=== PATIENT | female | born 1965 | race Caucasian/White ===

== ENCOUNTER 2017-12-22 13:03 | Emergency (ER) | payer MEDICARE, MEDICAID, SELFPAY ==
[2017-12-22 13:04] VITALS: BP 118/71; PULSE 110; RESP 18; TEMP 36.1; O2SAT 100; BMI 26.6
--- NOTE | 2017-12-22 13:16 | EKG12_ITS ---
Test Reason : DYSRHYTHMIA Blood Pressure : / mmHG Vent. Rate : 096 BPM Atrial Rate : 096 BPM P-R Int : 142 ms QRS Dur : 078 ms QT Int : 386 ms P-R-T Axes : 066 043 059 degrees QTc Int : 487 ms Normal sinus rhythm Prolonged QT Abnormal ECG Confirmed by CHARLI ZULETA, BARB ([id number]), news videotape editor MENA TIJERINA ([id number] on 12/27/2017 2:10:10 PM Referred By: BEVERLEY Confirmed By:BARB AUGUSTIN MD
--- NOTE | 2017-12-22 13:17 | CT_ITS ---
STUDY: CTA OF THE ABDOMINAL AORTA REASON FOR EXAM: Female, 52 years old. Right-sided chest pain and right upper extremity pain. RADIATION DOSAGE (If Supplied By Facility): CTDIvol = ( 14.52 ) mGy, DLP = ( 1018.88 ) mGycm TECHNIQUE: Axial CT angiography multi-detector data acquisition was obtained from the dome of the liver to the iliac crests following intravenous administration of 100ML ml of Isovue 370 contrast. Axial images and MIP images were reconstructed from the axial data set. Post-processing of the angiographic images was performed, with multiplanar reformation and 3D reconstruction. Individualized dose optimization techniques were used for this CT. TECHNICAL QUALITY: Good COMPARISON: None. Descriptors of Narrowing: None (0%) Mild (< 50%) Moderate (50-70%) Severe (70-90%) Subtotal/Total Occlusion (90-100%) Non-Evaluable (technically non-diagnostic FINDINGS: Abdominal aorta: No demonstrated narrowing. Celiac and superior mesenteric arteries: No demonstrated narrowing. Inferior mesenteric artery: No demonstrated narrowing. Right renal artery(arteries): No demonstrated narrowing. Left renal artery(arteries): No demonstrated narrowing. Fatty infiltration of the liver. Small hiatal hernia. Fluid-filled stomach. IMPRESSION: Normal abdominal aorta without a hemodynamically significant stenosis. Electronically Signed: Efren Arreguin MD at 14:29 EDT Tel [phone], Service support , STUDY: CTA CHEST REASON FOR EXAM: Female, 52 years old. Right-sided chest pain and right upper extremity pain. RADIATION DOSAGE (If Supplied By Facility): CTDIvol = ( 14.52 ) mGy, DLP = ( 1018.88 ) mGycm TECHNIQUE: The examination was performed with the intravenous administration of 100ML ml of Isovue 370 contrast material. Post-processing of the angiographic images was performed, with multiplanar reformation and 3D reconstruction. Individualized dose optimization techniques were used for this CT. COMPARISON: None. FINDINGS: Normal enhancement of the main pulmonary artery and right and left pulmonary arteries. Normal enhancement of the bilateral peripheral pulmonary arteries. There is no demonstrated pulmonary embolism. Normal thoracic aorta and visualized great vessels. There is no demonstrated aortic dissection. Normal heart and pericardium. Normal mediastinum. Normal hilar regions. Normal visualized trachea and bronchi. The lungs are well expanded. Mild degree of dependent bibasilar atelectasis. Normal pleura. Normal chest wall structures. There are degenerative changes of thoracic spine. Small hiatal hernia. CT/CTA Abdomen W/WO Contrast IMPRESSION: Mild degree of bibasilar atelectasis. Electronically Signed: Efren Arreguin MD at 14:30 EDT Tel [phone], Service support ,
--- NOTE | 2017-12-22 13:17 | CT_ITS ---
STUDY: CTA OF THE ABDOMINAL AORTA REASON FOR EXAM: Female, 52 years old. Right-sided chest pain and right upper extremity pain. RADIATION DOSAGE (If Supplied By Facility): CTDIvol = ( 14.52 ) mGy, DLP = ( 1018.88 ) mGycm TECHNIQUE: Axial CT angiography multi-detector data acquisition was obtained from the dome of the liver to the iliac crests following intravenous administration of 100ML ml of Isovue 370 contrast. Axial images and MIP images were reconstructed from the axial data set. Post-processing of the angiographic images was performed, with multiplanar reformation and 3D reconstruction. Individualized dose optimization techniques were used for this CT. TECHNICAL QUALITY: Good COMPARISON: None. Descriptors of Narrowing: None (0%) Mild (< 50%) Moderate (50-70%) Severe (70-90%) Subtotal/Total Occlusion (90-100%) Non-Evaluable (technically non-diagnostic FINDINGS: Abdominal aorta: No demonstrated narrowing. Celiac and superior mesenteric arteries: No demonstrated narrowing. Inferior mesenteric artery: No demonstrated narrowing. Right renal artery(arteries): No demonstrated narrowing. Left renal artery(arteries): No demonstrated narrowing. Fatty infiltration of the liver. Small hiatal hernia. Fluid-filled stomach. IMPRESSION: Normal abdominal aorta without a hemodynamically significant stenosis. Electronically Signed: Efren Arreguin MD at 14:29 EDT Tel [phone], Service support , STUDY: CTA CHEST REASON FOR EXAM: Female, 52 years old. Right-sided chest pain and right upper extremity pain. RADIATION DOSAGE (If Supplied By Facility): CTDIvol = ( 14.52 ) mGy, DLP = ( 1018.88 ) mGycm TECHNIQUE: The examination was performed with the intravenous administration of 100ML ml of Isovue 370 contrast material. Post-processing of the angiographic images was performed, with multiplanar reformation and 3D reconstruction. Individualized dose optimization techniques were used for this CT. COMPARISON: None. FINDINGS: Normal enhancement of the main pulmonary artery and right and left pulmonary arteries. Normal enhancement of the bilateral peripheral pulmonary arteries. There is no demonstrated pulmonary embolism. Normal thoracic aorta and visualized great vessels. There is no demonstrated aortic dissection. Normal heart and pericardium. Normal mediastinum. Normal hilar regions. Normal visualized trachea and bronchi. The lungs are well expanded. Mild degree of dependent bibasilar atelectasis. Normal pleura. Normal chest wall structures. There are degenerative changes of thoracic spine. Small hiatal hernia. CT/CTA Chest W/WO Contrast IMPRESSION: Mild degree of bibasilar atelectasis. Electronically Signed: Efren Arreguin MD at 14:30 EDT Tel [phone], Service support ,
--- NOTE | 2017-12-22 13:23 | ED.DCSUM_ITS ---
- ER Visit Summary Date of Service: 12/22/17 Chief Complaint: Right upper back pain in the right arm History of Present Illness: The patient is a 52 F presents to the emergency department with right upper back pain. Patient symptoms began yesterday. She states she has been doing a significant amount of cleaning around her house. She is right-hand dominant. She states yesterday the pain got acutely worse. She describes it as stabbing, burning sensation in the right upper back and radiates down her right arm. It is worse when she moves. She did have some chest pain with it today. She denies any history of coronary vascular disease. She denies any history of connective tissue disorder. She has no known history of dissection or aneurysm. She does not take anticoagulants. She states that she tried to Flexeril at home with little improvement. She feels like the muscles are spasming. Physical Examination: Vital signs reviewed General: Well-nourished, well-developed Head: Normocephalic, atraumatic Eyes: Pupils equal and reactive, extraocular muscles intact Neck, supple, no lymphadenopathy Heart: Regular rate and rhythm Respiratory: No distress, clear bilaterally Abdomen: Soft, nontender, nondistended, no peritoneal signs Back: Patient tender in the rhomboid musculature on the right with no crepitus Extremities: Nontender, no edema, no cords, 2+ symmetric upper extremity pulses Skin: Normal color no rash Neuro: Alert and oriented, no focal or lateralizing deficits Test Results: [] Emergency Department Course and Treatment: [The patient's pain does seem entirely reproducible, however as it did radiate to her back and chest I did want to rule out dissection. EKG was obtained which showed sinus rhythm without acute ischemic change. Patient underwent CT of the chest and abdomen. There was no acute process that would explain her pain. Her labs are relatively unremarkable except for mild elevation of her liver function tests. She has absolutely no abdominal pain. She denies taking any Tylenol. She states that she does drink occasionally but has not had right upper quadrant pain, vomiting, fevers, or chills. I am unsure of the etiology of this. I did psychotherapist counselor the patient that she is going to need reevaluation as an outpatient. With pain medication and antispasmodics or symptoms of improved. She continues to rest comfortably. I do not feel this or presents acute coronary syndrome. I do for the patient is safe for discharge with outpatient follow-up. She will be prescribed 2 days of Valium to help with her muscle spasm. She will be discharged home. Treatment Plan: [] Disposition: Charge Impression: 1. Right thoracic spasm This note was generated with [employer] dictation software. It may contain incorrect words, spelling, and punctuation that were not noted in review of the chart prior to signing ED Disposition - Plan for ED Patient: Chief Complaint: General Illness Instructions: ED Spasm Back No Trauma Prescriptions: Diazepam [Valium] 5 mg PO Q8 PRN #10 tab PRN Reason: Muscle Spasm Referrals: Mono Lynn MD [Primary Care Provider] -
[2017-12-22] MEDS: Ondansetron 4 MG/2 ML Vial IV (13:37)
[2017-12-22] MEDS: Morphine 4 MG/ML Syringe IV (13:37)
[2017-12-22] MEDS: 0.9% Normal Saline 1,000 ML 1000 ML IV (13:38)
[2017-12-22 13:43] LABS: Absolute Lymphocyte Count 0.89 X10^3/ul (0.83-4.51); Absolute Neutrophil Count 4.8 X10^3/uL (2.0-7.7); Basophil# 0.01 X10^3/uL; Basophil% 0.2 % (0-1); Eosinophil# 0.08 X10^3/uL; Eosinophils% 1.3 % (0-5); Hematocrit 36.5 % (37-47); Hemoglobin 12.1 g/dl (12.0-15.0); Lymphocyte # 0.89 X10^3/ul (4.0); Lymphocyte % 14.4 % (19-41); Mean Corp Hgb Conc 33.2 g/gl (32-36); Mean Corpuscular Hgb 30.7 pg (27.0-32.0); Mean Corpuscular Volume 92.6 fL (81-99); Mean Platelet Vol. 9.8 fl (6.2-12.0); Monocyte# 0.45 X10^3/uL; Monocyte% 7.3 % (0-10); Neutrophil # 4.76 X10^3/uL (2.7-7.7); Neutrophil % 76.6 % (47-70); POSITIVE COUNT NO; POSITIVE DIFFERENTIAL NO; POSITIVE MORPHOLOGY NO; Platelet Count 167 K/mm3 (150-450); RBC Distribution Width CV 14.9 % (11.6-14.6); RBC Distribution Width SD 50.3 fl (35.1-43.9); Red Blood Count 3.94 M/mm3 (4.2-5.4); White Blood Count 6.2 K/mm3 (4.4-11.0)
[2017-12-22 14:01] LABS: AST(SGOT) 358 U/L (15-37); Alanine Aminotransfer ALT/SGPT 225 U/L (13-56); Albumin, Serum 4.1 g/dL (3.2-5.0); Alkaline Phosphatase 113 U/L (45-117); Anion Gap 11 (5-15); BUN 13 mg/dL (7-18); BUN/Creat Ratio 9.9 RATIO (10-20); Chloride 90 mmol/L (98-107); Creatinine, Serum 1.31 mg/dL (0.55-1.02); EST Glomerular Filtration Rate 45 mL/min (>60); Est Glom Filt Rate - Afr Amer 55 mL/min (>60); Estimated Creatinine Clearance 46.49 ml/min; Glucose 137 mg/dL (74-106); Potassium 4.2 mmol/L (3.5-5.1); Protein, Total 8.1 g/dL (6.4-8.2); Sodium Level 129 mmol/L (136-145)
[2017-12-22 14:02] LABS: CPK Total, Creatine Kinase 78 U/L (26-192)
[2017-12-22] MEDS: Ketorolac 30 MG/ML Syringe IV (14:26)
[2017-12-22] MEDS: LORazepam 2 MG/ML Syringe 1 MG IV (14:26)
[2017-12-22 14:29] VITALS: BP 113/69; PULSE 94; RESP 12; O2SAT 98
[2017-12-22 15:01] VITALS: BP 113/69; PULSE 74; RESP 18; O2SAT 99
== END 2017-12-22 15:02 | disposition home or self-care (01) ==
PROVIDERS: Emergency Provider Emergency Medicine; Family Provider Family Medicine; PCP Family Medicine
DX: S29.012A Strain of muscle and tendon of back wall of thorax, initial encounter (principal); X58.XXXA Exposure to other specified factors, initial encounter; Y93.E5 Activity, floor mopping and cleaning; Y92.009 Unspecified place in unspecified non-institutional (private) residence as the place of occurrence of the external cause; M62.830 Muscle spasm of back; I10 Essential (primary) hypertension; Z79.899 Other long term (current) drug therapy
CPT/HCPCS: 71275; 74175; 80053; 82550; 84484; 85025; 93005; 96361; 96374; 96375; 99284; J7030; Q9967; A4216; J2405

== ENCOUNTER 2018-04-11 18:32 | Emergency (ER) | payer MEDICARE, MEDICAID, OTHER, SELFPAY ==
[2018-04-11 18:33] VITALS: BP 152/96; PULSE 98; RESP 20; TEMP 37; O2SAT 96; BMI 25.8
[2018-04-11] MEDS: HYDROcodone Bitartrate/Apap 5/325 Tablet PO (20:02)
--- NOTE | 2018-04-11 20:02 | CT_ITS ---
STUDY: CT BRAIN WITHOUT CONTRAST REASON FOR EXAM: Female, 53 years old. Trauma. RADIATION DOSAGE (If Supplied By Facility): CTDIvol = ( 44.99 ) mGy, DLP = ( 815.79 ) mGycm TECHNIQUE: Transaxial CT imaging of the brain was performed without administration of intravenous contrast material. Individualized dose optimization techniques were used for this CT. COMPARISON: None. FINDINGS: Normal soft tissue structures. There is a deformity of the nasal bone. There is extra-axial high attenuation fluid along the mid and posterior falx left of midline consistent with a parafalcine subdural hemorrhage measuring up to 3 mm in diameter. There is no underlying mass effect. There is mild cerebral atrophy with widening of the extra-axial spaces and ventricular dilatation. Normal white matter tracts of the cerebral hemispheres. Normal basal ganglia and thalami. Normal brainstem. Normal cerebellum. There are no findings of an acute ischemic infarction. There is partial opacification of the ethmoid, maxillary and sphenoid sinuses consistent with a history of sinusitis. CT/Brain/Head without Contrast IMPRESSION: Parafalcine subdural hemorrhage. Nasal bone deformity consistent with an underlying fracture of uncertain chronicity. N.B. : The above information has been verbally conveyed by Vanessa Mobley MD to Dr. Ez Metcalf, [facility] Physician, on 04/11/2018 20:42:11 (ET). Electronically Signed: Vanessa Mobley MD at 20:42 EDT Tel , Service support ,
[2018-04-11 20:11] VITALS: BP 165/109; PULSE 81; RESP 18; O2SAT 97
[2018-04-11] MEDS: Diphth,Pertuss(Acell),Tet Vac 0.5 ML Vial IM (21:12)
[2018-04-11 21:28] VITALS: BP 163/93; PULSE 81; RESP 16; O2SAT 97
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
[2018-04-11 22:40] VITALS: BP 157/89; PULSE 79; RESP 18; O2SAT 97
== END 2018-04-11 22:43 | disposition short-term general hospital (02) ==
PROVIDERS: Emergency Provider Emergency Medicine; Family Provider Family Medicine; PCP Family Medicine
DX: S06.5X9A Traumatic subdural hemorrhage with loss of consciousness of unspecified duration, initial encounter (principal); S51.011A Laceration without foreign body of right elbow, initial encounter; S60.221A Contusion of right hand, initial encounter; S00.33XA Contusion of nose, initial encounter; V23.5XXA Motorcycle passenger injured in collision with car, pick-up truck or van in traffic accident, initial encounter; Y93.9 Activity, unspecified; Y92.9 Unspecified place or not applicable
CPT/HCPCS: 70450; 71045; 72125; 73080; 73130; 90715; 99285

== ENCOUNTER → 2018-05-22 15:09 | Outpatient (CLI) | payer MEDICARE, MEDICAID, SELFPAY ==
--- NOTE | 2018-05-22 15:22 | CT_ITS ---
STUDY: CT BRAIN WITHOUT CONTRAST REASON FOR EXAM: Female, 53 years old. Trauma RADIATION DOSAGE (If Supplied By Facility): CTDIvol = ( 60.81 ) mGy, DLP = ( 998.67 ) mGycm TECHNIQUE: Transaxial CT imaging of the brain was performed without administration of intravenous contrast material. Individualized dose optimization techniques were used for this CT. COMPARISON: 04/11/2018 FINDINGS: There is no acute bleed or infarct. There are normal white matter tracts. The ventricles are normal in configuration. There is no hydrocephalus. The visualized paranasal sinuses are clear. The mastoid air cells are well aerated. There is no skull fracture. CT/Brain/Head without Contrast IMPRESSION: No acute intracranial abnormality. Electronically Signed: Arpit Ruiz, at 19:31 EDT Tel , Service support ,
== END ==
PROVIDERS: Family Provider Family Medicine; PCP Family Medicine
DX: S06.5X9A Traumatic subdural hemorrhage with loss of consciousness of unspecified duration, initial encounter (principal)
CPT/HCPCS: 70450

== ENCOUNTER 2018-09-03 13:04 | Emergency (ER) | payer MEDICARE, MEDICAID, SELFPAY ==
[2018-09-03 13:05] VITALS: BP 150/91; PULSE 110; RESP 18; TEMP 36.8; O2SAT 99; BMI 26.6
--- NOTE | 2018-09-03 13:19 | ED.DCSUM_ITS ---
- ER Visit Summary Date of Service: 09/03/18 Chief Complaint: Right foot pain History of Present Illness: The patient is a 53 F presents to the emergency department for right foot pain. Patient describes atraumatic pain of the right foot. She states it started 4 days ago. It was in the arch of her foot. She describes increasing pain. She states she had a difficult time walking on it. Over the past day, the pain is come to the top of her foot. She states she did have similar symptoms before when she had a DVT of her left lower extremity after the surgery. She denies any chest pain or shortness of breath. She has not on anticoagulants. She has not taken anything for her pain because she does have history of bleeding ulcer thought to be secondary from NSAID use. Physical Examination: Vital signs reviewed General: Well-nourished, well-developed Head: Normocephalic, atraumatic Eyes: Pupils equal and reactive, extraocular muscles intact Neck, supple, no lymphadenopathy Heart: Regular rate and rhythm Respiratory: No distress, clear bilaterally Abdomen: Soft, nontender, nondistended, no peritoneal signs Back: Nontender Extremities: Nontender, no edema, no cords Skin: Normal color no rash Neuro: Alert and oriented, no focal or lateralizing deficits Test Results: [] Emergency Department Course and Treatment: The patient is rather tender in the arch of the foot. Her pulses are normal. There is no cords. There is no edema or erythema. The patient was concerned for blood clot because she had similar symptoms after knee surgery in the left foot. She has no objective signs of clot. I did obtain a d-dimer. This was just barely positive. Again, the patient has no objective signs of a DVT. I did family counselor her on options. Using shared decision making, we agreed to hold on anticoagulants especially given her history of significant GI bleed. My suspicion is that this is likely a plantar's fasciitis. I am going to order an outpatient ultrasound. She will be given analgesics for home. She was counseled on concerning symptoms. The patient will be discharged. Treatment Plan: [] Disposition: Discharge Impression: 1. Right plantars fasciitis This note was generated with [employer] software. It may contain incorrect words, spelling, and punctuation that were not noted in review of the chart prior to signing ED Disposition - Plan for ED Patient: Chief Complaint: Lower Extremity Injury Instructions: ED Plantar Fasciitis Prescriptions: Hydrocodone Bitart/Apap 5-325 [Omar 5MG-325MG] 1 tab PO Q6H PRN PRN 3 Days #10 tab PRN Reason: Pain Referrals: Mono Lynn MD [Primary Care Provider] -
--- NOTE | 2018-09-03 13:30 | RAD_ITS ---
STUDY: X-RAY - RIGHT FOOT CLINICAL: Female, 53 years old. Pain. TECHNIQUE: 3 view(s) of the foot. COMPARISON: None. FINDINGS: There is a plantar calcaneal spur. Normal talus and tarsal bones. Normal visualized subtalar, talonavicular, calcaneocuboid, tarsal and tarsometatarsal articulations. There is evidence of osteotomy with transfixing screws of the distal first metatarsal. The second through fifth metatarsals appear unremarkable. Normal metatarsophalangeal joint of the great toe. Normal tibial and fibular sesamoid bones. Normal interphalangeal joint of the great toe. Normal phalanges of the great toe. Normal second through fifth metatarsophalangeal joints. Normal interphalangeal joints and phalanges of the lesser toes. The soft tissue structures are unremarkable. RAD/Foot min 3 Views IMPRESSION: 1. Postsurgical changes of the first metatarsal. 2. Small plantar spur. Electronically Signed: Moo Roberts DO at 14:26 EST Tel [phone], Service support ,
[2018-09-03] MEDS: HYDROcodone Bitartrate/Apap 5/325 Tablet PO (14:09)
[2018-09-03 14:36] LABS: D-Dimer Quantitative (DVT/PE) 0.57 FEU/ug/m (0.27-0.49)
[2018-09-03 14:44] VITALS: RESP 18
== END 2018-09-03 15:17 | disposition home or self-care (01) ==
PROVIDERS: Emergency Provider Emergency Medicine; Family Provider Family Medicine; PCP Family Medicine
DX: M72.2 Plantar fascial fibromatosis (principal)
CPT/HCPCS: 73630; 85379; 99283

== ENCOUNTER → 2018-09-05 13:01 | Outpatient (CLI) | payer MEDICARE, MEDICAID, SELFPAY ==
[2018-09-03 13:05] VITALS: BMI 26.6
--- NOTE | 2018-09-05 13:06 | VDLE_ITS ---
Reason For Study: Swelling RIGHT LEFT GSV is normal. CFV is compressible, spontaneous, phasic, CFV is compressible, spontaneous, phasic, competent, and demonstrates normal competent and demonstrates normal augmentation. augmentation. FV is compressible, spontaneous, phasic, competent and demonstrates normal augmentation. POP V is compressible, spontaneous, phasic, competent and demonstrates normal augmentation. T/P Trunk is compressible. PTV is compressible. RT PerV is compressible. Procedure Exam performed in department. A preliminary report was called and/or faxed to Leah. Interpretation Summary Deep veins of the right lower extremity are patent and compressible segmentally. There is no evidence of right lower extremity deep vein thrombosis. Valvular competence appears intact within the proximal deep venous system on the right . The right greater saphenous vein appears patent and compressible segmentally. Ordering Physician: Buzz Woody Referring Physician: MD Leah Mono Performed By: Lakeshia Olivares RVT and Student
== END ==
PROVIDERS: Family Provider Family Medicine; PCP Family Medicine; Referring Provider Emergency Medicine; Visit Provider Emergency Medicine
DX: M79.89 Other specified soft tissue disorders (principal)
CPT/HCPCS: 93971

== ENCOUNTER 2019-01-25 11:03 | Emergency (ER) | payer MEDICARE, MEDICAID, SELFPAY ==
[2019-01-25 11:05] VITALS: BP 98/60; PULSE 118; RESP 20; TEMP 36.1; O2SAT 94; BMI 25.8
--- NOTE | 2019-01-25 11:33 | EKG12_ITS ---
Test Reason : CP Blood Pressure : / mmHG Vent. Rate : 125 BPM Atrial Rate : 125 BPM P-R Int : 130 ms QRS Dur : 072 ms QT Int : 320 ms P-R-T Axes : 069 047 068 degrees QTc Int : 461 ms Sinus tachycardia Otherwise normal ECG Confirmed by HIRAM ZULETA, REJI ([id number]), script editor ARMANDO CAUSEY ([id number]) on 01/29/2019 11:23:13 AM Referred By: Confirmed By:FORTINO GANDHI MD
--- NOTE | 2019-01-25 11:44 | RAD_ITS ---
STUDY: X-RAY CHEST REASON FOR EXAM: Female, 53 years old. Muscle spasms. Chest pain. TECHNIQUE: Single AP portable view of the chest. COMPARISON: Comparison is made with prior study July 11, 2018. FINDINGS: EKG electrodes are seen. Mild increased markings at the right lung base suggestive of atelectasis. There is no demonstrated pleural abnormality. Normal size heart. Normal mediastinum and pankaj. Normal visualized pulmonary arteries. Normal visualized aortic arch and descending thoracic aorta. Normal visualized thoracic spine. Normal visualized ribs, clavicles, and shoulders. There is no demonstrated abnormality of the visualized soft tissue structures of the upper abdomen. RAD/Chest 1 View (Portable) IMPRESSION: Right basilar atelectasis. Electronically Signed: Efren Arreguin, at 13:10 EDT , Service support ,
--- NOTE | 2019-01-25 11:51 | ED.VIS.GEN ---
History of Present Illness Chief Complaint: Chest Pain Informant: Patient Onset: Yesterday Current Severity: Mild Narrative: Patient is complaining of a right-sided chest sensation that she describes as a, intermittent pain that lasts for a minute or 2 and resolves but recurs multiple times throughout the course of the day, she has no left-sided chest symptoms, she is had no fever no cough no orthopnea. 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 She indicates she has a history of hypertension she takes at least 2 antihypertensives but she reports she believes she is lost over 100 pounds by dieting and other lifestyle modifications and she does not believe she needs her blood pressure medications she is scheduled to see her family physician next week for the above she has had normal bowel bladder habits no exposures eating and drinking well currently without symptoms Past Medical History - Allergies and Home Meds Allergies/Adverse Reactions: Allergies acetaminophen [From Tylenol] Allergy (Verified 01/25/19 11:04) Bleeding simvastatin [From Zocor] Allergy (Verified 01/25/19 11:04) Rash Primary Care Physician: Mono Lynn MD [Primary Care Provider] - Past Medical History: - Surgical History: - - tubal ligation, Tallors Bunion repair, reconstruction of the nose after a fracture, D&C's Smoking Status: Never smoker - Family History Maternal Family History: Reports: No pertinent history Review of Systems ROS: - Hypertension see above General: Denies: Chills, Fever, Sweats Eyes: Denies: Visual changes - bilaterally, Diplopia ENT: Denies: Rhinorrhea, Sore throat Cardiovascular: Reports: Chest pain. Denies: Palpitations Respiratory: Denies: Dyspnea, Cough, Dyspnea on exertion Gastrointestinal: Denies: Abdominal pain, Nausea, Vomiting, Diarrhea, Melena, Hematochezia Genitourinary: Denies: Dysuria, Hematuria, Frequency Musculoskeletal: Denies: Back pain, Extremity Pain Skin: Denies: Rash, Wounds Neurological: Denies: Headache, Weakness, Numbness Physical Exam Vital Signs/Narrative: Vital Signs Temp Pulse Resp BP Pulse Ox 01/25/19 11:05 96.9 F L 118 H 20 H 98/60 94 General: Well nourished, Well developed, No Acute Distress Head: Normocephalic, Atraumatic Eyes: Perrl, EOMI ENT: Moist mucous membranes, No rhinorrhea Neck: Supple, Nontender Cardiovascular: Regular rate, Regular rhythm, No murmurs Respiratory: No distress, CTA bilaterally, Chest nontender Abdomen: Soft, Nontender, Nondistended, Normal bowel sounds Back: Nontender, Normal Inspection Extremities: Nontender, No edema Skin: Normal color, No rash Neurological: Alert, Oriented x3, Cranial nerves II-XII grossly intact, Normal Strength, Normal Sensation Psychological: Normal affect, Normal Mood Diagnostic/Tx/Re-eval - Medical Decision Making Patient's EKG shows a sinus rhythm nothing acute about 120 given all of the above in her history and her complaints she is received fluid bolus screening labs including d-dimer chest x-ray, she assures me she has had no vomiting no blood per rectum she is having no symptoms that she sits in the bed She is screening labs are all generally unremarkable except her d-dimer see those reports is elevated to greater than 20 given all the above CTA was done of the chest shows no PE no dissection on reevaluation she is resting comfortably bed her blood pressure in the 120/80 after fluids Discussed inpatient versus outpatient management she states she feels fine she does not wish to be admitted she wants to go home now she indicates she feels her blood pressure medications are no longer necessary because she is lost a lot of weight we did discuss the fact that the elevation in the d-dimer is unclear if need close outpatient follow-up she wants to follow-up with outpatient providers, she will rest hold her blood pressure meds see her outpatient providers return for change in symptoms Home stable final impression Transient right-sided chest pain resolved, hypotension resolved, declined admission ED Disposition - Plan for ED Patient: Diagnosis: Chest pain Instructions: CHEST PAIN, Uncertain Cause Referrals: Mono Lynn MD [Primary Care Provider] -
[2019-01-25 12:02] LABS: Absolute Lymphocyte Count 0.86 X10^3/ul (0.83-4.51); Absolute Neutrophil Count 6.3 X10^3/uL (2.0-7.7); Basophil# 0.01 X10^3/uL; Basophil% 0.1 % (0-1); Eosinophil# 0.03 X10^3/uL; Eosinophils% 0.4 % (0-5); Hematocrit 48.4 % (37-47); Hemoglobin 16.5 g/dl (12.0-15.0); Lymphocyte # 0.86 X10^3/ul (4.0); Mean Corp Hgb Conc 34.1 g/gl (32-36); Mean Corpuscular Hgb 33.9 pg (27.0-32.0); Mean Corpuscular Volume 99.4 fL (81-99); Monocyte# 0.66 X10^3/uL; Monocyte% 8.4 % (0-10); Neutrophil # 6.26 X10^3/uL (2.7-7.7); Neutrophil % 79.8 % (47-70); Platelet Count 142 K/mm3 (150-450); RBC Distribution Width CV 13.7 % (11.6-14.6); RBC Distribution Width SD 49.5 fl (35.1-43.9); Red Blood Count 4.87 M/mm3 (4.2-5.4); White Blood Count 7.8 K/mm3 (4.4-11.0)
[2019-01-25 12:03] VITALS: BP 96/79; PULSE 83; RESP 14; O2SAT 97
[2019-01-25 12:06] LABS: POSITIVE COUNT NO; POSITIVE DIFFERENTIAL NO; POSITIVE MORPHOLOGY NO
[2019-01-25 12:09] LABS: Anion Gap 7 (5-15); BUN 15 mg/dL (7-18); BUN/Creat Ratio 10.9 RATIO (10-20); Calcium,Total 9.9 mg/dL (8.5-10.1); Chloride 94 mmol/L (98-107); Creatinine, Serum 1.37 mg/dL (0.55-1.02); EST Glomerular Filtration Rate 43 mL/min (>60); Est Glom Filt Rate - Afr Amer 52 mL/min (>60); Estimated Creatinine Clearance 43.95 ml/min; Glucose 144 mg/dL (74-106); Potassium 3.7 mmol/L (3.5-5.1); Sodium Level 131 mmol/L (136-145)
[2019-01-25 12:11] VITALS: O2SAT 100
[2019-01-25] MEDS: 0.9% Normal Saline 1,000 ML 999 ML IV (12:13)
[2019-01-25 12:52] LABS: BNP,B-Type NATRIURETIC PEPTIDE 14.8 pg/mL (0-100)
[2019-01-25 13:06] LABS: D-Dimer Quantitative (DVT/PE) > 20.00 FEU/ug/m (0.27-0.49)
--- NOTE | 2019-01-25 13:10 | CT_ITS ---
STUDY: CTA CHEST REASON FOR EXAM: Female, 53 years old. Chest pain. Abnormal d-dimer. RADIATION DOSAGE (If Supplied By Facility): CTDIvol = ( 8.11 ) mGy, DLP = ( 383.52 ) mGycm TECHNIQUE: The examination was performed with the intravenous administration of 75 IV Isovue 370. Post-processing of the angiographic images was performed, with multiplanar reformation and 3D reconstruction. Individualized dose optimization techniques were used for this CT. COMPARISON: Comparison is made with prior study dated December 22, 2017. FINDINGS: Normal enhancement of the main pulmonary artery and right and left pulmonary arteries. Normal enhancement of the bilateral peripheral pulmonary arteries. There is no demonstrated pulmonary embolism. Normal thoracic aorta and visualized great vessels. There is no demonstrated aortic dissection. Normal heart and pericardium. Normal mediastinum. Normal hilar regions. Normal visualized trachea and bronchi. The lungs are well expanded. Mild degree of increased markings in the posterior superior segment of the right lower lobe. Mild increased markings in the peripheral aspect left lower lobe as well as right lower lobe scar. Normal pleura. Normal chest wall structures. There are degenerative changes of thoracic spine. Fatty infiltration of the liver. CT/CTA Chest W/WO Contrast IMPRESSION: No evidence of pulmonary emboli. Nonspecific scarring in both lungs as discussed. Electronically Signed: Efren Arreguin, at 13:53 EDT , Service support ,
[2019-01-25 14:00] VITALS: BP 101/66; PULSE 84; RESP 18; O2SAT 97
[2019-01-25 15:39] VITALS: RESP 18; O2SAT 98
== END 2019-01-25 15:40 | disposition home or self-care (01) ==
PROVIDERS: Emergency Provider Emergency Medicine; Family Provider Family Medicine; PCP Family Medicine
DX: R07.89 Other chest pain (principal); I95.9 Hypotension, unspecified; R79.89 Other specified abnormal findings of blood chemistry; I10 Essential (primary) hypertension; Z86.718 Personal history of other venous thrombosis and embolism; Z79.899 Other long term (current) drug therapy
CPT/HCPCS: 71045; 71275; 80048; 83880; 84484; 85025; 85379; 93005; 96360; 96361; 99284; J7030; Q9967; A4216

== ENCOUNTER 2019-06-26 14:13 | Emergency (ER) | payer MEDICARE, MEDICAID, SELFPAY ==
[2019-06-26 14:14] VITALS: BP 150/98; PULSE 129; RESP 15; TEMP 37; O2SAT 98; BMI 26.6
--- NOTE | 2019-06-26 14:19 | EKG12_ITS ---
Test Reason : CP Blood Pressure : / mmHG Vent. Rate : 124 BPM Atrial Rate : 124 BPM P-R Int : 134 ms QRS Dur : 068 ms QT Int : 324 ms P-R-T Axes : 054 028 058 degrees QTc Int : 465 ms Sinus tachycardia Nonspecific ST abnormality Abnormal ECG Confirmed by HIRAM ZULETA, REJI ([id number]), magazine editor ARMANDO CAUSEY ([id number]) on 06/29/2019 12:22:31 PM Referred By: IRMA/JAMES Confirmed By:FORTINO GANDHI MD
--- NOTE | 2019-06-26 14:19 | RAD_ITS ---
STUDY: X-RAY CHEST REASON FOR EXAM: Female, 54 years old. Chest pain. TECHNIQUE: Single AP portable view of the chest. COMPARISON: Comparison is made with prior study dated January 25, 2019. FINDINGS: EKG electrodes are seen. The lungs are clear and expanded. There is no demonstrated pleural abnormality. Normal size heart. Normal mediastinum and pankaj. Normal visualized pulmonary arteries. Normal visualized aortic arch and descending thoracic aorta. There are diffuse degenerative changes of the visualized thoracic spine. Mild deformity of the proximal metaphysis of the left humerus most likely secondary to old trauma. There is no demonstrated abnormality of the visualized soft tissue structures of the upper abdomen. RAD/Chest 1 View (Portable) IMPRESSION: No acute abnormality is seen. Electronically Signed: Efren Arreguin, at 15:05 EST , Service support ,
[2019-06-26 14:38] VITALS: BP 153/97; PULSE 109; RESP 20; O2SAT 99
[2019-06-26 14:50] LABS: Absolute Lymphocyte Count 1.31 X10^3/uL (0.83-4.51); Absolute Neutrophil Count 5.2 X10^3/uL (2.0-7.7); Basophil# 0.07 X10^3/uL; Basophil% 0.9 % (0-1); Eosinophil# 0.15 X10^3/uL; Hematocrit 42.8 % (37-47); Hemoglobin 13.9 g/dL (12.0-15.0); Lymphocyte # 1.31 X10^3/ul (4.0); Lymphocyte % 17.4 % (19-41); Mean Corp Hgb Conc 32.5 g/dL (32-36); Mean Corpuscular Volume 101.7 fL (81-99); Mean Platelet Vol. 10.8 fl (6.2-12.0); Monocyte# 0.74 X10^3/uL; Monocyte% 9.8 % (0-10); NRBC Flagged by Analyzer 0 % (0-5); Neutrophil # 5.22 X10^3/uL (2.7-7.7); Neutrophil % 69.5 % (47-70); Platelet Count 172 K/mm3 (150-450); RBC Distribution Width CV 14.3 % (11.6-14.6); RBC Distribution Width SD 53.6 fl (35.1-43.9); Red Blood Count 4.21 M/mm3 (4.2-5.4); White Blood Count 7.5 K/mm3 (4.4-11.0)
[2019-06-26 14:59] LABS: Anion Gap 10 (5-15); BUN 5 mg/dL (7-18); Calcium,Total 9.5 mg/dL (8.5-10.1); Chloride 104 mmol/L (98-107); Creatinine, Serum 0.72 mg/dL (0.55-1.02); EST Glomerular Filtration Rate 90 mL/min (>60); Est Glom Filt Rate - Afr Amer 109 mL/min (>60); Estimated Creatinine Clearance 82.65 ml/min; Glucose 117 mg/dL (74-106); Potassium 3.6 mmol/L (3.5-5.1); Sodium Level 138 mmol/L (136-145)
[2019-06-26 15:07] LABS: International Normalized Ratio 0.9; Prothrombin Time (Protime)PT. 12.2 SECONDS (11.7-14.9)
--- NOTE | 2019-06-26 15:16 | ED.DCSUM_ITS ---
- ER Visit Summary Date of Service: 06/26/19 Chief Complaint: Chest pain History of Present Illness: The patient is a 54 F presenting with chest pain. She states she has had intermittent pain throughout the week but it worsened today. She noticed pain started when she was vacuuming today. She has midster nal chest pain that radiates to her neck. She describes it as a 8 out of 10 pressure at its worst. Currently 5/10. She has a history of hypertension. She has a remote history of DVT which occurred after knee surgery. She is not on anticoagulants. She is not a smoker. She also noticed bruising on both arms and legs. She states this started a few weeks ago. She does not recall any injury. Physical Examination: Vitals are stable. Patient is afebrile. Heart rate 109. Alert no acute distress. HEENT exam is unremarkable. Neck is supple. Lungs are clear and equal bilaterally. Heart is regular and tachycardic Abdomen is soft nontender nondistended. Extremities ecchymosis right forearm, bilateral thigh. Normal distal pulses. Skin is warm and dry. No focal neurologic deficit. Remainder of exam is unremarkable. Emergency Department Course and Treatment: Patient refused aspirin. She was given nitro with improvement of her pain. EKG is sinus tachycardia rate of 124. Chest x-ray shows no acute process. CBC, chemistries unremarkable. Troponin is negative. D-dimer elevated 2.05. CTA chest shows normal CTA chest examination, without a demonstrated pulmonary embolism or arterial dissection. Hepatic steatosis. Coarse fibrotic changes of the posterior lung bases. Diffuse endplate spondylosis of the thoracic spine. On reevaluation, patient is feeling improved. Recommend admission for stress test. Patient refuses admission. She states she has to work tomorrow and has a dog at home and is unable to stay in the hospital. She is advised risks/benefits of admission and leaving AGAINST MEDICAL ADVICE. She understands these risks including [place] and . She signed out AGAINST MEDICAL ADVICE. She will follow-up with her primary care physician tomorrow. She is advised to return to the ED for worsening complaints. Disposition: AGAINST MEDICAL ADVICE Impression: Chest pain This note was generated with [employer] dictation software. It may contain incorrect words, spelling, and punctuation that were not noted in review of the chart prior to signing ED Disposition - Plan for ED Patient: Instructions: CHEST PAIN, Uncertain Cause Referrals: Mono Lynn MD [Primary Care Provider] -
[2019-06-26 15:36] VITALS: BP 148/95; PULSE 99
[2019-06-26] MEDS: Nitroglycerin SL (ED/IMG/CATH) 0.4 MG TABLET SUBLINGUAL (15:36)
[2019-06-26 15:40] VITALS: BP 148/95; PULSE 110; RESP 17
[2019-06-26 15:52] LABS: D-Dimer Quantitative (DVT/PE) 2.05 FEU/ug/m (0.27-0.49)
--- NOTE | 2019-06-26 15:58 | CT_ITS ---
STUDY: CTA CHEST REASON FOR EXAM: Female, 54 years old. Elevated d-dimer, chest pain, bruising to extremities RADIATION DOSAGE (If Supplied By Facility): CTDIvol = ( 10.49 ) mGy, DLP = ( 419.24 ) mGycm TECHNIQUE: The examination was performed with the intravenous administration of IV Isovue 370 100. Post-processing of the angiographic images was performed, with multiplanar reformation and 3D reconstruction. Individualized dose optimization techniques were used for this CT. COMPARISON: Previous study of 01/25/2019 FINDINGS: Normal enhancement of the main pulmonary artery and right and left pulmonary arteries. Normal enhancement of the bilateral peripheral pulmonary arteries. There is no demonstrated pulmonary embolism. Normal thoracic aorta and visualized great vessels. There is no demonstrated aortic dissection. Normal heart and pericardium. Normal mediastinum. Normal hilar regions. Normal visualized trachea and bronchi. The lungs are well expanded. There are coarse fibrotic changes of the posterior lung bases. Normal pleura. Normal chest wall structures. There is diffuse endplate spondylosis of the thoracic spine. There is decreased hepatic density consistent with steatosis. CT/CTA Chest W/WO Contrast IMPRESSION: Normal CTA chest examination, without a demonstrated pulmonary embolism or arterial dissection. Hepatic steatosis. Coarse fibrotic changes of the posterior lung bases. Diffuse endplate spondylosis of the thoracic spine. Electronically Signed: Sergio Camara MD at 16:47 EST , Service support ,
[2019-06-26 16:24] VITALS: BP 130/76; PULSE 92; RESP 17; O2SAT 94
--- NOTE | 2019-06-26 17:09 | ED.DEP ---
ED Disposition - Plan for ED Patient: Instructions: CHEST PAIN, Uncertain Cause Referrals: Mono Lynn MD [Primary Care Provider] -
[2019-06-26 17:31] VITALS: BP 144/90; PULSE 72; RESP 16; O2SAT 97
== END 2019-06-26 17:32 | disposition left against medical advice (07) ==
LOC: ED 15:54
PROVIDERS: Emergency Provider Emergency Medicine; Family Provider Family Medicine; PCP Family Medicine
DX: R07.9 Chest pain, unspecified (principal); Z86.718 Personal history of other venous thrombosis and embolism; Z53.29 Procedure and treatment not carried out because of patient's decision for other reasons
CPT/HCPCS: 71045; 71275; 80048; 84484; 85025; 85379; 85610; 93005; 99285; Q9967

== ENCOUNTER 2020-01-01 10:57 | Emergency (ER) | payer MEDICARE, MEDICAID, SELFPAY ==
[2020-01-01 10:59] VITALS: BP 132/98; PULSE 129; RESP 20; TEMP 36.8; O2SAT 95; BMI 25.8
--- NOTE | 2020-01-01 11:13 | RAD_ITS ---
STUDY: X-RAY CHEST REASON FOR EXAM: Female, 54 years old. SOB TECHNIQUE: Single AP portable view of the chest. COMPARISON: Comparison is made with prior examination dated June 26, 2019. FINDINGS: EKG electrodes are seen. The lungs are clear and expanded. There is no demonstrated pleural abnormality. Normal size heart. Normal mediastinum and pnakaj. Normal visualized pulmonary arteries. Normal visualized aortic arch and descending thoracic aorta. There are degenerative changes of the visualized thoracic spine. Stable deformity of the proximal metaphysis of the left humerus in keeping with a healed fracture. There is no demonstrated abnormality of the visualized soft tissue structures of the upper abdomen. RAD/Chest 1 View (Portable) IMPRESSION: No acute abnormality is seen. Electronically Signed: Efren Arreguin, at 12:51 EDT , Service support ,
--- NOTE | 2020-01-01 11:13 | EKG12_ITS ---
Test Reason : SOB, COUGH Blood Pressure : / mmHG Vent. Rate : 106 BPM Atrial Rate : 106 BPM P-R Int : 138 ms QRS Dur : 076 ms QT Int : 378 ms P-R-T Axes : 040 020 040 degrees QTc Int : 502 ms Sinus tachycardia Otherwise normal ECG Confirmed by DAGO MARINO ([id number]), acquisitions editor MENA TIJERINA ([id number]) on 01/03/2020 2:26:23 PM Referred By: SATHYA Confirmed By:DAGO MARINO
[2020-01-01 11:46] VITALS: BP 141/95; PULSE 110; RESP 19; TEMP 36.8; O2SAT 96
[2020-01-01 11:49] VITALS: O2SAT 96
[2020-01-01 12:08] LABS: Absolute Lymphocyte Count 0.62 X10^3/uL (0.83-4.51); Absolute Neutrophil Count 3.7 X10^3/uL (2.0-7.7); Basophil# 0.04 X10^3/uL; Basophil% 0.8 % (0-1); Eosinophil# 0.17 X10^3/uL; Eosinophils% 3.3 % (0-5); Hematocrit 46.1 % (37-47); Lymphocyte # 0.62 X10^3/ul (4.0); Lymphocyte % 11.9 % (19-41); Mean Corp Hgb Conc 32.5 g/dL (32-36); Mean Corpuscular Hgb 33.1 pg (27.0-32.0); Mean Corpuscular Volume 101.8 fL (81-99); Mean Platelet Vol. 10.8 fl (6.2-12.0); Monocyte# 0.65 X10^3/uL; Monocyte% 12.5 % (0-10); NRBC Flagged by Analyzer 0 % (0-5); Neutrophil # 3.69 X10^3/uL (2.7-7.7); Neutrophil % 71.1 % (47-70); Platelet Count 150 K/mm3 (150-450); RBC Distribution Width CV 14.6 % (11.6-14.6); RBC Distribution Width SD 54.8 fl (35.1-43.9); Red Blood Count 4.53 M/mm3 (4.2-5.4); White Blood Count 5.2 K/mm3 (4.4-11.0)
[2020-01-01 12:20] LABS: D-Dimer Quantitative (DVT/PE) 1.84 FEU/ug/m (0.27-0.49)
[2020-01-01 12:22] LABS: BNP,B-Type NATRIURETIC PEPTIDE 126.5 pg/mL (0-100)
[2020-01-01 12:24] VITALS: O2SAT 96
[2020-01-01 12:27] LABS: Anion Gap 12 (5-15); BUN 7 mg/dL (7-18); BUN/Creat Ratio 13.3 RATIO (10-20); Calcium,Total 9.3 mg/dL (8.5-10.1); Chloride 98 mmol/L (98-107); Creatinine, Serum 0.53 mg/dL (0.55-1.02); EST Glomerular Filtration Rate 128 mL/min (>60); Est Glom Filt Rate - Afr Amer 155 mL/min (>60); Estimated Creatinine Clearance 112.28 ml/min; Glucose 100 mg/dL (74-106); Sodium Level 138 mmol/L (136-145)
--- NOTE | 2020-01-01 12:44 | CT_ITS ---
STUDY: CTA CHEST REASON FOR EXAM: Female, 54 years old. ? PE. SOB, FATIGUE. RADIATION DOSAGE (If Supplied By Facility): CTDIvol = ( 8.84 ) mGy, DLP = ( 406.49 ) mGycm TECHNIQUE: The examination was performed with the intravenous administration of 100ML ISOVUE 370. Post-processing of the angiographic images was performed, with multiplanar reformation and 3D reconstruction. Individualized dose optimization techniques were used for this CT. COMPARISON: Comparison is made with prior study dated June 26, 2019. FINDINGS: Small benign-appearing bilateral axillary lymph nodes. Normal enhancement of the main pulmonary artery and right and left pulmonary arteries. Normal enhancement of the bilateral peripheral pulmonary arteries. There is no demonstrated pulmonary embolism. Normal thoracic aorta and visualized great vessels. There is no demonstrated aortic dissection. Normal heart and pericardium. There are visualized mediastinal lymph nodes, which are within normal size limits, and with normal morphology. Normal hilar regions. Normal visualized trachea and bronchi. The lungs are well expanded. Minimal increased linear markings at the lung Normal pleura. Normal chest wall structures. There are degenerative changes of thoracic spine. Diffuse fatty infiltration of the liver. CT/CTA Chest W/WO Contrast IMPRESSION: Normal CTA chest examination, without a demonstrated pulmonary embolism or arterial dissection. Mild degree of increased markings at the lung bases suggest bibasilar atelectasis. Fatty infiltration of the liver. Electronically Signed: Efren Arreguin, at 13:55 EDT , Service support ,
--- NOTE | 2020-01-01 13:49 | ED.VISSUMM ---
- ER Visit Summary Date of Service: 01/01/20 Chief Complaint: Shortness of breath History of Present Illness: The patient is a 54 F who presents with shortness of breath for several days. Worse with exertion and associated with fatigue and mild cough. Denies any history of heart or lung disease, but has had PE in the past that was provoked by orthopedic surgery. She is not currently on anticoagulation. No fevers or exposure to coronavirus that she is aware of. Physical Examination: Afebrile and vital signs unremarkable except for heart rate of 110. Tachycardic but regular. Lungs clear. Extremities nontender with no edema. Skin normal. Test Results: EKG showed sinus rhythm at a rate of 106. CBC and BMP unremarkable. Troponin normal. BNP 126, and d-dimer was elevated. COVID testing is pending. Chest x-ray showed nothing acute. CTA is pending. Emergency Department Course and Treatment: Patient presents with shortness of breath and nonspecific symptoms. Her history and are reassuring. Work-up so far has been unremarkable except for the elevated d-dimer. CTA is pending. COVID testing is pending. Patient will be signed out to the oncoming doctor to check the CTA results. If this is unremarkable, she may be discharged without the COVID results. She will be educated about self quarantining and will follow up with the results. Return for any new or worsening issues, otherwise follow-up PCP. CTA was unremarkable except for atelectasis and fatty liver. Patient will be discharged home. COVID precautions. Treatment Plan: As above Disposition: Pending CTA results Impression: Dyspnea COVID suspected This note was generated with [employer] dictation software. It may contain incorrect words, spelling, and punctuation that were not noted in review of the chart prior to signing ED Disposition - Plan for ED Patient: Referrals: Mono Lynn MD [Primary Care Provider] -
--- NOTE | 2020-01-01 14:14 | ED.DEP ---
ED Disposition - Plan for ED Patient: Instructions: ED Upper Resp Infec No Abx Tx Referrals: Mono Lynn MD [Primary Care Provider] -
[2020-01-01 14:39] VITALS: BP 145/97; PULSE 70; RESP 16; TEMP 36.4; O2SAT 97; O2SAT 98
== END 2020-01-01 14:41 | disposition home or self-care (01) ==
LOC: ED 13:12
PROVIDERS: Emergency Provider Emergency Medicine; PCP Family Medicine
DX: R06.02 Shortness of breath (principal); R06.00 Dyspnea, unspecified; K76.0 Fatty (change of) liver, not elsewhere classified; Z86.711 Personal history of pulmonary embolism; F17.210 Nicotine dependence, cigarettes, uncomplicated
CPT/HCPCS: 71045; 71275; 80048; 83880; 84484; 85025; 85379; 87635; 93005; 99284; Q9967; U0004

== ENCOUNTER 2020-05-07 16:50 | Emergency (ER) | payer MEDICARE, MEDICAID, SELFPAY ==
[2020-05-07 16:52] VITALS: BP 127/89; PULSE 114; RESP 16; TEMP 36.1; O2SAT 99; BMI 23.8
--- NOTE | 2020-05-07 17:43 | ED.DCSUM_ITS ---
History of Present Illness Chief Complaint: Rash Informant: Patient Narrative: D5-year-old female presenting with bilateral upper and lower extremity pain. She states it feels like her skin is tight. She has an unknown autoimmune disorder which is been evaluated in an ongoing fashion. She seen a event marketing intern who does not think she has rheumatoid. She seen a diabetes manager who did a biopsy of her skin and has not had a result yet. She states that when she has this pain that usually steroids help. Had normal lab work done 2 days ago. - Past Medical History (1) Acute upper gastrointestinal bleeding Status: Chronic (2) Hyponatremia Status: Chronic (3) UGIB (upper gastrointestinal bleed) Status: Chronic (4) Anxiety disorder Status: Chronic (5) Bipolar disorder Status: Chronic (6) Fibromyalgia Status: Chronic (7) History of gastroesophageal reflux (GERD) Status: Chronic Past Medical History - Allergies and Home Meds Allergies/Adverse Reactions: Allergies acetaminophen [From Tylenol] Allergy (Verified 05/07/20 16:51) Bleeding simvastatin [From Zocor] Allergy (Verified 05/07/20 16:51) Rash Primary Care Physician: Mono Lynn MD [Primary Care Provider] - Prior records reviewed: Yes Past Medical History: - - Reviewed in problem list Surgical History: - - tubal ligation, Tallors Bunion repair, reconstruction of the nose after a fracture, D&C's Lives: Spouse/ Significant Other Smoking Status: Never smoker Alcohol: None Drugs: None - Family History Maternal Family History: Reports: No pertinent history Review of Systems General: Denies: Chills, Fever, Sweats Eyes: Denies: Visual changes - bilaterally, Diplopia ENT: Denies: Rhinorrhea, Sore throat Cardiovascular: Denies: Chest pain, Palpitations Respiratory: Denies: Dyspnea, Cough, Dyspnea on exertion Gastrointestinal: Denies: Abdominal pain, Nausea, Vomiting, Diarrhea, Melena, Hematochezia Genitourinary: Denies: Dysuria, Hematuria, Frequency Musculoskeletal: Reports: Myalgias Skin: Reports: - - Diffuse skin pain. Denies: Rash, Abscess Physical Exam Vital Signs/Narrative: Vital Signs Temp Pulse Resp BP Pulse Ox 05/07/20 16:52 97 F L 114 H 16 127/89 H 99 General: Well nourished, Well developed, No Acute Distress Head: Normocephalic, Atraumatic Eyes: Perrl, EOMI ENT: Moist mucous membranes, No rhinorrhea Neck: Supple, Nontender Cardiovascular: Regular rate, Regular rhythm, No murmurs Respiratory: No distress, CTA bilaterally, Chest nontender Abdomen: Soft, Nontender, Nondistended, Normal bowel sounds Skin: - - Patient has diffuse pain to palpation of any portion of her skin. There is no cellulitic changes.. Negative for: No rash, Cyanosis Neurological: Alert, Oriented x3 Psychological: Normal affect, Normal Mood Diagnostic/Tx/Re-eval - Medical Decision Making I was able to review the patient's lab work from 2 days ago which was all normal and included a CMP, thyroid testing, iron and TIBC, hepatitis panel, CBC. This is all within normal limits. I do not believe she needs repeat blood testing. This is a chronic issue which she states gets better with steroids so I will start her on prednisone and give her a taper so she can follow-up with her outpatient physicians. She is amenable to this plan. Patient stable for discharge at this time. Impression: 1. Myalgias ED Disposition - Plan for ED Patient: Disposition: Home or Assisted Living Instructions: ED Erythema Prescriptions: Prednisone 10 mg PO UD #30 tab Prescription Printed Referrals: Mono Lynn MD [Primary Care Provider] -
[2020-05-07] MEDS: predniSONE 20 MG Tablet 60 MG PO (18:03)
[2020-05-07] MEDS: oxyCODONE 5 MG Tablet PO (18:03)
== END 2020-05-07 18:30 | disposition home or self-care (01) ==
PROVIDERS: Emergency Provider Student in an Organized Health Care Education/Training Program; PCP Family Medicine
DX: M79.7 Fibromyalgia (principal)
CPT/HCPCS: 99284

== ENCOUNTER 2021-11-25 17:05 | Emergency (ER) | payer MEDICARE, MEDICAID, SELFPAY ==
[2021-11-25 17:06] VITALS: BP 140/99; PULSE 140; RESP 20; TEMP 36.2; O2SAT 98; BMI 23.8
[2021-11-25 17:14] VITALS: BP 162/103; PULSE 128; RESP 23; O2SAT 96
[2021-11-25 17:15] VITALS: O2SAT 96
--- NOTE | 2021-11-25 17:37 | EKG12_ITS ---
Test Reason : SOB Blood Pressure : / mmHG Vent. Rate : 108 BPM Atrial Rate : 108 BPM P-R Int : 138 ms QRS Dur : 076 ms QT Int : 376 ms P-R-T Axes : 051 017 051 degrees QTc Int : 503 ms Sinus tachycardia Otherwise normal ECG Confirmed by HIRAM ZULETA, REJI ([id number]), book editor ANA ROSA MELENDEZ ([id number]) on 11/26/2021 12:50:06 P M Referred By: BENJAMIN Confirmed By:FORTINO GANDHI MD
--- NOTE | 2021-11-25 17:38 | EDS_ITS ---
HPI History of Present Illness Chief Complaint: Shortness of Breath Informant: patient Onset/Context/Timing Onset: Days (3) Context: gradual and onset Timing: Continuous Quality: Positive for Dyspnea on exertion Current Severity: Moderate Maximum Severity: Moderate Worsened by: Exertion and Coughing Relieved by: Rest Associated Symptoms cough and white sputum Chest Pain: Positive for None Narrative Narrative: Patient with gradual onset of malaise, dyspnea with exertion, productive cough. No chest pain. No fevers or chills. She feels very tired. She is on an immunosuppressant medication for scleroderma, she takes pills every day and also gets biweekly infusions of medication she does not remember. She denies any leg swelling. Denies orthopnea. Denies abdominal discomfort or GI symptoms. Has been vaccinated against COVID and not exposed to it that she knows of recently. [facility] Medical History Hypothyroidism Scleredema Home Medications cyclobenzaprine 5 mg PO TID PRN 02/16/15 [History Last Taken 02/15/15 2200] furosemide 40 mg PO DAILY 05/07/20 [History Last Taken Unknown] levothyroxine 75 mcg PO DAILY 05/07/20 [History Last Taken Unknown] albuterol sulfate [Ventolin HFA] 1 - 2 puff INHALATION Q4H PRN PRN #1 device 11/25/21 [Rx Last Taken Unknown] levofloxacin 750 mg PO DAILY #5 tab 11/25/21 [Rx Last Taken Unknown] Allergy/AdvReac Type Severity Reaction Status Date / Time acetaminophen [From Tylenol] Allergy Bleeding Verified 11/25/21 17:08 simvastatin [From Zocor] Allergy Rash Verified 11/25/21 17:08 Social History Smoking Status: Never smoker ROS ROS ED Constitutional Constitutional ED: Denies chills or fever(s) Eyes Eyes: Denies change in vision or diplopia ENT ENT ED: Denies rhinorrhea or sore throat Cardiovascular Cardiovascular: Denies chest pain, orthopnea or palpitations Respiratory/Chest Respiratory/Chest: Reports cough, dyspnea and dyspnea on exertion; Denies orthopnea Gastrointestinal Gastrointestinal: Denies abdominal pain, diarrhea, nausea or vomiting Genitourinary Genitourinary ED: Denies dysuria or hematuria Musculoskeletal Musculoskeletal: Denies back pain or neck pain Integumentary Denies abscess or rash Neurologic Neurologic: Denies headache(s), paresthesias or weakness Psychiatric Psychiatric: Denies anxiety or suicidal thoughts EXAM Physical Exam Const Vital Signs: 11/25/21 17:06 11/25/21 17:14 11/25/21 17:15 Temperature 97.2 F L Temperature Source Temporal Pulse Rate 140 H 128 H Respiratory Rate 20 H 23 H Respiratory Effort Normal Respiratory Depth Normal Respiratory Pattern Normal Blood Pressure 140/99 H 162/103 H Blood Pressure Mean 112 122 Pulse Ox 98 96 Oxygen Delivery Method Room Air Room Air Room Air 11/25/21 17:48 11/25/21 17:51 11/25/21 18:04 Temperature Temperature Source Pulse Rate 115 H 112 H Respiratory Rate 19 H 16 Respiratory Effort Respiratory Depth Respiratory Pattern Normal Blood Pressure 133/81 H Blood Pressure Mean 98 Pulse Ox 96 Oxygen Delivery Method Room Air Room Air Positive well nourished and well developed General Appearance ED: well developed and NAD HEENT Reports moist mucous membranes normocephalic and atraumatic Eyes PERRL and EOMs intact bilaterally Neck full ROM and supple Resp normal respiratory effort, no retractions and no use of accessory muscles Resp Narrative: Few high-pitched rhonchi bilaterally but otherwise clear Cardio regular rate, regular rhythm and no murmurs Rate: tachycardic GI non-tender and non-distended Auscultation: normoactive bowel sounds Palpation: soft Back/Spine no CVA tenderness General Back: other FROM Extremity normal to inspection and no calf tenderness General Extremety ED: Negative for edema, pulses abnormal or tenderness General Extremity: Negative for edema or pulses abnormal Neuro oriented x3, CN's II-XII intact bilaterally and no sensory deficits noted Sensorium / Orientation: awake and alert Motor Exam: strength 5/5 throughout Skin no rashes or lesions noted and no wounds MDM MDM MDM Narrative Medical decision making narrative: Patient was given a breathing treatment and a liter of IV fluid and on reevaluation she feels much better and her vital signs practically normalized. Her pulse ox remained excellent without the need for supplemental oxygen. She appears to have a small left lower lobe retrocardiac infiltrate on my interpretation of her two-view chest x-ray. When she provided a urine specimen, it appears to show signs of infection although she has no urinary symptoms. This will be sent for culture, blood cultures were obtained given her immunocompromise state as well as a lactate which was elevated. The rest of her counts are unremarkable, we did COVID and influenza swabs, those came back negative. Her white blood count is only 5.7 but she usually has leukopenia so this is a little elevated unknown significance of that. I offered admission but she is feels well enough to go home and prefers to go home and declines admission. She clinically appears well and does not appear clinically septic although she meets criteria under some definitions of sepsis based on her initial vital signs. Therefore she was given empiric cefepime and we will discharge her on Levaquin and albuterol inhaler with instructions to follow-up closely and we discussed reasons to return. Lab Data Attestation: I reviewed the patient's lab results. Labs: Laboratory Results - last 24 hr 11/25/21 11/25/21 11/25/21 17:40 17:40 17:50 WBC 5.7 RBC 4.14 L Hgb 14.0 Hct 40.9 MCV 98.8 MCH 33.8 H MCHC 34.2 RDW Std Deviation 53.8 H RDW Coeff of Pebbles 14.9 H Plt Count 158 MPV 10.6 Immature Gran % (Auto) 0.500 Neut % (Auto) 66.8 Lymph % (Auto) 15.8 L [place] % (Auto) 14.9 H Eos % (Auto) 1.1 Baso % (Auto) 0.9 Absolute Neuts (auto) 3.8 Absolute Lymphs (auto) 0.89 Nucleated RBC % 0 Sodium 135 L Potassium 5.1 Chloride 96 L Carbon Dioxide 28.0 Anion Gap 11 BUN 6 L Creatinine 0.67 Estim Creat Clear Calc 86.73 Est GFR (MDRD) Af Amer 117 Est GFR (MDRD) Non-Af 97 BUN/Creatinine Ratio 9.0 L Glucose 114 H Lactic Acid 3.9 H* Calcium 9.2 Total Bilirubin 0.80 AST 223 H ALT 151 H Alkaline Phosphatase 100 Troponin I High Sens 113 H Total Protein 8.4 H Albumin 3.4 Globulin 5.0 H Albumin/Globulin Ratio 0.7 L Urine Color Urine Clarity Urine pH Ur Specific [place] Urine Protein Urine Glucose (UA) Urine Ketones Urine Occult Blood Urine Nitrite Urine Bilirubin Urine Urobilinogen Ur Leukocyte Esterase Urine RBC Urine WBC Ur Squamous Epith Cells Urine Bacteria Urine Mucus 11/25/21 19:52 WBC RBC Hgb Hct MCV MCH MCHC RDW Std Deviation RDW Coeff of Pebbles Plt Count MPV Immature Gran % (Auto) Neut % (Auto) Lymph % (Auto) [place] % (Auto) Eos % (Auto) Baso % (Auto) Absolute Neuts (auto) Absolute Lymphs (auto) Nucleated RBC % Sodium Potassium Chloride Carbon Dioxide Anion Gap BUN Creatinine Estim Creat Clear Calc Est GFR (MDRD) Af Amer Est GFR (MDRD) Non-Af BUN/Creatinine Ratio Glucose Lactic Acid Calcium Total Bilirubin AST ALT Alkaline Phosphatase Troponin I High Sens Total Protein Albumin Globulin Albumin/Globulin Ratio Urine Color Yellow Urine Clarity Sl. Cloudy Urine pH 6.0 Ur Specific [place] 1.010 Urine Protein Negative Urine Glucose (UA) Normal Urine Ketones Negative Urine Occult Blood 25 H Urine Nitrite Positive H Urine Bilirubin Negative Urine Urobilinogen Normal Ur Leukocyte Esterase 500 H Urine RBC 0-5 SEEN Urine WBC 10-25 SEEN Ur Squamous Epith Cells 0-5 SEEN Urine Bacteria 1+ Urine Mucus 0 SEEN Radiography Chest X-Ray - ED: 2 View, Read by ED Physician and Left Infiltrate Diagnostic Testing: Clinical Impression(s) from Imaging Studies Chest X-Ray 11/25/21 18:41 IMPRESSION: No acute radiographic abnormalities. Scattered subsegmental atelectasis. Electronically Signed: Osman Almendarez MD at 20:29 EDT , EKG Initial EKG: Attestation: I personally reviewed and interpreted this EKG as follows: Interpretation: No Acute Injury Pattern and Sinus Tachycardia (108) Comments: Normal EKG Discharge Plan Triage Chief Complaint: Shortness of Breath ED Provider: Dinesh Aguero Dx/Rx/DC Orders Clinical Impression: Pneumonia, Immunocompromised state due to drug therapy Instructions: ED Pneumonia (Adult) Prescriptions: New levofloxacin 750 mg tablet 750 mg PO DAILY Qty: 5 RF: 0 albuterol sulfate [Ventolin HFA] 90 mcg/actuation HFA aerosol inhaler 1 - 2 puff inhalation Q4H PRN PRN (Reason: Wheezing) Qty: 1 RF: 0 Continued cyclobenzaprine 10 MG tablet 5 mg PO TID PRN (Reason: Pain) RF: 0 furosemide 40 MG tablet 40 mg PO DAILY RF: 0 levothyroxine 75 MCG tablet 75 mcg PO DAILY RF: 0 Discontinued prednisone 10 MG tablet 10 mg PO UD Qty: 30 RF: 0 Primary Care Provider: Mono Lynn Referrals: Mono Lynn MD [Primary Care Provider] - 2 Days (call for appt) Disposition Disposition: Home, Self Care
[2021-11-25 17:48] VITALS: BP 133/81; PULSE 115; RESP 19; O2SAT 96
[2021-11-25 18:00] LABS: Absolute Lymphocyte Count 0.89 X10^3/uL (0.83-4.51); Absolute Neutrophil Count 3.8 X10^3/uL (2.0-7.7); Basophil# 0.05 X10^3/uL; Basophil% 0.9 % (0-1); Eosinophil# 0.06 X10^3/uL; Eosinophils% 1.1 % (0-5); Hematocrit 40.9 % (37-47); Lymphocyte # 0.89 X10^3/ul (0.83-4.51); Lymphocyte % 15.8 % (19-41); Mean Corp Hgb Conc 34.2 g/dL (32-36); Mean Corpuscular Hgb 33.8 pg (27.0-32.0); Mean Corpuscular Volume 98.8 fL (81-99); Mean Platelet Vol. 10.6 fl (6.2-12.0); Monocyte# 0.84 X10^3/uL; Monocyte% 14.9 % (0-10); NRBC Flagged by Analyzer 0 % (0-5); Neutrophil # 3.78 X10^3/uL (2.7-7.7); Neutrophil % 66.8 % (47-70); Platelet Count 158 K/mm3 (150-450); RBC Distribution Width CV 14.9 % (11.6-14.6); RBC Distribution Width SD 53.8 fl (35.1-43.9); Red Blood Count 4.14 M/mm3 (4.2-5.4); White Blood Count 5.7 K/mm3 (4.4-11.0)
[2021-11-25] MEDS: Ipratropium/Albuterol Sulfate 3 ML AMPUL.NEB INHALATION (18:02)
[2021-11-25 18:04] VITALS: PULSE 112; RESP 16
[2021-11-25 18:16] LABS: ALB/GLOB Ratio 0.7 RATIO (0.9-2.4); AST(SGOT) 223 U/L (15-37); Alanine Aminotransfer ALT/SGPT 151 U/L (13-56); Albumin, Serum 3.4 g/dL (3.2-5.0); Alkaline Phosphatase 100 U/L (45-117); Anion Gap 11 (5-15); BUN 6 mg/dL (7-18); Calcium,Total 9.2 mg/dL (8.5-10.1); Chloride 96 mmol/L (98-107); Creatinine, Serum 0.67 mg/dL (0.55-1.02); EST Glomerular Filtration Rate 97 mL/min (>60); Est Glom Filt Rate - Afr Amer 117 mL/min (>60); Estimated Creatinine Clearance 86.73 ml/min; Glucose 114 mg/dL (74-106); Potassium 5.1 mmol/L (3.5-5.1); Protein, Total 8.4 g/dL (6.4-8.2); Sodium Level 135 mmol/L (136-145); Troponin-I HS 113 pg/mL (3.0-54.0)
[2021-11-25 18:32] LABS: Lactic Acid 3.9 mmol/L (0.4-1.9)
--- NOTE | 2021-11-25 18:41 | RAD_ITS ---
INDICATION: cough sob EXAMINATION/TECHNIQUE: X-RAY - XR Chest 2 Views COMPARISON: 01/01/2020 FINDINGS: Scattered subsegmental atelectasis. The cardiomediastinal silhouette is unremarkable. No pleural effusion or pneumothorax. Degenerative changes of the thoracic spine. RAD/Chest PA and Lateral IMPRESSION: No acute radiographic abnormalities. Scattered subsegmental atelectasis. Electronically Signed: Osman Almendarez MD at 20:29 EDT ,
[2021-11-25 20:08] LABS: Mucous, Urine 0 SEEN /hpf (<or=2+)
[2021-11-25 20:19] LABS: Color, Urine Yellow (Yellow); Glucose, Dipstick Normal (Normal); Ketone-Dipstick Negative (Negative); Leukocyte Esterase-Dipstick 500 /ul (Negative); Nitrite-Dipstick Positive (Negative); Occult Blood-Urine 25 /ul (Negative); Protein-Dipstick Negative (Negative); Urine Bilirubin Dipstick Negative (Negative); Urine Clarity Sl. Cloudy (Clear); Urine Urobilinogen Normal (Normal)
[2021-11-25 20:27] LABS: Bacteria 1+ /hpf (None Seen); Red Blood Cells-Urine 0-5 SEEN /hpf (0-5); Squamous Epithelial Cells - UA 0-5 SEEN /hpf (5-10); White Blood Cells 10-25 SEEN /hpf (0-5)
[2021-11-25 21:27] VITALS: BP 132/90; PULSE 106; RESP 16
[2021-11-25 21:56] LABS: Reflex Lactate? Y
== END 2021-11-25 21:28 | disposition home or self-care (01) ==
PROVIDERS: Emergency Provider Emergency Medicine; PCP Family Medicine; Visit Provider Emergency Medicine
DX: J18.9 Pneumonia, unspecified organism (principal); D84.9 Immunodeficiency, unspecified; M34.9 Systemic sclerosis, unspecified; E03.9 Hypothyroidism, unspecified; Z79.899 Other long term (current) drug therapy
CPT/HCPCS: 71046; 80053; 81001; 83605; 84484; 85025; 87040; 87086; 87088; 87186; 87428; 93005; 94640; 96361; 96365; 99284; J7030; A4216

== ENCOUNTER 2021-12-14 12:00 | Observation (INO) | payer MEDICARE, MEDICAID, SELFPAY ==
[2021-12-14] VITALS (9 sets, daily range): BP systolic 122–155; BP diastolic 86–101; PULSE 78–128; RESP 18–29; TEMP 36.3–37; O2SAT 93–100; BMI 23.1; BMI 22.8
--- NOTE | 2021-12-14 12:42 | CT_ITS ---
STUDY: CTA CHEST REASON FOR EXAM: Female, 56 years old. Shortness of breath on excision. History of scleroderma. RADIATION DOSAGE (If Supplied By Facility): CTDIvol = ( 6.01 ) mGy, DLP = ( 186.85 ) mGycm TECHNIQUE: The examination was performed with the intravenous administration of IV 100mL Isovue-370. Post-processing of the angiographic images was performed, with multiplanar reformation and 3D reconstruction. Individualized dose optimization techniques were used for this CT. COMPARISON: Comparison is made with prior examination 01/01/2020. FINDINGS: Stable small benign-appearing bilateral axillary lymph nodes. Normal enhancement of the main pulmonary artery and right and left pulmonary arteries. Normal enhancement of the bilateral peripheral pulmonary arteries. There is no demonstrated pulmonary embolism. There is atherosclerotic calcification of the aortic arch with tortuosity. There is no demonstrated aortic dissection. Normal heart and pericardium. Normal mediastinum. Normal hilar regions. Normal visualized trachea and bronchi. The lungs are well expanded. There has been an increase in the interstitial markings in both lungs more prominent in the lower lobes with evidence of subpleural blebs. This is in keeping with the chronic scarring and interstitial fibrosis. Normal pleura. Normal chest wall structures. There are degenerative changes of thoracic spine. Small hiatal hernia. Fatty infiltration of the liver. CT/CTA Chest W/WO Contrast IMPRESSION: No evidence of a pulmonary embolism. Findings suggestive of scarring worse in both lower lobes. Electronically Signed: Efren Arreguin MD at 14:06 EDT ,
[2021-12-14 13:17] LABS: Absolute Lymphocyte Count 0.77 X10^3/uL (0.83-4.51); Absolute Neutrophil Count 1.6 X10^3/uL (2.0-7.7); Basophil# 0.01 X10^3/uL; Basophil% 0.4 % (0-1); Eosinophil# 0.01 X10^3/uL; Eosinophils% 0.4 % (0-5); Hematocrit 43.8 % (37-47); Hemoglobin 14.6 g/dL (12.0-15.0); Lymphocyte # 0.77 X10^3/ul (0.83-4.51); Lymphocyte % 27.6 % (19-41); Mean Corp Hgb Conc 33.3 g/dL (32-36); Mean Corpuscular Hgb 33.4 pg (27.0-32.0); Mean Corpuscular Volume 100.2 fL (81-99); Monocyte# 0.44 X10^3/uL; Monocyte% 15.8 % (0-10); NRBC Flagged by Analyzer 0 % (0-5); Neutrophil # 1.55 X10^3/uL (2.7-7.7); Neutrophil % 55.4 % (47-70); Platelet Count 164 K/mm3 (150-450); RBC Distribution Width CV 14.6 % (11.6-14.6); RBC Distribution Width SD 54.1 fl (35.1-43.9); Red Blood Count 4.37 M/mm3 (4.2-5.4); White Blood Count 2.8 K/mm3 (4.4-11.0)
[2021-12-14 13:36] LABS: BNP,B-Type NATRIURETIC PEPTIDE 103.3 pg/mL (0-100)
[2021-12-14 14:42] LABS: ALB/GLOB Ratio 0.5 RATIO (0.9-2.4); AST(SGOT) 122 U/L (15-37); Alanine Aminotransfer ALT/SGPT 69 U/L (13-56); Albumin, Serum 2.9 g/dL (3.2-5.0); Alkaline Phosphatase 84 U/L (45-117); Anion Gap 9 (5-15); BUN 2 mg/dL (7-18); Calcium,Total 9.1 mg/dL (8.5-10.1); Chloride 96 mmol/L (98-107); Creatinine, Serum 0.51 mg/dL (0.55-1.02); EST Glomerular Filtration Rate 133 mL/min (>60); Est Glom Filt Rate - Afr Amer 161 mL/min (>60); Estimated Creatinine Clearance 113.93 ml/min; Globulin 5.4 g/dL (2.2-4.2); Glucose 97 mg/dL (74-106); Potassium 4.9 mmol/L (3.5-5.1); Protein, Total 8.3 g/dL (6.4-8.2); Sodium Level 134 mmol/L (136-145); Thyroid Stim Hormone (TSH) 2.13 uIU/mL (0.358-3.74); Troponin-I HS 128 pg/mL (3.0-54.0)
--- NOTE | 2021-12-14 14:53 | EKG12_ITS ---
Test Reason : SOB Blood Pressure : / mmHG Vent. Rate : 117 BPM Atrial Rate : 117 BPM P-R Int : 136 ms QRS Dur : 074 ms QT Int : 356 ms P-R-T Axes : 057 009 035 degrees QTc Int : 496 ms Sinus tachycardia Otherwise normal ECG Confirmed by JAMES ZULETA, MARGARET ([id number]), website/blog editor ANA ROSA MELENDEZ ([id number]) on 12/15/2021 1:18:46 PM Referred By: CHANTAL Confirmed By:MARGARET RAMIREZ MD
--- NOTE | 2021-12-14 15:29 | ECHOD_ITS ---
Reason For Study: ABNORMAL EKG Procedure This was a 2D Doppler, Color Flow transthoracic echocardiogram. Exam performed portable in ED. Left Ventricle Normal LV size. Left ventricular systolic function is normal. The estimated ejection fraction is 65 %. Stage 1 diastolic dysfunction. No regional wall motion abnormalities noted. Right Ventricle Normal RV size. Normal systolic function. Atria Normal left atrium. Normal right atrium. Mitral Valve Normal mitral valve. Tricuspid Valve Normal tricuspid valve. Aortic Valve Normal aortic valve. Trisinus/trileaflet aortic valve. Pulmonic Valve Normal pulmonic valve. Great Vessels Normal aortic root. The pulmonary artery is normal size. Normal inferior vena cava. Pericardium/Pleural No pericardial effusion. MMode/2D Measurements & Calculations LVIDd: 3.5 cm IVSd: 0.95 cm Ao root diam: 2.9 cm LVIDs: 2.6 cm LVPWd: 0.93 cm FS: 24.8 % LAV(MOD-bp): 29.7 ml LVAd ap4: 21.2 cm2 SV(MOD-sp4): 29.8 ml LAV(MOD-bp) Indexed: 17.1 ml/m2 LVLd ap4: 6.5 cm LAV(MOD-sp2): 27.7 ml EDV(MOD-sp4): 58.3 ml LAV(MOD-sp4): 30.1 ml EDV(sp4-el): 58.9 ml LVAs ap4: 13.4 cm2 LVLs ap4: 5.4 cm ESV(MOD-sp4): 28.5 ml ESV(sp4-el): 28.6 ml EF(MOD-sp4): 51.1 % EF(sp4-el): 51.4 % SV(sp4-el): 30.3 ml LA A4 area: 13.2 cm2 LA dimension(2D): 2.6 cm RA A4 area: 11.9 cm2 Doppler Measurements & Calculations MV E max jeremiah: 75.5 cm/sec Lat Peak E' Jeremiah: 9.6 cm/sec Med Peak E' Jeremiah: 8.0 cm/sec MV A max jeremiah: 110.0 cm/sec E/E' lat: 7.9 E/E' med: 9.5 MV E/A: 0.69 Ao V2 max: 125.8 cm/sec LV V1 max: 100.0 cm/sec Ao max P.3 mmHg LV V1 max P.0 mmHg ECHO/Echo Complete Interpretation Summary Normal LV size. Left ventricular systolic function is normal. The estimated ejection fraction is 65 %. Stage 1 diastolic dysfunction. Structurally normal valves. Ordering Physician: Gaurang Jacob Referring Physician: CRISTOBAL PERSAUD Performed By: Donavan, Sharri, RDCS
--- NOTE | 2021-12-14 15:43 | EDS_ITS ---
HPI History of Present Illness Chief Complaint: Shortness of Breath Narrative Narrative: Patient presents with exertional dyspnea this is been ongoing for a little over a week, she was seen here and thought to have a pneumonia, she was placed on antibiotics and discharged, she continues to have exertional dyspnea. At rest she is okay but she can walk only short distance and became quite dyspneic. [facility] Medical History Hypothyroidism Scleredema Home Medications levothyroxine 75 mcg PO DAILY 05/07/20 [History Last Taken Unknown] albuterol sulfate [Ventolin HFA] 1 - 2 puff INHALATION Q4H PRN PRN #1 device 11/25/21 [Rx Last Taken Unknown] Allergy/AdvReac Type Severity Reaction Status Date / Time acetaminophen [From Tylenol] Allergy Bleeding Verified 12/14/21 12:04 simvastatin [From Zocor] Allergy Rash Verified 12/14/21 12:04 NSAIDS (Non-Steroidal AdvReac Bleeding Verified 12/14/21 12:05 Anti-Inflamma Social History Smoking Status: Never smoker ROS ROS ED ROS Narrative Past medical history: Reviewed consistent with scleroderma, history of GI bleed, GERD, anxiety, otherwise no prior cardiac disease. Medications: Reviewed Social history: Noncontributory Review of systems: All systems negative except as indicated General: No fever Eyes: No visual changes ENT: No upper airway congestion, normal voice Neck: No neck pain Cardiovascular: No chest pain Respiratory: Exertional dyspnea as in HPI Gastrointestinal: No abdominal pain, nausea vomiting or diarrhea Genitourinary: No dysuria Musculoskeletal: Denies myalgias no difficulty with ambulation Skin: No rash Neurological: No memory loss, confusion or any focal weakness Psych: No recent behavioral changes Hematologic: No easy bleeding or easy bruising EXAM Physical Exam Narrative Exam Narrative: Physical exam General: Well nourished, Well developed, No Acute Distress Head: Normocephalic, Atraumatic Eyes: Conjunctiva not pale ENT: Moist mucous membranes Neck: Supple, Nontender, No lymphadenopathy Cardiovascular: Regular rate, Regular rhythm. I cannot appreciate any murmur. Normal S1 and S2 without any S3 or S4 sounds. Respiratory: No distress, CTA bilaterally. She is speaking in full sentences. Abdomen: Soft, Nontender, Nondistended Back: Nontender, Normal Inspection. Negative for: CVA tenderness Extremities: Nontender, No edema Skin: Normal color, No rash Neurological: Alert, Normal Strength, Normal Sensation Psychological: Normal affect Const Vital Signs: 12/14/21 12:00 12/14/21 14:00 Temperature 97.3 F L Temperature Source Temporal Pulse Rate 128 H 78 Respiratory Rate 18 Blood Pressure 125/92 H 137/101 H Blood Pressure Mean 103 113 Pulse Ox 93 Oxygen Delivery Method Room Air MDM MDM MDM Narrative Medical decision making narrative: Patient has a normal EKG however troponin is elevated to where she rules in to be admitted. I called cardiology, they will do an echocardiogram and will be seen. Lab Data Labs: Laboratory Results - last 24 hr 12/14/21 12/14/21 12/14/21 13:05 13:05 13:05 WBC 2.8 L RBC 4.37 Hgb 14.6 Hct 43.8 MCV 100.2 H MCH 33.4 H MCHC 33.3 RDW Std Deviation 54.1 H RDW Coeff of Pebbles 14.6 Plt Count 164 MPV 11.0 Immature Gran % (Auto) 0.400 Neut % (Auto) 55.4 Lymph % (Auto) 27.6 [place] % (Auto) 15.8 H Eos % (Auto) 0.4 Baso % (Auto) 0.4 Absolute Neuts (auto) 1.6 L Absolute Lymphs (auto) 0.77 L Nucleated RBC % 0 PT Cancelled INR Cancelled Sodium Cancelled Potassium Cancelled Chloride Cancelled Carbon Dioxide Cancelled Anion Gap Cancelled BUN Cancelled Creatinine Cancelled Estim Creat Clear Calc Cancelled Est GFR (MDRD) Af Amer Cancelled Est GFR (MDRD) Non-Af Cancelled BUN/Creatinine Ratio Cancelled Glucose Cancelled Calcium Cancelled Total Bilirubin Cancelled AST Cancelled ALT Cancelled Alkaline Phosphatase Cancelled Troponin I High Sens Cancelled B-Natriuretic Peptide Total Protein Cancelled Albumin Cancelled Globulin Cancelled Albumin/Globulin Ratio Cancelled TSH Cancelled 12/14/21 12/14/21 12/14/21 13:05 14:00 14:00 WBC RBC Hgb Hct MCV MCH MCHC RDW Std Deviation RDW Coeff of Pebbles Plt Count MPV Immature Gran % (Auto) Neut % (Auto) Lymph % (Auto) [place] % (Auto) Eos % (Auto) Baso % (Auto) Absolute Neuts (auto) Absolute Lymphs (auto) Nucleated RBC % PT Cancelled INR Cancelled Sodium 134 L Potassium 4.9 Chloride 96 L Carbon Dioxide 29.0 Anion Gap 9 BUN 2 L Creatinine 0.51 L Estim Creat Clear Calc 113.93 Est GFR (MDRD) Af Amer 161 Est GFR (MDRD) Non-Af 133 BUN/Creatinine Ratio 4.0 L Glucose 97 Calcium 9.1 Total Bilirubin 0.60 AST 122 H ALT 69 H Alkaline Phosphatase 84 Troponin I High Sens 128 H* B-Natriuretic Peptide 103.3 H Total Protein 8.3 H Albumin 2.9 L Globulin 5.4 H Albumin/Globulin Ratio 0.5 L TSH 2.13 Radiography Diagnostic Testing: Clinical Impression(s) from Imaging Studies Chest CTA 12/14/21 12:42 IMPRESSION: No evidence of a pulmonary embolism. Findings suggestive of scarring worse in both lower lobes. Electronically Signed: Efren Arreguin MD at 14:06 EDT , Discharge Plan Dx/Rx/DC Orders Clinical Impression: Elevated troponin, Dyspnea Disposition Disposition: Acute Care [facility]
[2021-12-14 16:16] LABS: Prothrombin Time (Protime)PT. 12.7 SECONDS (11.7-14.9)
--- NOTE | 2021-12-14 16:21 | PCM.HP.STD ---
Documented by User: Abimbola Rutledge NP, BASEBALL COACH-C 12/14/21 16:35 HPI - General HPI Narrative EAN MILLER, is a 56 F who presents to the Emergency Room due to shortness of breath with exertion. Patient reports this has been ongoing for a few months however recently worsened. She presented to the emergency room 11/25/2021 was treated with antibiotics for suspected pneumonia. She denies fever, chills, cough. She states she has difficulty walking short distances due to dyspnea. She denies chest pain. She denies swelling or weight gain. She was diagnosed with scleroderma and is on biweekly infusions. She states she was diagnosed with hypothyroidism a year ago around the same time. Denies other previous medical history. Denies smoking history. Previous cardiac history. [facility] Medical History Hypothyroidism Scleredema Home Medications levothyroxine 75 mcg PO DAILY 05/07/20 [History Last Taken Unknown] albuterol sulfate [Ventolin HFA] 1 - 2 puff INHALATION Q4H PRN PRN #1 device 11/25/21 [Rx Last Taken Unknown] Allergy/AdvReac Type Severity Reaction Status Date / Time acetaminophen [From Tylenol] Allergy Bleeding Verified 12/14/21 12:04 simvastatin [From Zocor] Allergy Rash Verified 12/14/21 12:04 NSAIDS (Non-Steroidal AdvReac Bleeding Verified 12/14/21 12:05 Anti-Inflamma Family History (Updated 12/14/21 @ 16:27 by Abimbola Rutledge NP, BASEBALL COACH-C) Father COPD (chronic obstructive pulmonary disease) Mother No cardiac disease Surgical History (Updated 12/14/21 @ 16:29 by Abimbola Rutledge NP, BASEBALL COACH-C) H/O foot surgery H/O knee surgery History of tonsillectomy S/P manipulation of deviated nasal septum Social History (Updated 12/14/21 @ 16:29 by Abimbola Rutledge NP, BASEBALL COACH-C) household members: significant other Smoking Status: Never smoker alcohol intake: never substance use type: does not use ROS Constitutional Constitutional: Denies change in weight, chills, fatigue, fever(s) or weakness Cardiovascular Cardiovascular: Denies chest pain, edema, lightheadedness, palpitations or syncope Respiratory/Chest Respiratory/Chest: Reports shortness of breath with exertion; Denies cough, productive cough or wheezing Gastrointestinal Gastrointestinal: Denies abdominal pain, constipation, diarrhea, nausea or vomiting Genitourinary Genitourinary: Denies burning urination, difficulty urinating, dysuria, hematuria, urinary frequency, urinary incontinence or urinary urgency Musculoskeletal Musculoskeletal: Denies back pain, joint pain or muscle weakness Integumentary Integumentary: Reports other Details: Scleroderma ; Denies erythema, lesions, rash or wounds Neurologic Neurologic: Denies abnormal speech, confusion, dizziness, focal weakness, numbness, paresthesias, seizure-like activity or syncope Psychiatric Psychiatric: Denies anxiety or depression Hematologic/Lymphatic Hematologic/Lymphatic: Denies anemia, easy bleeding or easy bruising Allergic/Immunologic Allergic/Immunologic: Denies hives or asthma Vital Signs Vital Signs Vital Signs: 12/14/21 12:00 12/14/21 14:00 12/14/21 15:00 Temperature 97.3 F L Temperature Source Temporal Pulse Rate 128 H 78 120 H Respiratory Rate 18 29 H Blood Pressure 125/92 H 137/101 H 136/91 H Blood Pressure Mean 103 113 106 Pulse Ox 93 97 Oxygen Delivery Method Room Air Room Air Weight Weight: 143 lb 4.807 oz Body Mass Index (BMI) 23.1 Physical Exam Const alert, oriented x3 and no apparent distress Constitutional Narrative: Diffuse scleroderma, scattered scabbing Orientation / Consciousness: awake, oriented to person, oriented to place and oriented to time HEENT normocephalic Mouth: dry mucous membranes Eyes PERRL, EOMs intact bilaterally and conjunctivae normal Neck no lymphadenopathy Resp normal respiratory effort and clear to auscultation bilaterally Cardio regular rhythm and no murmurs Rate: tachycardic Peripheral Pulses: pulses 2+ throughout GI normal to inspection, nondistended, normoactive bowel sounds, non-tender and non-distended Extremity normal to inspection Skin no rashes or lesions noted Lesions: no lesions Rashes: no rashes Trauma: no lacerations or abrasions Neuro CN's II-XII intact bilaterally, no focal motor deficits, no sensory deficits noted and deep tendon reflexes 2+ bilaterally Psych mental status grossly normal and affect normal Results Lab / Micro Data Result Diagrams: 12/14/21 13:05 12/14/21 14:00 Labs: Laboratory Results - last 24 hr 12/14/21 13:05: WBC 2.8 L, RBC 4.37, Hgb 14.6, Hct 43.8, MCV 100.2 H, MCH 33.4 H, MCHC 33.3, RDW Std Deviation 54.1 H, RDW Coeff of Pebbles 14.6, Plt Count 164, MPV 11.0, Immature Gran % (Auto) 0.400, Neut % (Auto) 55.4, Lymph % (Auto) 27.6, Coleman % (Auto) 15.8 H, Eos % (Auto) 0.4, Baso % (Auto) 0.4, Absolute Neuts (auto) 1.6 L, Absolute Lymphs (auto) 0.77 L, Nucleated RBC % 0 12/14/21 13:05: PT Cancelled, INR Cancelled 12/14/21 13:05: Sodium Cancelled, Potassium Cancelled, Chloride Cancelled, Carbon Dioxide Cancelled, Anion Gap Cancelled, BUN Cancelled, Creatinine Cancelled, Estim Creat Clear Calc Cancelled, Est GFR (MDRD) Af Amer Cancelled, Est GFR (MDRD) Non-Af Cancelled, BUN/Creatinine Ratio Cancelled, Glucose Cancelled, Calcium Cancelled, Total Bilirubin Cancelled, AST Cancelled, ALT Cancelled, Alkaline Phosphatase Cancelled, Troponin I High Sens Cancelled, Total Protein Cancelled, Albumin Cancelled, Globulin Cancelled, Albumin/Globulin Ratio Cancelled, TSH Cancelled 12/14/21 13:05: B-Natriuretic Peptide 103.3 H 12/14/21 14:00: PT Cancelled, INR Cancelled 12/14/21 14:00: Sodium 134 L, Potassium 4.9, Chloride 96 L, Carbon Dioxide 29.0, Anion Gap 9, BUN 2 L, Creatinine 0.51 L, Estim Creat Clear Calc 113.93, Est GFR (MDRD) Af Amer 161, Est GFR (MDRD) Non-Af 133, BUN/Creatinine Ratio 4.0 L, Glucose 97, Calcium 9.1, Total Bilirubin 0.60, AST 122 H, ALT 69 H, Alkaline Phosphatase 84, Troponin I High Sens 128 H*, Total Protein 8.3 H, Albumin 2.9 L, Globulin 5.4 H, Albumin/Globulin Ratio 0.5 L, TSH 2.13 12/14/21 15:45: PT 12.7, INR 1.0 Radiology Impression Chest CTA 12/14/21 12:42 IMPRESSION: No evidence of a pulmonary embolism. Findings suggestive of scarring worse in both lower lobes. Electronically Signed: Efren Arreguin MD at 14:06 EDT , Assessment & Plan Assessment/Plan (1) Dyspnea: PLAN: 1. Dyspnea on exertion-CTA without PE. Scarring in both lower lobes. Troponin mildly elevated. Trend enzymes. Echocardiogram completed, report pending. Cardiology consulted. Plan for heart cath in a.m. 2. Tachycardia-sinus tachycardia. Initiate beta-gasper. Monitor telemetry. 3. Scleroderma- on IV infusions, not sure name on medication. Suspect this make be contributing to above as scleroderma has been associated with microvascular coronary artery disease, tachyarrhythmias, pericardial involvement, etc. DVT prophylaxis- not indicated This patient was seen by LINDSEY Owens under the supervision of Dr. Salgado. Time spent examining patient, reviewing data and subsequent management of care: 20 minutes Documented by User: Dr. Mono Salgado DO 12/14/21 17:48 HPI - General General Date of Admission: 12/14/21 [facility] Medical History Hypothyroidism Scleredema Home Medications levothyroxine 75 mcg PO DAILY 05/07/20 [History Last Taken Unknown] albuterol sulfate [Ventolin HFA] 1 - 2 puff INHALATION Q4H PRN PRN #1 device 11/25/21 [Rx Last Taken Unknown] Allergy/AdvReac Type Severity Reaction Status Date / Time acetaminophen [From Tylenol] Allergy Bleeding Verified 12/14/21 12:04 simvastatin [From Zocor] Allergy Rash Verified 12/14/21 12:04 NSAIDS (Non-Steroidal AdvReac Bleeding Verified 12/14/21 12:05 Anti-Inflamma Family History (Updated 12/14/21 @ 16:27 by Abimbola Rutledge BASEBALL COACH, BASEBALL COACH-C) Father COPD (chronic obstructive pulmonary disease) Mother No cardiac disease Surgical History (Updated 12/14/21 @ 16:29 by Abimbola Rutledge NP, BASEBALL COACH-C) H/O foot surgery H/O knee surgery History of tonsillectomy S/P manipulation of deviated nasal septum Social History (Updated 12/14/21 @ 16:29 by Abimbola Rutledge NP, BASEBALL COACH-C) household members: significant other Smoking Status: Never smoker alcohol intake: never substance use type: does not use Results Lab / Micro Data Result Diagrams: 12/14/21 13:05 12/14/21 14:00 Charges/Coding Addendum Addendum: Patient was seen and examined today independently of Abimbola Rutledge, she came to the emergency room today at [facility] with complaints of exertional dyspnea which she has had over the last 2 weeks. She was seen in the emergency room here at [facility] on 11/25/2021, at that time she was given a prescription for antibiotics with the thought that she might have a community-acquired pneumonia. Patient has a history of scleroderma and is being treated by a indoor sports centre manager on a chronic basis. On examination she appeared in good health and spirits, she does not appear to be in any distress. Vital signs as documented. Skin warm and dry and without overt rashes. Neck without JVD, thyroid appears normal, trachea is midline, neck is supple. Lungs clear, normal air movement was noted. Heart exam notable for regular rhythm, normal sounds and absence of murmurs, rubs or gallops. Abdomen unremarkable and without evidence of organomegaly, masses, or abdominal aortic enlargement, bowel sounds are present in all 4 quadrants, no abdominal tenderness was noted. Extremities nonedematous, no cyanosis was noted, no clubbing was noted. Neuro: Cranial nerves II through XII are grossly intact, no focal motor deficits were noted, sensation to light touch and pinprick is intact, motor exam 5/5 throughout. Psych: Patient is alert and oriented x3, she does not appear anxious or depressed, she does not appear agitated. EKG obtained in the emergency room showed normal sinus rhythm without evidence of ischemic changes, patient's troponin was elevated at 128-patient's troponin at her last ER visit was also elevated at 113-CT of the chest showed evidence of scarring in the lower lung white but no evidence of PE, patient had an echocardiogram performed in the emergency room-the results are pending at this time but according to cardiology who I talked with briefly in the ER, patient had a normal EF. Patient's beta natruretic peptide was slightly elevated at 103. Impression: #1 exertional dyspnea-etiology unclear, patient's pulse ox on room air is 96%, patient will be placed in observation status on PCU, cardiac enzymes will be cycled and pulse ox will be monitored. Patient will be seen in consultation by cardiology. She will likely undergo a cardiac catheterization tomorrow. #2 elevated troponin-etiology unclear-patient will undergo cardiac catheterization tomorrow in all likelihood, echocardiogram was performed today the results are pending at this time. Cardiac enzymes will be cycled, I do not believe the patient has had a non-STEMI. #3 scleroderma-patient is being seen as an outpatient by rheumatology #4 hypothyroidism-patient is currently on Synthroid #5 leukocytosis-etiology unclear this may need to be monitored #6 elevated liver enzymes-etiology unclear, upper profile will be repeated in the morning #7 pulmonary fibrosis affecting both lower lobes-etiology unclear at this time, patient may need follow-up as an outpatient with pulmonary medicine I have reviewed Abimbola Rutledge's history and physical including her medical assessment and plan of care and with the above additions endorse it. Total clinical time spent by myself addressing the patient's issues, reviewing patient's medical record, and collaborating with the patient's care team: 50 minutes Visit Charges OBSV E&M: [id number] Initial observation care L3
--- NOTE | 2021-12-14 17:04 | CON.PCM.CA_ITS ---
Assessment & Plan Assessment/Plan (1) Dyspnea: PLAN: She appears to have significant dyspnea on exertion and this appears to be a possible anginal equivalent. Her risk factors are minimal however due to her recurrent visits to the emergency room and the lack of her possible diagnosis I would recommend that we perform a cardiac catheterization to assess her coronary anatomy and exclude obstructive coronary disease. Depending on the findings further recommendations will then be made. In the meantime she will be started on low-dose beta-gasper I would hold off on any diuretics at the present time. Thank you for allowing me to participate in the care of your patient. Please don't hesitate to call if any issues arise. HPI Consult Data Date of Consult: 12/14/21 HPI Narrative HPI Narrative: EAN MILLER, is a 56 F who presents to the emergency room with marked shortness of breath on minimal exertion but no chest pain. This is her second visit to the emergency room. She does have a history of scleroderma and hypothyroidism on levothyroxine with a normal TSH level. As part of her work-up in the emergency room cardiac troponin enzymes were drawn which were noted to be minimally elevated. BT NATUROPATHIC ONCOLOGY PROVIDER was also noted to be borderline elevated. A CT scan of her chest did not demonstrate any significant abnormality and cardiology was called for evaluation and management due to her dyspnea on exertion as well as dyspnea at rest. An EKG was performed which demonstrated sinus tachycardia with no acute changes. When she was seen an echocardiogram was ordered and it demonstrated preserved left ventricular systolic function with evidence of diastolic dysfunction. No pericardial restraint was noted or thickening noted on the CT scan. [facility] Medical History Hypothyroidism Scleredema Home Medications levothyroxine 75 mcg PO DAILY 05/07/20 [History Last Taken Unknown] albuterol sulfate [Ventolin HFA] 1 - 2 puff INHALATION Q4H PRN PRN #1 device 11/25/21 [Rx Last Taken Unknown] Allergy/AdvReac Type Severity Reaction Status Date / Time acetaminophen [From Tylenol] Allergy Bleeding Verified 12/14/21 12:04 simvastatin [From Zocor] Allergy Rash Verified 12/14/21 12:04 NSAIDS (Non-Steroidal AdvReac Bleeding Verified 12/14/21 12:05 Anti-Inflamma Family History (Updated 12/14/21 @ 16:27 by Abimbola Aamir NATUROPATHIC ONCOLOGY PROVIDER, NATUROPATHIC ONCOLOGY PROVIDER-C) Father COPD (chronic obstructive pulmonary disease) Mother No cardiac disease Surgical History (Updated 12/14/21 @ 16:29 by Abimbola Rutledge NP, NATUROPATHIC ONCOLOGY PROVIDER-C) H/O foot surgery H/O knee surgery History of tonsillectomy S/P manipulation of deviated nasal septum Social History (Updated 12/14/21 @ 16:29 by Abimbola Rutledge NP, NATUROPATHIC ONCOLOGY PROVIDER-C) household members: significant other Smoking Status: Never smoker alcohol intake: never substance use type: does not use ROS Constitutional Constitutional: Denies fever(s) or weight loss Eyes Eyes: Reports systems reviewed and no addt'l complaints, except as documented ENT HEENT: Reports systems reviewed and no addt'l complaints, except as documented Cardiovascular Cardiovascular: Denies chest pain at rest, chest pain with activity, dyspnea at rest, dyspnea on exertion, edema, palpitations or paroxysmal nocturnal dyspnea Respiratory/Chest Respiratory/Chest: Reports dyspnea, dyspnea on exertion, shortness of breath at rest and shortness of breath with exertion; Denies productive cough Gastrointestinal Gastrointestinal: Denies change in bowel habits, nausea, vomiting or weight changes Genitourinary Genitourinary: Denies difficulty urinating Musculoskeletal Musculoskeletal: Denies joint stiffness or muscle weakness Integumentary Integumentary: Denies lesions Neurologic Neurologic: Denies dizziness or syncope Psychiatric Psychiatric: Denies anxiety Endocrine Endocrinology: Denies excessive sweating or fatigue Hematologic/Lymphatic Hematologic/Lymphatic: Denies anemia Allergic/Immunologic Allergic/Immunologic: Denies seasonal rhinorrhea Physical Exam Const alert, oriented x3 and no apparent distress General Appearance: cooperative HEENT hearing grossly normal bilaterally Head and Scalp: atraumatic Eyes EOMs intact bilaterally Neck General: normal visual inspection Chest inspection of chest normal and palpation of chest normal Resp normal respiratory effort Auscultation: clear to auscultation bilaterally Cardio regular rate, regular rhythm, S1 normal heart sound and S2 normal heart sound Jugular Venous Distention: JVD GI normal to inspection, nondistended, normoactive bowel sounds Extremity normal capillary refill and no pedal edema Peripheral Pulses: Yes pulses 2+ throughout and femoral pulses present Skin no rashes or lesions noted Neuro oriented x3 and CN's II-XII intact bilaterally Psych Appearance: grossly normal and appropriate Risk Stratification Risk Stratification Applicable: No Objective Data Vital Signs: Vital Signs Temp Pulse Resp BP Pulse Ox 98.0 F 122 H 22 H 155/93 H 100 12/14/21 16:34 12/14/21 16:34 12/14/21 16:34 12/14/21 16:34 12/14/21 16:34 Oxygen Delivery Method Room Air Weight: 143 lb 4.807 oz Body Mass Index (BMI) 23.1 Lab / Micro Data Result Diagrams: 12/14/21 13:05 12/14/21 14:00 Labs: Laboratory Results - last 24 hr 12/14/21 13:05: WBC 2.8 L, RBC 4.37, Hgb 14.6, Hct 43.8, MCV 100.2 H, MCH 33.4 H , MCHC 33.3, RDW Std Deviation 54.1 H, RDW Coeff of Pebbles 14.6, Plt Count 164, MPV 11.0, Immature Gran % (Auto) 0.400, Neut % (Auto) 55.4, Lymph % (Auto) 27.6, Daggett % (Auto) 15.8 H, Eos % (Auto) 0.4, Baso % (Auto) 0.4, Absolute Neuts (auto) 1.6 L, Absolute Lymphs (auto) 0.77 L, Nucleated RBC % 0 12/14/21 13:05: PT Cancelled, INR Cancelled 12/14/21 13:05: Sodium Cancelled, Potassium Cancelled, Chloride Cancelled, Carbon Dioxide Cancelled, Anion Gap Cancelled, BUN Cancelled, Creatinine Cancelled, Estim Creat Clear Calc Cancelled, Est GFR (MDRD) Af Amer Cancelled, Est GFR (MDRD) Non-Af Cancelled, BUN/Creatinine Ratio Cancelled, Glucose Cancelled, Calcium Cancelled, Total Bilirubin Cancelled, AST Cancelled, ALT Cancelled, Alkaline Phosphatase Cancelled, Troponin I High Sens Cancelled, Total Protein Cancelled, Albumin Cancelled, Globulin Cancelled, Albumin/Globulin Ratio Cancelled, TSH Cancelled 12/14/21 13:05: B-Natriuretic Peptide 103.3 H 12/14/21 14:00: PT Cancelled, INR Cancelled 12/14/21 14:00: Sodium 134 L, Potassium 4.9, Chloride 96 L, Carbon Dioxide 29.0, Anion Gap 9, BUN 2 L, Creatinine 0.51 L, Estim Creat Clear Calc 113.93, Est GFR (MDRD) Af Amer 161, Est GFR (MDRD) Non-Af 133, BUN/Creatinine Ratio 4.0 L, Glucose 97, Calcium 9.1, Total Bilirubin 0.60, AST 122 H, ALT 69 H, Alkaline Phosphatase 84, Troponin I High Sens 128 H*, Total Protein 8.3 H, Albumin 2.9 L, Globulin 5.4 H, Albumin/Globulin Ratio 0.5 L, TSH 2.13 12/14/21 15:45: PT 12.7, INR 1.0 Cardiology Labs/Tests 12/14/21 13:05: WBC 2.8 L, RBC 4.37, Hgb 14.6, Hct 43.8, MCV 100.2 H, MCH 33.4 H , MCHC 33.3, Plt Count 164, MPV 11.0, Immature Gran % (Auto) 0.400, Neut % (Auto) 55.4, Lymph % (Auto) 27.6, Daggett % (Auto) 15.8 H, Eos % (Auto) 0.4, Baso % (Auto) 0.4, Absolute Neuts (auto) 1.6 L, Nucleated RBC % 0 12/14/21 13:05: PT Cancelled, INR Cancelled 12/14/21 13:05: Sodium Cancelled, Potassium Cancelled, Chloride Cancelled, Carbon Dioxide Cancelled, Anion Gap Cancelled, BUN Cancelled, Creatinine Ca ncelled, Est GFR (MDRD) Af Amer Cancelled, Est GFR (MDRD) Non-Af Cancelled, BUN/Creatinine Ratio Cancelled, Glucose Cancelled, Calcium Cancelled, Total Bilirubin Cancelled 12/14/21 13:05: B-Natriuretic Peptide 103.3 H 12/14/21 14:00: PT Cancelled, INR Cancelled 12/14/21 14:00: Sodium 134 L, Potassium 4.9, Chloride 96 L, Carbon Dioxide 29.0, Anion Gap 9, BUN 2 L, Creatinine 0.51 L, Est GFR (MDRD) Af Amer 161, Est GFR (MDRD) Non-Af 133, BUN/Creatinine Ratio 4.0 L, Glucose 97, Calcium 9.1, Total Bilirubin 0.60 12/14/21 15:45: PT 12.7, INR 1.0 Rhythm: EKG: ECHO: Stress Test: Cardiac Cath: PCI: CT Surgery: Holter monitor: EPS: PPM: CXR: Chest CT Scan: Radiography Diagnostic Testing: Radiology Impression Chest CTA 12/14/21 12:42 IMPRESSION: No evidence of a pulmonary embolism. Findings suggestive of scarring worse in both lower lobes. Electronically Signed: Efren Arreguin MD at 14:06 EDT , Echocardiogram 12/14/21 15:29 Interpretation Summary Normal LV size. Left ventricular systolic function is normal. The estimated ejection fraction is 65 %. Stage 1 diastolic dysfunction. Structurally normal valves. Ordering Physician: Gaurang Jacob Referring Physician: CRISTOBAL PERSAUD Performed By: Sharri Go RDCS
[2021-12-14 17:42] LABS: Troponin-I HS 153 pg/mL (3.0-54.0)
[2021-12-14] MEDS: 0.9% Normal Saline 1,000 ML 75 ML IV (18:06)
[2021-12-14] MEDS: Metoprolol Tartrate 25 MG Tablet PO (18:07)
[2021-12-14 21:10] LABS: Troponin-I HS 136 pg/mL (3.0-54.0)
[2021-12-15] VITALS (15 sets, daily range): BP systolic 95–143; BP diastolic 69–97; PULSE 78–97; RESP 18–20; TEMP 36.7–36.9; O2SAT 93–99
[2021-12-15] MEDS: Levothyroxine 75 MCG Tablet PO (06:16)
[2021-12-15] MEDS: 0.9% Normal Saline 1,000 ML 75 ML IV (06:16)
[2021-12-15] MEDS: Metoprolol Tartrate 25 MG Tablet PO (06:16)
[2021-12-15 06:44] LABS: ALB/GLOB Ratio 0.6 RATIO (0.9-2.4); AST(SGOT) 96 U/L (15-37); Alanine Aminotransfer ALT/SGPT 59 U/L (13-56); Albumin, Serum 2.6 g/dL (3.2-5.0); Alkaline Phosphatase 73 U/L (45-117); Anion Gap 7 (5-15); BUN 6 mg/dL (7-18); BUN/Creat Ratio 12.4 RATIO (10-20); Calcium,Total 8.7 mg/dL (8.5-10.1); Chloride 102 mmol/L (98-107); Creatinine, Serum 0.48 mg/dL (0.55-1.02); EST Glomerular Filtration Rate 141 mL/min (>60); Est Glom Filt Rate - Afr Amer 170 mL/min (>60); Estimated Creatinine Clearance 121.05 ml/min; Globulin 4.7 g/dL (2.2-4.2); Glucose 84 mg/dL (74-106); Potassium 3.8 mmol/L (3.5-5.1); Protein, Total 7.3 g/dL (6.4-8.2); Sodium Level 136 mmol/L (136-145)
[2021-12-15] MEDS: Aspirin E.C. 81 MG Tablet PO (07:00)
--- NOTE | 2021-12-15 08:00 | PN.CARD_ITS ---
Subjective Subjective Seen and evaluated for appears to be doing well this morning. Underwent cardiac catheterization. Objective Data Vital Signs: Vital Signs Temp Pulse Resp BP Pulse Ox 98.1 F 83 18 127/85 H 94 12/15/21 06:14 12/15/21 07:01 12/15/21 06:14 12/15/21 06:16 12/15/21 06:14 Oxygen Delivery Method Room Air Weight: 141 lb 12.116 oz Body Mass Index (BMI) 22.8 Intake & Output: Intake and Output for Last 24 Hours 12/13/21 12/14/21 12/15/21 23:59 23:59 23:59 Intake Total 240 / 600 1272.5 / 1272.5 Balance 240 / 600 1272.5 / 1272.5 Lab / Micro Data Result Diagrams: 12/14/21 13:05 12/15/21 04:46 Labs: Laboratory Results - last 24 hr 12/14/21 13:05: WBC 2.8 L, RBC 4.37, Hgb 14.6, Hct 43.8, MCV 100.2 H, MCH 33.4 H , MCHC 33.3, RDW Std Deviation 54.1 H, RDW Coeff of Pebbles 14.6, Plt Count 164, MPV 11.0, Immature Gran % (Auto) 0.400, Neut % (Auto) 55.4, Lymph % (Auto) 27.6, [place] % (Auto) 15.8 H, Eos % (Auto) 0.4, Baso % (Auto) 0.4, Absolute Neuts (auto) 1.6 L, Absolute Lymphs (auto) 0.77 L, Nucleated RBC % 0 12/14/21 13:05: PT Cancelled, INR Cancelled 12/14/21 13:05: Sodium Cancelled, Potassium Cancelled, Chloride Cancelled, Carbon Dioxide Cancelled, Anion Gap Cancelled, BUN Cancelled, Creatinine Cancelled, Estim Creat Clear Calc Cancelled, Est GFR (MDRD) Af Amer Cancelled, Est GFR (MDRD) Non-Af Cancelled, BUN/Creatinine Ratio Cancelled, Glucose Ca ncelled, Calcium Cancelled, Total Bilirubin Cancelled, AST Cancelled, ALT Cancelled, Alkaline Phosphatase Cancelled, Troponin I High Sens Cancelled, Total Protein Cancelled, Albumin Cancelled, Globulin Cancelled, Albumin/Globulin Ratio Cancelled, TSH Cancelled 12/14/21 13:05: B-Natriuretic Peptide 103.3 H 12/14/21 14:00: PT Cancelled, INR Cancelled 12/14/21 14:00: Sodium 134 L, Potassium 4.9, Chloride 96 L, Carbon Dioxide 29.0, Anion Gap 9, BUN 2 L, Creatinine 0.51 L, Estim Creat Clear Calc 113.93, Est GFR (MDRD) Af Amer 161, Est GFR (MDRD) Non-Af 133, BUN/Creatinine Ratio 4.0 L, Glucose 97, Calcium 9.1, Total Bilirubin 0.60, AST 122 H, ALT 69 H, Alkaline Phosphatase 84, Troponin I High Sens 128 H*, Total Protein 8.3 H, Albumin 2.9 L, Globulin 5.4 H, Albumin/Globulin Ratio 0.5 L, TSH 2.13 12/14/21 15:45: PT 12.7, INR 1.0 12/14/21 15:45: Troponin I High Sens 153 H* 12/14/21 20:30: Troponin I High Sens 136 H* 12/15/21 04:46: Sodium 136, Potassium 3.8, Chloride 102, Carbon Dioxide 27.0, Anion Gap 7, BUN 6 L, Creatinine 0.48 L, Estim Creat Clear Calc 121.05, Est GFR (MDRD) Af Amer 170, Est GFR (MDRD) Non-Af 141, BUN/Creatinine Ratio 12.4, Glucose 84, Calcium 8.7, Total Bilirubin 0.60, AST 96 H, ALT 59 H, Alkaline Phosphatase 73, Total Protein 7.3, Albumin 2.6 L, Globulin 4.7 H, Albumin/Globulin Ratio 0.6 L Cardiology Labs/Tests 12/14/21 13:05: WBC 2.8 L, RBC 4.37, Hgb 14.6, Hct 43.8, MCV 100.2 H, MCH 33.4 H , MCHC 33.3, Plt Count 164, MPV 11.0, Immature Gran % (Auto) 0.400, Neut % (Auto) 55.4, Lymph % (Auto) 27.6, [place] % (Auto) 15.8 H, Eos % (Auto) 0.4, Baso % (Auto) 0.4, Absolute Neuts (auto) 1.6 L, Nucleated RBC % 0 12/14/21 13:05: PT Cancelled, INR Cancelled 12/14/21 13:05: Sodium Cancelled, Potassium Cancelled, Chloride Cancelled, Carbon Dioxide Cancelled, Anion Gap Cancelled, BUN Cancelled, Creatinine Cancelled, Est GFR (MDRD) Af Amer Cancelled, Est GFR (MDRD) Non-Af Cancelled, BUN/Creatinine Ratio Cancelled, Glucose Cancelled, Calcium Cancelled, Total Bilirubin Cancelled 12/14/21 13:05: B-Natriuretic Peptide 103.3 H 12/14/21 14:00: PT Cancelled, INR Cancelled 12/14/21 14:00: Sodium 134 L, Potassium 4.9, Chloride 96 L, Carbon Dioxide 29.0, Anion Gap 9, BUN 2 L, Creatinine 0.51 L, Est GFR (MDRD) Af Amer 161, Est GFR (MDRD) Non-Af 133, BUN/Creatinine Ratio 4.0 L, Glucose 97, Calcium 9.1, Total Bilirubin 0.60 12/14/21 15:45: PT 12.7, INR 1.0 12/15/21 04:46: Sodium 136, Potassium 3.8, Chloride 102, Carbon Dioxide 27.0, Anion Gap 7, BUN 6 L, Creatinine 0.48 L, Est GFR (MDRD) Af Amer 170, Est GFR (MDRD) Non-Af 141, BUN/Creatinine Ratio 12.4, Glucose 84, Calcium 8.7, Total Bilirubin 0.60 Rhythm: EKG: ECHO: Stress Test: Cardiac Cath: PCI: CT Surgery: Holter monitor: EPS: PPM: CXR: Chest CT Scan: Radiography Diagnostic Testing: Radiology Impression Chest CTA 12/14/21 12:42 IMPRESSION: No evidence of a pulmonary embolism. Findings suggestive of scarring worse in both lower lobes. Electronically Signed: Efren Arreguin MD at 14:06 EDT , Echocardiogram 12/14/21 15:29 Interpretation Summary Normal LV size. Left ventricular systolic function is normal. The estimated ejection fraction is 65 %. Stage 1 diastolic dysfunction. Structurally normal valves. Ordering Physician: Gaurang Jacob Referring Physician: CRISTOBAL PERSAUD Performed By: Sharri Go RDCS Physical Exam Const alert, oriented x3 and no apparent distress General Appearance: cooperative HEENT hearing grossly normal bilaterally Eyes EOMs intact bilaterally Neck General: normal visual inspection Chest inspection of chest normal and palpation of chest normal Resp normal respiratory effort Auscultation: clear to auscultation bilaterally Cardio regular rate, regular rhythm, S1 normal heart sound and S2 normal heart sound Jugular Venous Distention: JVD GI normal to inspection, nondistended, normoactive bowel sounds Extremity normal capillary refill and no pedal edema Skin no rashes or lesions noted Neuro oriented x3 and CN's II-XII intact bilaterally Psych Appearance: grossly normal and appropriate Assessment & Plan Assessment/Plan (1) Dyspnea: PLAN: She appears to have significant dyspnea on exertion and this appears to be a possible anginal equivalent. * She underwent a cardiac catheterization this morning which demonstrated essentially normal coronary arteries. At this time I would not recommend that we make any changes with respect to the above plans. She can be discharged on low-dose beta-gasper. Her ejection fraction is also noted to be normal. Thank you for allowing me to participate in the care of your patient. Please don't hesitate to call if any issues arise.
--- NOTE | 2021-12-15 08:10 | CL.D_ITS ---
Patient Name: EAN MILLER I Study Date: 12/15/2021 Performing: Nathaniel Moeller MD Ht: 66.14 inches 168 cm : 1965 Wt: 141.1 lbs 64 kg Age: 56 Gender: female BSA: 1.73 PROCEDURE(S) PERFORMED DC01-([id number])LHC/COR/LV CLINICAL PROFILE AND INDICATIONS Indications: Suspected CAD Heart Failure: None Stress/Imaging Stress/Image Study Performed: No CAD Presentations: Symptom unlikely to be ischemic. CONCLUSIONS Normal coronary arteries Normal LV size, wall motion,and systolic function RECOMMENDATIONS Medical therapy DESCRIPTION OF PROCEDURE The patient arrived to the procedure lab. The risks and benefits of the procedure as well as a full d escription of our services here and current unavailability of surgical backup were fully explained to the patient and/or their significant other prior to the catheterization. The Timeout was completed, verifying the correct patient and procedure. The patient's procedural site was prepped and draped in the usual fashion. Local anesthetic was given subcutaneously to right radial region with Lidocaine 2% . Using a modified Seldinger technique, arterial access was obtained via the right radial artery, a 6 Fr sheath was inserted. Right Coronary Artery selective angiography was then performed in multiple v iews using a 5 Fr. 4.0 [place] catheter. Left Coronary Artery selective angiography was performed in mu ltiple views using a 5 Fr. 4.0 [place] catheter. Left Ventriculography was performed in ROCHA projection using a 5 Fr. Pigtail catheter. LV to AO pullback pressures were then recorded.The arterial sheath was pulled and a TR Band was applied for hemostasis. Sheath flushed prior to removal 10cc air inserted. CORONARY ANGIOGRAPHY DOMINANCE: Right Dominant LEFT HEART ASSESSMENT Left Ventricular Ejection Fraction: by LV Gram 60 % Normal LV wall motion Normal Left Ventricular systolic function LEFT MAIN: Angiographically normal LEFT ANTERIOR DESCENDING ARTERY: Angiographically normal CIRCUMFLEX ARTERY: Angiographically normal RIGHT CORONARY ARTERY: Angiographically normal COMPLICATIONS No Complications PROCEDURE MEDICATIONS Fentanyl 50 mcg IV Versed 1 mg IV Versed 1 mg IV Oxygen: 2 L/min via nasal cannula Heparin given IA 12/15/2021 07:48:02 Verapamil 2.5mg, Ntg 100mcgs, 3000 units of Heparin given IA 12/15/2021 07:48:02 SUMMARY OF HEMODYNAMIC DATA Time AIR REST ECG 07:19:01 Art 129/56 (82) 07:38:02 AO 122/80 (99) SA 07:49:17 LV 118/2, 5 07:55:23 LV 120/2, 6 07:55:29 LV 116/8, 11 07:56:03 LVp 113/6, 9 07:56:07 AOp 107/62 (83) 07:56:12 RM AIR REST 08:07:55 Signed By Nathaniel Moeller MD On 12/15/2021 08:09:12 Nathaniel Moeller MD
--- NOTE | 2021-12-15 11:20 | DCINST_ITS ---
Discharge Instructions Diet Discharge Diet: No restrictions Activity Discharge Activity: Return to Normal Activity Additional Activity Instructions:: Follow-up postop cath instructions Dressing / Incision Call your doctor if you observe: Shortness of breath, Dizziness and Chest pain Follow Up Care Test Results: Test results from this visit will be discussed in further detail at your follow-up appointment, if applicable. Discharge Plan Admission Admit Date/Time: 12/14/21 16:17 Primary Reason for Your Visit: Tachycardia, shortness of breath Attending Provider: Gisele Butler Primary Care Provider: Mono Lynn Consulting Providers: Nathaniel Moeller ; Mono Salgado ; Abimbola Rutledge TECHNICAL ACCOUNT REPRESENTATIVE Discharge Orders/Prescriptions Prescriptions: New metoprolol tartrate 25 mg Tablet 25 mg PO BID 30 Days Qty: 60 RF: 0 Continued levothyroxine 75 MCG tablet 75 mcg PO DAILY RF: 0 albuterol sulfate [Ventolin HFA] 90 mcg/actuation HFA aerosol inhaler 1 - 2 puff inhalation Q4H PRN PRN (Reason: Wheezing) Qty: 1 RF: 0 Referrals / Follow Up: Mono Lynn MD [Primary Care Provider] - In 1 Week Disposition Disposition (needs filled in before D/C Order can be placed): Home, Self Care
--- NOTE | 2021-12-15 11:24 | PCM.DC.SUM ---
Documented by User: Abimbola Rutledge NP, HUMAN RESOURCES BENEFITS SPECIALIST-C 12/15/21 11:33 Providers Date of Admission: 12/14/21 Date of Discharge: 12/15/21 Primary Care Physician: Dr. Cristobal Persaud MD Consultations 12/14/21 17:00 Consult: Cardiology Routine Consulting Provider: Nathaniel Moeller Reason for Consult: dyspnea, elevated troponin EMERGENT Consult: No MD Notified: Yes Date Notified: 12/14/21 Time Notified: 16:27 Method of Notification: Verbal Method of Consult:: In-Person Reason For Visit: DYSPNEA ON EXERTION, ELEVATED TROPONIN Diagnosis Discharge Diagnosis (1) Dyspnea: Status: Acute Code(s): R06.00 - Dyspnea, unspecified Medications at Discharge Home Medications levothyroxine 75 mcg PO DAILY 05/07/20 albuterol sulfate [Ventolin HFA] 1 - 2 puff INHALATION Q4H PRN PRN #1 device 11/25/21 metoprolol tartrate 25 mg PO BID 30 Days #60 tab 12/15/21 Hospital Course Operations None Procedures 2-D Echocardiogram and Cardiac catheterization Summary of Care Provided Hospital Course: Patient is a 56-year-old female admitted 12/14/2021 due to dyspnea on exertion. 1. Dyspnea on exertion-CTA without PE. Scarring in both lower lobes. Troponin mildly elevated. Enzymes did not trend. Echocardiogram with EF 65%, stage I diastolic dysfunction, no regional wall motion abnormalities. Cardiology consulted during admission. Patient underwent heart cath which demonstrated normal coronary arteries. Continue beta-gasper at discharge for tachycardia. Suspect her symptoms may be related to underlying scleroderma. Follow-up with dermatology at discharge. Follow-up with PCP in 1 week as well. 2. Tachycardia-sinus tachycardia. Continue metoprolol at discharge. 3. Scleroderma- on IV infusions, patient not sure name on medication. Continue outpatient follow-up with dermatology. Physical Exam Const alert, oriented x3 and no apparent distress Constitutional Narrative: Diffuse scleroderma, scattered scabbing Orientation / Consciousness: awake, oriented to person, oriented to place and oriented to time HEENT normocephalic Mouth: dry mucous membranes Eyes PERRL, EOMs intact bilaterally and conjunctivae normal Neck no lymphadenopathy Resp normal respiratory effort and clear to auscultation bilaterally Cardio regular rhythm and no murmurs Rate: tachycardic Peripheral Pulses: pulses 2+ throughout GI normal to inspection, nondistended, normoactive bowel sounds, non-tender and non-distended Extremity normal to inspection Skin no rashes or lesions noted Lesions: no lesions Rashes: no rashes Trauma: no lacerations or abrasions Neuro CN's II-XII intact bilaterally, no focal motor deficits, no sensory deficits noted and deep tendon reflexes 2+ bilaterally Psych mental status grossly normal and affect normal Patient seen and examined prior to discharge. Physical assessment as noted above. Patient is stable for discharge with follow up recommendations as noted above. This patient was seen by LINDSEY Owens under the supervision of Dr. Butler. Time spent examining patient, reviewing data and subsequent management of care: 16 minutes Weight / BMI Weight Weight: 141 lb 12.116 oz Body Mass Index (BMI) 22.8 ABG / Lab / Microbiology Data Result Diagrams: 12/14/21 13:05 12/15/21 04:46 Laboratory: Laboratory Results - last 24 hr 12/14/21 13:05: WBC 2.8 L, RBC 4.37, Hgb 14.6, Hct 43.8, MCV 100.2 H, MCH 33.4 H, MCHC 33.3, RDW Std Deviation 54.1 H, RDW Coeff of Pebbles 14.6, Plt Count 164, MPV 11.0, Immature Gran % (Auto) 0.400, Neut % (Auto) 55.4, Lymph % (Auto) 27.6, [place] % (Auto) 15.8 H, Eos % (Auto) 0.4, Baso % (Auto) 0.4, Absolute Neuts (auto) 1.6 L, Absolute Lymphs (auto) 0.77 L, Nucleated RBC % 0 12/14/21 13:05: PT Cancelled, INR Cancelled 12/14/21 13:05: Sodium Cancelled, Potassium Cancelled, Chloride Cancelled, Carbon Dioxide Cancelled, Anion Gap Cancelled, BUN Cancelled, Creatinine Cancelled, Estim Creat Clear Calc Cancelled, Est GFR (MDRD) Af Amer Cancelled, Est GFR (MDRD) Non-Af Cancelled, BUN/Creatinine Ratio Cancelled, Glucose Cancelled, Calcium Cancelled, Total Bilirubin Cancelled, AST Cancelled, ALT Cancelled, Alkaline Phosphatase Cancelled, Troponin I High Sens Cancelled, Total Protein Cancelled, Albumin Cancelled, Globulin Cancelled, Albumin/Globulin Ratio Cancelled, TSH Cancelled 12/14/21 13:05: B-Natriuretic Peptide 103.3 H 12/14/21 14:00: PT Cancelled, INR Cancelled 12/14/21 14:00: Sodium 134 L, Potassium 4.9, Chloride 96 L, Carbon Dioxide 29.0, Anion Gap 9, BUN 2 L, Creatinine 0.51 L, Estim Creat Clear Calc 113.93, Est GFR (MDRD) Af Amer 161, Est GFR (MDRD) Non-Af 133, BUN/Creatinine Ratio 4.0 L, Glucose 97, Calcium 9.1, Total Bilirubin 0.60, AST 122 H, ALT 69 H, Alkaline Phosphatase 84, Troponin I High Sens 128 H*, Total Protein 8.3 H, Albumin 2.9 L, Globulin 5.4 H, Albumin/Globulin Ratio 0.5 L, TSH 2.13 12/14/21 15:45: PT 12.7, INR 1.0 12/14/21 15:45: Troponin I High Sens 153 H* 12/14/21 20:30: Troponin I High Sens 136 H* 12/15/21 04:46: Sodium 136, Potassium 3.8, Chloride 102, Carbon Dioxide 27.0, Anion Gap 7, BUN 6 L, Creatinine 0.48 L, Estim Creat Clear Calc 121.05, Est GFR (MDRD) Af Amer 170, Est GFR (MDRD) Non-Af 141, BUN/Creatinine Ratio 12.4, Glucose 84, Calcium 8.7, Total Bilirubin 0.60, AST 96 H, ALT 59 H, Alkaline Phosphatase 73, Total Protein 7.3, Albumin 2.6 L, Globulin 4.7 H, Albumin/Globulin Ratio 0.6 L Radiography Diagnostic Testing: Radiology Impression Chest CTA 12/14/21 12:42 IMPRESSION: No evidence of a pulmonary embolism. Findings suggestive of scarring worse in both lower lobes. Electronically Signed: Efren Arreguin MD at 14:06 EDT , Echocardiogram 12/14/21 15:29 Interpretation Summary Normal LV size. Left ventricular systolic function is normal. The estimated ejection fraction is 65 %. Stage 1 diastolic dysfunction. Structurally normal valves. Ordering Physician: Gaurang Jacob Referring Physician: CRISTOBAL PERSAUD Performed By: Sharri Go RDCS D/C Instructions Discharge Diet: No restrictions Additional Activity Instructions: Follow-up postop cath instructions Call your doctor if you observe: Shortness of breath, Dizziness and Chest pain Meaningful Use Info Meaningful Use Diagnoses (Choose all that apply): None applicable Discharge Plan Admission Admit Date/Time: 12/14/21 16:17 Primary Reason for Your Visit: Tachycardia, shortness of breath Attending Provider: Gisele Butler Primary Care Provider: Cristobal Persaud Consulting Providers: Nathaniel Moeller ; Cristobal Salgado ; Abimbola Rutledge HUMAN RESOURCES BENEFITS SPECIALIST Discharge Orders/Prescriptions Prescriptions: New metoprolol tartrate 25 mg Tablet 25 mg PO BID 30 Days Qty: 60 RF: 0 Continued levothyroxine 75 MCG tablet 75 mcg PO DAILY RF: 0 albuterol sulfate [Ventolin HFA] 90 mcg/actuation HFA aerosol inhaler 1 - 2 puff inhalation Q4H PRN PRN (Reason: Wheezing) Qty: 1 RF: 0 Referrals / Follow Up: Cristobal Persaud MD [Primary Care Provider] - In 1 Week Disposition Disposition (needs filled in before D/C Order can be placed): Home, Self Care Documented by User: Dr. Gisele Butler MD 12/15/21 15:52 Providers Date of Admission: 12/14/21 Reason For Visit: DYSPNEA ON EXERTION, ELEVATED TROPONIN Medications at Discharge Home Medications levothyroxine 75 mcg PO DAILY 05/07/20 albuterol sulfate [Ventolin HFA] 1 - 2 puff INHALATION Q4H PRN PRN #1 device 11/25/21 metoprolol tartrate 25 mg PO BID 30 Days #60 tab 12/15/21 ABG / Lab / Microbiology Data Result Diagrams: 12/14/21 13:05 12/15/21 04:46 Discharge Plan Admission Admit Date/Time: 12/14/21 16:17 Primary Reason for Your Visit: Tachycardia, shortness of breath Attending Provider: Gisele Butler Primary Care Provider: Cristobal Persaud Consulting Providers: Nathaniel Moeller ; Cristobal Salgado ; Abimbola Rutledge NP Discharge Orders/Prescriptions Prescriptions: New metoprolol tartrate 25 mg Tablet 25 mg PO BID 30 Days Qty: 60 RF: 0 Continued levothyroxine 75 MCG tablet 75 mcg PO DAILY RF: 0 albuterol sulfate [Ventolin HFA] 90 mcg/actuation HFA aerosol inhaler 1 - 2 puff inhalation Q4H PRN PRN (Reason: Wheezing) Qty: 1 RF: 0 Referrals / Follow Up: Cristobal Persaud MD [Primary Care Provider] - In 1 Week Disposition Disposition (needs filled in before D/C Order can be placed): Home, Self Care Charges/Coding Addendum Addendum: This patient was seen in conjunction with Abimbola Rutledge NP. I have independently interviewed and examined the patient and reviewed pertinent historical, laboratory, and other data. I have reviewed her note and concur with her documentation 56-year-old female with past medical history of scleroderma, following up with rheumatology, on IV infusions, who comes in with shortness of breath. CTA of the chest was negative for acute PE. Patient has slight elevation in her troponin. Patient was seen by cardiology, underwent cardiac cath, coronaries unremarkable. Patient was asked to follow-up with pulmonology in the outpatient for PFTs. On the day of discharge, patient was seen and examined. Denied any new complaints. Physical Exam: Gen: Comfortable, not pale, not jaundiced CVS:HS I +II, regular, no murmurs RESP: Diminished at lung bases GI: BS present and normal, soft, nontender, no palpable organs EXT:No edema Time spent coordinating patient's care, discussing with cardiology and nursin minutes Visit Charges OBSV E&M: [id number] Observation care discharge
--- NOTE | 2021-12-15 11:40 | PHA.DC.MC ---
Pharmacy Service has performed discharge medication reconciliation and counseling for this patient. 1. METOPROLOL TARTRATE 25MG PO BID The patient's discharge medication list was reviewed for discrepancies and discrepancies were resolved. Home Medications levothyroxine 75 mcg PO DAILY 05/07/20 albuterol sulfate [Ventolin HFA] 1 - 2 puff INHALATION Q4H PRN PRN #1 device 11/25/21 metoprolol tartrate 25 mg PO BID 30 Days #60 tab 12/15/21 The patient was counseled on the following discharge medications and changes in medications for homegoing were reviewed. The Reason for Use, instructions for use, and potential side effects were reviewed for all new medications. The patient's questions regarding all of their medications were answered. The patient was able to verbally demonstrate an understanding of their discharge medications.
--- NOTE | 2021-12-15 12:52 | NURSING ---
Reviewed charting with Yas Stephens RN
== END 2021-12-15 11:21 | disposition home or self-care (01) ==
LOC: ED 16:01 → PCU 16:42
PROVIDERS: Admitting Provider Internal Medicine; Emergency Provider Emergency Medicine; PCP Family Medicine; Visit Provider Internal Medicine
DX: R06.00 Dyspnea, unspecified (principal); M34.9 Systemic sclerosis, unspecified; J84.10 Pulmonary fibrosis, unspecified; R74.8 Abnormal levels of other serum enzymes; D72.829 Elevated white blood cell count, unspecified; R77.8 Other specified abnormalities of plasma proteins; Z79.890 Hormone replacement therapy; K21.9 Gastro-esophageal reflux disease without esophagitis; E03.9 Hypothyroidism, unspecified; R00.0 Tachycardia, unspecified; R93.1 Abnormal findings on diagnostic imaging of heart and coronary circulation
CPT/HCPCS: 36415; 71275; 80053; 83880; 84443; 84484; 85025; 85610; 93005; 93306; 93458; 96360; 96361; 97161; 97165; 99152; 99153; 99218; 99283; J7030; Q9967; A4216; C1769; C1894; G0378

== ENCOUNTER 2022-01-22 11:25 | Observation (INO) | payer MEDICARE, MEDICAID, SELFPAY ==
[2022-01-22] VITALS (7 sets, daily range): BP systolic 147–157; BP diastolic 91–109; PULSE 107–131; RESP 18–22; TEMP 36.6–36.8; O2SAT 84–97; BMI 21.7; BMI 21.3
--- NOTE | 2022-01-22 13:30 | RAD_ITS ---
STUDY: X-RAY CHEST REASON FOR EXAM: Female, 56 years old. , hx of scleroderma TECHNIQUE: PA and lateral views of the chest. COMPARISON: Comparison is made with prior study dated 11/25/2021. FINDINGS: Stable mild increased linear markings at the lung bases slightly more prominent at the left lung base suggestive of a scarring. There is no demonstrated pleural abnormality. Normal size heart. Normal mediastinum and pankaj. Normal visualized pulmonary arteries. There is atherosclerotic tortuosity of the aortic arch and descending thoracic aorta. There are diffuse degenerative changes of the visualized thoracic spine. Normal visualized ribs, clavicles, and shoulders. There is no demonstrated abnormality of the visualized soft tissue structures of the upper abdomen. RAD/Chest PA and Lateral IMPRESSION: Stable mild increased linear markings at the lung bases slightly more prominent on the left side suggestive of scarring. Electronically Signed: Efren Arreguin MD at 13:54 EDT ,
--- NOTE | 2022-01-22 14:28 | EKG12_ITS ---
Test Reason : SOB Blood Pressure : / mmHG Vent. Rate : 093 BPM Atrial Rate : 093 BPM P-R Int : 136 ms QRS Dur : 074 ms QT Int : 404 ms P-R-T Axes : 052 015 048 degrees QTc Int : 502 ms Normal sinus rhythm Prolonged QT Abnormal ECG Confirmed by JAMES ZULETA, MARGARET ([id number]), editor publications ANA ROSA MELENDEZ ([id number]) on 01/25/2022 12:41:55 PM Referred By: HOLLY Confirmed By:MARGARET RAMIREZ MD
[2022-01-22 16:07] LABS: Absolute Lymphocyte Count 0.77 X10^3/uL (0.83-4.51); Absolute Neutrophil Count 2.3 X10^3/uL (2.0-7.7); Basophil# 0.03 X10^3/uL; Basophil% 0.8 % (0-1); Eosinophil# 0.06 X10^3/uL; Eosinophils% 1.6 % (0-5); Hematocrit 41.7 % (37-47); Hemoglobin 13.7 g/dL (12.0-15.0); Lymphocyte # 0.77 X10^3/ul (0.83-4.51); Lymphocyte % 21.1 % (19-41); Mean Corp Hgb Conc 32.9 g/dL (32-36); Mean Corpuscular Hgb 33.3 pg (27.0-32.0); Mean Corpuscular Volume 101.2 fL (81-99); Mean Platelet Vol. 10.7 fl (6.2-12.0); Monocyte# 0.45 X10^3/uL; Monocyte% 12.3 % (0-10); NRBC Flagged by Analyzer 0 % (0-5); Neutrophil # 2.32 X10^3/uL (2.7-7.7); Neutrophil % 63.7 % (47-70); Platelet Count 156 K/mm3 (150-450); RBC Distribution Width CV 13.8 % (11.6-14.6); RBC Distribution Width SD 51.7 fl (35.1-43.9); Red Blood Count 4.12 M/mm3 (4.2-5.4); White Blood Count 3.7 K/mm3 (4.4-11.0)
[2022-01-22 16:23] LABS: Anion Gap 13 (5-15); BUN 6 mg/dL (7-18); BUN/Creat Ratio 9.8 RATIO (10-20); Calcium,Total 9.6 mg/dL (8.5-10.1); Chloride 97 mmol/L (98-107); Creatinine, Serum 0.61 mg/dL (0.55-1.02); EST Glomerular Filtration Rate 106 mL/min (>60); Est Glom Filt Rate - Afr Amer 129 mL/min (>60); Estimated Creatinine Clearance 95.26 ml/min; Glucose 79 mg/dL (74-106); Potassium 3.7 mmol/L (3.5-5.1); Sodium Level 133 mmol/L (136-145); Troponin-I HS 116 pg/mL (3.0-54.0)
[2022-01-22 16:30] LABS: BNP,B-Type NATRIURETIC PEPTIDE 251.8 pg/mL (0-100)
--- NOTE | 2022-01-22 16:32 | CT_ITS ---
EXAM: CT ANGIOGRAPHY CHEST WITHOUT AND WITH INTRAVENOUS CONTRAST CLINICAL INDICATION: LEE, concern for PE, hx of lung fibrosis TECHNIQUE: Helically acquired angiography images were obtained of the chest without and with intravenous contrast. This CT exam was performed using one or more of the following dose reduction techniques: automated exposure control, adjustment of the mA and/or kV according to patient size, and/or use of iterative reconstruction technique. This report was created using [employer] report generation technology. MIP reconstructed images were created and reviewed. CONTRAST: IV 75mL [id number] RADIATION DOSE: CTDIvol = 7.36 mGy, DLP = 299.32 mGy-cm COMPARISON: Dec 14 2021 1:21pm FINDINGS: PULMONARY ARTERIES: No demonstrated pulmonary embolism or arterial dissection. AORTA: There is atherosclerotic calcification of the aortic arch with tortuosity and elongation of the aortic arch and descending thoracic aorta. Normal in caliber. No evidence of dissection. GREAT VESSELS OF AORTIC ARCH: Unremarkable. Normal in caliber. No evidence of dissection. LUNGS AND PLEURAL SPACES: There is bilateral pneumonia. No mass. No pleural effusion or thickening. HEART: Unremarkable. Heart size is normal. No pericardial effusion. No signs of right heart strain, ratio of right ventricle to left ventricle measures less than 1. MEDIASTINUM: Unremarkable. No mediastinal or hilar adenopathy. Esophagus is unremarkable. No hiatal hernia. THYROID: Unremarkable. No thyroid lesions. BONES/JOINTS: There are multi-level degenerative changes of the thoracic spine. No suspicious lytic or blastic abnormality. CT/CTA Chest W/WO Contrast IMPRESSION: 1. No demonstrated pulmonary embolism or arterial dissection. 2. There is bilateral pneumonia. Electronically Signed: Loi Hobbs MD at 17:38 EDT ,
--- NOTE | 2022-01-22 17:25 | PCM.HP.STD ---
HPI - General General Date of Admission: 01/22/22 Date of Service: 01/22/22 Chief Complaint: Shortness of breath on exertion for 2 to 3 months. HPI Narrative EAN MILLER, is a 56 F with history of his chordoma diagnosed about 3 years ago being followed by [facility] rheumatology risk came to ER with worsening shortness of breath mainly on exertion. She can hardly walk 30 to 40 feet or climb 4-5 steps and gets short of breath. She also has chronic cough for about 2 to 3 months and has been treated with 4 rounds of antibiotics till now and still has a productive cough with thick yellow sputum. Denies any fever or chills. She finished 10 days of Zithromax recently about 2 weeks ago. Denies fever or chills. She was last admitted in second week of December 2021 for similar shortness of breath on exertion. As per patient, she was on CellCept before but stopped taking it because of she could not sleep or restlessness. In ED, changes pulse ox 96% on room air but she desaturates to 84% on room air on walking 10 steps and gets very dyspneic, tachycardic heart rate 140/min and has to stop to catch breath. She is not on home oxygen. Her high sensitive troponin is elevated 116 but she has been evaluated by housekeeping lead during recent previous admission in December 2021 with heart cath which reported angiographically normal coronary arteries, normal LV systolic function. Echo showed EF 66%, stage I diastolic dysfunction with structurally normal valves Chest x-ray and chest CTA individually reviewed. Chest x-ray shows chronic interstitial lung markings mainly on left side suggestive of scarring. Chest CTA shows increased interstitial reticular markings. Radiologist reported bilateral pneumonia but I do not see any major lobar, lobular or interstitial consolidation. Clinically patient has been treated with 4 rounds of antibiotics in the last 2 months and does not have fever or chills but chronic cough. ER physician empirically ordered 1 dose of IV Rocephin and Zithromax. [facility] Medical History Hypothyroidism Scleredema Home Medications levothyroxine 75 mcg tablet 75 mcg PO DAILY 05/07/20 [History Last Taken 01/22/22] cyclobenzaprine 10 mg tablet 10 mg PO TID PRN Spasms 01/22/22 [History Last Taken 01/22/22] omeprazole 20 mg capsule,delayed release 20 mg PO DAILY GERD 01/22/22 [History Last Taken 01/22/22] Allergy/AdvReac Type Severity Reaction Status Date / Time acetaminophen [From Tylenol] Allergy Bleeding Verified 01/22/22 11:31 simvastatin [From Zocor] Allergy Rash Verified 01/22/22 11:31 NSAIDS (Non-Steroidal AdvReac Bleeding Verified 01/22/22 11:31 Anti-Inflamma Family History Father COPD (chronic obstructive pulmonary disease) Mother No cardiac disease Surgical History H/O foot surgery H/O knee surgery History of left heart catheterization (12/15/09) History of tonsillectomy S/P manipulation of deviated nasal septum Social History household members: significant other Smoking Status: Never smoker alcohol intake: never substance use type: does not use ROS ROS Narrative Constitutional: Reports fatigue and weakness. No fever HEENT: Decreased opening of mouth. Reports systems reviewed and no addt'l complaints, except as documented Respiratory/Chest: denies chest pain/pressure. Rest admission HPI Gastrointestinal: chronic GERD/acid reflux. Denies coffee ground emesis, hematemesis or vomiting Genitourinary: Denies history of kidney failure. Denies burning urination or new urinary tract symptoms Musculoskeletal: Stiffness, arthritis of the small joints of finger and wrist with deformity and loss of range of motion Neurologic: Denies seizure-like activity. Denies stroke skin: Skin tightening and skin atrophy multiple small skin excoriations Endocrinology: Reports systems reviewed and no addt'l complaints, except as documented Hematologic/Lymphatic: Reports systems reviewed and no addt'l complaints, except as documented Rest 14 ROS are negative except as mentioned in HPI Vital Signs Vital Signs Vital Signs: 01/22/22 11:26 01/22/22 13:58 01/22/22 14:00 Temperature 97.8 F Temperature Source Temporal Pulse Rate 131 H Respiratory Rate 20 H Respiratory Effort Non-Labored Short of Breath Respiratory Depth Normal Respiratory Pattern Normal Blood Pressure 152/109 H Blood Pressure Mean 123 Pulse Ox 96 96 Oxygen Delivery Method Room Air Room Air Room Air 01/22/22 14:16 01/22/22 14:16 Temperature Temperature Source Pulse Rate Respiratory Rate 18 Respiratory Effort Short of Breath Respiratory Depth Respiratory Pattern Blood Pressure Blood Pressure Mean Pulse Ox 96 Oxygen Delivery Method Room Air Weight Weight: 135 lb Body Mass Index (BMI) 21.7 Physical Exam Narrative Physical exam General: Alert, Oriented x3, Cooperative HEENT:Atraumatic, PERRLA, EOMI, Normocephalic Oral: Oral mucosa dry. Microstomia. Cannot see deeper structures of oral and pharynx because of microstomia. Gingivitis Neck: Supple, No JVD, Negative Carotid Bruits Lungs: Air entry diminished in bilateral lung bases. No crepitation/rhonchi Cardiovascular: Regular rate, Regular Rhythm, Normal S1, Normal S2, No murmurs Abdomen: Bowel Sounds Present, Soft, Non Tender, Non-Distended : No renal angle tenderness. No suprapubic tenderness. Extremities: No edema, Capillary Refill Less than 3 Seconds Skin: Tightening/woody induration of his skin all around the body mainly over upper chest, upper extremities. Multiple small skin excoriations. Musculoskeletal: Small joint deformity of fingers and wrist. Nodules over MCP joints. Neurological: Cranial nerves II-XII grossly intact, DTR 2+/4, muscle strength 4/5 at major joints. Psych/Mental Status: Flat affect Results Lab / Micro Data Result Diagrams: 01/22/22 15:50 01/22/22 15:50 Labs: Laboratory Results - last 24 hr 01/22/22 15:50: WBC 3.7 L, RBC 4.12 L, Hgb 13.7, Hct 41.7, MCV 101.2 H, MCH 33.3 H, MCHC 32.9, RDW Std Deviation 51.7 H, RDW Coeff of Pebbles 13.8, Plt Count 156, MPV 10.7, Immature Gran % (Auto) 0.500, Neut % (Auto) 63.7, Lymph % (Auto) 21.1, [place] % (Auto) 12.3 H, Eos % (Auto) 1.6, Baso % (Auto) 0.8, Absolute Neuts (auto) 2.3, Absolute Lymphs (auto) 0.77 L, Nucleated RBC % 0 01/22/22 15:50: Sodium 133 L, Potassium 3.7, Chloride 97 L, Carbon Dioxide 23.0, Anion Gap 13, BUN 6 L, Creatinine 0.61, Estim Creat Clear Calc 95.26, Est GFR (MDRD) Af Amer 129, Est GFR (MDRD) Non-Af 106, BUN/Creatinine Ratio 9.8 L, Glucose 79, Calcium 9.6, Troponin I High Sens 116 H 01/22/22 15:50: B-Natriuretic Peptide 251.8 H Micro: Microbiology 01/22/22 12:01 Nasal Secretion SARS-CoV-2 Antigen (Rapid) - Final Radiology Impression Chest X-Ray 01/22/22 13:30 IMPRESSION: Stable mild increased linear markings at the lung bases slightly more prominent on the left side suggestive of scarring. Electronically Signed: Efren Arreguin MD at 13:54 EDT , Assessment & Plan Assessment/Plan (1) Interstitial lung disease: PLAN: 1. Dyspnea on exertion, exertional hypoxia probably due to interstitial lung disease from scleroderma: Patient gets hypoxic on walking with dyspnea, tachycardia. Currently 94% on room air but desaturates, 84% on walking on ambient air. Monitor oxygenation. Pulmonary consult for further opinion and recommendation. Will need outpatient PFT/6-minute walking test 2. Progressive systemic sclerosis with microstomia, interstitial lung disease: Chest CT independently reviewed. Patient had empiric antibiotic in ED. I do not feel patient needs further antibiotic as she already recently on 4 rounds of antibiotics. She had multiple ED visits and she gets antibiotic from ER and urgent care. 2D echo did not report pulmonary hypertension but I think patient will need right heart cath as an outpatient probably in advanced tertiary center, [facility]. Patient does not have established trimmer buffing wheel. Patient follows [facility] surgical instruments inspector. 3. Sinus tachycardia probably related to dyspnea/respiratory origin. 4. Other comorbidities include hypothyroidism, fibromyalgia, anxiety disorder and bipolar disorder: On Levothroid 75 mcg daily. TSH tomorrow AM. Other chronic comorbidities include GERD which might be related to scleroderma. Moderate protein calorie malnutrition. BMI 21.8 kg per metered square. Patient denies history of malabsorption or pseudoobstruction but she has history of lactose intolerance in the past. VTE prophylaxis: Moderate risk enoxaparin 40 mg subcu daily Living will/advanced directive/end of life care: Patient does not have living will or advanced directive. Her is next of kin. After discussion of benefits/risks procedures involved with full code, DNR CC arrest and DNR CC, the patient opted for full code. Patient has not decided yet whether she wants intubation as last resort if other noninvasive method fails Patient does want artificial life support including intubation, tube feed, ventilator and/chest compression, central venous catheter, vasopressor and DC shock if needed Total time spent in [id number] encounter in discussion of advanced directive 16 minutes. Charges/Coding Visit Charges OBSV E&M: 36854 Initial observation care L3 Procedures Hospitalists Procedures: 59838 Advncd Care Plan 30 Min
--- NOTE | 2022-01-22 17:30 | EDS_ITS ---
HPI History of Present Illness Chief Complaint: Shortness of Breath Informant: patient Narrative Narrative: Patient is a 56-year-old female with history of interstitial lung disease and scleroderma as well as Raynaud's phenomenon presenting from home for shortness of breath. Patient states she has had dyspnea on exertion for the past 2 months in the past 2 weeks has been so bad that she keeps missing work. She was admitted on 12/14/2021 for elevated troponin and dyspnea on exertion. At that time she had a left heart cath, echocardiogram and CTA. Work-up was largely unremarkable and she was discharged home. Patient does not have home oxygen. I spoke with her zoogler through [facility], Dr. Helen Hernandez. She states that patient really needs to follow-up with pulmonology but she is not established with them yet. Patient has delayed scheduling it and appointments are months out. Patient does get IVIG every 4 weeks and was previously on CellCept but stopped that on her own. Patient was on CellCept for her interstitial lung disease. Her zoogler ultimately patient probably needs PFTs and right heart cath. Patient denies any swelling of her legs. She does have a remote history of DVT after knee surgery. She notes that she has had a cough with slight yellow sputum production but denies any fever. She denies any chest pain or shortness of breath at rest. She was on a 10-day course of amoxicillin approximately 2 weeks ago which was prescribed by the walk-in clinic. [facility] Medical History Hypothyroidism Scleredema Home Medications levothyroxine 75 mcg tablet 75 mcg PO DAILY 05/07/20 [History Last Taken 01/22/22] cyclobenzaprine 10 mg tablet 10 mg PO TID PRN Spasms 01/22/22 [History Last Taken 01/22/22] omeprazole 20 mg capsule,delayed release 20 mg PO DAILY GERD 01/22/22 [History Last Taken 01/22/22] Allergy/AdvReac Type Severity Reaction Status Date / Time acetaminophen [From Tylenol] Allergy Bleeding Verified 01/22/22 11:31 simvastatin [From Zocor] Allergy Rash Verified 01/22/22 11:31 NSAIDS (Non-Steroidal AdvReac Bleeding Verified 01/22/22 11:31 Anti-Inflamma Family History Father COPD (chronic obstructive pulmonary disease) Mother No cardiac disease Surgical History H/O foot surgery H/O knee surgery History of left heart catheterization (12/15/09) History of tonsillectomy S/P manipulation of deviated nasal septum Social History household members: significant other Smoking Status: Never smoker alcohol intake: never substance use type: does not use ROS ROS ED Constitutional Constitutional ED: Denies chills or fever(s) Eyes Eyes: Denies change in vision ENT ENT ED: Denies rhinorrhea or sore throat Cardiovascular Cardiovascular: Denies chest pain or palpitations Respiratory/Chest Respiratory/Chest: Reports cough and dyspnea on exertion; Denies dyspnea Gastrointestinal Gastrointestinal: Denies abdominal pain, nausea or vomiting Musculoskeletal Musculoskeletal: Denies arthralgias Integumentary Reports other Details: Chronic skin changes associated with her scleroderma ; Denies rash Neurologic Neurologic: Denies headache(s) or weakness Psychiatric Psychiatric: Denies anxiety EXAM Physical Exam Const Vital Signs: 01/22/22 11:26 01/22/22 13:58 01/22/22 14:00 Temperature 97.8 F Temperature Source Temporal Pulse Rate 131 H Respiratory Rate 20 H Respiratory Effort Non-Labored Short of Breath Respiratory Depth Normal Respiratory Pattern Normal Blood Pressure 152/109 H Blood Pressure Mean 123 Pulse Ox 96 96 Oxygen Delivery Method Room Air Room Air Room Air 01/22/22 14:16 01/22/22 14:16 01/22/22 14:16 Temperature Temperature Source Pulse Rate Respiratory Rate 18 Respiratory Effort Short of Breath Respiratory Depth Respiratory Pattern Blood Pressure Blood Pressure Mean Pulse Ox 96 84 Oxygen Delivery Method Room Air Room Air 01/22/22 17:39 Temperature 98.2 F Temperature Source Oral Pulse Rate 107 H Respiratory Rate 22 H Respiratory Effort Respiratory Depth Respiratory Pattern Blood Pressure 147/91 H Blood Pressure Mean 109 Pulse Ox 94 Oxygen Delivery Method Room Air Positive well nourished and well developed General Appearance ED: well developed and NAD HEENT Reports moist mucous membranes Eyes PERRL and EOMs intact bilaterally Neck supple and no JVD Resp normal respiratory effort Resp Narrative: Slight crackles at the bases bilaterally Cardio regular rate, regular rhythm and no murmurs GI non-tender, non-distended and no masses Back/Spine no CVA tenderness Extremity Extremity Narrative: Patient has some nonpitting edema of all extremities but she states that is associated with her scleroderma. No deformity. No significant pedal edema. Neuro oriented x3 Motor Exam: Negative for general weakness Psych mental status grossly normal Mood & Affect: anxious Skin no wounds Skin Narrative: Increased skin turgor MDM MDM MDM Narrative Medical decision making narrative: Patient is evaluated for 2 months of worsening dyspnea on exertion. Patient appears nontoxic and in no acute distress. She initially is hesitant to have blood work and states she had it 3 weeks ago and she is a difficult IV stick. Chest x-ray is obtained which does not show any acute process. Patient is ambulated and becomes quickly symptomatic. She desats to 84% on room air and her heart rate goes up to 140 bpm. After this patient is agreeable for further work-up. She does not have home oxygen and ultimately will require admission for further pulmonology evaluation and to get set up with home oxygen. Her high sensitive troponin is elevated at 116 however this is actually lower than when she was during her prior admission. Patient's BNP is slightly increased and is now 251.8. Given her elevated BNP, elevated troponin and history of DVT I did obtain a PE study. Do not see any large PE however formal read is still pending. Patient is a mild leukopenia of 3.7 which is nonspecific. I did page out pulmonology and patient is admitted to the hospital service. Patient agreeable to this plan of care. Case discussed with Dr. Ariza who will be able to see the patient on consult. CTA was read as bilateral pneumonia. Patient be covered with Rocephin and azithromycin for that. Lab Data Attestation: I reviewed the patient's lab results. Labs: Laboratory Results - last 24 hr 01/22/22 01/22/22 01/22/22 15:50 15:50 15:50 WBC 3.7 L RBC 4.12 L Hgb 13.7 Hct 41.7 MCV 101.2 H MCH 33.3 H MCHC 32.9 RDW Std Deviation 51.7 H RDW Coeff of Pebbles 13.8 Plt Count 156 MPV 10.7 Immature Gran % (Auto) 0.500 Neut % (Auto) 63.7 Lymph % (Auto) 21.1 [place] % (Auto) 12.3 H Eos % (Auto) 1.6 Baso % (Auto) 0.8 Absolute Neuts (auto) 2.3 Absolute Lymphs (auto) 0.77 L Nucleated RBC % 0 Sodium 133 L Potassium 3.7 Chloride 97 L Carbon Dioxide 23.0 Anion Gap 13 BUN 6 L Creatinine 0.61 Estim Creat Clear Calc 95.26 Est GFR (MDRD) Af Amer 129 Est GFR (MDRD) Non-Af 106 BUN/Creatinine Ratio 9.8 L Glucose 79 Calcium 9.6 Troponin I High Sens 116 H B-Natriuretic Peptide 251.8 H Radiography Chest X-Ray - ED: 2 View, Read by ED Physician, Read by Radiologist, No Acute Disease and Chronic Changes Diagnostic Testing: Clinical Impression(s) from Imaging Studies Chest X-Ray 01/22/22 13:30 IMPRESSION: Stable mild increased linear markings at the lung bases slightly more prominent on the left side suggestive of scarring. Electronically Signed: Efren Arreguin MD at 13:54 EDT , Chest CTA 01/22/22 16:32 IMPRESSION: 1. No demonstrated pulmonary embolism or arterial dissection. 2. There is bilateral pneumonia. Electronically Signed: Loi Hobbs MD at 17:38 EDT , Rhythm Strip Rhythm Strip: Sinus Rhythm Rate: 93 Ectopy: None EKG Initial EKG: Attestation: I personally reviewed and interpreted this EKG as follows: Interpretation: Sinus Rhythm Comments: Normal sinus rhythm at a rate of 93 Normal axis Normal SC interval Normal QRS Prolonged QTC at [address] segments Discharge Plan Triage Chief Complaint: Shortness of Breath ED Provider: Sharon Santiago Dx/Rx/DC Orders Clinical Impression: Bilateral pneumonia, Acute respiratory failure with hypoxia, Interstitial lung disease Prescriptions: No Action levothyroxine 75 MCG tablet 75 mcg PO DAILY cyclobenzaprine 10 mg tablet 10 mg PO TID PRN (Reason: Spasms) Label Comments: TAKE 1 TABLET THREE TIMES DAILY NEEDED for MUSCLE SPASM omeprazole 20 mg capsule,delayed release(DR/EC) 20 mg PO DAILY Label Comments: TAKE 1 CAPSULE BY MOUTH DAILY Primary Care Provider: Mono Lynn Referrals: Mono Lynn MD [Primary Care Provider] - Disposition Disposition: Acute Care Hospital [facility]
[2022-01-22] MEDS: Ceftriaxone 1 GM/50 ML BAG IV (18:13)
[2022-01-22 19:44] LABS: Magnesium 1.5 mg/dL (1.6-2.6)
[2022-01-22] MEDS: Enoxaparin 40 MG/0.4 ML Syringe SC (20:24)
[2022-01-23 00:12] VITALS: BP 133/100; PULSE 100; RESP 12; TEMP 36.6; O2SAT 97
[2022-01-23] MEDS: cycloBENZAPRine HCl 10 MG Tablet PO (00:16)
[2022-01-23 04:26] VITALS: PULSE 96
--- NOTE | 2022-01-23 05:50 | EX.PCM.CONCC ---
Assessment & Plan Assessment/Plan (1) Hypoxia: PLAN: Plan RECOMMENDATIONS: 1. Perform walking oximetry study prior to consideration for discharge home. 2. Outpatient pulmonary follow-up within 2 weeks of discharge. 3. The patient needs to reestablish care with her boxing trainer LORETTA. 4. Will sign off at this time. Please call with any additional questions. IMPRESSIONS: 1. Shortness of breath and hypoxia I do suspect that the patient's symptoms and hypoxia is related to progression of her interstitial lung disease after the patient discontinued the previously prescribed CellCept. In addition, she has been lost to follow-up with her boxing trainer. The patient ultimately needs to establish care with a lumber stacker operator to obtain PFTs and potentially be considered for a right heart catheterization. Her last surface echocardiogram did not comment on any right-sided heart pressures. At this particular time, I would recommend that the patient be set up with oxygen based upon her exertional needs. She will then need to follow-up with us in the pulmonary medicine clinic within 2 weeks of discharge. However, the most important thing for this patient is that she reestablish care with her boxing trainer as soon as possible. No additional inpatient work-up is indicated at this time. 2. History of scleroderma The patient reported that she was initially diagnosed with scleroderma 2 years ago and has associated interstitial lung disease. She currently receives IVIG therapy and was previously prescribed CellCept. The patient ultimately stopped the CellCept without conferring with her boxing trainer due to reported side effects. Therefore, her shortness of breath and hypoxia is likely secondary to progression of her interstitial disease secondary to noncompliance with prescribed medication regimen. Ultimately, the patient needs to follow-up with her boxing trainer to be restarted on her CellCept or an alternative medication such as cyclophosphamide or azathioprine. She will require outpatient PFTs and possible referral to cardiology for right heart catheterization. For now, I would recommend that a walking oximetry study be completed and the patient set up with supplemental oxygen on a home-going basis. It is imperative that she be seen by her boxing trainer as soon as possible. 3. GERD/bipolar disorder/hypothyroidism Complicates care, management, recovery and prognosis. Continue home medications as indicated. This note was generated with Tak[employer] software. It may contain incorrect words, spelling, and punctuation that were not noted in checking the note before signing. HPI Consult Data Date of Consult: 01/23/22 HPI Narrative Reason for Consultation: Shortness of breath and hypoxia HPI Narrative: The patient is a 56-year-old female, with a history as outlined below, who presented to the emergency department on January 22 with shortness of breath. The patient has a reported history of scleroderma with associated interstitial lung disease. The patient is followed by rheumatology, Dr. Helen Hernandez, at the [facility]. The patient currently receives IVIG and was previously on CellCept. The patient was last admitted to the hospital last month with shortness of breath and an elevated troponin. Her echocardiogram demonstrated stage I diastolic dysfunction. Pulmonary artery systolic pressure was not reported. The patient was evaluated by cardiology and underwent a cardiac catheterization on December 15, which demonstrated normal coronary arteries. Prior chest imaging has demonstrated bilateral lower lobe subpleural interstitial changes. The patient's boxing trainer has recommended that the patient establish care with a pulmonary medicine provider to obtain PFTs and potentially undergo a right heart catheterization. The patient is a lifelong non-smoker, but does report secondhand smoke exposure growing up from her father. The patient initially received her scleroderma diagnosis 2 years ago. She was also apparently on CellCept for period of time, but the patient discontinued the medication herself as she felt that it was causing behavioral disturbances. She was last seen by her boxing trainer in July 2021. She was supposed to follow-up with her in the spring, but failed to do so. On presentation to the emergency department, the patient was noted to be afebrile hemodynamically stable. She was maintaining appropriate oxygen saturations on room air. Laboratory evaluation revealed no evidence of a leukocytosis. Chemistry profile was largely unrevealing. Magnesium was low at 1.5. Troponin was elevated at 116 with a BNP of 251. Again, a CTA chest was obtained and failed to demonstrate evidence of pulmonary embolism. While in the emergency department, the patient was noted to desaturate to 84% on room air with ambulation. Therefore, she was admitted to the hospital. FORMERLY [facility], [facility] Medical History Hypothyroidism Scleredema Home Medications levothyroxine 75 mcg tablet 75 mcg PO DAILY 05/07/20 [History Last Taken 01/22/22] cyclobenzaprine 10 mg tablet 10 mg PO TID PRN Spasms 01/22/22 [History Last Taken 01/22/22] omeprazole 20 mg capsule,delayed release 20 mg PO DAILY GERD 01/22/22 [History Last Taken 01/22/22] Allergy/AdvReac Type Severity Reaction Status Date / Time acetaminophen [From Tylenol] Allergy Bleeding Verified 01/22/22 11:31 simvastatin [From Zocor] Allergy Rash Verified 01/22/22 11:31 NSAIDS (Non-Steroidal AdvReac Bleeding Verified 01/22/22 11:31 Anti-Inflamma Family History Father COPD (chronic obstructive pulmonary disease) Mother No cardiac disease Surgical History H/O foot surgery H/O knee surgery History of left heart catheterization (12/15/09) History of tonsillectomy S/P manipulation of deviated nasal septum Social History household members: significant other Smoking Status: Never smoker alcohol intake: never substance use type: does not use ROS Constitutional Constitutional: Denies chills, fatigue or fever(s) Eyes Eyes: Denies blurry vision or change in vision ENT HEENT: Denies dizziness, dysphagia, epistaxis or headache(s) Cardiovascular Cardiovascular: Reports dyspnea Respiratory/Chest Respiratory/Chest: Reports dyspnea; Denies chest tightness, cough or hemoptysis Gastrointestinal Gastrointestinal: Denies abdominal pain, diarrhea, nausea or vomiting Genitourinary Genitourinary: Denies difficulty urinating Musculoskeletal Musculoskeletal: Reports joint pain Integumentary Integumentary: Denies lesions, rash or skin ulcer Neurologic Neurologic: Denies abnormal gait, abnormal speech or confusion Psychiatric Psychiatric: Reports anxiety Endocrine Endocrinology: Reports fatigue Hematologic/Lymphatic Hematologic/Lymphatic: Denies easy bleeding or easy bruising Physical Exam Const alert and no apparent distress General Appearance: cooperative HEENT normocephalic, head/scalp atraumatic and moist oral mucous membranes Teeth and Gingiva: poor dentition Eyes PERRL, EOMs intact bilaterally and conjunctivae normal Neck supple General: trachea midline Chest inspection of chest normal Resp normal respiratory effort Auscultation: rales bilateral lower Cardio regular rate and regular rhythm GI normal to inspection, nondistended, normoactive bowel sounds Extremity no clubbing, cyanosis or edema Skin no rashes or lesions noted Neuro CN's II-XII intact bilaterally, moves all extremities and no focal motor deficits Psych cooperative and affect normal Lab / Micro Data Result Diagrams: 01/23/22 06:05 01/22/22 15:50 Labs: Laboratory Results - last 24 hr 01/22/22 15:50: WBC 3.7 L, RBC 4.12 L, Hgb 13.7, Hct 41.7, MCV 101.2 H, MCH 33.3 H, MCHC 32.9, RDW Std Deviation 51.7 H, RDW Coeff of Pebbles 13.8, Plt Count 156, MPV 10.7, Immature Gran % (Auto) 0.500, Neut % (Auto) 63.7, Lymph % (Auto) 21.1, [place] % (Auto) 12.3 H, Eos % (Auto) 1.6, Baso % (Auto) 0.8, Absolute Neuts (auto) 2.3, Absolute Lymphs (auto) 0.77 L, Nucleated RBC % 0 01/22/22 15:50: Sodium 133 L, Potassium 3.7, Chloride 97 L, Carbon Dioxide 23.0, Anion Gap 13, BUN 6 L, Creatinine 0.61, Estim Creat Clear Calc 95.26, Est GFR (MDRD) Af Amer 129, Est GFR (MDRD) Non-Af 106, BUN/Creatinine Ratio 9.8 L, Glucose 79, Calcium 9.6, Troponin I High Sens 116 H 01/22/22 15:50: B-Natriuretic Peptide 251.8 H 01/22/22 15:50: Magnesium 1.5 L Micro: Microbiology 01/22/22 12:01 Nasal Secretion SARS-CoV-2 Antigen (Rapid) - Final Rhythm Strip Rhythm Strip: Sinus Rhythm Rate: 93 Ectopy: None Radiology Impression Chest X-Ray 01/22/22 13:30 IMPRESSION: Stable mild increased linear markings at the lung bases slightly more prominent on the left side suggestive of scarring. Electronically Signed: Efren Arreguin MD at 13:54 EDT , Chest CTA 01/22/22 16:32 IMPRESSION: 1. No demonstrated pulmonary embolism or arterial dissection. 2. There is bilateral pneumonia. Electronically Signed: Loi Hobbs MD at 17:38 EDT , Charges/Coding Visit Charges Inpatient E&M: 66026 Init Hosp L3
[2022-01-23 06:21] LABS: Absolute Lymphocyte Count 0.72 X10^3/uL (0.83-4.51); Absolute Neutrophil Count 1.8 X10^3/uL (2.0-7.7); Basophil# 0.02 X10^3/uL; Basophil% 0.7 % (0-1); Eosinophil# 0.15 X10^3/uL; Eosinophils% 4.9 % (0-5); Hematocrit 37.3 % (37-47); Hemoglobin 12.5 g/dL (12.0-15.0); Lymphocyte # 0.72 X10^3/ul (0.83-4.51); Lymphocyte % 23.5 % (19-41); Mean Corp Hgb Conc 33.5 g/dL (32-36); Mean Corpuscular Hgb 33.4 pg (27.0-32.0); Mean Corpuscular Volume 99.7 fL (81-99); Mean Platelet Vol. 10.9 fl (6.2-12.0); Monocyte# 0.38 X10^3/uL; Monocyte% 12.4 % (0-10); NRBC Flagged by Analyzer 0 % (0-5); Neutrophil # 1.78 X10^3/uL (2.7-7.7); Neutrophil % 58.2 % (47-70); Platelet Count 140 K/mm3 (150-450); RBC Distribution Width CV 13.7 % (11.6-14.6); RBC Distribution Width SD 50.2 fl (35.1-43.9); Red Blood Count 3.74 M/mm3 (4.2-5.4); White Blood Count 3.1 K/mm3 (4.4-11.0)
[2022-01-23 06:25] VITALS: BP 146/93; PULSE 105; RESP 14; TEMP 37.1; O2SAT 96
[2022-01-23] MEDS: Levothyroxine 75 MCG Tablet PO (06:37)
[2022-01-23 07:08] LABS: Anion Gap 10 (5-15); BUN 6 mg/dL (7-18); BUN/Creat Ratio 11.3 RATIO (10-20); Calcium,Total 9.4 mg/dL (8.5-10.1); Chloride 99 mmol/L (98-107); Creatinine, Serum 0.53 mg/dL (0.55-1.02); EST Glomerular Filtration Rate 125 mL/min (>60); Est Glom Filt Rate - Afr Amer 151 mL/min (>60); Estimated Creatinine Clearance 109.63 ml/min; Glucose 95 mg/dL (74-106); Potassium 3.1 mmol/L (3.5-5.1); Sodium Level 135 mmol/L (136-145)
[2022-01-23 07:43] VITALS: PULSE 101
[2022-01-23 09:21] VITALS: BP 142/91; PULSE 109; RESP 16; TEMP 36.7; O2SAT 98
[2022-01-23] MEDS: Pantoprazole Sodium 40 MG Tablet PO (09:42)
--- NOTE | 2022-01-23 09:55 | PCM.DC ---
Discharge Instructions Diet Discharge Diet: No restrictions Activity Discharge Activity: Return to Normal Activity and May Not Drive Weight Bearing Status: Weight bearing as tolerated Dressing / Incision Call your doctor if you observe: Fever of 101 or Higher, Coldness, Increased Pain, Numbness or Tingling, Change in Color, Inability to urinate, Inability to have a bowel movement, Using more than 1 pad per hour, Shortness of breath, Dizziness, Fainting spells, Swelling in the ankles, Chest pain, Prolonged hiccupping, Increased palpitations (irregular heartbeat), Calf discomfort and Uncontrolled pain Follow Up Care Test Results: Test results from this visit will be discussed in further detail at your follow-up appointment, if applicable. Discharge Plan Admission Admit Date/Time: 01/22/22 17:30 Primary Reason for Your Visit: Dyspnea on exertion, hypoxia, interstitial lung disease/scleroderma Attending Provider: Lavelle Gallagher Primary Care Provider: Mono Lynn Consulting Providers: Iglesia Miranda ; Jerson Ariza ; Beth Short STEEL FITTER Instructions Additional Instructions / Restrictions: Follow-up [facility] radiologist diagnostic to start CellCept LORETTA. Discharge Orders/Prescriptions Prescriptions: New levothyroxine 100 mcg tablet 100 mcg PO DAILY Qty: 30 2RF Continued cyclobenzaprine 10 mg tablet 10 mg PO TID PRN (Reason: Spasms) Label Comments: TAKE 1 TABLET THREE TIMES DAILY NEEDED for MUSCLE SPASM omeprazole 20 mg capsule,delayed release(DR/EC) 20 mg PO DAILY Label Comments: TAKE 1 CAPSULE BY MOUTH DAILY Discontinued levothyroxine 75 MCG tablet 75 mcg PO DAILY Referrals / Follow Up: Mono Lynn MD [Primary Care Provider] - In 1 Week Jerson Ariza DO [STAFF PHYSICIAN] - Within 2 Weeks (for PFT) Disposition Disposition (needs filled in before D/C Order can be placed): Home, Self Care
--- NOTE | 2022-01-23 10:05 | PCM.DC.SUM ---
Providers Date of Admission: 01/22/22 Date of Discharge: 01/23/22 Primary Care Physician: Dr. Mono Lynn MD Consultations 01/22/22 18:31 Consult: Automobile Tire Builder / Pulmonary Medicine Routine Consulting Provider: Pulmonary Medicine cyril [place] Reason for Consult: LEE, ILD/Scleroderma EMERGENT Consult: No MD Notified: Yes Date Notified: 01/22/22 Time Notified: 17:35 Method of Notification: ED Physician Initiated Reason For Visit: DYSNEA ON EXERTION, ILD Diagnosis Discharge Diagnosis (1) Hypoxia: Status: Acute Code(s): R09.02 - Hypoxemia Medications at Discharge Home Medications cyclobenzaprine 10 mg tablet 10 mg PO TID PRN Spasms 01/22/22 omeprazole 20 mg capsule,delayed release 20 mg PO DAILY GERD 01/22/22 levothyroxine 100 mcg tablet 100 mcg PO DAILY #30 tabs 01/23/22 Hospital Course Summary of Care Provided Hospital Course: 56-year-old female admitted for dyspnea on exertion progressively worsening for the last 5 to 6 months, hypoxia and tachycardia on walking and exertion. 1.??Dyspnea on exertion, exertional hypoxia probably due to interstitial lung disease from scleroderma: Patient gets hypoxic on walking with dyspnea, tachycardia.? Currently 94% on room air but desaturates, 84% on walking on ambient air.? Monitor oxygenation.? Pulmonary consult for further opinion and recommendation.? Will need outpatient PFT/6-minute walking test 01/23: In the morning patient did not meet criteria for oxygen requirement as per Medicare rules. Pulse ox 98% ambulating on room air 96% on room air at rest. But the patient wants to have oxygen as self-pay as it had dropped during injection yesterday along with dyspnea and tachycardia. Follow-up pulmonary clinic in 2 weeks for PFT. Will need outpatient right heart cath. No need for antibiotic. Chest CT finding discussed with construction consultant and does not think patient has pneumonia. Pneumonia ruled out. 2.? Progressive systemic sclerosis with microstomia, interstitial lung disease: Chest CT independently reviewed.? Patient had empiric antibiotic in ED.? I do not feel patient needs further antibiotic as she already recently on 4 rounds of antibiotics.? She had multiple ED visits and she gets antibiotic from ER and urgent care.? 2D echo did not report pulmonary hypertension but I think patient will need right heart cath as an outpatient probably in advanced tertiary center, [facility].? Patient does not have established construction consultant.? Patient follows [facility] rouge sifter. 01/23: Discussed with construction consultant. Patient needs to follow-up with rouge sifter LORETTA. Patient constantly gets refill of CellCept but she did not take it. Advised to take the medication starting today and call rouge sifter LORETTA. She needs constant monitoring including blood work for CellCept. She states she gets insomnia restlessness in the detail ED and side effects but I tried to convince that benefit outweighs risk. 3.? Sinus tachycardia probably related to dyspnea/respiratory origin. Sinus tachycardia resolved 4.? Other comorbidities include hypothyroidism, fibromyalgia, anxiety disorder and bipolar disorder: On Levothroid 75 mcg daily.? TSH tomorrow AM. ?Other chronic comorbidities include GERD which might be related to scleroderma.? Moderate protein calorie malnutrition.? BMI 21.8 kg per metered square.? Patient denies history of malabsorption or pseudoobstruction but she has history of lactose intolerance in the past. VTE prophylaxis: Moderate risk enoxaparin 40 mg subcu daily Discharge medication reconciliation done. Discharge follow-up instructions completed. Discharge process discussed with the patient and all questions were answered to patient's satisfaction. Total time spent, exact 35 minutes on discharge meds reconciliation, examination, coordination of care with nurses and ancillary staff, review of imaging and blood test and discussion with the patient on follow-up instructions. Physical Exam Narrative Patient had ambulatory home oxygen qualification test did not meet requirement as per Medicare. Physical exam General: Alert, Oriented x3, Cooperative HEENT:Atraumatic, PERRLA, EOMI, Normocephalic Oral: Cannot see deeper structures of oral and pharynx because of microstomia. Gingivitis Neck: Supple, No JVD, Negative Carotid Bruits Lungs: Air entry diminished in bilateral lung bases. No crepitation/rhonchi Cardiovascular: Regular rate, Regular Rhythm, Normal S1, Normal S2, No murmurs Abdomen: Bowel Sounds Present, Soft, Non Tender, Non-Distended : No renal angle tenderness. No suprapubic tenderness. Extremities: No edema, Capillary Refill Less than 3 Seconds Skin: Tightening/woody induration of his skin all around the body mainly over upper chest, upper extremities. Multiple small skin excoriations. Musculoskeletal: Small joint deformity of fingers and wrist. Nodules over MCP joints. Neurological: Cranial nerves II-XII grossly intact, DTR 2+/4, muscle strength 4/5 at major joints. Psych/Mental Status: Flat affect Weight / BMI Weight Weight: 132 lb 4.438 oz Body Mass Index (BMI) 21.3 ABG / Lab / Microbiology Data Result Diagrams: 01/23/22 06:05 01/23/22 06:05 Laboratory: Laboratory Results - last 24 hr 01/22/22 15:50: WBC 3.7 L, RBC 4.12 L, Hgb 13.7, Hct 41.7, MCV 101.2 H, MCH 33.3 H, MCHC 32.9, RDW Std Deviation 51.7 H, RDW Coeff of Pebbles 13.8, Plt Count 156, MPV 10.7, Immature Gran % (Auto) 0.500, Neut % (Auto) 63.7, Lymph % (Auto) 21.1, [place] % (Auto) 12.3 H, Eos % (Auto) 1.6, Baso % (Auto) 0.8, Absolute Neuts (auto) 2.3, Absolute Lymphs (auto) 0.77 L, Nucleated RBC % 0 01/22/22 15:50: Sodium 133 L, Potassium 3.7, Chloride 97 L, Carbon Dioxide 23.0, Anion Gap 13, BUN 6 L, Creatinine 0.61, Estim Creat Clear Calc 95.26, Est GFR (MDRD) Af Amer 129, Est GFR (MDRD) Non-Af 106, BUN/Creatinine Ratio 9.8 L, Glucose 79, Calcium 9.6, Troponin I High Sens 116 H 01/22/22 15:50: B-Natriuretic Peptide 251.8 H 01/22/22 15:50: Magnesium 1.5 L 01/23/22 06:05: WBC 3.1 L, RBC 3.74 L, Hgb 12.5, Hct 37.3, MCV 99.7 H, MCH 33.4 H, MCHC 33.5, RDW Std Deviation 50.2 H, RDW Coeff of Pebbles 13.7, Plt Count 140 L, MPV 10.9, Immature Gran % (Auto) 0.300, Neut % (Auto) 58.2, Lymph % (Auto) 23.5, [place] % (Auto) 12.4 H, Eos % (Auto) 4.9, Baso % (Auto) 0.7, Absolute Neuts (auto) 1.8 L, Absolute Lymphs (auto) 0.72 L, Nucleated RBC % 0 01/23/22 06:05: Sodium 135 L, Potassium 3.1 L, Chloride 99, Carbon Dioxide 26.0, Anion Gap 10, BUN 6 L, Creatinine 0.53 L, Estim Creat Clear Calc 109.63, Est GFR (MDRD) Af Amer 151, Est GFR (MDRD) Non-Af 125, BUN/Creatinine Ratio 11.3, Glucose 95, Calcium 9.4, TSH 4.10 H Microbiology: Microbiology 01/22/22 12:01 Nasal Secretion SARS-CoV-2 Antigen (Rapid) - Final Radiography Diagnostic Testing: Radiology Impression Chest X-Ray 01/22/22 13:30 IMPRESSION: Stable mild increased linear markings at the lung bases slightly more prominent on the left side suggestive of scarring. Electronically Signed: Efren Arreguin MD at 13:54 EDT , Chest CTA 01/22/22 16:32 IMPRESSION: 1. No demonstrated pulmonary embolism or arterial dissection. 2. There is bilateral pneumonia. Electronically Signed: Loi Hobbs MD at 17:38 EDT , D/C Instructions Discharge Diet: No restrictions Weight Bearing Status: Weight bearing as tolerated Call your doctor if you observe: Fever of 101 or Higher, Coldness, Increased Pain, Numbness or Tingling, Change in Color, Inability to urinate, Inability to have a bowel movement, Using more than 1 pad per hour, Shortness of breath, Dizziness, Fainting spells, Swelling in the ankles, Chest pain, Prolonged hiccupping, Increased palpitations (irregular heartbeat), Calf discomfort and Uncontrolled pain Meaningful Use Info Meaningful Use Diagnoses (Choose all that apply): None applicable Discharge Plan Admission Admit Date/Time: 01/22/22 17:30 Primary Reason for Your Visit: Dyspnea on exertion, hypoxia, interstitial lung disease/scleroderma Attending Provider: Lavelle Gallagher Primary Care Provider: Mono Lynn Consulting Providers: Iglesia Miranda ; Jerson Ariza ; Beth Short SURFACE SUPPLY BREATHING APPARATUS Instructions Additional Instructions / Restrictions: Follow-up [facility] rouge sifter to start CellCept LORETTA. Discharge Orders/Prescriptions Prescriptions: New levothyroxine 100 mcg tablet 100 mcg PO DAILY Qty: 30 2RF Continued cyclobenzaprine 10 mg tablet 10 mg PO TID PRN (Reason: Spasms) Label Comments: TAKE 1 TABLET THREE TIMES DAILY NEEDED for MUSCLE SPASM omeprazole 20 mg capsule,delayed release(DR/EC) 20 mg PO DAILY Label Comments: TAKE 1 CAPSULE BY MOUTH DAILY Discontinued levothyroxine 75 MCG tablet 75 mcg PO DAILY Referrals / Follow Up: Jerson Ariza DO [STAFF PHYSICIAN] - Within 2 Weeks (for PFT) Mono Lynn MD [Primary Care Provider] - In 1 Week Disposition Disposition (needs filled in before D/C Order can be placed): Home, Self Care Charges/Coding Visit Charges OBSV E&M: 25248 Observation care discharge
[2022-01-23 10:43] VITALS: O2SAT 96; O2SAT 98
--- NOTE | 2022-01-23 11:13 | CASEMGMT ---
Addendum entered by Erik Pedro 01/23/22 11:32: When ZACHARIAH CLAYTON spoke w/[employer], they were notified pt is self-pay. Original Note: ZACHARIAH CLAYTON NOTE: Home O2 ambulatory pulse ox has been done. Pt does not qualify for Home O2. Dr Gallagher aware. Pt aware she can pay for oxygen [id number], w/cost being approx $191/month. Pt discussed w/boyfriend, who is a retired resp therapist, and she decided she would be like home O2 @ d/c and is willing to pay out of pocket. Dr Gallagher aware and script received for O2 @ 2l/m w/exertion. Pt provided w/list of local DME companies and she chooses [employer]. Script faxed to [employer] at this time. Portable oxygen tank to be taken from [facility] supply closet. Call to [employer] and notified. Pt does not have a pulse ox @ home. Pt to be provided w/one @ d/c and to be instructed on use. Pt denies having any other discharge planning needs or concerns. She plans to call [facility] Tuesday to schedule an appt as soon as possible. Miguel Angel MURO RN, CM
== END 2022-01-23 10:02 | disposition home or self-care (01) ==
LOC: ED 17:51 → PCU 18:21
PROVIDERS: Admitting Provider Internal Medicine; Emergency Provider Emergency Medicine; PCP Family Medicine; Visit Provider Internal Medicine
DX: J84.9 Interstitial pulmonary disease, unspecified (principal); M34.9 Systemic sclerosis, unspecified; F31.9 Bipolar disorder, unspecified; J96.01 Acute respiratory failure with hypoxia; Q18.5 Microstomia; F41.9 Anxiety disorder, unspecified; K21.9 Gastro-esophageal reflux disease without esophagitis; I73.00 Raynaud's syndrome without gangrene; E03.9 Hypothyroidism, unspecified; M79.7 Fibromyalgia; Z79.899 Other long term (current) drug therapy; Z79.890 Hormone replacement therapy
CPT/HCPCS: 36415; 71046; 71275; 80048; 83735; 83880; 84443; 84484; 85025; 87811; 93005; 94760; 96365; 96366; 96372; 99218; 99251; 99285; J7050; Q9967; A4216; G0378; G0463

== ENCOUNTER 2022-05-04 23:55 | Inpatient (IN) | payer MEDICARE, MEDICAID, SELFPAY ==
[2022-05-04 23:59] VITALS: BP 146/95; PULSE 106; RESP 24; TEMP 36.6; O2SAT 94; BMI 23.0
[2022-05-05] VITALS (25 sets, daily range): BP systolic 105–138; BP diastolic 63–89; PULSE 94–137; RESP 14–42; TEMP 36.1–37.3; O2SAT 91–100; BMI 22.1
--- NOTE | 2022-05-05 00:19 | RAD_ITS ---
STUDY: X-RAY CHEST REASON FOR EXAM: Female, 57 years old. cough sob CLD TECHNIQUE: Single AP portable view of the chest. COMPARISON: None. FINDINGS: Mediport is seen on the right side, tip is in the right atrium. Left hemodialysis catheter tip is at the cavoatrial junction. Ill-defined subpleural groundglass opacities are seen more prominent in the lung bases , may represent bilateral pneumonia (COVID-19 ?). There is no demonstrated pleural abnormality. Normal size heart. Normal mediastinum and pankaj. Normal visualized pulmonary arteries. Normal visualized aortic arch and descending thoracic aorta. Normal visualized thoracic spine. Normal visualized ribs, clavicles, and shoulders. There is no demonstrated abnormality of the visualized soft tissue structures of the upper abdomen. RAD/Chest 1 View (Portable) IMPRESSION: Ill-defined subpleural groundglass opacities are seen more prominent in the lung bases , may represent bilateral pneumonia (COVID-19 ?). Electronically Signed: Eleni Bagley MD at 1:13 EDT ,
--- NOTE | 2022-05-05 00:20 | EKG12_ITS ---
Test Reason : sob Blood Pressure : / mmHG Vent. Rate : 099 BPM Atrial Rate : 099 BPM P-R Int : 142 ms QRS Dur : 082 ms QT Int : 406 ms P-R-T Axes : 038 024 045 degrees QTc Int : 521 ms Sinus rhythm with occasional Premature ventricular complexes Prolonged QT Abnormal ECG Confirmed by JAMES ZULETA, MARGARET ([id number]), online editor ANA ROSA MELENDEZ ([id number]) on 05/06/2022 9:46:28 AM Referred By: Confirmed By:MARGARET RAMIREZ MD
--- NOTE | 2022-05-05 00:24 | ED.VIS.DYS ---
HPI History of Present Illness Chief Complaint: Shortness of Breath Informant: patient and EMS Onset/Context/Timing Onset: Weeks (1) Context: gradual and onset (worse today, gradually as well) Timing: Continuous Quality: Positive for Dyspnea on exertion (w/ any little activity) Current Severity: Moderate Maximum Severity: Severe Worsened by: Exertion and Coughing Relieved by: Rest and Oxygen (turning O2 up to 6) Associated Symptoms cough Chest Pain: Positive for None (nothing new) Narrative Narrative: Patient has history of chronic lung disease, exact diagnosis is unknown, but when she was last seen in the pulmonary clinic 2 or 3 months ago, it is thought that her dyspnea over the past year or less is related to her scleroderma and/or interstitial lung disease. She feels like that has been worsening over the past week, but worse than usual. She usually is on 2-3 L of oxygen at home, in the past week she has been resting at 4 L, turning it up to 6 to walk around the house, based on how she feels, not pulse oximetry. She has been coughing up some sputum that is occasionally discolored, she denies any blood, but states she has been having nosebleeds off-and-on. She is a dialysis patient, MWF, last dialyzed on Tuesday it is Tuesday night and she is due again in the morning. She was called this past afternoon and told that her hemoglobin is low to the point where she needs a transfusion but that has not been set up yet. She denies any angina but states she has some chronic chest discomfort due to the tightening skin from her scleroderma across her chest and states she has had no different and that in the past week. No swelling in her legs. She does not take any oral anticoagulants at home. Remote history of DVT, no PE, no current symptoms of a DVT or recent immobilization/long travel/hospitalization. Denies any fevers or chills. Other than turning her oxygen up frequently, she has tried no symptom control treatments at home, she thinks that once when she was at the hospital and aerosol helped her breathing. [facility] Medical History (Updated 05/05/22 @ 05:[address] Dinesh Aguero MD) Anemia Anxiety disorder Bipolar disorder Depression Dialysis patient DVT (deep venous thrombosis) Fibromyalgia History of gastroesophageal reflux (GERD) Hypothyroidism Hypoxia Interstitial lung disease Irritable colon Osteoarthritis Scleredema Home Medications cyclobenzaprine 10 mg tablet 10 mg PO TID PRN Spasms 01/22/22 [History Last Taken 05/04/22] omeprazole 20 mg capsule,delayed release 20 mg PO DAILY GERD 01/22/22 [History Last Taken 05/04/22] levothyroxine 100 mcg tablet 100 mcg PO DAILY thyroid 05/05/22 [History Last Taken 05/04/22] lisinopril 40 mg tablet 40 mg PO DAILY blood pressure 05/05/22 [History Last Taken 05/04/22] mycophenolate mofetil 500 mg tablet (CellCept) 1,000 mg PO BID immunosuppresent 05/05/22 [History Last Taken 05/04/22] Allergy/AdvReac Type Severity Reaction Status Date / Time acetaminophen [From Tylenol] Allergy Bleeding Verified 02/12/22 10:00 simvastatin [From Zocor] Allergy Rash Verified 02/12/22 10:00 NSAIDS (Non-Steroidal AdvReac Bleeding Verified 02/12/22 10:00 Anti-Inflamma Family History Father COPD (chronic obstructive pulmonary disease) Mother No cardiac disease Surgical History H/O foot surgery H/O knee surgery History of left heart catheterization (12/15/09) History of tonsillectomy S/P manipulation of deviated nasal septum Social History household members: significant other Smoking Status: Never smoker alcohol intake: never substance use type: does not use ROS ROS ED Constitutional Constitutional ED: Denies chills or fever(s) Eyes Eyes: Denies change in vision or diplopia ENT ENT ED: Denies rhinorrhea or sore throat Cardiovascular Cardiovascular: Denies chest pain, leg edema or palpitations Respiratory/Chest Respiratory/Chest: Reports cough, dyspnea, dyspnea on exertion and sputum Gastrointestinal Gastrointestinal: Denies abdominal pain, diarrhea, nausea or vomiting Genitourinary Genitourinary ED: Denies dysuria or hematuria Musculoskeletal Musculoskeletal: Denies back pain or neck pain Integumentary Denies abscess or rash Neurologic Neurologic: Denies headache(s), paresthesias or weakness Psychiatric Psychiatric: Denies anxiety or suicidal thoughts EXAM Physical Exam Const Vital Signs: 05/04/22 23:59 05/05/22 00:07 05/05/22 00:40 Temperature 97.9 F Temperature Source Temporal Pulse Rate 106 H 102 H Respiratory Rate 24 H 18 Respiratory Effort Short of Breath Respiratory Pattern Tachypnea Blood Pressure 146/95 H Blood Pressure Mean 112 Pulse Ox 94 Oxygen Delivery Method Nasal Cannula Room Air Oxygen Flow Rate (L/min) 6 6 05/05/22 03:40 Temperature 97.9 F Temperature Source Temporal Pulse Rate 104 H Respiratory Rate 18 Respiratory Effort Respiratory Pattern Blood Pressure 126/84 H Blood Pressure Mean 98 Pulse Ox 95 Oxygen Delivery Method Nasal Cannula Oxygen Flow Rate (L/min) 3 Positive well nourished and well developed General Appearance ED: well developed and NAD HEENT Reports moist mucous membranes normocephalic and atraumatic Eyes PERRL and EOMs intact bilaterally Neck full ROM and supple Resp normal respiratory effort Resp Narrative: Bilateral high-pitched crackles, otherwise clear. Trachea midline. Effort and Inspection: able to speak in complete sentences Cardio regular rate, regular rhythm and no murmurs Cardio Narrative: Mildly tachycardic GI non-tender and non-distended Auscultation: normoactive bowel sounds Palpation: soft Back/Spine no CVA tenderness General Back: other FROM Extremity normal to inspection General Extremety ED: Negative for edema, pulses abnormal or tenderness General Extremity: Negative for edema or pulses abnormal Neuro oriented x3, CN's II-XII intact bilaterally and no sensory deficits noted Sensorium / Orientation: awake and alert Motor Exam: strength 5/5 throughout Skin no rashes or lesions noted and no wounds MDM MDM MDM Narrative Medical decision making narrative: Labs reviewed. She does not have a leukocytosis, she is significantly anemic him a I suspect it is a combination of her chronic renal disease and acute blood loss from her recent multiple epistaxis episodes that she claims she has had for a long time but have been worse and more persistent lately. She has gotten them all to stop on her own and not come to the ER for any of them. She was amenable to transfusion, after informed consent. We started giving her blood in the emergency department. She denies recent bleeding from anywhere else. After an aerosol she was breathing much better. Her chest x-ray looks terrible, bilateral groundglass opacities/infiltrates, possibly suggesting pneumonia, and for this reason I did give her a dose of Zosyn empirically as well as oral doxycycline. I chose the latter rather than azithromycin because she has prolonged QTC on her EKG and a azithromycin could lengthen it further. Given how well she appears clinically, it is certainly possible this is her new baseline for her interstitial lung disease, however it is a major change in imaging compared with her last x-ray in January just 3 months ago. She is not hypoxic and we were able to wean her down to 3 L nasal cannula. Will admit to hospital for further treatment and evaluation. I held off on giving her any steroids since the patient states each time she has been giving them in the past, it makes her scleroderma worse. Lab Data Attestation: I reviewed the patient's lab results. Labs: Laboratory Results - last 24 hr 05/05/22 00:50 WBC 4.0 L RBC 1.73 L Hgb 5.3 L* Hct 16.8 L MCV 97.1 MCH 30.6 MCHC 31.5 L RDW Std Deviation 54.8 H RDW Coeff of Pebbles 15.5 H Plt Count 115 L MPV 10.5 Immature Gran % (Auto) 0.200 Neut % (Auto) 72.1 H Lymph % (Auto) 14.5 L [place] % (Auto) 7.2 Eos % (Auto) 5.5 H Baso % (Auto) 0.5 Absolute Neuts (auto) 2.9 Absolute Lymphs (auto) 0.58 L Nucleated RBC % 0 Differential Comment SCANNED Diff Path Review May foll Radiography Diagnostic Testing: Clinical Impression(s) from Imaging Studies Chest X-Ray 05/05/22 00:19 IMPRESSION: Ill-defined subpleural groundglass opacities are seen more prominent in the lung bases , may represent bilateral pneumonia (COVID-19 ?). Electronically Signed: Eleni Bagley MD at 1:13 EDT , Rhythm Strip Rhythm Strip: Sinus Tach Rate: 102 Ectopy: PVC(s) EKG Initial EKG: Attestation: I personally reviewed and interpreted this EKG as follows: Interpretation: Sinus Rhythm and No Acute Injury Pattern Comments: prolonged QTc Critical Care Time Critical Care Time: Yes Critical care time (excluding procedures): 30-74 minutes (35 min), Including time spent:, Discussing w/Patient &/or Family/Auto Radiator Specialist, Discussing w/Consultants, Arranging Admission or Transfer and Performing Direct Patient Care at Bedside Discharge Plan Dx/Rx/DC Orders Clinical Impression: Anemia due to blood loss, acute, Interstitial lung disease, Epistaxis, recurrent, ESRD on dialysis Disposition Disposition: [facility] Care [facility] Discharge Date/Time: 05/05/22 04:10
[2022-05-05] MEDS: Ipratropium/Albuterol Sulfate 3 ML AMPUL.NEB INHALATION (00:33)
[2022-05-05] MEDS: 0.9% Normal Saline 1,000 ML 150 ML IV (00:56)
--- NOTE | 2022-05-05 04:49 | ED.RN ---
see down time charting from [id number]
--- NOTE | 2022-05-05 05:02 | PCM.HP.STD ---
HPI - General General Date of Admission: 05/05/22 Date of Service: 05/05/22 Chief Complaint: Dyspnea HPI Narrative EAN MILLER, is a 57 F with a significant history of scleroderma, ILD, end-stage renal disease who was started on dialysis 3 weeks ago presenting to the emergency department with 1 week history of progressively worsening shortness of breath. At baseline patient uses 2 to 3 L nasal cannula oxygen. However because of her shortness of breath she has bumped up her oxygen to 5 L at rest and 6 L with walking. Associated with his symptom is productive cough with yellow tinge. Also patient reports epistaxis that started about 5 days prior to presentation. She reports occasional epistaxis with her oxygen use. However her epistaxis has been more frequent and has been of a longer duration the past 5 days prior to presentation. She actually came to the emergency department because of outpatient lab that showed hemoglobin of 5.3. At the emergency department 2 units of blood was ordered to be transfused. Patient reports that in March 2022 she had a Mediport placed and the following day after the Mediport was placed dialysis access catheter was also placed. She gets IVIG infusion for a scleroderma. Her IVIG infusion for scleroderma is due 05/05/2022. [facility] Medical History Anemia Anxiety disorder Bipolar disorder Depression Dialysis patient DVT (deep venous thrombosis) Fibromyalgia History of gastroesophageal reflux (GERD) Hypothyroidism Hypoxia Interstitial lung disease Irritable colon Osteoarthritis Scleredema Home Medications cyclobenzaprine 10 mg tablet 10 mg PO TID PRN Spasms 01/22/22 [History Last Taken 05/04/22] omeprazole 20 mg capsule,delayed release 20 mg PO DAILY GERD 01/22/22 [History Last Taken 05/04/22] levothyroxine 100 mcg tablet 100 mcg PO DAILY thyroid 05/05/22 [History Last Taken 05/04/22] lisinopril 40 mg tablet 40 mg PO DAILY blood pressure 05/05/22 [History Last Taken 05/04/22] mycophenolate mofetil 500 mg tablet (CellCept) 1,000 mg PO BID immunosuppresent 05/05/22 [History Last Taken 05/04/22] Allergy/AdvReac Type Severity Reaction Status Date / Time acetaminophen [From Tylenol] Allergy Bleeding Verified 02/12/22 10:00 simvastatin [From Zocor] Allergy Rash Verified 02/12/22 10:00 NSAIDS (Non-Steroidal AdvReac Bleeding Verified 02/12/22 10:00 Anti-Inflamma Family History Father COPD (chronic obstructive pulmonary disease) Mother No cardiac disease Surgical History H/O foot surgery H/O knee surgery History of left heart catheterization (12/15/09) History of tonsillectomy S/P manipulation of deviated nasal septum Social History household members: significant other Smoking Status: Never smoker alcohol intake: never substance use type: does not use ROS ROS Narrative Pertinent positives and pertinent negatives as noted in HPI. All other systems were reviewed and are negative Vital Signs Vital Signs Vital Signs: 05/04/22 23:59 05/05/22 00:07 05/05/22 00:40 Temperature 97.9 F Temperature Source Temporal Pulse Rate 106 H 102 H Respiratory Rate 24 H 18 Respiratory Effort Short of Breath Respiratory Pattern Tachypnea Blood Pressure 146/95 H Blood Pressure Mean 112 Pulse Ox 94 Oxygen Delivery Method Nasal Cannula Room Air Oxygen Flow Rate (L/min) 6 6 05/05/22 03:40 Temperature 97.9 F Temperature Source Temporal Pulse Rate 104 H Respiratory Rate 18 Respiratory Effort Respiratory Pattern Blood Pressure 126/84 H Blood Pressure Mean 98 Pulse Ox 95 Oxygen Delivery Method Nasal Cannula Oxygen Flow Rate (L/min) 3 Weight Weight: 62.2 kg Body Mass Index (BMI) 22.1 Physical Exam Narrative Physical exam: General: Well-nourished, well-developed. Head: Normocephalic, atraumatic, no tenderness Eyes: Vision is grossly intact. EOMI ENT, no trauma, moist mucous membranes, no rhinorrhea Neck: Nontender, full range of motion, no spinal tenderness, deformities, step-off CVS: Regular rate and rhythm. S1-S2 present. No murmur, gallop or rub. Respiratory : Rales throughout, chest wall nontender, no wheezing Abdomen: Soft, nontender, nondistended, normal bowel sounds, no masses : Deferred Back: Nontender, no CVA tenderness, no midline spinal tenderness, deformities, step-offs Extremities: Nontender full range of motion, no trauma Skin: Normal color, no trauma, abrasions Neuro: Alert, oriented, cranial nerves II through XII grossly intact. Psychiatry: Normal mood. Normal affect. Not depressed. Not anxious. Results Lab / Micro Data Result Diagrams: 05/05/22 00:50 05/05/22 00:50 Micro: Microbiology 05/05/22 00:31 Nasal Secretion SARS-CoV-2 & FLU Antigen (Rapid) - Final Rhythm Strip Rhythm Strip: Sinus Tach Rate: 102 Ectopy: PVC(s) Radiology Impression Chest X-Ray 05/05/22 00:19 IMPRESSION: Ill-defined subpleural groundglass opacities are seen more prominent in the lung bases , may represent bilateral pneumonia (COVID-19 ?). Electronically Signed: Eleni Bagley MD at 1:13 EDT Reading Location ID and State: [facility] / [place] Tel , Service support , Assessment & Plan Assessment/Plan (1) Interstitial lung disease: PLAN: Plan Acute exacerbation of interstitial lung disease Chest x-ray was visualized and independently interpreted. I agree with radiologist interpretation of Ill-defined subpleural groundglass opacities are seen more prominent in the lung bases. Rapid COVID antigen was negative. Received Zosyn and doxycycline at the emergency department. Patient does not have a white count (although this can be misleading in dialysis patient) she has no chills; she has no fever unlikely bacterial pneumonia. However will order doxycycline and ceftriaxone. Azithromycin not ordered secondary to prolonged QTC. Patient follows up with pulmonology. Mycophenolate continued. Nurse communication to find out patient IVIG dosage, frequency and next dose due and notify . Acute anemia Hemoglobin on presentation 5.3. 2 units of blood was ordered to be transfused at emergency department. Repeat H&H 1 hour after blood transfusion has been completed. Iron level, ferritin level, TIBC, vitamin B12 and folic acid ordered. Elevated BNP BNP on presentation was more than 2000. A BNP on 01/22/2022 was 251.8 and 12/14/2021 was 103.3. Echocardiogram on 12/14/2021 showed ejection fraction of 65% with stage I diastolic dysfunction. Cardiac cath on 12/15/2021 showed normal coronary arteries. Normal LV size, wall motion, and systolic function. Trend BNP. Limited echocardiogram ordered. End renal disease on dialysis Dialysis, Tuesday and Tuesday. Low phosphate diet Nephrology consult. Prolonged QTC Prolonged QTC of more than 500 on EKG. Avoid QTC prolongation drugs. DVT prophylaxis SCD ordered. Charges/Coding Visit Charges Inpatient E&M: 73377 Init Hosp L3
[2022-05-05 05:07] LABS: Absolute Lymphocyte Count 0.58 X10^3/uL (0.83-4.51); Absolute Neutrophil Count 2.9 X10^3/uL (2.0-7.7); Basophil# 0.02 X10^3/uL; Basophil% 0.5 % (0-1); Eosinophil# 0.22 X10^3/uL; Eosinophils% 5.5 % (0-5); Hematocrit 16.8 % (37-47); Lymphocyte # 0.58 X10^3/ul (0.83-4.51); Lymphocyte % 14.5 % (19-41); Mean Corp Hgb Conc 31.5 g/dL (32-36); Mean Corpuscular Hgb 30.6 pg (27.0-32.0); Mean Corpuscular Volume 97.1 fL (81-99); Mean Platelet Vol. 10.5 fl (6.2-12.0); Monocyte# 0.29 X10^3/uL; Monocyte% 7.2 % (0-10); NRBC Flagged by Analyzer 0 % (0-5); Neutrophil # 2.89 X10^3/uL (2.7-7.7); Neutrophil % 72.1 % (47-70); POSITIVE COUNT YES; POSITIVE DIFFERENTIAL YES; Platelet Count 115 K/mm3 (150-450); RBC Distribution Width CV 15.5 % (11.6-14.6); RBC Distribution Width SD 54.8 fl (35.1-43.9); Red Blood Count 1.73 M/mm3 (4.2-5.4)
[2022-05-05 05:08] LABS: Hemoglobin 5.3 g/dL (12.0-15.0)
[2022-05-05 05:09] LABS: Differential Comment SCANNED; Differential Indicated SCAN CRITERIA MET
[2022-05-05 05:27] LABS: BUN 29 mg/dL (7-18); BUN/Creat Ratio 7.2 RATIO (10-20); Creatinine, Serum 4.02 mg/dL (0.55-1.02); EST Glomerular Filtration Rate 12 mL/min (>60); Est Glom Filt Rate - Afr Amer 15 mL/min (>60); Estimated Creatinine Clearance 14.28 ml/min; Glucose 101 mg/dL (74-106)
[2022-05-05 05:28] LABS: Anion Gap 8 (5-15); Calcium,Total 8.2 mg/dL (8.5-10.1); Chloride 96 mmol/L (98-107); Potassium 3.3 mmol/L (3.5-5.1); Sodium Level 134 mmol/L (136-145); Troponin-I HS 33 pg/mL (3.0-54.0)
--- NOTE | 2022-05-05 05:30 | ECHOL_ITS ---
Reason For Study: Dyspnea/SOB Procedure This was a limited 2D transthoracic echocardiogram. Exam performed portable in patient room. Left Ventricle Normal LV size. Left ventricular systolic function is normal. The estimated ejection fraction is 55 %. No regional wall motion abnormalities noted. Right Ventricle Normal RV size. Normal systolic function. Atria Normal left atrium. Normal right atrium. Mitral Valve Bileaflet diffuse mitral valve thickening. Mild (1+) anteriorly directed mitral valve insufficiency. Tricuspid Valve Normal tricuspid valve. Mild to moderate (1-2+) tricuspid valve insufficiency. Pulmonary artery systolic pressure is 50 mmHg. Aortic Valve Trisinus/trileaflet aortic valve. Pulmonic Valve Normal pulmonic valve. Trivial pulmonic valve insufficiency. Great Vessels Normal aortic root. The pulmonary artery is normal size. Inferior vena cava collapse with respiration. Pericardium/Pleural Trivial pericardial effusion. Moderate size left pleural effusion. MMode/2D Measurements & Calculations LVIDd: 4.8 cm IVSd: 0.95 cm LVAd ap4: 23.2 cm2 LVIDs: 3.6 cm LVPWd: 0.94 cm LVLd ap4: 7.0 cm FS: 25.8 % EDV(MOD-sp4): 63.2 ml EDV(sp4-el): 65.7 ml LVAs ap4: 13.6 cm2 LVLs ap4: 5.6 cm ESV(MOD-sp4): 28.2 ml ESV(sp4-el): 28.2 ml EF(MOD-sp4): 55.3 % EF(sp4-el): 57.1 % SV(MOD-sp4): 34.9 ml SV(sp4-el): 37.5 ml Doppler Measurements & Calculations TR max poly: 341.6 cm/sec TR max P.7 mmHg ECHO/Echo, Limited Study Interpretation Summary Normal LV size. Left ventricular systolic function is normal. The estimated ejection fraction is 55 %. Mild (1+) anteriorly directed mitral valve insufficiency. Trivial pericardial effusion. Moderate size left pleural effusion. Pulmonary artery systolic pressure is 50 mmHg. Ordering Physician: Sterling Iraheta Referring Physician: Mono Lynn Performed By: Yadi Riley, TIEN, RVT
[2022-05-05] MEDS: Piperacil/Tazobactam 4.5 GM in NS100 MBP IV (05:35)
[2022-05-05] MEDS: Doxycycline 100 MG CAPSULE PO (05:35)
[2022-05-05 05:40] LABS: Lactic Acid 0.5 mmol/L (0.4-1.9)
[2022-05-05] MEDS: Levothyroxine 100 MCG Tablet PO (06:20)
[2022-05-05] MEDS: Lisinopril 40 MG Tablet PO (09:50)
[2022-05-05] MEDS: Pantoprazole Sodium 20 MG Tablet PO (09:50)
[2022-05-05] MEDS: 0.9% Saline Lock 10 ML Syringe IV ×3 (09:51→21:36)
[2022-05-05] MEDS: Ensure Plus High Protein 120 ML LIQUID PO (09:53)
[2022-05-05] MEDS: LORazepam 1 MG Tablet PO (11:03)
--- NOTE | 2022-05-05 11:25 | CASEMGMT ---
ZACHARIAH CLAYTON Face to Face with patient for initial transition planning/care coordination assessment. RN MATILDE introduced self and role at [facility]. Patient lying in bed, alert and oriented. Patient willing to participate in assessment and is able to answer all questions appropriately. Care providers, pharmacy, and demographics verified. Patient states she is being transferred to [facility] awaiting bed. Patient states she has no further needs or concerns at this time. CM to follow for discharge planning needs that may arise. PCP: Leah Specialists: RA [facility]; Maverick Ariza, kiln mechanic; Maria L, network support technician Preferred Pharmacy: [facility] Prescription Benefit: yes Living Will/HPOA: none LNOK: Boyfriend Living Arrangements: Patient lives alone in a tri-level home with 4-5 steps and railing x2 between levels. Patient states she is independent and able to ambulate stairs Transportation: self, boyfriend DME/HHC: Patient states she has shower chair, wlaker, pulse ox, and home oxygen with [employer] at 4-6 lpm with portability. Patient has outpatient HD at [facility] on MWF at 0530 Disposition Plan: Patient to transfer to [facility], accepted and awaiting bed. Helen MURO, RN, CM
--- NOTE | 2022-05-05 11:33 | WOUNDNOTE ---
wound photo: left buttock
--- NOTE | 2022-05-05 12:05 | PCM.DC.SUM ---
Providers Date of Admission: 05/05/22 Date of Discharge: 05/05/22 Primary Care Physician: Dr. Mono Lynn MD Consultations 05/05/22 07:23 Consult: Nephrology Routine Consulting Provider: Liz Lerma Reason for Consult: ESRD EMERGENT Consult: No Notified: Yes Date Notified: 05/05/22 Time Notified: 07:24 Method of Notification: Answering Service 05/05/22 07:36 Consult: Gastroenterology Routine Consulting Provider: [facility] Reason for Consult: severe anemia EMERGENT Consult: No Notified: Yes Date Notified: 05/05/22 Time Notified: 07:37 Method of Notification: Text 05/05/22 08:28 Consult: Onc/Wound/rip and groove machine operator Routine Comment: Pressure ulcer coccyx Reason For Visit: shortness of breath Diagnosis Discharge Diagnosis (1) Interstitial lung disease: Status: Acute Code(s): J84.9 - Interstitial pulmonary disease, unspecified Medications at Discharge Home Medications cyclobenzaprine 10 mg tablet 10 mg PO TID PRN Spasms 01/22/22 omeprazole 20 mg capsule,delayed release 20 mg PO DAILY GERD 01/22/22 levothyroxine 100 mcg tablet 100 mcg PO DAILY thyroid 05/05/22 lisinopril 40 mg tablet 40 mg PO DAILY blood pressure 05/05/22 mycophenolate mofetil 500 mg tablet (CellCept) 1,000 mg PO BID immunosuppresent 05/05/22 Hospital Course Operations None Procedures 2-D Echocardiogram and - (Chest x-ray) Summary of Care Provided Minutes Spent on Discharge: 38 Hospital Course: Mrs. Kaur is a 57-year-old white female who presented to the emergency department was coming hospital with a 1 week history of progressively worsening shortness of breath and some intermittent hemoptysis. The patient has a history of scleroderma and had a recent extended stay at [facility] at which time she was discharged on 04/25/2022. Hospitalization was for scleroderma crisis with new onset renal failure and initiation of dialysis. She has a tunneled dialysis catheter in her left chest and a med port in her right chest which were placed within 1 day of each other. She is on home oxygen at 3 to 5 L at baseline current vital signs show temperature of 98.7, blood pressure 105/72, heart rate 110, respiratory rate 18, oxygen saturation is 96% on 3 L nasal cannula. She was found to be markedly anemic with a hemoglobin of 5.3 on admission. She reported some intermittent hemoptysis however per discussion with nursing she has none since she has been admitted. Hemoglobin at most recent dialysis session was 7.5 per discussion with nephrology. She had thrombocytopenia with a platelet count of 115,000. Her BMP showed mild hyponatremia with a sodium of 134, hypokalemia with a potassium of 3.3, BUN of 29 and a serum creatinine of 4.02. Potassium was replaced orally during her hospitalization here. A BNP was obtained on admission and found to be 2579. With her hemoglobin 2 units of packed red blood cells were ordered and given. Case was discussed with nephrology who discussed the case with Helen Hernandez MD, rheumatology at [facility] and she recommended immediate transfer to [facility]. The case was discussed with the call center as well as the medicine team and ICU team. They accepted her for transfer on 05/05/2022. She will be transferred as soon as bed is available. 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 History of DVT GERD Hypothyroidism ILD Osteoarthritis Scleroderma Anxiety History of bipolar disorder Recurrent epistaxis Physical Exam Const alert and oriented x3 Constitutional Narrative: Thin, middle-aged, white female, sitting up in bed, appears comfortable but showing some signs of respiratory discomfort, no hemoptysis during my exam or conversation with her, appears older than stated age, appears unwell General Appearance: cooperative, comfortable and well kempt Orientation / Consciousness: awake Exam Limitations: no limitations Nutritional Appearance: thin HEENT normocephalic, head/scalp atraumatic, hearing grossly normal bilaterally and moist oral mucous membranes HEENT Narrative: Dentition is fair, Mallampati 2, no thrush Eyes PERRL and EOMs intact bilaterally Eyes Narrative: Conjunctival pallor noted, no scleral icterus Neck no lymphadenopathy and supple Neck Narrative: Acute midline, no thyroid enlargement Resp no retractions and no use of accessory muscles Resp Narrative: Diffuse crackles, mild intermittent tachypnea were noted with movement Auscultation: crackles; Negative for rhonchi or wheezes Cardio regular rhythm, S1 normal heart sound, S2 normal heart sound, no murmurs, no rub, no gallops and no clicks Cardio Narrative: Mild tachycardia-appears to be sinus GI normal to inspection, nondistended, normoactive bowel sounds, soft to palpation and non-tender GI Narrative: Scaphoid abdomen Extremity Extremity Narrative: Tightening of skin on all extremities especially hands/face, no clubbing or cyanosis, no edema Skin no rashes or lesions noted, no wounds and no jaundice Skin Narrative: Skin is very tight Neuro oriented x3, CN's II-XII intact bilaterally, moves all extremities and no focal motor deficits Neuro Narrative: Significant generalized weakness Speech: speech normal Psych Psych Narrative: Anxious and affect is flat Weight / BMI Weight Weight: 62.2 kg Body Mass Index (BMI) 22.1 ABG / Lab / Microbiology Data Result Diagrams: 05/05/22 00:50 05/05/22 00:50 Laboratory: Laboratory Results - last 24 hr 05/05/22 00:50: WBC 4.0 L, RBC 1.73 L, Hgb 5.3 L*, Hct 16.8 L, MCV 97.1, MCH 30.6, MCHC 31.5 L, RDW Std Deviation 54.8 H, RDW Coeff of Pebbles 15.5 H, Plt Count 115 L, MPV 10.5, Immature Gran % (Auto) 0.200, Neut % (Auto) 72.1 H, Lymph % (Auto) 14.5 L, [place] % (Auto) 7.2, Eos % (Auto) 5.5 H, Baso % (Auto) 0.5, Absolute Neuts (auto) 2.9, Absolute Lymphs (auto) 0.58 L, Nucleated RBC % 0, Differential Comment SCANNED, Diff Path Review December05/05/22 00:50: Sodium 134 L, Potassium 3.3 L, Chloride 96 L, Carbon Dioxide 30.0, Anion Gap 8, BUN 29 H, Creatinine 4.02 H, Estim Creat Clear Calc 14.28, Est GFR (MDRD) Af Amer 15 L, Est GFR (MDRD) Non-Af 12 L, BUN/Creatinine Ratio 7.2 L, Glucose 101, Calcium 8.2 L, Troponin I High Sens 33 05/05/22 00:50: B-Natriuretic Peptide 2579.0 H 05/05/22 00:50: Lactic Acid 0.5 05/05/22 01:03: Blood Type O POSITIVE, Antibody Screen NEGATIVE, Crossmatch See Detail Microbiology: Microbiology 05/05/22 07:55 Sputum, Expectorated/Coughed Gram Stain - Final 05/05/22 00:31 Nasal Secretion SARS-CoV-2 & FLU Antigen (Rapid) - Final Radiography Diagnostic Testing: Radiology Impression Chest X-Ray 05/05/22 00:19 IMPRESSION: Ill-defined subpleural groundglass opacities are seen more prominent in the lung bases , may represent bilateral pneumonia (COVID-19 ?). Electronically Signed: Eleni Bagley MD at 1:13 EDT Reading Location ID and State: [facility] / [place] Tel , Service support , Echocardiogram 05/05/22 05:30 Interpretation Summary Normal LV size. Left ventricular systolic function is normal. The estimated ejection fraction is 55 %. Mild (1+) anteriorly directed mitral valve insufficiency. Trivial pericardial effusion. Moderate size left pleural effusion. Pulmonary artery systolic pressure is 50 mmHg. Ordering Physician: Sterling Iraheta Referring Physician: Mono Lynn Performed By: Yadi Riley, TIEN, RVT Meaningful Use Info Meaningful Use Diagnoses (Choose all that apply): None applicable Discharge Plan Admission Admit Date/Time: 05/05/22 06:36 Primary Reason for Your Visit: Shortness of breath/hemoptysis Attending Provider: Elza San Primary Care Provider: oMno Lynn Consulting Providers: Sterling Iraheta ; Liz Lerma Discharge Orders/Prescriptions Prescriptions: No Action cyclobenzaprine 10 mg tablet 10 mg PO TID PRN (Reason: Spasms) Label Comments: TAKE 1 TABLET THREE TIMES DAILY NEEDED for MUSCLE SPASM omeprazole 20 mg capsule,delayed release(DR/EC) 20 mg PO DAILY Label Comments: TAKE 1 CAPSULE BY MOUTH DAILY mycophenolate mofetil [CellCept] 500 mg Tablet 1,000 mg PO BID lisinopril 40 mg Tablet 40 mg PO DAILY levothyroxine 100 mcg tablet 100 mcg PO DAILY Referrals / Follow Up: Mono Lynn MD [Primary Care Provider] - Disposition Disposition (needs filled in before D/C Order can be placed): Acute Care Hospital Charges/Coding Visit Charges Inpatient E&M: 22469 Disch Hosp
[2022-05-05] MEDS: Ceftriaxone 1 GM/50 mL Premix Q24 IV (13:17)
--- NOTE | 2022-05-05 13:33 | NURSING ---
AM IV ATB late d/t blood product infusing.
--- NOTE | 2022-05-05 13:34 | CON.PCM.RE_ITS ---
Assessment & Plan Assessment/Plan (1) BEN (acute kidney injury): PLAN: normal renal function at baseline. BEN due to scleroderma. HD MWF schedule. reviewed records from [facility]. has hemoptysis. 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 needs to go to [facility] [place]. called and spoke to Dr Nisreen Hernandez her catapult and arresting gear officer. agrees with transfer. dw Dr San. transfer line has been called. PLAN: Plan Anemia. Received PRBC HPI Consult Data Date of Consult: 05/05/22 HPI Narrative Reason for Consultation: BEN on HD HPI Narrative: EAN MILLER, is a 57 F who presents to the hospital with dyspnea, hemoptysis. renal consulted for BEN on HD. history of BEN due to scleroderma crisis. started HD while she was in [facility]. started on captopril, cellcept, IVIG. received 1 dose of IVIG yesterday. came in with above complaints. [facility] Medical History Anemia Anxiety disorder Bipolar disorder Depression Dialysis patient DVT (deep venous thrombosis) Fibromyalgia History of gastroesophageal reflux (GERD) Hypothyroidism Hypoxia Interstitial lung disease Irritable colon Osteoarthritis Scleredema Home Medications cyclobenzaprine 10 mg tablet 10 mg PO TID PRN Spasms 01/22/22 [History Last Taken 05/04/22] omeprazole 20 mg capsule,delayed release 20 mg PO DAILY GERD 01/22/22 [History Last Taken 05/04/22] levothyroxine 100 mcg tablet 100 mcg PO DAILY thyroid 05/05/22 [History Last Taken 05/04/22] lisinopril 40 mg tablet 40 mg PO DAILY blood pressure 05/05/22 [History Last Taken 05/04/22] mycophenolate mofetil 500 mg tablet (CellCept) 1,000 mg PO BID immunosuppresent 05/05/22 [History Last Taken 05/04/22] Allergy/AdvReac Type Severity Reaction Status Date / Time acetaminophen [From Tylenol] Allergy Bleeding Verified 02/12/22 10:00 simvastatin [From Zocor] Allergy Rash Verified 02/12/22 10:00 NSAIDS (Non-Steroidal AdvReac Bleeding Verified 02/12/22 10:00 Anti-Inflamma Family History Father COPD (chronic obstructive pulmonary disease) Mother No cardiac disease Surgical History H/O foot surgery H/O knee surgery History of left heart catheterization (12/15/09) History of tonsillectomy S/P manipulation of deviated nasal septum Social History household members: significant other Smoking Status: Never smoker alcohol intake: never substance use type: does not use ROS ROS Narrative negative except above Physical Exam Narrative Alert awake oriented x 3 no obvious distress no pallor no icterus no JVD s1s2 no murmurs lungs clear abdomen soft no organomegaly no edema no cyanosis Lab / Micro Data Result Diagrams: 05/05/22 00:50 05/05/22 00:50 Labs: Laboratory Results - last 24 hr 05/05/22 00:50: WBC 4.0 L, RBC 1.73 L, Hgb 5.3 L*, Hct 16.8 L, MCV 97.1, MCH 30.6, MCHC 31.5 L, RDW Std Deviation 54.8 H, RDW Coeff of Pebbles 15.5 H, Plt Count 115 L, MPV 10.5, Immature Gran % (Auto) 0.200, Neut % (Auto) 72.1 H, Lymph % (Auto) 14.5 L, [place] % (Auto) 7.2, Eos % (Auto) 5.5 H, Baso % (Auto) 0.5, Absolute Neuts (auto) 2.9, Absolute Lymphs (auto) 0.58 L, Nucleated RBC % 0, Differential Comment SCANNED, Diff Path Review December05/05/22 00:50: Sodium 134 L, Potassium 3.3 L, Chloride 96 L, Carbon Dioxide 30.0, Anion Gap 8, BUN 29 H, Creatinine 4.02 H, Estim Creat Clear Calc 14.28, E st GFR (MDRD) Af Amer 15 L, Est GFR (MDRD) Non-Af 12 L, BUN/Creatinine Ratio 7.2 L, Glucose 101, Calcium 8.2 L, Troponin I High Sens 33 05/05/22 00:50: B-Natriuretic Peptide 2579.0 H 05/05/22 00:50: Lactic Acid 0.5 05/05/22 01:03: Blood Type O POSITIVE, Antibody Screen NEGATIVE, Crossmatch See Detail Micro: Microbiology 05/05/22 07:55 Sputum, Expectorated/Coughed Gram Stain - Final 05/05/22 00:31 Nasal Secretion SARS-CoV-2 & FLU Antigen (Rapid) - Final Rhythm Strip Rhythm Strip: Sinus Tach Rate: 102 Ectopy: PVC(s) Radiology Impression Chest X-Ray 05/05/22 00:19 IMPRESSION: Ill-defined subpleural groundglass opacities are seen more prominent in the lung bases , may represent bilateral pneumonia (COVID-19 ?). Electronically Signed: Eleni Bagley MD at 1:13 EDT , Echocardiogram 05/05/22 05:30 Interpretation Summary Normal LV size. Left ventricular systolic function is normal. The estimated ejection fraction is 55 %. Mild (1+) anteriorly directed mitral valve insufficiency. Trivial pericardial effusion. Moderate size left pleural effusion. Pulmonary artery systolic pressure is 50 mmHg. Ordering Physician: Sterling Iraheta Referring Physician: Mono Lynn Performed By: Yadi Riley, TIEN, RVT
--- NOTE | 2022-05-05 13:51 | PHA.DC.MR ---
Pharmacy Service has performed discharge medication reconciliation for this patient. The patient's discharge medication list was reviewed for discrepancies and discrepancies were resolved. Home Medications cyclobenzaprine 10 mg tablet 10 mg PO TID PRN Spasms 01/22/22 omeprazole 20 mg capsule,delayed release 20 mg PO DAILY GERD 01/22/22 levothyroxine 100 mcg tablet 100 mcg PO DAILY thyroid 05/05/22 lisinopril 40 mg tablet 40 mg PO DAILY blood pressure 05/05/22 mycophenolate mofetil 500 mg tablet (CellCept) 1,000 mg PO BID immunosuppresent 05/05/22
[2022-05-05 14:40] LABS: Absolute Lymphocyte Count 0.42 X10^3/uL (0.83-4.51); Absolute Neutrophil Count 5.2 X10^3/uL (2.0-7.7); Basophil# 0.02 X10^3/uL; Basophil% 0.3 % (0-1); Eosinophil# 0.34 X10^3/uL; Eosinophils% 5.4 % (0-5); Hematocrit 22.9 % (37-47); Hemoglobin 7.5 g/dL (12.0-15.0); Lymphocyte # 0.42 X10^3/ul (0.83-4.51); Lymphocyte % 6.7 % (19-41); Mean Corp Hgb Conc 32.8 g/dL (32-36); Mean Corpuscular Hgb 29.8 pg (27.0-32.0); Mean Corpuscular Volume 90.9 fL (81-99); Mean Platelet Vol. 10.5 fl (6.2-12.0); Monocyte# 0.29 X10^3/uL; Monocyte% 4.6 % (0-10); NRBC Flagged by Analyzer 0 % (0-5); Neutrophil # 5.17 X10^3/uL (2.7-7.7); Neutrophil % 82.7 % (47-70); POSITIVE DIFFERENTIAL YES; Platelet Count 113 K/mm3 (150-450); RBC Distribution Width SD 52.9 fl (35.1-43.9); RET-HE 28.2 pg (30-35); Red Blood Count 2.52 M/mm3 (4.2-5.4); Reticulocyte Count 0.55 % (0.5-1.5); White Blood Count 6.3 K/mm3 (4.4-11.0)
[2022-05-05 15:03] LABS: Anion Gap 9 (5-15); BUN 34 mg/dL (7-18); BUN/Creat Ratio 7.6 RATIO (10-20); Calcium,Total 8.2 mg/dL (8.5-10.1); Chloride 96 mmol/L (98-107); Creatinine, Serum 4.49 mg/dL (0.55-1.02); EST Glomerular Filtration Rate 11 mL/min (>60); Est Glom Filt Rate - Afr Amer 13 mL/min (>60); Estimated Creatinine Clearance 12.79 ml/min; Glucose 144 mg/dL (74-106); Potassium 3.4 mmol/L (3.5-5.1); Sodium Level 133 mmol/L (136-145)
[2022-05-05 15:08] LABS: Differential Indicated SCAN CRITERIA MET
[2022-05-05 15:21] LABS: Vitamin B12 402 pg/mL (211-911)
[2022-05-05] MEDS: cycloBENZAPRine HCl 10 MG Tablet PO (15:23)
--- NOTE | 2022-05-05 15:31 | NURSING ---
I called and spoke with [facility] transfer line and they stated PT is a level 1 transfer and they hope to have a bed today.
[2022-05-05 15:33] LABS: Ferritin 827 ng/mL (8-252); Iron 105 ug/dL (50-170); Iron Binding Capacity,Total 162 ug/dL (250-450)
[2022-05-05] MEDS: Morphine 2 MG/ML Syringe IV (15:36)
[2022-05-05 15:40] LABS: Differential Comment SCANNED
--- NOTE | 2022-05-05 15:51 | NURSING ---
Called to room by Amira air motor repairer. Pt noted to be short of breath, anxious, SpO2 87% on 6LNC. Per Amira, RN pt had dropped to 72% on 3LNC. Placed pt on 40% venti mask and encouraged slow deep breathing. Called respiratory to come see pt and paged Dr San. Pt SpO2 sats still in low 80's, placed on 50% Venti mask. youth minister into room to assist. Spoke with Dr San on phone advised of HR 137, spo2 65%, order placed for bipap and ABGs stat. Call placed to [facility] requesting bipap. Pt o2 sats remain low, placed on non-rebreather at 15L, spo2 up to 75%. 1527 Menan RT into room placed pt on bipap at 16/10 80%. Spo2 up to 92%, pt becoming more calm. 1530 Dr San at bedside, advised this RN that she called transfer line and spoke directly with ICU doctor, pt will have bed soon. Mcrae Helena called and updated physicians transport on pt condition change. X1 dose morphine given for air hunger See OCT. 1543 pt resting calmly in bed with eyes closed, spo2 95% on 16/10 70% bipap, HR 124. Amira air motor repairer remains at bedside.
[2022-05-05 15:55] LABS: Allen Test Positive; Base Excess 1 mmol/L (-2 to +2); Bicarbonate 27.1 mmol/L (22-26); Blood Gas Specimen Type ART; FI02 60; O2 Delivery Device BiPAP; PEEP 10; PO2 76 mmHG (75-100); RR 14; SITE L Radial; SO2 94 % (95-99); Total Carbon Dioxide 29 mmol/L; Vt 450; pH 7.34 (7.35-7.45)
[2022-05-05] MEDS: LORazepam 2 MG/ML Syringe 1 MG IV (21:34)
[2022-05-06] VITALS (9 sets, daily range): BP systolic 112–140; BP diastolic 63–90; PULSE 100–114; RESP 14–26; TEMP 36.8–37; O2SAT 94–99
[2022-05-06] MEDS: Mycophenolate Mofetil 250 MG Capsule 1000 MG PO (02:03)
[2022-05-06] MEDS: LORazepam 2 MG/ML Syringe 1 MG IV ×2 (02:40→08:13)
[2022-05-06] MEDS: 0.9% Saline Lock 10 ML Syringe IV ×2 (02:45→08:13)
--- NOTE | 2022-05-06 08:24 | NURSING ---
Report called to [facility] ZACHARIAH Keen at 0800. Pt going to G62 - Bed 5. Pt notified family of transfer. Report given to [facility] transport team at bedside at 0820 and respiratory therapy at bedside for bipap settings.
[2022-05-06 13:22] LABS: Pathologist Review Reviewed
== END 2022-05-06 08:32 | disposition short-term general hospital (02) | DRG 196 ==
LOC: ED 05-05 00:57 → PCU 05-05 04:50
PROVIDERS: Admitting Provider Hospitalist; Emergency Provider Emergency Medicine; PCP Family Medicine; Visit Provider Internal Medicine
DX: M34.81 Systemic sclerosis with lung involvement (principal); J96.21 Acute and chronic respiratory failure with hypoxia; N18.6 End stage renal disease; D62 Acute posthemorrhagic anemia; E87.1 Hypo-osmolality and hyponatremia; N17.9 Acute kidney failure, unspecified; R04.2 Hemoptysis; D69.6 Thrombocytopenia, unspecified; D63.1 Anemia in chronic kidney disease; J84.89 Other specified interstitial pulmonary diseases; Z99.2 Dependence on renal dialysis; F31.9 Bipolar disorder, unspecified; E03.9 Hypothyroidism, unspecified; K21.9 Gastro-esophageal reflux disease without esophagitis; F41.9 Anxiety disorder, unspecified; E87.6 Hypokalemia; M79.7 Fibromyalgia; R04.0 Epistaxis; Z99.81 Dependence on supplemental oxygen; Z79.899 Other long term (current) drug therapy; Z86.718 Personal history of other venous thrombosis and embolism
CPT/HCPCS: 36591; 36600; 71045; 80048; 82607; 82728; 82746; 82803; 83540; 83550; 83605; 83880; 84484; 85025; 85045; 86850; 86900; 86901; 86920; 86922; 87070; 87205; 87428; 90937; 93005; 93308; 94002; 94003; 94640; 97802; 99285; J7030; J7040; P9016; A4216; G0257

== ENCOUNTER 2022-05-20 20:44 | Observation (INO) | payer MEDICARE, MEDICAID, SELFPAY ==
[2022-05-20 20:51] VITALS: BP 121/66; PULSE 102; RESP 18; TEMP 36.8; O2SAT 91; BMI 21.3
[2022-05-20] MEDS: Ondansetron 4 MG/2 ML Vial IV (21:44)
[2022-05-20] MEDS: Morphine 4 MG/ML Syringe IV (21:44)
--- NOTE | 2022-05-20 22:00 | RAD_ITS ---
EXAM: XR LEFT HIP WITH PELVIS WHEN PERFORMED, 2 OR 3 VIEWS CLINICAL INDICATION: pain/fall TECHNIQUE: Two or three views of the left hip with pelvis when performed. This report was created using [employer] report generation technology. COMPARISON: None. FINDINGS: LIMITATIONS: Numerous skin folds. BONES/JOINTS: Proximal left femur shows no acute fracture; no femoral neck or intertrochanteric fracture seen. There are subtle nondisplaced fractures of the left superior and inferior pubic rami. Right pubic rami and proximal right femur show no acute fracture. No dislocation. There is degenerative narrowing of the lower lumbar disc spaces with marginal osteophytes. Mild lumbar facet arthritis is also noted. No destructive or sclerotic lesions. Note that overlapping bowel shadows may however obscure fine detail. Sacroiliac joints are unremarkable. No widening of the pubic symphysis. SOFT TISSUES: Calcified phleboliths incidentally noted within the pelvis. RAD/HIP, UNI W/ Pelvis 2-3 Views IMPRESSION: Acute nondisplaced fractures of the left superior and inferior pubic rami. No proximal femoral fracture or hip dislocation. Electronically Signed: Chris Quevedo MD at 22:23 EDT ,
--- NOTE | 2022-05-20 22:13 | ED.VIS.FALL ---
HPI HPI - Fall History of Present Illness Chief Complaint: Lower Extremity Injury Narrative Narrative: Patient states she fell today due to her left knee seeming to give out while she was an inpatient at [facility], she thinks she fell to her left hip. She was subsequently discharged, and when she got home she was unable to get out of the car on her own, family has been trying to help her all day but she has been unable to bear any weight on her left lower extremity, she states she has pain in her hip and groin whenever she tries to move it or bear weight. She usually walk without any difficulty. 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 She is a dialysis patient. [facility] Medical History Anemia Anxiety disorder Bipolar disorder Depression Dialysis patient DVT (deep venous thrombosis) Fibromyalgia History of gastroesophageal reflux (GERD) Hypothyroidism Hypoxia Interstitial lung disease Irritable colon Osteoarthritis Scleredema Home Medications cyclobenzaprine 10 mg tablet 10 mg PO TID PRN Spasms 01/22/22 [History Last Taken 05/04/22] omeprazole 20 mg capsule,delayed release 20 mg PO DAILY GERD 01/22/22 [History Last Taken 05/04/22] levothyroxine 100 mcg tablet 100 mcg PO DAILY thyroid 05/05/22 [History Last Taken 05/04/22] lisinopril 40 mg tablet 40 mg PO DAILY blood pressure 05/05/22 [History Last Taken 05/04/22] mycophenolate mofetil 500 mg tablet (CellCept) 1,000 mg PO BID immunosuppresent 05/05/22 [History Last Taken 05/04/22] Allergy/AdvReac Type Severity Reaction Status Date / Time acetaminophen [From Tylenol] Allergy Bleeding Verified 05/20/22 20:50 simvastatin [From Zocor] Allergy Rash Verified 05/20/22 20:50 NSAIDS (Non-Steroidal AdvReac Bleeding Verified 05/20/22 20:50 Anti-Inflamma Family History Father COPD (chronic obstructive pulmonary disease) Mother No cardiac disease Surgical History H/O foot surgery H/O knee surgery History of left heart catheterization (12/15/09) History of tonsillectomy S/P manipulation of deviated nasal septum Social History household members: significant other Smoking Status: Never smoker alcohol intake: never substance use type: does not use ROS ROS ED Constitutional Constitutional ED: Denies chills or fever(s) Respiratory/Chest Respiratory/Chest: Denies dyspnea or sputum Musculoskeletal Musculoskeletal: Reports extremity pain; Denies neck pain Integumentary Denies Abrasions, rash or wounds Neurologic Neurologic: Denies paresthesias or weakness EXAM Physical Exam Const Vital Signs: 05/20/22 20:51 Temperature 98.3 F Temperature Source Oral Pulse Rate 102 H Respiratory Rate 18 Blood Pressure 121/66 H Blood Pressure Mean 84 Pulse Ox 91 Oxygen Delivery Method Room Air Positive well nourished and well developed General Appearance ED: well developed and NAD Neck full ROM and supple Resp normal respiratory effort and clear to auscultation bilaterally Cardio regular rate and regular rhythm Rate: Negative for tachycardic GI non-tender, non-distended and no masses Auscultation: normoactive bowel sounds Back/Spine no CVA tenderness and normal to inspection Extremity Extremity Narrative: Lower range of motion left lower extremity due to pain in the groin/hip. Tender to the greater trochanter and the ASIS, no gross deformities although she is resting slightly externally rotated but no shortening. Pain in the hip with gentle passive logrolling of the left lower extremity. Nontender at the knee but limited range of motion of it due to pain in the hip. Neurovascularly intact distally with strong dorsalis pedis pulse. Neuro oriented x3, no focal motor deficits and no sensory deficits noted Sensorium / Orientation: alert Psych mental status grossly normal and thought process normal Skin no wounds Rashes: no rashes MDM MDM MDM Narrative Medical decision making narrative: Three-view x-ray series of the left hip and pelvis on my interpretation show superior and inferior pubic rami fractures without femoral neck fracture. This is weightbearing as tolerated injury that should not require surgery, however the patient is not able to bear weight at all. Plan will be for admission for further evaluation of probable disposition to short-term rehab. Radiography Diagnostic Testing: Clinical Impression(s) from Imaging Studies Hip/Pelvis X-Ray 05/20/22 22:00 IMPRESSION: Acute nondisplaced fractures of the left superior and inferior pubic rami. No proximal femoral fracture or hip dislocation. Electronically Signed: Chris Quevedo MD at 22:23 EDT Reading Location ID and State: [facility] / [place] Tel , Service support , Discharge Plan Triage Chief Complaint: Lower Extremity Injury Other Complaint: Fall ED Provider: Dinesh Aguero Dx/Rx/DC Orders Clinical Impression: Closed fracture of left superior pubic ramus, Interstitial lung disease, ESRD on dialysis, Closed fracture of left inferior pubic ramus, Inability to ambulate due to left hip Prescriptions: No Action cyclobenzaprine 10 mg tablet 10 mg PO TID PRN (Reason: Spasms) Label Comments: TAKE 1 TABLET THREE TIMES DAILY NEEDED for MUSCLE SPASM omeprazole 20 mg capsule,delayed release(DR/EC) 20 mg PO DAILY Label Comments: TAKE 1 CAPSULE BY MOUTH DAILY mycophenolate mofetil [CellCept] 500 mg Tablet 1,000 mg PO BID lisinopril 40 mg Tablet 40 mg PO DAILY levothyroxine 100 mcg tablet 100 mcg PO DAILY Primary Care Provider: Mono Lynn Referrals: Mono Lynn MD [Primary Care Provider] - Disposition Disposition: Acute Care Hospital [facility]
--- NOTE | 2022-05-20 23:56 | HP.PCM.HOS_ITS ---
HPI - General General Date of Admission: 05/20/22 Date of Service: 05/20/22 Chief Complaint: Fall, hip pain. 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 with initiation captopril, cellcept, IVIG w/ eventual ESRD requiring HD MWF with then recent presentation to [facility] 05/05/22 with prompt transfer to [facility] for hx 1 week of progressively worsening dyspnea, acute on chronic hypoxic respiratory failure and hemoptysis with eventual diagnosis alveolar hemorrhage requiring undergoing bronchoscopy, discharged on 04/20/22 with unfortunately reported fall just prior to discharge with onset of left hip pain following but at the time ability to bear weight with no imaging obtained at that time; however, progressively worsened since her discharge earlier in the day with severe 10/10 pain to the L hip, worse with any activity attempts and eventual inability to bear weight at all prompting ED evaluation. Work-up in the ED included plain film of the L hip/pelvis with noted acute nondisplaced fractures of the left superior and inferior pubic rami and no proximal femoral fracture or hip dislocation. In the ED patient administered IV morphine and zofran. [facility] Medical History Anemia Anxiety disorder Bipolar disorder Depression Dialysis patient DVT (deep venous thrombosis) Fibromyalgia History of gastroesophageal reflux (GERD) Hypothyroidism Hypoxia Interstitial lung disease Irritable colon Osteoarthritis Scleredema Home Medications cyclobenzaprine 10 mg tablet 10 mg PO TID PRN Spasms 01/22/22 [History Last Taken 05/20/22] levothyroxine 100 mcg tablet 100 mcg PO DAILY thyroid 05/05/22 [History Last Taken 05/20/22] lisinopril 40 mg tablet 40 mg PO DAILY blood pressure 05/05/22 [History Last Taken 05/20/22] mycophenolate mofetil 500 mg tablet (CellCept) 1,000 mg PO BID immunosuppresent 05/05/22 [History Last Taken 05/20/22] hydroxyzine HCl 25 mg tablet 25 mg PO TID PRN Itching 05/21/22 [History Last Taken Unknown] pantoprazole 40 mg tablet,delayed release 40 mg PO DAILY GERD 05/21/22 [History Last Taken 05/20/22] prednisone 20 mg tablet 60 mg PO DAILY auto immune 05/21/22 [History Last Taken 05/20/22] sulfamethoxazole 400 mg-trimethoprim 80 mg tablet (Bactrim) 1 tab PO MOWEFR antibiotic 05/21/22 [History Last Taken 05/19/22] vitamin B complex and vitamin C no.20-folic acid 1 mg capsule 1 cap PO DAILY anti rejection 05/21/22 [History Last Taken 05/20/22] Allergy/AdvReac Type Severity Reaction Status Date / Time acetaminophen [From Tylenol] Allergy Bleeding Verified 05/20/22 20:50 simvastatin [From Zocor] Allergy Rash Verified 05/20/22 20:50 NSAIDS (Non-Steroidal AdvReac Bleeding Verified 05/20/22 20:50 Anti-Inflamma Family History Father COPD (chronic obstructive pulmonary disease) Mother No cardiac disease Surgical History H/O foot surgery H/O knee surgery History of left heart catheterization (12/15/09) History of tonsillectomy S/P manipulation of deviated nasal septum Social History household members: significant other Smoking Status: Never smoker alcohol intake: never substance use type: does not use ROS ROS Narrative Admission Review of Systems: CONSTITUTIONAL: No weight loss, fever, chills, + weakness or fatigue. HEENT: Eyes: No visual loss, blurred vision, double vision or yellow sclerae. Ears, Nose, Throat: No hearing loss, sneezing, congestion, runny nose or sore throat. SKIN: No rash or itching, lesions, wounds. CARDIOVASCULAR: No chest pain, chest pressure or chest discomfort, palpitations, edema, orthopnea, syncopal events. RESPIRATORY: + Recent increased dyspnea, cough, hemoptysis--since resolved. No wheezing. GASTROINTESTINAL: No anorexia, nausea, vomiting or diarrhea, abdominal pain, melena, BRBPR. GENITOURINARY: No dysuria, frequency, urgency or retention. NEUROLOGICAL: No headache, dizziness, syncope, paralysis, ataxia, numbness or tingling in the extremities, focal weakness, change in bowel or bladder control, seizure. MUSCULOSKELETAL: + muscle, back pain, joint pain or stiffness. HEMATOLOGIC: + anemia, bleeding or bruising. LYMPHATICS: No enlarged nodes. No history of splenectomy. PSYCHIATRIC: + history of depression or anxiety. ENDOCRINOLOGIC: No reports of sweating, cold or heat intolerance. No polyuria or polydipsia. ALLERGIES: No history of asthma, hives, eczema or rhinitis. Vital Signs Vital Signs Vital Signs: 05/20/22 20:51 Temperature 98.3 F Temperature Source Oral Pulse Rate 102 H Respiratory Rate 18 Blood Pressure 121/66 H Blood Pressure Mean 84 Pulse Ox 91 Oxygen Delivery Method Room Air Weight Weight: 132 lb 4.438 oz Body Mass Index (BMI) 21.3 Physical Exam Narrative Physical Examination: General: Awake, alert, oriented x 3 and cooperative, laying in the ED bed, fat igued, notes pelvic/L hip pain with movement, currently rated 3/10 in severity, worse with position change attempts or weight bearing attempt. Skin: Normal color, normal turgor, no icterus, no cyanosis except occasional staged ecchymoses. HEENT: AT/NC, EOMI, PERRLA, MMM, no carotid bruits or JVD noted. Lungs: Diminished, > bases, appropriate effort, no rales, ronchi or wheezing. Heart: Regular rate and rhythm; no gallop, rub audible. Abdomen: Soft, NTTP, ND, distant normal BS, no HSM. Extremities: No cyanosis, no clubbing, peripheral pulses intact, notable L hip pain with any LLE movement w/ L pubic rami fxs. Neurological: Patient awake, alert, oriented as noted, cognitive function intact; pupils equally reactive to light and accommodation, cranial nerves II- XII grossly normal, moving all 4 extremities except expected limitation LLE secondary to recent fall with pubic rami fxs, strength accordingly moderately to severely globally decreased. Psychiatric: Affect appears fatigued, no acute evidence of depressive or anxiety feelings. Results Radiology Impression Hip/Pelvis X-Ray 05/20/22 22:00 IMPRESSION: Acute nondisplaced fractures of the left superior and inferior pubic rami. No proximal femoral fracture or hip dislocation. 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 #1. Mechanical Fall w/ associated Acute nondisplaced fractures of the left superior and inferior pubic rami: Given inability to bear weight, intractable pain will admit to [facility], maintain on fall precautions, encourage positional changes, WBAT with assist, PRN oral and IV pain regimen, PT/OT/CM consultations for discharge planning, given current debility likely will need SNF placement. ? #2. 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 Lerma, continue to monitor renal function. #3. Recent Acute on Chronic Hypoxic Respiratory Failure secondary to System Scleroderma with hemoptysis: Transferred 05/05/22 from [facility] to [facility] with eventual diagnosis alveolar hemorrhage requiring undergoing bronchoscopy, improved, maintained on supplemental chronic oxygen therapy, continue chronic steroid regimen, PRN albuterol, encourage HOB, IS, continue treatments as noted for recent scleroderma associated BEN. Defer chemoprophylaxis given recent alveolar hemorrhage. #4. Depression and Anxiety: Not on any chronic regimen, encourage aggressive outpatient follow-up given recent notable events with now ESRD on HD and recent prolonged hospitalizations over the last 1-2 months. #5. Hypothyroidism: Will continue home levothyroxine regimen. #6. Hypertension: Will continue home captopril regimen, PRN hydralazine. #7. GERD: Will continue home PPI. #8. Hx VTE: Noted history prior DVT, not anticoagulated. #9. DVT Prophylaxis: SCDs, given recent alveolar hemorrhage will defer chemoprophylaxis. #10. CODE status: Patient reports that HCPOA and LW are both in place. Discussed CODE status at length including difference between FULL code, DNR-CCA and DNR-CC status. Following discussions about the differences in these status, requested DNR-CCA, no intubation status. Advanced Care Planning Face to Face Time: 16 minutes. Charges/Coding Visit Charges OBSV E&M: 54463 Initial observation care L3 Procedures Hospitalists Procedures: 44792 Advncd Care Plan 30 Min
[2022-05-21] VITALS (9 sets, daily range): BP systolic 117–143; BP diastolic 66–85; PULSE 78–109; RESP 16–20; TEMP 36.4–36.8; O2SAT 92–99; BMI 20.1
[2022-05-21] MEDS: 0.9% Normal Saline 1,000 ML 100 ML IV (01:13)
[2022-05-21 01:36] LABS: Magnesium 1.7 mg/dL (1.6-2.6); Phosphorus 2.9 mg/dL (2.5-4.9)
[2022-05-21] MEDS: Levothyroxine 100 MCG Tablet PO (05:05)
[2022-05-21] MEDS: Morphine 2 MG/ML Syringe IV ×2 (05:05→10:27)
[2022-05-21] MEDS: 0.9% Saline Lock 10 ML Syringe IV ×2 (05:06→10:28)
[2022-05-21 06:17] LABS: Basophil# 0.04 X10^3/uL; Basophil% 0.3 % (0-1); Eosinophil# 0.03 X10^3/uL; Eosinophils% 0.2 % (0-5); Hematocrit 26.3 % (37-47); Hemoglobin 8.1 g/dL (12.0-15.0); Lymphocyte % 10.8 % (19-41); Mean Corp Hgb Conc 30.8 g/dL (32-36); Mean Corpuscular Hgb 28.5 pg (27.0-32.0); Mean Corpuscular Volume 92.6 fL (81-99); Mean Platelet Vol. 11.3 fl (6.2-12.0); Monocyte# 1.51 X10^3/uL; Monocyte% 12.6 % (0-10); NRBC Flagged by Analyzer 0 % (0-5); Neutrophil # 9.03 X10^3/uL (2.7-7.7); Neutrophil % 75.1 % (47-70); POSITIVE DIFFERENTIAL YES; Platelet Count 313 K/mm3 (150-450); RBC Distribution Width CV 15.9 % (11.6-14.6); RBC Distribution Width SD 53.2 fl (35.1-43.9); Red Blood Count 2.84 M/mm3 (4.2-5.4)
[2022-05-21 06:21] LABS: Differential Indicated SCAN CRITERIA MET
[2022-05-21 06:51] LABS: Differential Comment SCANNED
[2022-05-21 07:05] LABS: ALB/GLOB Ratio 0.7 RATIO (0.9-2.4); AST(SGOT) 15 U/L (15-37); Alanine Aminotransfer ALT/SGPT 11 U/L (13-56); Albumin, Serum 2.4 g/dL (3.2-5.0); Alkaline Phosphatase 73 U/L (45-117); Anion Gap 8 (5-15); BUN 33 mg/dL (7-18); BUN/Creat Ratio 10.1 RATIO (10-20); Calcium,Total 8.3 mg/dL (8.5-10.1); Chloride 97 mmol/L (98-107); Creatinine, Serum 3.27 mg/dL (0.55-1.02); EST Glomerular Filtration Rate 15 mL/min (>60); Est Glom Filt Rate - Afr Amer 19 mL/min (>60); Estimated Creatinine Clearance 16.76 ml/min; Globulin 3.3 g/dL (2.2-4.2); Glucose 80 mg/dL (74-106); Potassium 3.5 mmol/L (3.5-5.1); Protein, Total 5.7 g/dL (6.4-8.2); Sodium Level 133 mmol/L (136-145)
[2022-05-21] MEDS: Smz/Tmp Ds Tablet 0.5 TABLET PO (08:34)
[2022-05-21] MEDS: predniSONE 20 MG Tablet 60 MG PO (08:37)
[2022-05-21] MEDS: Pantoprazole Sodium 40 MG Tablet PO (08:38)
[2022-05-21] MEDS: Mycophenolate Mofetil 250 MG Capsule 1000 MG PO ×2 (08:38→21:19)
[2022-05-21] MEDS: Lisinopril 40 MG Tablet PO (08:38)
[2022-05-21] MEDS: Folic Acid/Vitamin B Comp W-C 1 Capsule 1 CAP PO (08:38)
--- NOTE | 2022-05-21 09:18 | PCM.PN.HOSP ---
Subjective Subjective Follow-up on acute pelvic fractures: Patient was seen and examined. Denied any new complaints. Her pain is fairly controlled if she does not move. Patient stated that she felt was trying to sit on the toilet for in the [facility] prior to discharge. She was unable to walk when she go home. She denied any more hemoptysis or chest discomfort. Objective Data Objective Data Vital Signs: Vital Signs Temp Pulse Resp BP Pulse Ox O2 Del Method O2 Flow Rate 98.2 F 96 18 139/85 H 95 Nasal Cannula 1 05/21/22 08:42 05/21/22 08:42 05/21/22 08:42 05/21/22 08:42 05/21/22 08:42 05/21/22 08:46 05/21/22 08:46 Oxygen Flow Rate (L/min) 1 Oxygen Delivery Method Nasal Cannula Weight: 56.6 kg Body Mass Index (BMI) 20.1 Intake & Output: Intake and Output for Last 24 Hours 05/19/22 05/20/22 05/21/22 23:59 23:59 23:59 Intake Total 605 / 605 Output Total 250 / 250 Balance 355 / 355 Lab / Micro Data Result Diagrams: 05/21/22 04:39 05/21/22 04:39 Labs: Laboratory Results - last 24 hr 05/21/22 01:10: Phosphorus 2.9, Magnesium 1.7 05/21/22 04:39: WBC 12.0 H, RBC 2.84 L, Hgb 8.1 L, Hct 26.3 L, MCV 92.6, MCH 28.5, MCHC 30.8 L, RDW Std Deviation 53.2 H, RDW Coeff of Pebbles 15.9 H, Plt Count 313, MPV 11.3, Immature Gran % (Auto) 1.000 H, Neut % (Auto) 75.1 H, Lymph % (Auto) 10.8 L, [place] % (Auto) 12.6 H, Eos % (Auto) 0.2, Baso % (Auto) 0.3, Absolute Neuts (auto) 9.0 H, Absolute Lymphs (auto) 1.30, Nucleated RBC % 0, Differential Comment SCANNED, Diff Path Review December05/21/22 04:39: Sodium 133 L, Potassium 3.5, Chloride 97 L, Carbon Dioxide 28.0, Anion Gap 8, BUN 33 H, Creatinine 3.27 H, Estim Creat Clear Calc 16.76, Est GFR (MDRD) Af Amer 19 L, Est GFR (MDRD) Non-Af 15 L, BUN/Creatinine Ratio 10.1, Glucose 80, Calcium 8.3 L, Total Bilirubin 0.30, AST 15, ALT 11 L, Alkaline Phosphatase 73, Total Protein 5.7 L, Albumin 2.4 L, Globulin 3.3, Albumin/Globulin Ratio 0.7 L Radiography Diagnostic Testing: Radiology Impression Hip/Pelvis X-Ray 05/20/22 22:00 IMPRESSION: Acute nondisplaced fractures of the left superior and inferior pubic rami. No proximal femoral fracture or hip dislocation. Electronically Signed: Chris Quevedo MD at 22:23 EDT , Physical Exam Narrative Physical exam: General: Alert, Oriented x3, Cooperative, No apparent distress HEENT: Atraumatic Oral: Moist Mucosa Neck: Supple Lungs: Diminished to auscultation Cardiovascular: HS I+II, regular, no murmurs Abdomen: Bowel Sounds Present, Soft, Non Tender Extremities: No edema Skin: No rashes, No breakdown Neurological: Grossly intact Psych/Mental Status: Appropriate Assessment & Plan Assessment/Plan (1) Closed fracture of left superior pubic ramus: (2) Closed fracture of left inferior pubic ramus: PLAN: Plan 1. Acute nondisplaced fracture to the left superior inferior pubic rami status post mechanical fall Unclear if patient has history of underlining osteoporosis; she denies any knowledge of this Patient's pain is fairly controlled, continue PT and OT assessments Patient will need osteoporosis work-up in the outpatient later 2. BEN/now ESRD on hemodialysis, history of underlining scleroderma Patient has dialysis on Tuesday?Tuesday?Tuesday Nephrology consulted, dialysis today 3. Scleroderma with recent acute scleroderma crisis/hemoptysis from vasculitis/interstitial lung disease Status post bronchoscopy in the [facility] on 05/11/2022 Continue on CellCept, prednisone 60 mg daily, captopril 12.5 mg 3 times daily, Protonix 40 mg daily, Bactrim and vitamin D supplementation 4. Hypothyroidism, continue on Synthroid 5. GERD, continue on PPI 6. DVT prophylaxis?SCDs Charges/Coding Visit Charges Inpatient E&M: 45545 Subs Hosp L2
--- NOTE | 2022-05-21 11:05 | PCM.CONS.R ---
Assessment & Plan Assessment/Plan (1) BEN (acute kidney injury): PLAN: The patient has dialysis dependent BEN. Kidney injury is thought to be secondary to scleroderma renal crisis. Baseline serum creatinine is normal as recently as 01/23/2022. Serum creatinine was 0.53 mg/dL at that time. Will continue dialysis on MWF schedule. Continue to monitor for renal recovery. (2) Hyponatremia: PLAN: The patient has mild asymptomatic hyponatremia. Serum sodium has been chronically low ranging between 133 to 135 mmol/L since January 2022. I doubt this degree of hyponatremia would cause her to fall or any symptoms. Sodium should stabilize with hemodialysis. We will continue to monitor serum sodium. (3) Scleroderma: PLAN: The patient is treated mainly at [facility]. She is on lisinopril for prior scleroderma renal crisis. She is also on mycophenolate and prednisone although I believe these medications may be for her diffuse alveolar hemorrhage. We will check [facility] record. (4) Closed fracture of left superior pubic ramus: PLAN: Management as per primary service. Pain is controlled. HPI Consult Data Date of Consult: 05/21/22 HPI Narrative Reason for Consultation: Dialysis dependent BEN HPI Narrative: EAN MILLER, is a 57-year-old woman with past history of scleroderma who is leaving treatment at [facility]. She also has interstitial lung disease, venous thromboembolism, anemia, hypothyroidism, hypertension, and GERD. The patient had a recent hospitalization at [facility] with respiratory failure, diffuse alveolar hemorrhage and acute kidney injury. She was discharged from [facility] on 05/19/2022. On arrival to her house, she had a mechanical fall and was found to have pelvic fracture on presentation to the hospital. She was started on dialysis at [facility] on earlier admission and is now on chronic outpatient dialysis at [facility] on MWF schedule. The patient denies chest pain, shortness of breath, nausea, or increasing lower extremity edema. She still makes urine. Her pelvic pain is under control. [facility] Medical History Anemia Anxiety disorder Bipolar disorder Depression Dialysis patient DVT (deep venous thrombosis) Fibromyalgia History of gastroesophageal reflux (GERD) Hypothyroidism Hypoxia Interstitial lung disease Irritable colon Osteoarthritis Scleredema Home Medications cyclobenzaprine 10 mg tablet 10 mg PO TID PRN Spasms 01/22/22 [History Last Taken 05/20/22] levothyroxine 100 mcg tablet 100 mcg PO DAILY thyroid 05/05/22 [History Last Taken 05/20/22] lisinopril 40 mg tablet 40 mg PO DAILY blood pressure 05/05/22 [History Last Taken 05/20/22] mycophenolate mofetil 500 mg tablet (CellCept) 1,000 mg PO BID immunosuppresent 05/05/22 [History Last Taken 05/20/22] hydroxyzine HCl 25 mg tablet 25 mg PO TID PRN Itching 05/21/22 [History Last Taken Unknown] pantoprazole 40 mg tablet,delayed release 40 mg PO DAILY GERD 05/21/22 [History Last Taken 05/20/22] prednisone 20 mg tablet 60 mg PO DAILY auto immune 05/21/22 [History Last Taken 05/20/22] sulfamethoxazole 400 mg-trimethoprim 80 mg tablet (Bactrim) 1 tab PO MOWEFR antibiotic 05/21/22 [History Last Taken 05/19/22] vitamin B complex and vitamin C no.20-folic acid 1 mg capsule 1 cap PO DAILY anti rejection 05/21/22 [History Last Taken 05/20/22] Allergy/AdvReac Type Severity Reaction Status Date / Time acetaminophen [From Tylenol] Allergy Bleeding Verified 05/20/22 20:50 simvastatin [From Zocor] Allergy Rash Verified 05/20/22 20:50 NSAIDS (Non-Steroidal AdvReac Bleeding Verified 05/20/22 20:50 Anti-Inflamma Family History Father COPD (chronic obstructive pulmonary disease) Mother No cardiac disease Surgical History H/O foot surgery H/O knee surgery History of left heart catheterization (12/15/09) History of tonsillectomy S/P manipulation of deviated nasal septum Social History household members: significant other Smoking Status: Never smoker alcohol intake: never substance use type: does not use ROS ROS Narrative 05/17 ROS was done. It is otherwise noncontributory aside from what is documented in HPI. Physical Exam Narrative General appearance: Alert and oriented x3, no apparent distress. HEENT: Normocephalic, atraumatic. Mucous membrane moist. There is no erythema. PERRLA, EOMI. Neck: Supple, no JVD. Heart: Tachycardic S1, S2. No rubs, murmurs or gallops. Lungs: Clear to auscultation bilaterally. Abdomen: Normal bowel sound, soft, nontender, no guarding or rebound. Extremities: No clubbing or cyanosis. 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 There is no edema. Neurologic: No focal neurologic deficits. Musculoskeletal: Full range of motion. No joint swelling. Skin: No rash, skin is warm and dry. Lab / Micro Data Result Diagrams: 05/21/22 04:39 05/21/22 04:39 Labs: Laboratory Results - last 24 hr 05/21/22 01:10: Phosphorus 2.9, Magnesium 1.7 05/21/22 04:39: WBC 12.0 H, RBC 2.84 L, Hgb 8.1 L, Hct 26.3 L, MCV 92.6, MCH 28.5, MCHC 30.8 L, RDW Std Deviation 53.2 H, RDW Coeff of Pebbles 15.9 H, Plt Count 313, MPV 11.3, Immature Gran % (Auto) 1.000 H, Neut % (Auto) 75.1 H, Lymph % (Auto) 10.8 L, [place] % (Auto) 12.6 H, Eos % (Auto) 0.2, Baso % (Auto) 0.3, Absolute Neuts (auto) 9.0 H, Absolute Lymphs (auto) 1.30, Nucleated RBC % 0, Differential Comment SCANNED, Diff Path Review December05/21/22 04:39: Sodium 133 L, Potassium 3.5, Chloride 97 L, Carbon Dioxide 28.0, Anion Gap 8, BUN 33 H, Creatinine 3.27 H, Estim Creat Clear Calc 16.76, Est GFR (MDRD) Af Amer 19 L, Est GFR (MDRD) Non-Af 15 L, BUN/Creatinine Ratio 10.1, Glucose 80, Calcium 8.3 L, Total Bilirubin 0.30, AST 15, ALT 11 L, Alkaline Phosphatase 73, Total Protein 5.7 L, Albumin 2.4 L, Globulin 3.3, Albumin/Globulin Ratio 0.7 L Radiology Impression Hip/Pelvis X-Ray 05/20/22 22:00 IMPRESSION: Acute nondisplaced fractures of the left superior and inferior pubic rami. No proximal femoral fracture or hip dislocation. Electronically Signed: Chris Quevedo MD at 22:23 EDT ,
--- NOTE | 2022-05-21 12:40 | CASEMGMT ---
Addendum entered by Erik Pedro 05/21/22 17:10: Pt states she gets HD @ [facility], chair time 5:30 AM, and BF will be able to transport her. Original Note: ZACHARIAH CLAYTON NOTE: ZACHARIAH CLAYTON to room to discuss discharge planning. Pt resting in bed, receiving HD. Pt is alert/oriented. Pt states she did much better w/therapy this morning than she expected and wishes to discharge home. She states she walked around the room w/use of walker and pain was tolerable. She states she lives alone, but her BF plans to come stay w/her 28/02 to help to take care of her. She states he is a retired resp therapist and will be able to assist her as needed. She states she has a pulse ox, Home O2 thru [employer] and states she wears 1 l/m @ HS and during the day as needed. She has portability and concentrator. She has a rollator, shower chair, and W/C. Her BF is picking up a cardiac rehab nurse from her mom and she thinks she has a BSC for her as well. ZACHARIAH CLAYTON informed her, if BSC is not available, of several locations she could get one. She voices understanding. She states there are 6 steps to enter into the home and her BF is considering putting a ramp in. She states, if he is not able to do this, she will still be able to get into her home w/assistance. Pt made aware [facility] does rent these out and was provided w/their contact info. She voices appreciation. Pt states she will be safe to return home and declines wanting any HHC and declines a script for OP therapy, again stating her BF can help me with that. Pt made aware to contact PCP to discuss further therapy, if she changes her mind in the future. She voices understanding. She denies having any further discharge planning needs/concerns at this time and thanked ZACHARIAH CLAYTON for all of the information. Miguel Angel MURO RN, CM
[2022-05-21 12:55] LABS: Pathologist Review Reviewed
--- NOTE | 2022-05-21 15:00 | CASEMGMT ---
ZACHARIAH CLAYTON NOTE: [facility] form explained re: Observation status for treatment of fall, lt pubic rami fracture. Explained hospitalization will be paid per her insurance policy for Outpatient billing and condition will continue to be evaluated for Inpt necessity. Also let pt know that [facility] sends paper in the billing packet with their phone number if questions arise. Discussed Pharmacy section of [facility] form and self administered medication guideline. Pt verbalizes understanding and does not have further questions. Form signed, copy made and placed in chart, and original given to pt. Miguel Angel MURO RN CM
[2022-05-21] MEDS: oxyCODONE 5 MG Tablet PO ×2 (16:48→21:19)
[2022-05-21] MEDS: Cholecalciferol (VIT D3) 25 MCG TABLET (1,000 UNITS) PO (16:48)
--- NOTE | 2022-05-21 16:53 | DIALYSIS ---
Hemodialysis x3.5 hours completed at 1615 on a 3K bath, tolerated well, UF 800mL, accessed via left chest tunneled dialysis catheter, worked well
[2022-05-22 02:30] VITALS: BP 113/65; PULSE 86; RESP 16; TEMP 36.5; O2SAT 96
[2022-05-22] MEDS: oxyCODONE 5 MG Tablet PO ×2 (05:37→12:35)
[2022-05-22] MEDS: Levothyroxine 100 MCG Tablet PO (05:37)
[2022-05-22 05:42] VITALS: BP 113/65; PULSE 86; RESP 16; TEMP 36.5; O2SAT 96
[2022-05-22 08:00] VITALS: BP 123/75; PULSE 100; RESP 16; TEMP 36.6; O2SAT 93
[2022-05-22] MEDS: predniSONE 20 MG Tablet 60 MG PO (08:08)
[2022-05-22] MEDS: Pantoprazole Sodium 40 MG Tablet PO (08:08)
--- NOTE | 2022-05-22 08:08 | PCM.DC ---
Discharge Instructions Diet Discharge Diet: Renal Diet Activity Discharge Activity: Return to Normal Activity Follow Up Care Test Results: Test results from this visit will be discussed in further detail at your follow-up appointment, if applicable. Discharge Plan Admission Admit Date/Time: 05/20/22 23:57 Primary Reason for Your Visit: Fall, pelvic fractures Attending Provider: Gisele Butler Primary Care Provider: Mono Lynn Consulting Providers: Liz Lerma ; Maria Isabel Avery Instructions Additional Instructions / Restrictions: Continue to use your oxygen as prescribed Follow-up with dialysis as set up?Tuesday?Tuesday?Tuesday Follow-up with your dethistler operator in the [facility] as scheduled Continue to use your walker. You have been referred to pain management for continued evaluation of your pain Discharge Orders/Prescriptions Prescriptions: New cholecalciferol (vitamin D3) 25 mcg (1,000 unit) Tablet 25 mcg PO DAILYCM Qty: 0 0RF oxycodone 5 mg Tablet 5 mg PO Q4H PRN PRN (Reason: Pain Score 4-10) 3 Days Qty: 12 0RF Continued cyclobenzaprine 10 mg tablet 10 mg PO TID Label Comments: TAKE 1 TABLET THREE TIMES DAILY NEEDED for MUSCLE SPASM mycophenolate mofetil [CellCept] 500 mg Tablet 1,000 mg PO BID lisinopril 40 mg Tablet 40 mg PO DAILY levothyroxine 100 mcg tablet 100 mcg PO DAILY sulfamethoxazole-trimethoprim [Bactrim] 400-80 mg Tablet 1 tab PO MOWEFR prednisone 20 mg Tablet 60 mg PO DAILY Rx Instructions: for 30 doses pantoprazole 40 mg Tablet,Delayed Release (Dr/Ec) 40 mg PO DAILY hydroxyzine HCl 25 mg Tablet 25 mg PO Q8H PRN PRN (Reason: Itching) B complex with C 20-folic acid 1 mg Capsule 1 cap PO DAILY Referrals / Follow Up: Lissette Hernandez MD [Med Staff - Active Staff] - (Please call Dr. Hernandez's office to make an appointment. [phone]) Mono Lynn MD [Primary Care Provider] - Disposition Disposition (needs filled in before D/C Order can be placed): Home, Self Care
[2022-05-22] MEDS: Lisinopril 40 MG Tablet PO (08:09)
[2022-05-22] MEDS: Cholecalciferol (VIT D3) 25 MCG TABLET (1,000 UNITS) PO (08:09)
[2022-05-22] MEDS: Folic Acid/Vitamin B Comp W-C 1 Capsule 1 CAP PO (08:10)
[2022-05-22] MEDS: Mycophenolate Mofetil 250 MG Capsule 1000 MG PO (08:10)
[2022-05-22 09:11] LABS: Absolute Lymphocyte Count 1.63 X10^3/uL (0.83-4.51); Absolute Neutrophil Count 6.7 X10^3/uL (2.0-7.7); Basophil# 0.04 X10^3/uL; Basophil% 0.4 % (0-1); Eosinophil# 0.04 X10^3/uL; Eosinophils% 0.4 % (0-5); Hematocrit 26.7 % (37-47); Hemoglobin 8.4 g/dL (12.0-15.0); Lymphocyte # 1.63 X10^3/ul (0.83-4.51); Lymphocyte % 16.6 % (19-41); Mean Corp Hgb Conc 31.5 g/dL (32-36); Mean Corpuscular Hgb 28.8 pg (27.0-32.0); Mean Corpuscular Volume 91.4 fL (81-99); Mean Platelet Vol. 10.5 fl (6.2-12.0); Monocyte# 1.31 X10^3/uL; Monocyte% 13.3 % (0-10); NRBC Flagged by Analyzer 0 % (0-5); Neutrophil % 68.1 % (47-70); Platelet Count 330 K/mm3 (150-450); RBC Distribution Width CV 16.4 % (11.6-14.6); RBC Distribution Width SD 53.1 fl (35.1-43.9); Red Blood Count 2.92 M/mm3 (4.2-5.4); White Blood Count 9.8 K/mm3 (4.4-11.0)
[2022-05-22 09:30] LABS: ALB/GLOB Ratio 0.7 RATIO (0.9-2.4); AST(SGOT) 17 U/L (15-37); Alanine Aminotransfer ALT/SGPT 11 U/L (13-56); Albumin, Serum 2.4 g/dL (3.2-5.0); Alkaline Phosphatase 70 U/L (45-117); Anion Gap 9 (5-15); BUN 18 mg/dL (7-18); BUN/Creat Ratio 8.1 RATIO (10-20); Calcium,Total 8.2 mg/dL (8.5-10.1); Chloride 94 mmol/L (98-107); Creatinine, Serum 2.23 mg/dL (0.55-1.02); EST Glomerular Filtration Rate 24 mL/min (>60); Est Glom Filt Rate - Afr Amer 29 mL/min (>60); Estimated Creatinine Clearance 24.48 ml/min; Globulin 3.6 g/dL (2.2-4.2); Glucose 91 mg/dL (74-106); Sodium Level 132 mmol/L (136-145)
--- NOTE | 2022-05-22 10:21 | PCM.DC.SUM ---
Providers Date of Admission: 05/20/22 Date of Discharge: 05/22/22 Primary Care Physician: Dr. Mono Lynn MD Consultations 05/21/22 00:49 Consult: Nephrology Routine Consulting Provider: Liz Lerma Reason for Consult: ESRD on HD MWF EMERGENT Consult: No MD Notified: Yes Date Notified: 05/21/22 Time Notified: 04:48 Method of Notification: Answering Service Reason For Visit: FALL, L HIP PAIN, RAMI FX Diagnosis Discharge Diagnosis (1) BEN (acute kidney injury): Status: Acute Code(s): N17.9 - Acute kidney failure, unspecified (2) Hyponatremia: Status: Chronic Code(s): E87.1 - Hypo-osmolality and hyponatremia (3) Scleroderma: Status: Acute Code(s): M34.9 - Systemic sclerosis, unspecified (4) Closed fracture of left superior pubic ramus: Status: Acute Code(s): S32.512A - Fracture of superior rim of left pubis, initial encounter for closed fracture Plan 1. Acute nondisplaced fracture to the left superior inferior pubic rami status post mechanical fall 2. BEN/now ESRD on hemodialysis, history of underlining scleroderma 3. Scleroderma with recent acute scleroderma crisis/hemoptysis from vasculitis/interstitial lung disease 4. Hypothyroidism 5. GERD Medications at Discharge Home Medications cyclobenzaprine 10 mg tablet 10 mg PO TID spasms 01/22/22 levothyroxine 100 mcg tablet 100 mcg PO DAILY thyroid 05/05/22 lisinopril 40 mg tablet 40 mg PO DAILY blood pressure 05/05/22 mycophenolate mofetil 500 mg tablet (CellCept) 1,000 mg PO BID immunosuppresent 05/05/22 hydroxyzine HCl 25 mg tablet 25 mg PO Q8H PRN PRN Itching 05/21/22 pantoprazole 40 mg tablet,delayed release 40 mg PO DAILY GERD 05/21/22 prednisone 20 mg tablet 60 mg PO DAILY auto immune 05/21/22 sulfamethoxazole 400 mg-trimethoprim 80 mg tablet (Bactrim) 1 tab PO MOWEFR antibiotic 05/21/22 vitamin B complex and vitamin C no.20-folic acid 1 mg capsule 1 cap PO DAILY anti rejection 05/21/22 cholecalciferol (vitamin D3) 25 mcg (1,000 unit) tablet 25 mcg PO DAILYCM #0 tabs 05/22/22 oxycodone 5 mg tablet 5 mg PO Q4H PRN PRN Pain Score 4-10 3 days #12 tabs 05/22/22 Hospital Course Operations None Procedures None Summary of Care Provided Minutes Spent on Discharge: 35 Hospital Course: 57-year-old with past medical history of scleroderma with interstitial lung disease, discharged on a [facility] on to after a scleroderma crisis. Patient stated that on the day of discharge from the [facility], she missed her seat to the toilet and landed on the floor. She was able to ambulate and discharged day. She did not have imaging done in the [facility] prior to discharge. When she go home, she could not walk and get out of the car. He subsequently was brought to the emergency room and x-ray of the hip and pelvis showed fractures of the left superior and inferior pubic rami. Patient was in intractable pain and was admitted to the [facility] for pain control. She did fairly well on oxycodone and morphine as needed. She was seen by PT and OT and was found to be able to do well with her walker. Patient had dialysis was in the hospital. She will follow-up for outpatient dialysis Tuesday?Tuesday?Tuesday. She is also on 1 L of oxygen at rest and 2 L with exertion and will continue on that as per her discharge instructions from the [facility]. Patient was given a 3-day prescription of oxycodone. She was referred to pain management, Dr. Hernandez. She will follow-up with nephrology and dialysis as well as with her student activities director as previously scheduled. On the day of discharge, patient was seen and examined. She denied any new complaints. She was on 1 L of oxygen. She stated her pain was fairly controlled. She is going to go home with her boyfriend. Physical Exam Narrative Physical exam: General: Alert, Oriented x3, Cooperative, No apparent distress HEENT: Atraumatic Oral: Moist Mucosa Neck: Supple Lungs: Diminished to auscultation Cardiovascular: HS I+II, regular, no murmurs Abdomen: Bowel Sounds Present, Soft, Non Tender Extremities: No edema, tenderness on palpation of the left hip and pelvic region Skin: No rashes, No breakdown Neurological: Grossly intact Psych/Mental Status: Appropriate Weight / BMI Weight Weight: 56.4 kg Body Mass Index (BMI) 20.1 ABG / Lab / Microbiology Data Result Diagrams: 05/22/22 08:50 05/22/22 08:50 Laboratory: Laboratory Results - last 24 hr 05/21/22 04:39: Diff Path Review Reviewed 05/22/22 08:50: WBC 9.8, RBC 2.92 L, Hgb 8.4 L, Hct 26.7 L, MCV 91.4, MCH 28.8, MCHC 31.5 L, RDW Std Deviation 53.1 H, RDW Coeff of Pebbles 16.4 H, Plt Count 330, MPV 10.5, Immature Gran % (Auto) 1.200 H, Neut % (Auto) 68.1, Lymph % (Auto) 16.6 L, [place] % (Auto) 13.3 H, Eos % (Auto) 0.4, Baso % (Auto) 0.4, Absolute Neuts (auto) 6.7, Absolute Lymphs (auto) 1.63, Nucleated RBC % 0 05/22/22 08:50: Sodium 132 L, Potassium 3.0 L, Chloride 94 L, Carbon Dioxide 29.0, Anion Gap 9, BUN 18, Creatinine 2.23 H, Estim Creat Clear Calc 24.48, Est GFR (MDRD) Af Amer 29 L, Est GFR (MDRD) Non-Af 24 L, BUN/Creatinine Ratio 8.1 L, Glucose 91, Calcium 8.2 L, Total Bilirubin 0.40, AST 17, ALT 11 L, Alkaline Phosphatase 70, Total Protein 6.0 L, Albumin 2.4 L, Globulin 3.6, Albumin/Globulin Ratio 0.7 L D/C Instructions Discharge Diet: Renal Diet Meaningful Use Info Meaningful Use Diagnoses (Choose all that apply): None applicable Discharge Plan Admission Admit Date/Time: 05/20/22 23:57 Primary Reason for Your Visit: Fall, pelvic fractures Attending Provider: Gisele Butler Primary Care Provider: Mono Lynn Consulting Providers: Liz Lerma ; Maria Isabel Avery Instructions Additional Instructions / Restrictions: Continue to use your oxygen as prescribed Follow-up with dialysis as set up?Tuesday?Tuesday?Tuesday Follow-up with your student activities director in the [facility] main [facility] as scheduled Continue to use your walker. You have been referred to pain management for continued evaluation of your pain Discharge Orders/Prescriptions Prescriptions: New cholecalciferol (vitamin D3) 25 mcg (1,000 unit) Tablet 25 mcg PO DAILYCM Qty: 0 0RF oxycodone 5 mg Tablet 5 mg PO Q4H PRN PRN (Reason: Pain Score 4-10) 3 Days Qty: 12 0RF Continued cyclobenzaprine 10 mg tablet 10 mg PO TID Label Comments: TAKE 1 TABLET THREE TIMES DAILY NEEDED for MUSCLE SPASM mycophenolate mofetil [CellCept] 500 mg Tablet 1,000 mg PO BID lisinopril 40 mg Tablet 40 mg PO DAILY levothyroxine 100 mcg tablet 100 mcg PO DAILY sulfamethoxazole-trimethoprim [Bactrim] 400-80 mg Tablet 1 tab PO MOWEFR prednisone 20 mg Tablet 60 mg PO DAILY Rx Instructions: for 30 doses pantoprazole 40 mg Tablet,Delayed Release (Dr/Ec) 40 mg PO DAILY hydroxyzine HCl 25 mg Tablet 25 mg PO Q8H PRN PRN (Reason: Itching) B complex with C 20-folic acid 1 mg Capsule 1 cap PO DAILY Referrals / Follow Up: Lissette Hernandez MD [Med Staff - Active Staff] - (Please call Dr. Hernandez's office to make an appointment. [phone]) Mono Lynn MD [Primary Care Provider] - Disposition Disposition (needs filled in before D/C Order can be placed): Home, Self Care Charges/Coding Visit Charges Inpatient E&M: 91317 Disch Hosp
[2022-05-22] MEDS: Potassium Chloride Oral Tablet 20 MEQ PO (10:59)
[2022-05-22 13:10] VITALS: BP 118/58; PULSE 97; RESP 16; O2SAT 95
== END 2022-05-22 13:19 | disposition home or self-care (01) ==
LOC: ED 05-21 00:07 → MS3 05-21 00:13
PROVIDERS: Admitting Provider Family Medicine; Emergency Provider Emergency Medicine; PCP Family Medicine; Visit Provider Internal Medicine
DX: S32.512A Fracture of superior rim of left pubis, initial encounter for closed fracture (principal); N17.9 Acute kidney failure, unspecified; Z99.2 Dependence on renal dialysis; M34.9 Systemic sclerosis, unspecified; I12.0 Hypertensive chronic kidney disease with stage 5 chronic kidney disease or end stage renal disease; N18.6 End stage renal disease; J84.9 Interstitial pulmonary disease, unspecified; W19.XXXA Unspecified fall, initial encounter; K21.9 Gastro-esophageal reflux disease without esophagitis; E87.1 Hypo-osmolality and hyponatremia; R53.81 Other malaise; E03.9 Hypothyroidism, unspecified; Z86.718 Personal history of other venous thrombosis and embolism; Z79.899 Other long term (current) drug therapy; Z79.890 Hormone replacement therapy; Y92.239 Unspecified place in hospital as the place of occurrence of the external cause; M79.7 Fibromyalgia; M19.90 Unspecified osteoarthritis, unspecified site
CPT/HCPCS: 36415; 51702; 73502; 80053; 83735; 84100; 85025; 90937; 96361; 96374; 96375; 96376; 97162; 97166; 99218; 99251; 99285; J7030; A4216; G0257; G0378; G0463; J2405

== ENCOUNTER 2022-05-26 05:50 | Observation (INO) | payer MEDICARE, MEDICAID, SELFPAY ==
[2022-05-26] VITALS (12 sets, daily range): BP systolic 109–140; BP diastolic 62–87; PULSE 83–111; RESP 14–18; TEMP 36.6–36.8; O2SAT 93–97; BMI 22.6; BMI 21.8
--- NOTE | 2022-05-26 06:14 | ED.RN ---
pt states she cannot walk and cannot get off toilet at home. Pt was able to stand and get into bed on own. Pt states she needs inpatient care because she cannot walk.
--- NOTE | 2022-05-26 07:07 | EKG12_ITS ---
Test Reason : PAIN Blood Pressure : / mmHG Vent. Rate : 086 BPM Atrial Rate : 086 BPM P-R Int : 150 ms QRS Dur : 076 ms QT Int : 406 ms P-R-T Axes : 046 012 041 degrees QTc Int : 485 ms Normal sinus rhythm Normal ECG Confirmed by CHARLI ZULETA, BARB ([id number]), technical writer and editor ANA ROSA MELENDEZ ([id number]) on 05/27/2022 12:42:55 PM Referred By: Confirmed By:BARB AUGUSTIN MD
[2022-05-26 08:01] LABS: Absolute Lymphocyte Count 0.76 X10^3/uL (0.83-4.51); Basophil# 0.01 X10^3/uL; Basophil% 0.1 % (0-1); Hematocrit 24.6 % (37-47); Hemoglobin 7.8 g/dL (12.0-15.0); Lymphocyte # 0.76 X10^3/ul (0.83-4.51); Lymphocyte % 7.1 % (19-41); Mean Corp Hgb Conc 31.7 g/dL (32-36); Mean Corpuscular Hgb 28.8 pg (27.0-32.0); Mean Corpuscular Volume 90.8 fL (81-99); Mean Platelet Vol. 10.5 fl (6.2-12.0); Monocyte# 0.72 X10^3/uL; Monocyte% 6.7 % (0-10); NRBC Flagged by Analyzer 0 % (0-5); Neutrophil # 9.03 X10^3/uL (2.7-7.7); Neutrophil % 84.7 % (47-70); Platelet Count 385 K/mm3 (150-450); RBC Distribution Width CV 17.2 % (11.6-14.6); RBC Distribution Width SD 55.9 fl (35.1-43.9); Red Blood Count 2.71 M/mm3 (4.2-5.4); White Blood Count 10.7 K/mm3 (4.4-11.0)
[2022-05-26 08:18] LABS: Anion Gap 12 (5-15); BUN 45 mg/dL (7-18); BUN/Creat Ratio 10.9 RATIO (10-20); Calcium,Total 8.8 mg/dL (8.5-10.1); Chloride 93 mmol/L (98-107); Creatinine, Serum 4.14 mg/dL (0.55-1.02); EST Glomerular Filtration Rate 12 mL/min (>60); Est Glom Filt Rate - Afr Amer 14 mL/min (>60); Estimated Creatinine Clearance 13.87 ml/min; Glucose 111 mg/dL (74-106); Phosphorus 4.7 mg/dL (2.5-4.9); Potassium 4.2 mmol/L (3.5-5.1); Sodium Level 128 mmol/L (136-145)
--- NOTE | 2022-05-26 08:36 | EX.ED.DYSGE1 ---
HPI History of Present Illness Chief Complaint: Other, Pain/Inj Narrative Narrative: Patient is a 57-year-old female with past medical history of acute on chronic kidney disease from scleroderma. She is to have dialysis Tuesday and Tuesday secondary to this. She also states that she has pubic rami fracture from a fall approximately 2 weeks ago. Patient states that because of the pain associated with trying to ambulate she has not been able to do so and she has had progressive weakness over the past few weeks. She states it is to the point where she cannot get around the house or take care of her self and she has not been able to go to dialysis. She reports that her last dialysis was on May 21. She also reports that she is not caring for herself because she cannot perform her ADLs secondary to her pain and weakness. Therefore this time with concern that she may need emergent dialysis as she has missed it for 5 days and has not been able to care for self she presents to the hospital for evaluation [facility] Medical History Anemia Anxiety disorder Bipolar disorder Depression Dialysis patient DVT (deep venous thrombosis) Fibromyalgia History of gastroesophageal reflux (GERD) Hypothyroidism Hypoxia Interstitial lung disease Irritable colon Osteoarthritis Scleredema Home Medications cyclobenzaprine 10 mg tablet 10 mg PO TID spasms 01/22/22 [History Last Taken 05/20/22] levothyroxine 100 mcg tablet 100 mcg PO DAILY thyroid 05/05/22 [History Last Taken 05/20/22] lisinopril 40 mg tablet 40 mg PO DAILY blood pressure 05/05/22 [History Last Taken 05/20/22] mycophenolate mofetil 500 mg tablet (CellCept) 1,000 mg PO BID immunosuppresent 05/05/22 [History Last Taken 05/20/22] hydroxyzine HCl 25 mg tablet 25 mg PO Q8H PRN PRN Itching 05/21/22 [History Last Taken Unknown] pantoprazole 40 mg tablet,delayed release 40 mg PO DAILY GERD 05/21/22 [History Last Taken 05/20/22] prednisone 20 mg tablet 60 mg PO DAILY auto immune 05/21/22 [History Last Taken 05/20/22] sulfamethoxazole 400 mg-trimethoprim 80 mg tablet (Bactrim) 1 tab PO MOWEFR antibiotic 05/21/22 [History Last Taken 05/19/22] vitamin B complex and vitamin C no.20-folic acid 1 mg capsule 1 cap PO DAILY anti rejection 05/21/22 [History Last Taken 05/20/22] cholecalciferol (vitamin D3) 25 mcg (1,000 unit) tablet 25 mcg PO DAILYCM #0 tabs 05/22/22 [Rx Last Taken Unknown] oxycodone 5 mg tablet 5 mg PO Q4H PRN PRN Pain Score 4-10 3 days #12 tabs 05/22/22 [Rx Last Taken Unknown] Allergy/AdvReac Type Severity Reaction Status Date / Time acetaminophen [From Tylenol] Allergy Bleeding Verified 05/26/22 06:01 simvastatin [From Zocor] Allergy Rash Verified 05/26/22 06:01 NSAIDS (Non-Steroidal AdvReac Bleeding Verified 05/26/22 06:01 Anti-Inflamma Family History Father COPD (chronic obstructive pulmonary disease) Mother No cardiac disease Surgical History H/O foot surgery H/O knee surgery History of left heart catheterization (12/15/09) History of tonsillectomy S/P manipulation of deviated nasal septum Social History household members: significant other Smoking Status: Never smoker alcohol intake: never substance use type: does not use ROS ROS ED Constitutional Constitutional ED: Denies chills or fever(s) ENT ENT ED: Denies sore throat Cardiovascular Cardiovascular: Denies chest pain Respiratory/Chest Respiratory/Chest: Denies cough or dyspnea Gastrointestinal Gastrointestinal: Denies abdominal pain, diarrhea, nausea or vomiting Musculoskeletal Musculoskeletal: Reports other Details: Positive left knee pain Positive hip/pelvic pain Integumentary Denies rash Neurologic Neurologic: Reports weakness; Denies headache(s) Hematologic/Lymphatic Hematologic/Lymphatic: Denies easy bleeding or easy bruising EXAM Physical Exam Const Vital Signs: 05/26/22 05:52 05/26/22 05:55 Temperature 98.2 F Temperature Source Temporal Pulse Rate 93 Respiratory Rate 18 Respiratory Effort Normal Respiratory Pattern Normal Blood Pressure 135/76 H Blood Pressure Mean 95 Pulse Ox 95 Oxygen Delivery Method Room Air Positive well nourished and well developed General Appearance ED: well developed HEENT Reports dry mucous membranes Mouth ED: Yes dry mucous membranes Mouth: dry mucous membranes Eyes PERRL and EOMs intact bilaterally Neck supple Chest Wall Chest Narrative: Has a port in the right chest and left chest wall. There is no crepitance palpated and no surrounding secondary changes to suggest infection Resp normal respiratory effort Resp Narrative: Breath sounds are diminished throughout with faint rhonchi in the bilateral bases but otherwise no signs of distress Cardio regular rate and regular rhythm Rate: other Other Details: Radial pulses are plus 2 out of 4 bilaterally are equal and symmetric GI normal to inspection, nondistended, normoactive bowel sounds, non-tender and non-distended GI Narrative: No voluntary guarding or rigidity no pulsatile mass Auscultation: normoactive bowel sounds Palpation: soft Extremity Extremity Narrative: Patient complains of pain in the left knee however the left knee is not erythematous or edematous. There is no bony deformity or joint effusion. No obvious ligamentous laxity. The pelvis is stable there is no shortening or external rotation of either lower extremity Neuro oriented x3 and CN's II-XII intact bilaterally Sensorium / Orientation: alert Psych Psych Narrative: Patient has a flat affect Skin Skin Narrative: Chronic skin changes associated with scleroderma history but no overlying soft tissue findings to suggest infection MDM MDM MDM Narrative Medical decision making narrative: Patient presented to the ER with stable vitals. She reported not having dialysis for 5 days and therefore patient had an EKG obtained which did not show any peaked T waves to suggest hyperkalemia. Blood work revealed worsening creatinine which is consistent with her lack of dialysis but otherwise stable electrolytes. As she is missed dialysis for 5 days I did discuss the case with nephrology on-call. They know the patient and because of her complex history with scleroderma they do recommend dialysis at this time despite normal potassium and phosphorus values. The patient reports that she is not getting around because of increased/persistent pain from the pubic rami fractures she sustained over the last 2 weeks. As she is not completing her ADLs she is agreeable to placement in rehab if necessary. Therefore at this time patient can be admitted to the hospital to undergo dialysis and to have possible PT OT evaluation and social work evaluation to see if she qualifies for rehab placement Lab Data Attestation: I reviewed the patient's lab results. Labs: Laboratory Results - last 24 hr 05/26/22 05/26/22 07:25 07:25 WBC 10.7 RBC 2.71 L Hgb 7.8 L Hct 24.6 L MCV 90.8 MCH 28.8 MCHC 31.7 L RDW Std Deviation 55.9 H RDW Coeff of Pebbles 17.2 H Plt Count 385 MPV 10.5 Immature Gran % (Auto) 1.400 H Neut % (Auto) 84.7 H Lymph % (Auto) 7.1 L [place] % (Auto) 6.7 Eos % (Auto) 0.0 Baso % (Auto) 0.1 Absolute Neuts (auto) 9.0 H Absolute Lymphs (auto) 0.76 L Nucleated RBC % 0 Sodium 128 L Potassium 4.2 Chloride 93 L Carbon Dioxide 23.0 Anion Gap 12 BUN 45 H Creatinine 4.14 H Estim Creat Clear Calc 13.87 Est GFR (MDRD) Af Amer 14 L Est GFR (MDRD) Non-Af 12 L BUN/Creatinine Ratio 10.9 Glucose 111 H Calcium 8.8 Phosphorus 4.7 Discharge Plan Triage Chief Complaint: Other, Pain/Inj ED Provider: [place] Dx/Rx/DC Orders Clinical Impression: ESRD on dialysis, Closed fracture of left superior pubic ramus, Closed fracture of left inferior pubic ramus, Inability to ambulate due to left hip, Scleroderma Prescriptions: No Action cyclobenzaprine 10 mg tablet 10 mg PO TID Label Comments: TAKE 1 TABLET THREE TIMES DAILY NEEDED for MUSCLE SPASM mycophenolate mofetil [CellCept] 500 mg Tablet 1,000 mg PO BID lisinopril 40 mg Tablet 40 mg PO DAILY levothyroxine 100 mcg tablet 100 mcg PO DAILY sulfamethoxazole-trimethoprim [Bactrim] 400-80 mg Tablet 1 tab PO MOWEFR prednisone 20 mg Tablet 60 mg PO DAILY Rx Instructions: for 30 doses pantoprazole 40 mg Tablet,Delayed Release (Dr/Ec) 40 mg PO DAILY hydroxyzine HCl 25 mg Tablet 25 mg PO Q8H PRN PRN (Reason: Itching) B complex with C 20-folic acid 1 mg Capsule 1 cap PO DAILY cholecalciferol (vitamin D3) 25 mcg (1,000 unit) Tablet 25 mcg PO DAILYCM Qty: 0 0RF oxycodone 5 mg Tablet 5 mg PO Q4H PRN PRN (Reason: Pain Score 4-10) 3 Days Qty: 12 0RF Primary Care Provider: Mono Lynn Referrals: Mono Lynn MD [Primary Care Provider] - Disposition Disposition: Acute Care Hospital [facility]
--- NOTE | 2022-05-26 08:54 | NURSING ---
MED SURG OBS YANEZ ESRD ON DIALYSISI WITH INABILITY TO AMBULATE
--- NOTE | 2022-05-26 10:05 | HP.PCM.HOS_ITS ---
HPI - General General Date of Admission: 05/26/22 Date of Service: 05/26/22 Chief Complaint: Intractable pain HPI Narrative Ms. Kaur is a 57-year-old female with a history of scleroderma, interstitial lung disease, end-stage renal disease on dialysis Tuesday and Tuesday as well as history of bleeding ulcers as well as pubic ramus fracture who presented to [facility] 05/26/2022 with intractable pain and inability to care for herself due to generalized weakness and pain and she also reported she has not had dialysis since last Tuesday. She was discharged from our facility on 05/22/2022 after she missed her toilet seat and fell on the floor and was found to have fractures of the left superior and inferior pubic rami. She was admitted and was given pain medication seen by PT/OT and referred to pain management with Dr. Hernandez. She was discharged home but reports that she has been unable to walk due to the pain and weakness since she went home and therefore has had worsened p.o. intake and was unable to go to dialysis or complete ADLs. Hospitalist contacted for admission and given her intractable pain and weakness leading to debility as well as missing dialysis we will admit. In the ED she reports pain primarily on the left groin as well as pain throughout her lower back. Does note that missing dialysis is made her feel slightly full mostly in her abdomen but does not feel overtly overloaded in her extremities. Denies any worsening in her breathing or changes in cough. No chest pain. Denies problems with her bowels, decreased urination due to decreased oral intake as she reports being unable to make it to the bathroom to urinate so she in part is intentionally not drinking water. Has not been taking any medication for pain at home due to her bleeding ulcers. Denies other complaints at this time. [facility] Medical History Anemia Anxiety disorder Bipolar disorder Depression Dialysis patient DVT (deep venous thrombosis) Fibromyalgia History of gastroesophageal reflux (GERD) Hypothyroidism Hypoxia Interstitial lung disease Irritable colon Osteoarthritis Scleredema Home Medications cyclobenzaprine 10 mg tablet 10 mg PO TID spasms 01/22/22 [History Last Taken 05/20/22] levothyroxine 100 mcg tablet 100 mcg PO DAILY thyroid 05/05/22 [History Last Taken 05/20/22] lisinopril 40 mg tablet 40 mg PO DAILY blood pressure 05/05/22 [History Last Taken 05/20/22] mycophenolate mofetil 500 mg tablet (CellCept) 1,000 mg PO BID immunosuppresent 05/05/22 [History Last Taken 05/20/22] hydroxyzine HCl 25 mg tablet 25 mg PO Q8H PRN PRN Itching 05/21/22 [History Last Taken Unknown] pantoprazole 40 mg tablet,delayed release 40 mg PO DAILY GERD 05/21/22 [History Last Taken 05/20/22] prednisone 20 mg tablet 60 mg PO DAILY auto immune 05/21/22 [History Last Taken 05/20/22] sulfamethoxazole 400 mg-trimethoprim 80 mg tablet (Bactrim) 1 tab PO MOWEFR antibiotic 05/21/22 [History Last Taken 05/19/22] vitamin B complex and vitamin C no.20-folic acid 1 mg capsule 1 cap PO DAILY anti rejection 05/21/22 [History Last Taken 05/20/22] cholecalciferol (vitamin D3) 25 mcg (1,000 unit) tablet 25 mcg PO DAILYCM #0 tabs 05/22/22 [Rx Last Taken Unknown] oxycodone 5 mg tablet 5 mg PO Q4H PRN PRN Pain Score 4-10 3 days #12 tabs 05/22/22 [Rx Last Taken Unknown] Allergy/AdvReac Type Severity Reaction Status Date / Time acetaminophen [From Tylenol] Allergy Bleeding Verified 05/26/22 06:01 simvastatin [From Zocor] Allergy Rash Verified 05/26/22 06:01 NSAIDS (Non-Steroidal AdvReac Bleeding Verified 05/26/22 06:01 Anti-Inflamma Family History Father COPD (chronic obstructive pulmonary disease) Mother No cardiac disease Surgical History H/O foot surgery H/O knee surgery History of left heart catheterization (12/15/09) History of tonsillectomy S/P manipulation of deviated nasal septum Social History household members: significant other Smoking Status: Never smoker alcohol intake: never substance use type: does not use ROS Constitutional Constitutional: Reports weakness; Denies change in weight, chills, fever(s) or night sweats Eyes Eyes: Denies change in vision ENT HEENT: Denies headache(s) or nasal congestion Cardiovascular Cardiovascular: Denies chest pain Respiratory/Chest Respiratory/Chest: Reports other Details: No change in cough, denies any shortness of breath at this time Gastrointestinal Gastrointestinal: Reports other Details: denies changes in bowel or bladder ; Denies abdominal pain Genitourinary Genitourinary: Reports other Details: Slightly decreased frequency but reports since because she has decreased water intake due to not being able to get to the bathroom Musculoskeletal Musculoskeletal: Reports joint pain and other Details: Pain and left knee which is chronic, additionally pain in left groin since last admission Neurologic Neurologic: Denies dizziness, focal weakness, headache(s), numbness or tingling Psychiatric Psychiatric: Denies anxiety Hematologic/Lymphatic Hematologic/Lymphatic: Denies easy bleeding Allergic/Immunologic Allergic/Immunologic: Reports other Details: denies rashes Vital Signs Vital Signs Vital Signs: 05/26/22 05:52 05/26/22 05:55 05/26/22 09:06 Temperature 98.2 F 98.2 F Temperature Source Temporal Temporal Pulse Rate 93 93 Respiratory Rate 18 18 Respiratory Effort Normal Respiratory Pattern Normal Blood Pressure 135/76 H 135/76 H Blood Pressure Mean 95 95 Pulse Ox 95 95 Oxygen Delivery Method Room Air Room Air Weight Weight: 63.6 kg Body Mass Index (BMI) 22.6 Physical Exam Const alert and no apparent distress Constitutional Narrative: Oriented HEENT normocephalic and head/scalp atraumatic Eyes Eyes Narrative: EOM grossly intact, anicteric Neck supple Resp normal respiratory effort Resp Narrative: Slightly diminished at the bases Cardio regular rate and regular rhythm GI soft to palpation, non-tender and non-distended Extremity Extremity Narrative: No edema appreciated, moving all limbs but limited by left groin pain, feels weakness in bilateral upper extremities symmetrically Neuro moves all extremities Neuro Narrative: No overt focal deficits appreciated Psych Psych Narrative: Cooperative Results Lab / Micro Data Result Diagrams: 05/26/22 07:25 05/26/22 07:25 Labs: Laboratory Results - last 24 hr 05/26/22 07:25: WBC 10.7, RBC 2.71 L, Hgb 7.8 L, Hct 24.6 L, MCV 90.8, MCH 28.8, MCHC 31.7 L, RDW Std Deviation 55.9 H, RDW Coeff of Pebbles 17.2 H, Plt Count 385, MPV 10.5, Immature Gran % (Auto) 1.400 H, Neut % (Auto) 84.7 H, Lymph % (Auto) 7.1 L, [place] % (Auto) 6.7, Eos % (Auto) 0.0, Baso % (Auto) 0.1, Absolute Neuts (auto) 9.0 H, Absolute Lymphs (auto) 0.76 L, Nucleated RBC % 0 05/26/22 07:25: Sodium 128 L, Potassium 4.2, Chloride 93 L, Carbon Dioxide 23.0, Anion Gap 12, BUN 45 H, Creatinine 4.14 H, Estim Creat Clear Calc 13.87, Est GFR (MDRD) Af Amer 14 L, Est GFR (MDRD) Non-Af 12 L, BUN/Creatinine Ratio 10.9, Glucose 111 H, Calcium 8.8, Phosphorus 4.7 Assessment & Plan Assessment/Plan (1) Inability to ambulate due to left hip: (2) Intractable pain: (3) Scleroderma: (4) ESRD on dialysis: PLAN: Plan #Intractable pain 2/2 left superior and inferior pubic rami fractures We will continue home Flexeril Will initiate pain regimen Consult PT/OT May benefit from DEXA as an outpatient #End-stage renal disease on dialysis Tuesday Per ED report nephrology has already been contacted and will plan for dialysis Will place formal consult Does not appear grossly overloaded Does report making urine, decrease in urine output due to decrease in p.o. intake Daily weights #Failure to thrive Secondary to intractable pain and generalized weakness Will consult PT/OT #Scleroderma?with recent hemoptysis Had recent scleroderma crisis and was admitted at [facility] 05/05/2022 prior to previous hospitalization at [facility] on 05/20/2022 Continue CellCept 1000 mg twice a day, continue prednisone, continue Bactrim supplementation Continue lisinopril #Hypothyroidism Continue Synthroid 100 mcg We will obtain TSH in the morning #Hypertension Continue lisinopril 40 mg daily #Hyponatremia Appears to be chronic, will have dialysis today No neurological symptoms or concern for her being symptomatic #Chronic hypoxic respiratory failure secondary to systemic scleroderma Appears to be at baseline Is not requiring supplemental oxygen at this time Continue chronic steroid regimen-do not feel stressed dosing is needed given that admission is for intractable pain and failure to thrive, low threshold if any other process develops #History of upper GI bleed Continue Protonix 40 mg daily Hemoglobin 7.8, but this seems to be a fairly consistent over the past month #History of DVT Per previous documentation, not on anticoagulation, did have recent alveolar hemorrhage at [facility] #DVT prophylaxis: We will give SCDs given previous GI bleed and recent alveolar hemorrhage Viktoria Zepeda MD Charges/Coding Visit Charges OBSV E&M: 36261 Initial observation care L2
--- NOTE | 2022-05-26 12:04 | DIALYSIS ---
Addendum entered by Noam Lester 05/26/22 15:49: Hemodialysis complete. 3.5 hour run, 3k bath. Net fluid removed = 2400 ml. Patient tolerated HD tx well. Left chest CVC. Site benign. Biofilm dressing dry and intact. Lumen flushed with NS, filled to volume with Heparin, clamped and capped. Patient consumed several cups of tea during HD tx. This RN encouraged patient to limit amount of fluid intake to prevent fluid overload. Report given to primary RNJulia. Original Note: Report from primary RNJulia Access: left chest CVC. Site benign. Biofilm dressing changed per protocol. Connections secure. Hemosafe applied x 2.
--- NOTE | 2022-05-26 16:05 | PCM.CONS.R ---
Assessment & Plan Assessment/Plan (1) ESRD on dialysis: PLAN: Due to scleroderma. Dialysis ordered for today. Seen on dialysis. See orders, flowsheets. Hyponatremia. Likely due to volume overload. Fluid removal as tolerated today. Anemia. Recent episode of hemoptysis. Hemoglobin stabilized. We will start IV iron with next dialysis treatment HPI Consult Data Date of Consult: 05/26/22 HPI Narrative Reason for Consultation: ESRD HPI Narrative: EAN MILLER, is a 57 F who presents to the hospital with inability to move around. Nephrology on consultation for ESRD. On hemodialysis Tuesday, Tuesday, Tuesday schedule. Last dialysis was Tuesday last week. She has somewhat complicated history, admitted at [facility] with scleroderma, hemoptysis. Had bronchoscopy consistent with diffuse alveolar hemorrhage. After multiple discussions, she was started on prednisone along with mycophenolate. She does feel better since starting prednisone. She has been on dialysis for few months now. The day after she got discharged from the hospital, fell down, diagnosed with pubic ramus fracture. She was able to walk initially and she was discharged home. However over the last few days she was unable to move around, admitted here for potential rehab placement. Seen on dialysis today. [facility] Medical History Anemia Anxiety disorder Bipolar disorder Depression Dialysis patient DVT (deep venous thrombosis) Fibromyalgia History of gastroesophageal reflux (GERD) Hypothyroidism Hypoxia Interstitial lung disease Irritable colon Osteoarthritis Scleredema Home Medications cyclobenzaprine 10 mg tablet 10 mg PO TID spasms 01/22/22 [History Last Taken 05/20/22] levothyroxine 100 mcg tablet 100 mcg PO DAILY thyroid 05/05/22 [History Last Taken 05/20/22] lisinopril 40 mg tablet 40 mg PO DAILY blood pressure 05/05/22 [History Last Taken 05/20/22] mycophenolate mofetil 500 mg tablet (CellCept) 1,000 mg PO BID immunosuppresent 05/05/22 [History Last Taken 05/20/22] hydroxyzine HCl 25 mg tablet 25 mg PO Q8H PRN PRN Itching 05/21/22 [History Last Taken Unknown] pantoprazole 40 mg tablet,delayed release 40 mg PO DAILY GERD 05/21/22 [History Last Taken 05/20/22] prednisone 20 mg tablet 60 mg PO DAILY auto immune 05/21/22 [History Last Taken 05/20/22] sulfamethoxazole 400 mg-trimethoprim 80 mg tablet (Bactrim) 1 tab PO MOWEFR antibiotic 05/21/22 [History Last Taken 05/19/22] vitamin B complex and vitamin C no.20-folic acid 1 mg capsule 1 cap PO DAILY anti rejection 05/21/22 [History Last Taken 05/20/22] cholecalciferol (vitamin D3) 25 mcg (1,000 unit) tablet 25 mcg PO DAILYCM #0 tabs 05/22/22 [Rx Last Taken Unknown] oxycodone 5 mg tablet 5 mg PO Q4H PRN PRN Pain Score 4-10 3 days #12 tabs 05/22/22 [Rx Last Taken Unknown] Allergy/AdvReac Type Severity Reaction Status Date / Time acetaminophen [From Tylenol] Allergy Bleeding Verified 05/26/22 06:01 simvastatin [From Zocor] Allergy Rash Verified 05/26/22 06:01 NSAIDS (Non-Steroidal AdvReac Bleeding Verified 05/26/22 06:01 Anti-Inflamma Family History Father COPD (chronic obstructive pulmonary disease) Mother No cardiac disease Surgical History H/O foot surgery H/O knee surgery History of left heart catheterization (12/15/09) History of tonsillectomy S/P manipulation of deviated nasal septum Social History household members: significant other Smoking Status: Never smoker alcohol intake: never substance use type: does not use ROS ROS Narrative Negative except above Physical Exam Narrative Alert awake oriented x 3 no obvious distress no pallor no icterus no JVD s1s2 no murmurs lungs clear abdomen soft no organomegaly no edema no cyanosis Lab / Micro Data Result Diagrams: 05/26/22 07:25 05/26/22 07:25 Labs: Laboratory Results - last 24 hr 05/26/22 07:25: WBC 10.7, RBC 2.71 L, Hgb 7.8 L, Hct 24.6 L, MCV 90.8, MCH 28.8, MCHC 31.7 L, RDW Std Deviation 55.9 H, RDW Coeff of Pebbles 17.2 H, Plt Count 385, MPV 10.5, Immature Gran % (Auto) 1.400 H, Neut % (Auto) 84.7 H, Lymph % (Auto) 7.1 L, Josephine % (Auto) 6.7, Eos % (Auto) 0.0, Baso % (Auto) 0.1, Absolute Neuts (auto) 9.0 H, Absolute Lymphs (auto) 0.76 L, Nucleated RBC % 0 05/26/22 07:25: Sodium 128 L, Potassium 4.2, Chloride 93 L, Carbon Dioxide 23.0, Anion Gap 12, BUN 45 H, Creatinine 4.14 H, Estim Creat Clear Calc 13.87, Est GFR (MDRD) Af Amer 14 L, Est GFR (MDRD) Non-Af 12 L, BUN/Creatinine Ratio 10.9, Glucose 111 H, Calcium 8.8, Phosphorus 4.7
[2022-05-26] MEDS: cycloBENZAPRine HCl 10 MG Tablet PO ×2 (16:25→22:44)
[2022-05-26] MEDS: Heparin 10,000 UNITS/10 ML Vial 3200 UNITS IV (16:25)
[2022-05-26] MEDS: oxyCODONE 5 MG Tablet PO (22:44)
[2022-05-26] MEDS: Mycophenolate Mofetil 250 MG Capsule 1000 MG PO (22:44)
[2022-05-27] VITALS (9 sets, daily range): BP systolic 114–132; BP diastolic 70–85; PULSE 78–93; RESP 16–18; TEMP 36.5–36.9; O2SAT 83–98
[2022-05-27 06:07] LABS: Absolute Lymphocyte Count 1.91 X10^3/uL (0.83-4.51); Absolute Neutrophil Count 4.5 X10^3/uL (2.0-7.7); Basophil# 0.02 X10^3/uL; Basophil% 0.3 % (0-1); Eosinophil# 0.03 X10^3/uL; Eosinophils% 0.4 % (0-5); Hematocrit 22.6 % (37-47); Hemoglobin 7.3 g/dL (12.0-15.0); Lymphocyte # 1.91 X10^3/ul (0.83-4.51); Lymphocyte % 25.2 % (19-41); Mean Corp Hgb Conc 32.3 g/dL (32-36); Mean Corpuscular Hgb 29.4 pg (27.0-32.0); Mean Corpuscular Volume 91.1 fL (81-99); Mean Platelet Vol. 10.5 fl (6.2-12.0); Monocyte# 1.02 X10^3/uL; Monocyte% 13.5 % (0-10); NRBC Flagged by Analyzer 0 % (0-5); Neutrophil # 4.52 X10^3/uL (2.7-7.7); Neutrophil % 59.7 % (47-70); Platelet Count 327 K/mm3 (150-450); RBC Distribution Width CV 17.5 % (11.6-14.6); RBC Distribution Width SD 58.1 fl (35.1-43.9); Red Blood Count 2.48 M/mm3 (4.2-5.4); White Blood Count 7.6 K/mm3 (4.4-11.0)
[2022-05-27] MEDS: Levothyroxine 100 MCG Tablet PO (06:39)
[2022-05-27] MEDS: cycloBENZAPRine HCl 10 MG Tablet PO ×2 (06:39→13:57)
[2022-05-27 07:07] LABS: ALB/GLOB Ratio 0.8 RATIO (0.9-2.4); AST(SGOT) 11 U/L (15-37); Alanine Aminotransfer ALT/SGPT 12 U/L (13-56); Albumin, Serum 2.4 g/dL (3.2-5.0); Alkaline Phosphatase 69 U/L (45-117); Anion Gap 9 (5-15); BUN 21 mg/dL (7-18); BUN/Creat Ratio 9.2 RATIO (10-20); Chloride 96 mmol/L (98-107); Creatinine, Serum 2.28 mg/dL (0.55-1.02); EST Glomerular Filtration Rate 23 mL/min (>60); Est Glom Filt Rate - Afr Amer 28 mL/min (>60); Estimated Creatinine Clearance 25.18 ml/min; Globulin 3.1 g/dL (2.2-4.2); Glucose 90 mg/dL (74-106); Magnesium 1.9 mg/dL (1.6-2.6); Phosphorus 3.4 mg/dL (2.5-4.9); Potassium 3.2 mmol/L (3.5-5.1); Protein, Total 5.5 g/dL (6.4-8.2); Sodium Level 133 mmol/L (136-145)
[2022-05-27] MEDS: predniSONE 20 MG Tablet 60 MG PO (08:22)
[2022-05-27] MEDS: Mycophenolate Mofetil 250 MG Capsule 1000 MG PO (08:22)
[2022-05-27] MEDS: Folic Acid/Vitamin B Comp W-C 1 Capsule 1 CAP PO (08:22)
[2022-05-27] MEDS: Cholecalciferol (VIT D3) 25 MCG TABLET (1,000 UNITS) PO (08:23)
[2022-05-27] MEDS: Pantoprazole Sodium 40 MG Tablet PO (08:23)
[2022-05-27] MEDS: Lisinopril 40 MG Tablet PO (08:23)
[2022-05-27] MEDS: oxyCODONE 5 MG Tablet PO (08:33)
--- NOTE | 2022-05-27 08:58 | PN.HOSP_ITS ---
Subjective Subjective DOS: 05/27/2022 CC: Pelvic pain Did well yesterday with dialysis, does report feeling slightly better overall but continues to have pain, primarily reports it with movement but also endorses bilateral upper extremity weakness given recent hospitalizations etc. denies chest pain or shortness of breath, increased p.o. intake. Denies other complaints this a.m. Objective Data Objective Data Vital Signs: Vital Signs Temp Pulse Resp BP Pulse Ox O2 Del Method 97.7 F L 78 16 114/70 94 Room Air 05/27/22 03:00 05/27/22 03:00 05/27/22 03:00 05/27/22 03:00 05/27/22 03:00 05/27/22 04:00 Oxygen Delivery Method Room Air Weight: 61.9 kg Body Mass Index (BMI) 21.8 Intake & Output: Intake and Output for Last 24 Hours 05/25/22 05/26/22 05/27/22 23:59 23:59 23:59 Intake Total 1250 / 1250 Output Total 2400 / 2400 Balance -1150 / -1150 Lab / Micro Data Result Diagrams: 05/27/22 05:35 05/27/22 05:35 Labs: Laboratory Results - last 24 hr 05/27/22 05:35: WBC 7.6, RBC 2.48 L, Hgb 7.3 L, Hct 22.6 L, MCV 91.1, MCH 29.4, MCHC 32.3, RDW Std Deviation 58.1 H, RDW Coeff of Pebbles 17.5 H, Plt Count 327, MPV 10.5, Immature Gran % (Auto) 0.900, Neut % (Auto) 59.7, Lymph % (Auto) 25.2, [place] % (Auto) 13.5 H, Eos % (Auto) 0.4, Baso % (Auto) 0.3, Absolute Neuts (auto) 4.5, Absolute Lymphs (auto) 1.91, Nucleated RBC % 0 05/27/22 05:35: Sodium 133 L, Potassium 3.2 L, Chloride 96 L, Carbon Dioxide 28.0, Anion Gap 9, BUN 21 H, Creatinine 2.28 H, Estim Creat Clear Calc 25.18, Est GFR (MDRD) Af Amer 28 L, Est GFR (MDRD) Non-Af 23 L, BUN/Creatinine Ratio 9.2 L, Glucose 90, Calcium 8.0 L, Phosphorus 3.4, Magnesium 1.9, Total Bilirubin 0.30, AST 11 L, ALT 12 L, Alkaline Phosphatase 69, Total Protein 5.5 L, Albumin 2.4 L, Globulin 3.1, Albumin/Globulin Ratio 0.8 L, TSH 4.20 H Physical Exam Const alert and no apparent distress Constitutional Narrative: Oriented HEENT normocephalic and head/scalp atraumatic Eyes Eyes Narrative: EOM grossly intact, anicteric Neck supple Resp normal respiratory effort Resp Narrative: Slightly diminished at the bases Cardio regular rate and regular rhythm GI soft to palpation, non-tender and non-distended Extremity Extremity Narrative: No edema appreciated, moving all limbs but limited by left groin pain, feels weakness in bilateral upper extremities symmetrically Neuro moves all extremities Neuro Narrative: No overt focal deficits appreciated Psych Psych Narrative: Cooperative Assessment & Plan Assessment/Plan (1) Inability to ambulate due to left hip: (2) Intractable pain: (3) Scleroderma: (4) ESRD on dialysis: PLAN: Plan #Intractable pain 2/2 left superior and inferior pubic rami fractures We will continue home Flexeril Will initiate pain regimen Consult PT/OT May benefit from DEXA as an outpatient 05/27/2022?continue to manage pain, awaiting PT/OT recs #End-stage renal disease on dialysis Tuesday Dialysis 05/26/2022 Nephrology consulted Does not appear grossly overloaded Daily weights #Failure to thrive Secondary to intractable pain and generalized weakness Appreciate PT/OT recommendations #Scleroderma?with recent hemoptysis Had recent scleroderma crisis and was admitted at [facility] 05/05/2022 prior to previous hospitalization at [facility] on 05/20/2022 Continue CellCept 1000 mg twice a day, continue prednisone, continue Bactrim supplementation Continue lisinopril #Hypothyroidism Continue Synthroid 100 mcg We will obtain TSH in the morning #Hypertension Continue lisinopril 40 mg daily #Hyponatremia Appears to be chronic, slightly improved to 133 after dialysis 05/26 No neurological symptoms or concern for her being symptomatic #Chronic hypoxic respiratory failure secondary to systemic scleroderma Appears to be at baseline Is not requiring supplemental oxygen at this time Continue chronic steroid regimen-do not feel stressed dosing is needed given that admission is for intractable pain and failure to thrive, low threshold if any other process develops #History of upper GI bleed Continue Protonix 40 mg daily Hemoglobin seems to be a fairly consistent over the past month #History of DVT Per previous documentation, not on anticoagulation, did have recent alveolar hemorrhage at [facility] #DVT prophylaxis: We will give SCDs given previous GI bleed and recent alveolar hemorrhage Viktoria Zepeda MD Charges/Coding Visit Charges OBSV E&M: 06581 Subsequent observation care L2
[2022-05-27 09:48] LABS: T4 Free Direct 0.99 ng/dL (0.76-1.46)
--- NOTE | 2022-05-27 11:27 | CASEMGMT ---
Social Work Pt is readmission from 05/21. SIMONE met with pt to discuss discharge plan. Pt states she was at [facility] for a couple months, feel just prior to discharge and fractured pubic ramis. Pt went home and then admitted to [facility] on 05/20-05/21. Pt felt at that time she could return home. Pt readmitted 05/26. Pt states she now realizes she cannot live at home in her split level home as she must go up 4 stairs to bathroom and she is not getting around well. Pt states she requires short term rehab prior to returning home alone. Pt does receive dialysis at [facility] with a chair time of 5:30. Pt states her boyfriend usually transports her, but will be unable to do this while she is at SNF. A list of SNF providers including quality and resource use data and consistent with the patient?s preferred geographic region, medical needs, and insurance network were provided from the [facility] [facility]. Pts preferred providers is 1. [place] [address]. [facility] [address] SIMONE updated Mónica d/c cement tester assistant and requested referral be made. Plan: [facility], pending acceptance H[place]CTOR [place]
--- NOTE | 2022-05-27 11:36 | CASEMGMT ---
Addendum entered by Mónica Larios 05/27/22 11:42: Discharge Mcat Tutor This content writer sent referral to [facility]. Garry DICKSON Certified Anesthesiologist Assistant Original Note: Discharge Mcat Tutor This content writer sent referral to Shweta at [facility]. Garry DICKSON Certified Anesthesiologist Assistant
[2022-05-27] MEDS: Potassium Chloride Oral Tablet 20 MEQ PO (11:47)
--- NOTE | 2022-05-27 12:41 | CASEMGMT ---
Discharge Music Teacher [facility] reached out. Patient has been accepted at [facility]. Dialysis can be done in house if patient picks to go there. SIMONE rCuz notified. Garry DICKSON Retail Store Clerk
--- NOTE | 2022-05-27 13:16 | CASEMGMT ---
Social Work SW spoke with pt and informed that [place] is uncertain if they can provide transport to Dialysis, but [facility] would be able to accept pt and do dialysis on site. Pt requesting to go to [facility]. CC inquiring if pt can bring medication Cellcept from home and pt is agreeable. Per Mónica burrows sourcing assistant [facility] can accept today. Physician updated. Plan: [facility], skilled level of care HÉCTOR V[place]la
--- NOTE | 2022-05-27 14:15 | TREXTCAR_ITS ---
Diet Diet Order/Speech Therapy: 05/26/22 10:23 Diet: Regular - General Food consistency:: Regular Liquid Consistency:: Regular/Thin Routine Orders/Code Status Suppository Type: Dulcolax 10mg Suppository Frequency: Daily PRN O2 Liters per Minute: 2 O2 Frequency: Home orders were 1L at rest and 2 L with exertion Keep PO Greater than or Equal to (%): 92 Therapies Physical Therapy: Eval and Treat Occupational Therapy: Eval and Treat Problem/Diagnosis (1) Inability to ambulate due to left hip: Status: Acute Code(s): R26.2 - Difficulty in walking, not elsewhere classified (2) Intractable pain: Status: Acute Code(s): R52 - Pain, unspecified (3) Scleroderma: Status: Acute Code(s): M34.9 - Systemic sclerosis, unspecified (4) ESRD on dialysis: Status: Acute Code(s): N18.6 - End stage renal disease; Z99.2 - Dependence on renal dialysis (5) Closed fracture of left superior pubic ramus: Status: Acute Code(s): S32.512A - Fracture of superior rim of left pubis, initial encounter for closed fracture (6) Closed fracture of left inferior pubic ramus: Status: Acute Code(s): S32.592A - Other specified fracture of left pubis, initial encounter for closed fracture Plan #Intractable pain 2/2 left superior and inferior pubic rami fractures #End-stage renal disease on dialysis Tuesday #Failure to thrive #Scleroderma?with recent hemoptysis #Hypothyroidism #Hypertension #Hyponatremia #Chronic hypoxic respiratory failure secondary to systemic scleroderma #History of upper GI bleed #History of DVT Ms. Kaur is a 57-year-old female with a history of scleroderma, interstitial lung disease, end-stage renal disease on dialysis Tuesday and Tuesday as well as history of bleeding ulcers as well as pubic ramus fracture who presented to [facility] 05/26/2022 with intractable pain and inability to care for herself due to generalized weakness and pain and she also reported she has not had dialysis since last Tuesday.? She was discharged from our facility on 05/22/2022 after she missed her toilet seat and fell on the floor and was found to have fractures of the left superior and inferior pubic rami.? She was admitted and was given pain medication seen by PT/OT and referred to pain management with Dr. Hernandez.? She was discharged home but reports that she has been unable to walk due to the pain and weakness since she went home and therefore has had worsened p.o. intake and was unable to go to dialysis or complete ADLs. She had dialysis performed 05/26/2022 and tolerated this well. On Flexeril and oxycodone 5 mg as needed for pain control. Physical therapy worked with her and recommended placement, she is agreeable to going to assisted facility prior to going home. Per previous records did require 1 L of O2 at rest and 2 L with ambulation. At rest was fairly comfortable, when walked was put back on the 2 L of O2 and did well. Reports no changes or worsening in her breathing since admission. No changes in coughing. Ms. Kaur was seen on the day of discharge 05/27/2022 and reported that while she was laying in bed her pain was relatively mild, but still has significant pain when up and moving around even with physical therapy. Feels generally weak as well, especially in her upper body, otherwise she is feeling well. Discharge to assisted facility in stable condition Allergies/Procedures Done in Hospital Allergies acetaminophen [From Tylenol] Allergy (Verified 05/26/22 06:01) Bleeding simvastatin [From Zocor] Allergy (Verified 05/26/22 06:01) Rash NSAIDS (Non-Steroidal Anti-Inflamma Adverse Reaction (Verified 05/26/22 06:01) Bleeding GI ULCERS Procedures: - (Hemodialysis) Type of Care/Length of Stay Estimated LOS: Convalescent Care Less Than 30 days Type of Care Needed: Skilled Rehab Potential: Fair Prognosis: Fair Additional Orders/Day of Discharge Day of Discharge: 05/27/22 Discharge Plan Admission Admit Date/Time: 05/26/22 09:41 Primary Reason for Your Visit: Weakness and pain Attending Provider: Viktoria Zepeda Primary Care Provider: Mono Lynn Consulting Providers: Liz Lerma Instructions Patient Instructions: ED Chronic Kidney Disease (CKD) Additional Instructions / Restrictions: ? Please continue to follow-up with nephrology upon discharge. Your dialysis will continue at the assisted facility. ?On your last discharge he was indicated that you wear 1 to 2 L of oxygen at home, you have been placed on 2 L of oxygen here, primarily with ambulation. ? You will be sent to the assisted facility with a short prescription for oxycodone 5 mg tablets, adjustments can be made at their discretion. ? Stool softener as needed ? Continue other home medication ? It is important that you continue to follow with your doctors at [facility] for further monitoring, especially regarding your CellCept, prednisone, and Bactrim. -Please call your primary care provider's office upon discharge to schedule a h ospital follow up within 1 week. -For any concerning signs or symptoms please call 911 or proceed to the nearest emergency department Discharge Orders/Prescriptions Prescriptions: New albuterol sulfate 2.5 mg /3 mL (0.083 %) Solution For Nebulization 2.5 mg inhalation Q2H PRN Qty: 75 0RF sennosides-docusate sodium [Stool Softener-Stimulant Laxat] 8.6-50 mg Tablet 2 tab PO BID PRN PRN (Reason: Constipation) 30 Days Qty: 60 0RF oxycodone 5 mg Tablet 5 mg PO Q4H PRN PRN (Reason: Pain Score 4-10) 3 Days Qty: 15 0RF Continued cyclobenzaprine 10 mg tablet 10 mg PO TID Label Comments: TAKE 1 TABLET THREE TIMES DAILY NEEDED for MUSCLE SPASM mycophenolate mofetil [CellCept] 500 mg Tablet 1,000 mg PO BID lisinopril 40 mg Tablet 40 mg PO DAILY levothyroxine 100 mcg tablet 100 mcg PO DAILY sulfamethoxazole-trimethoprim [Bactrim] 400-80 mg Tablet 1 tab PO MOWEFR prednisone 20 mg Tablet 60 mg PO DAILY Rx Instructions: for 30 doses pantoprazole 40 mg Tablet,Delayed Release (Dr/Ec) 40 mg PO DAILY hydroxyzine HCl 25 mg Tablet 25 mg PO Q8H PRN PRN (Reason: Itching) B complex with C 20-folic acid 1 mg Capsule 1 cap PO DAILY cholecalciferol (vitamin D3) 25 mcg (1,000 unit) Tablet 25 mcg PO DAILYCM Qty: 0 0RF Discontinued oxycodone 5 mg Tablet 5 mg PO Q4H PRN PRN (Reason: Pain Score 4-10) 3 Days Qty: 12 0RF Referrals / Follow Up: Mono Lynn MD [Primary Care Provider] - Liz Lerma MD [Med Staff - Consulting] - (Please continue to follow with nephrology on discharge) Disposition Disposition (needs filled in before D/C Order can be placed): [facility]
--- NOTE | 2022-05-27 14:56 | DS.PCM_ITS ---
Providers Date of Admission: 05/26/22 Date of Discharge: 05/27/22 Primary Care Physician: Dr. Mono Lynn MD Consultations 05/26/22 10:23 Consult: Nephrology Routine Consulting Provider: Liz Lerma Reason for Consult: HD MWF, none since tuesday EMERGENT Consult: No MD Notified: Yes Date Notified: 05/26/22 Time Notified: 10:04 Method of Notification: ED Physician Initiated Reason For Visit: ESRD Diagnosis Discharge Diagnosis (1) Inability to ambulate due to left hip: Status: Acute Code(s): R26.2 - Difficulty in walking, not elsewhere classified (2) Intractable pain: Status: Acute Code(s): R52 - Pain, unspecified (3) Scleroderma: Status: Acute Code(s): M34.9 - Systemic sclerosis, unspecified (4) ESRD on dialysis: Status: Acute Code(s): N18.6 - End stage renal disease; Z99.2 - Dependence on renal dialysis (5) Closed fracture of left superior pubic ramus: Status: Acute Code(s): S32.512A - Fracture of superior rim of left pubis, initial encounter for closed fracture (6) Closed fracture of left inferior pubic ramus: Status: Acute Code(s): S32.592A - Other specified fracture of left pubis, initial encounter for closed fracture Plan #Intractable pain 2/2 left superior and inferior pubic rami fractures #End-stage renal disease on dialysis Tuesday #Failure to thrive #Scleroderma?with recent hemoptysis #Hypothyroidism #Hypertension #Hyponatremia #Chronic hypoxic respiratory failure secondary to systemic scleroderma #History of upper GI bleed #History of DVT Medications at Discharge Home Medications cyclobenzaprine 10 mg tablet 10 mg PO TID spasms 01/22/22 levothyroxine 100 mcg tablet 100 mcg PO DAILY thyroid 05/05/22 lisinopril 40 mg tablet 40 mg PO DAILY blood pressure 05/05/22 mycophenolate mofetil 500 mg tablet (CellCept) 1,000 mg PO BID immunosuppresent 05/05/22 hydroxyzine HCl 25 mg tablet 25 mg PO Q8H PRN PRN Itching 05/21/22 pantoprazole 40 mg tablet,delayed release 40 mg PO DAILY GERD 05/21/22 prednisone 20 mg tablet 60 mg PO DAILY auto immune 05/21/22 sulfamethoxazole 400 mg-trimethoprim 80 mg tablet (Bactrim) 1 tab PO MOWEFR antibiotic 05/21/22 vitamin B complex and vitamin C no.20-folic acid 1 mg capsule 1 cap PO DAILY anti rejection 05/21/22 cholecalciferol (vitamin D3) 25 mcg (1,000 unit) tablet 25 mcg PO DAILYCM #0 tabs 05/22/22 albuterol sulfate 2.5 mg/3 mL (0.083 %) solution for nebulization 2.5 mg (3 mL) inhalation Q2H PRN #75 mL 05/27/22 oxycodone 5 mg tablet 5 mg PO Q4H PRN PRN Pain Score 4-10 3 days #15 tabs 05/27/22 sennosides 8.6 mg-docusate sodium 50 mg tablet (Stool Softener-Stimulant Laxative) 2 tab PO BID PRN PRN Constipation 30 days #60 tabs 05/27/22 Hospital Course Procedures Dialysis (HD due to missing last session) Summary of Care Provided Minutes Spent on Discharge: 32 Hospital Course: Ms. Kaur is a 57-year-old female with a history of scleroderma, interstitial lung disease, end-stage renal disease on dialysis Tuesday and Tuesday as well as history of bleeding ulcers as well as pubic ramus fracture who presented to [facility] 05/26/2022 with intractable pain and inability to care for herself due to generalized weakness and pain and she also reported she has not had dialysis since last Tuesday.? She was discharged from our facility on 05/22/2022 after she missed her toilet seat and fell on the floor and was found to have fractures of the left superior and inferior pubic rami.? She was admitted and was given pain medication seen by PT/OT and referred to pain management with Dr. Hernandez.? She was discharged home but reports that she has been unable to walk due to the pain and weakness since she went home and therefore has had worsened p.o. intake and was unable to go to dialysis or complete ADLs. She had dialysis performed 05/26/2022 and tolerated this well. On Flexeril and oxycodone 5 mg as needed for pain control. Physical therapy worked with her and recommended placement, she is agreeable to going to [facility] prior to going home. Per previous records did require 1 L of O2 at rest and 2 L with ambulation. At rest was fairly comfortable, when walked was put back on the 2 L of O2 and did well. Reports no changes or worsening in her breathing since admission. No changes in coughing. Ms. Kaur was seen on the day of discharge 05/27/2022 and reported that while she was laying in bed her pain was relatively mild, but still has significant pain w hen up and moving around even with physical therapy. Feels generally weak as well, especially in her upper body, otherwise she is feeling well. Discharge to [facility] in stable condition Physical Exam Const alert and no apparent distress Constitutional Narrative: Oriented HEENT normocephalic and head/scalp atraumatic Eyes Eyes Narrative: EOM grossly intact, anicteric Neck supple Resp normal respiratory effort Resp Narrative: Slightly diminished at the bases Cardio regular rate and regular rhythm GI soft to palpation, non-tender and non-distended Extremity Extremity Narrative: No edema appreciated, moving all limbs but limited by left groin pain, feels weakness in bilateral upper extremities symmetrically Neuro moves all extremities Neuro Narrative: No overt focal deficits appreciated Psych Psych Narrative: Cooperative Weight / BMI Weight Weight: 61.9 kg Body Mass Index (BMI) 21.8 ABG / Lab / Microbiology Data Result Diagrams: 05/27/22 05:35 05/27/22 05:35 Laboratory: Laboratory Results - last 24 hr 05/27/22 05:35: WBC 7.6, RBC 2.48 L, Hgb 7.3 L, Hct 22.6 L, MCV 91.1, MCH 29.4, MCHC 32.3, RDW Std Deviation 58.1 H, RDW Coeff of Pebbles 17.5 H, Plt Count 327, MPV 10.5, Immature Gran % (Auto) 0.900, Neut % (Auto) 59.7, Lymph % (Auto) 25.2, Bent % (Auto) 13.5 H, Eos % (Auto) 0.4, Baso % (Auto) 0.3, Absolute Neuts (auto) 4.5, Absolute Lymphs (auto) 1.91, Nucleated RBC % 0 05/27/22 05:35: Sodium 133 L, Potassium 3.2 L, Chloride 96 L, Carbon Dioxide 28.0, Anion Gap 9, BUN 21 H, Creatinine 2.28 H, Estim Creat Clear Calc 25.18, Est GFR (MDRD) Af Amer 28 L, Est GFR (MDRD) Non-Af 23 L, BUN/Creatinine Ratio 9.2 L, Glucose 90, Calcium 8.0 L, Phosphorus 3.4, Magnesium 1.9, Total Bilirubin 0.30, AST 11 L, ALT 12 L, Alkaline Phosphatase 69, Total Protein 5.5 L, Albumin 2.4 L, Globulin 3.1, Albumin/Globulin Ratio 0.8 L, TSH 4.20 H 05/27/22 05:35: Free T4 0.99 D/C Instructions Discharge Diet: No restrictions Meaningful Use Info Meaningful Use Diagnoses (Choose all that apply): None applicable Discharge Plan Admission Admit Date/Time: 05/26/22 09:41 Primary Reason for Your Visit: Weakness and pain Attending Provider: Viktoria Zepeda Primary Care Provider: Mono Lynn Consulting Providers: Liz Lerma Instructions Patient Instructions: ED Chronic Kidney Disease (CKD) Additional Instructions / Restrictions: ? Please continue to follow-up with nephrology upon discharge. Your dialysis will continue at the [facility]. ?On your last discharge he was indicated that you wear 1 to 2 L of oxygen at home, you have been placed on 2 L of oxygen here, primarily with ambulation. ? You will be sent to the [facility] with a short prescription for oxycodone 5 mg tablets, adjustments can be made at their discretion. ? Stool softener as needed ? Continue other home medication ? It is important that you continue to follow with your doctors at [facility] for further monitoring, especially regarding your CellCept, prednisone, and Bactrim. -Please call your primary care provider's office upon discharge to schedule a hospital follow up within 1 week. -For any concerning signs or symptoms please call 911 or proceed to the nearest emergency department Discharge Orders/Prescriptions Prescriptions: New albuterol sulfate 2.5 mg /3 mL (0.083 %) Solution For Nebulization 2.5 mg inhalation Q2H PRN Qty: 75 0RF sennosides-docusate sodium [Stool Softener-Stimulant Laxat] 8.6-50 mg Tablet 2 tab PO BID PRN PRN (Reason: Constipation) 30 Days Qty: 60 0RF oxycodone 5 mg Tablet 5 mg PO Q4H PRN PRN (Reason: Pain Score 4-10) 3 Days Qty: 15 0RF Continued cyclobenzaprine 10 mg tablet 10 mg PO TID Label Comments: TAKE 1 TABLET THREE TIMES DAILY NEEDED for MUSCLE SPASM mycophenolate mofetil [CellCept] 500 mg Tablet 1,000 mg PO BID lisinopril 40 mg Tablet 40 mg PO DAILY levothyroxine 100 mcg tablet 100 mcg PO DAILY sulfamethoxazole-trimethoprim [Bactrim] 400-80 mg Tablet 1 tab PO MOWEFR prednisone 20 mg Tablet 60 mg PO DAILY Rx Instructions: for 30 doses pantoprazole 40 mg Tablet,Delayed Release (Dr/Ec) 40 mg PO DAILY hydroxyzine HCl 25 mg Tablet 25 mg PO Q8H PRN PRN (Reason: Itching) B complex with C 20-folic acid 1 mg Capsule 1 cap PO DAILY cholecalciferol (vitamin D3) 25 mcg (1,000 unit) Tablet 25 mcg PO DAILYCM Qty: 0 0RF Discontinued oxycodone 5 mg Tablet 5 mg PO Q4H PRN PRN (Reason: Pain Score 4-10) 3 Days Qty: 12 0RF Referrals / Follow Up: Liz Lerma MD [Med Staff - Consulting] - (Please continue to follow with nephrology on discharge) Mono Lynn MD [Primary Care Provider] - Disposition Disposition (needs filled in before D/C Order can be placed): Longterm Facility Charges/Coding Visit Charges OBSV E&M: 83028 Observation care discharge
--- NOTE | 2022-05-27 15:20 | CASEMGMT ---
ZCAHARIAH CM in to discuss LYNCH form with patient. RN CM explained LYNCH form, patient voiced understanding. Pt signed form and filed in chart. Pt provided with a copy of signed LYNCH form. Patient had no further questions or concerns at this time.
[2022-05-27] MEDS: 0.9% Saline Lock 10 ML Syringe IV (16:13)
--- NOTE | 2022-05-27 16:22 | CASEMGMT ---
Social Work Pt ready for discharge to [facility]. PASRR completed in [facility] and sent, along with d/c orders and covid results to [facility] via [facility]. Transportation arranged with [facility] for 4:45 knot pick[employer] cloth via wheelchair van. Phone call to [facility] and left with discharge time. Pt notified and agreeable to discharge plan. Nursing updated on d/c time. Disposition: [facility], skilled level of care HÉCTOR V[place]la
--- NOTE | 2022-05-27 16:31 | NURSING ---
Addendum entered by Sharon Diaz 05/27/22 16:51: attempted to call discharge report to [facility] with no answer. patient discharging at this time. Original Note: attempted to call discharge report to [facility] with no answer. will attempt to call prior to discharge.
== END 2022-05-27 16:50 | disposition skilled nursing facility (03) ==
LOC: ED 08:47 → MS3 09:16
PROVIDERS: Admitting Provider Internal Medicine; Emergency Provider Emergency Medicine; PCP Family Medicine; Visit Provider Internal Medicine
DX: S32.512A Fracture of superior rim of left pubis, initial encounter for closed fracture (principal); Z99.2 Dependence on renal dialysis; M34.9 Systemic sclerosis, unspecified; S32.592A Other specified fracture of left pubis, initial encounter for closed fracture; N18.6 End stage renal disease; R26.2 Difficulty in walking, not elsewhere classified; E87.1 Hypo-osmolality and hyponatremia; M79.7 Fibromyalgia; R53.81 Other malaise; Z79.899 Other long term (current) drug therapy; Z79.52 Long term (current) use of systemic steroids; Z79.890 Hormone replacement therapy; E03.9 Hypothyroidism, unspecified; W19.XXXA Unspecified fall, initial encounter; M19.90 Unspecified osteoarthritis, unspecified site; K21.9 Gastro-esophageal reflux disease without esophagitis; Z86.718 Personal history of other venous thrombosis and embolism
CPT/HCPCS: 36415; 36591; 80048; 80053; 83735; 84100; 84439; 84443; 85025; 87426; 90937; 93005; 96374; 97162; 97166; 99218; 99283; J7030; A4216; G0257; G0378

== ENCOUNTER 2022-05-29 12:47 | Emergency (ER) | payer MEDICARE, MEDICAID, SELFPAY ==
[2022-05-29] VITALS (12 sets, daily range): BP systolic 149–170; BP diastolic 89–100; PULSE 101–121; RESP 12–36; TEMP 36.6–36.8; O2SAT 76–95; BMI 23.4
--- NOTE | 2022-05-29 13:05 | EKG12_ITS ---
Test Reason : SOB Blood Pressure : / mmHG Vent. Rate : 102 BPM Atrial Rate : 102 BPM P-R Int : 132 ms QRS Dur : 080 ms QT Int : 360 ms P-R-T Axes : 051 036 060 degrees QTc Int : 469 ms Sinus tachycardia Otherwise normal ECG Confirmed by CHARLI ZULETA, BARB ([id number]), continuity editor ANA ROSA MELENDEZ ([id number]) on 06/01/2022 1:29:25 PM Referred By: REJI Confirmed By:BARB AUGUSTIN MD
--- NOTE | 2022-05-29 13:09 | EDS_ITS ---
HPI History of Present Illness Chief Complaint: Shortness of Breath Narrative Narrative: 57-year-old female presenting with shortness of breath. Patient has a history of scleroderma, end-stage renal disease on dialysis Tuesday, Tuesday, Tuesday, interstitial lung disease as well as history of bleeding ulcers. Patient states that she did not realize she had bleeding ulcers and states that nobody has been able to find the source of her anemia. She states she is scheduled for transfu sonia on Tuesday. She typically sees a Dr. Hernandez at [facility] who is a refractory worker. Patient was discharged from [facility] on 05/26/2022 and reportedly had mechanical fall while she was at the facility and no x-rays were obtained. She was subsequently found at [facility] to have fracture of the left superior and inferior rami on the left. After being admitted she was referred to pain management. Later she was discharged home and was unable to keep continue doing her ADLs and missed dialysis. Patient has had long term facility currently. She states she had dialysis yesterday and after that she has not had her medications for home. She states her whole list was missed. Patient states morning she became short of breath. She feels achy. She does not have a fever or chills. She has not had nausea or vomiting. She does state that her chest feels heavy but denies any sharp pleuritic pain. She states she is on her baseline of of oxygen at about 1.5 L when she gets up to walk she requires more. On her previous admission she needed 2 L to ambulate. Previously she has been up to 4 to 5 L[facility] Medical History Anemia Anxiety disorder Bipolar disorder Depression Dialysis patient DVT (deep venous thrombosis) Fibromyalgia History of gastroesophageal reflux (GERD) Hypothyroidism Hypoxia Interstitial lung disease Irritable colon Osteoarthritis Scleredema Home Medications cyclobenzaprine 10 mg tablet 10 mg PO TID PRN muscle relaxer 01/22/22 [History Last Taken 05/29/22 11:00] levothyroxine 100 mcg tablet 100 mcg PO DAILY thyroid 05/05/22 [History Last Taken 05/20/22] lisinopril 40 mg tablet 40 mg PO DAILY blood pressure 05/05/22 [History Last Taken 05/20/22] mycophenolate mofetil 500 mg tablet (CellCept) 1,000 mg PO BID immunosuppresent 05/05/22 [History Last Taken 05/20/22] pantoprazole 40 mg tablet,delayed release 40 mg PO DAILY GERD 05/21/22 [History Last Taken 05/20/22] prednisone 20 mg tablet 60 mg PO DAILY auto immune 05/21/22 [History Last Taken 05/20/22] vitamin B complex and vitamin C no.20-folic acid 1 mg capsule 1 cap PO DAILY anti rejection 05/21/22 [History Last Taken 05/20/22] cholecalciferol (vitamin D3) 25 mcg (1,000 unit) tablet 25 mcg PO DAILYCM #0 tabs 05/22/22 [Rx Last Taken Unknown] oxycodone 5 mg tablet 5 mg PO Q4H PRN PRN Pain Score 4-10 3 days #15 tabs 05/27/22 [Rx Last Taken 05/28/22 23:11] potassium chloride 20 mEq tablet,extended release 20 meq PO QHS 05/29/22 [History Last Taken Unknown] Allergy/AdvReac Type Severity Reaction Status Date / Time acetaminophen [From Tylenol] Allergy Bleeding Verified 05/29/22 12:52 simvastatin [From Zocor] Allergy Rash Verified 05/29/22 12:52 NSAIDS (Non-Steroidal AdvReac Bleeding Verified 05/29/22 12:52 Anti-Inflamma Family History Father COPD (chronic obstructive pulmonary disease) Mother No cardiac disease Other Anemia Surgical History H/O foot surgery H/O knee surgery History of left heart catheterization (12/15/09) History of tonsillectomy S/P manipulation of deviated nasal septum Social History household members: significant other Smoking Status: Never smoker alcohol intake: never substance use type: does not use ROS ROS ED Constitutional Constitutional ED: Denies chills or fever(s) Eyes Eyes: Denies change in vision or diplopia ENT ENT ED: Denies rhinorrhea Cardiovascular Cardiovascular: Reports chest pain and racing heartbeat Respiratory/Chest Respiratory/Chest: Reports dyspnea and dyspnea on exertion Gastrointestinal Gastrointestinal: Reports melena; Denies abdominal pain, nausea or vomiting Genitourinary Genitourinary ED: Denies dysuria or hematuria Musculoskeletal Musculoskeletal: Denies arthralgias or myalgias Integumentary Denies abscess Neurologic Neurologic: Reports weakness; Denies headache(s) or paresthesias Psychiatric Psychiatric: Denies anxiety or depression EXAM Physical Exam Const Vital Signs: 05/29/22 12:48 05/29/22 12:48 05/29/22 12:53 Temperature 97.8 F Temperature Source Temporal Pulse Rate 112 H Respiratory Rate 22 H Respiratory Effort Short of Breath Labored Respiratory Depth Shallow Respiratory Pattern Tachypnea Blood Pressure 163/98 H Blood Pressure Mean 119 Pulse Ox 76 93 Oxygen Delivery Method Nasal Cannula Nasal Cannula Nasal Cannula Oxygen Flow Rate (L/min) 4 6 6 Fraction of Inspired Oxygen (FIO2) 05/29/22 13:20 05/29/22 13:00 05/29/22 13:00 Temperature 97.8 F Temperature Source Temporal Pulse Rate 106 H 106 H Respiratory Rate 29 H 29 H Respiratory Effort Respiratory Depth Respiratory Pattern Blood Pressure 157/92 H 157/92 H Blood Pressure Mean 113 113 Pulse Ox 93 93 Oxygen Delivery Method Nasal Cannula Nasal Cannula Nasal Cannula Oxygen Flow Rate (L/min) 6 Fraction of Inspired Oxygen (FIO2) 05/29/22 13:15 05/29/22 13:30 05/29/22 13:47 Temperature Temperature Source Pulse Rate 101 H 104 H 120 H Respiratory Rate 27 H 21 H 27 H Respiratory Effort Respiratory Depth Respiratory Pattern Blood Pressure 161/96 H 149/93 H 170/99 H Blood Pressure Mean 117 111 122 Pulse Ox 87 86 90 Oxygen Delivery Method Nasal Cannula Nasal Cannula Nasal Cannula Oxygen Flow Rate (L/min) Fraction of Inspired Oxygen (FIO2) 05/29/22 13:49 05/29/22 14:00 05/29/22 14:30 Temperature Temperature Source Pulse Rate 118 H 121 H 111 H Respiratory Rate 33 H 33 H 335 H Respiratory Effort Respiratory Depth Respiratory Pattern Blood Pressure 162/98 H 157/100 H 159/96 H Blood Pressure Mean 119 119 117 Pulse Ox 90 90 89 Oxygen Delivery Method Nasal Cannula Nasal Cannula Nasal Cannula Oxygen Flow Rate (L/min) Fraction of Inspired Oxygen (FIO2) 05/29/22 14:45 05/29/22 15:25 Temperature Temperature Source Pulse Rate 112 H Respiratory Rate 31 H Respiratory Effort Respiratory Depth Respiratory Pattern Tachypnea Blood Pressure Blood Pressure Mean Pulse Ox 88 95 Oxygen Delivery Method Nasal Cannula Oxygen Flow Rate (L/min) 13 Fraction of Inspired Oxygen (FIO2) 50 Positive well nourished General Appearance ED: Negative for pallor HEENT Reports dry mucous membranes atraumatic Mouth ED: Yes dry mucous membranes Mouth: dry mucous membranes Eyes PERRL and EOMs intact bilaterally General Eye ED: Negative for pale conjunctiva or scleral icterus Neck no lymphadenopathy, supple and no meningeal signs Resp Auscultation: rales bilateral and diffuse Cardio regular rhythm Rate: tachycardic GI non-tender Neuro oriented x3 and CN's II-XII intact bilaterally Sensorium / Orientation: alert Speech: speech normal Motor Exam: general weakness Psych Thought Process: normal thought process Skin no wounds General Skin Exam: Negative for jaundice or pallor MDM MDM MDM Narrative Medical decision making narrative: Patient presenting with shortness of breath and with some chest tightness. Chest tightness does not appear to be new. I can see this on previous history which seems to be chronic. Patient appeared to be hypoxic on arrival and was placed on nasal cannula and increasingly had to be moving upward. She still remained hypoxic even after high flow was placed. She was placed on BiPAP and her heart rate came down to 100 and her respiratory rate has improved. Her oxygen saturations are currently 95%. EKG on my interpretation showed a sinus rhythm with a tachycardic rate at 102 bpm without sign of ischemic change or dysrhythmia. Blood work was obtained and since she was tachycardic and hypoxic sepsis work-up was initiated. Patient does have a leukocytosis of 21. Hemoglobin stable at 8.2 which is her baseline. Platelets normal at 330. Coagulation studies are normal. Lactic acid is normal at 1. Creatinine at baseline 2.47 and the patient has end-stage renal disease on dialysis. Sodium was 130 but she chronically has low sodium. Potassium is normal. LFTs unremarkable. Patient was typed and screened on a history of anemia and need for possible transfusion. Hemoglobin is stable. Chest x-ray on my interpretation shows bilateral pulmonary infiltrates however not significantly changed from previous chest x-ray. Radiologist interprets this and radiation. We are attempting to obtain a UA although the patient does not make much urine. I did not give her IV fluids because he has a history of end-stage renal disease on dialysis. Her heart rate has improved. Since patient has increasing white blood cell count and hypoxic respiratory failure I did cover with vancomycin and Zosyn. Patient was pancultured. Given the recent history of fall with superior and inferior rami fractures, being bedridden second to this and recent hospitalization I will obtain a CT of the chest to rule out PE. I spoke with Dr. Durant the tire molder at [facility] after speaking with the hospitalist here. It was recommended that we transfer there. He did accept the transfer. It is unsure how long there will be a wait. In the meantime the patient will be signed out to incoming ED physician to follow-up on the CTA. Currently she is stable on BiPAP. Impression: 1. Hypoxic respiratory failure 2. Chest pain 3. History of scleroderma 4. End-stage renal disease on dialysis 5. History of anemia 6. Tachycardia Lab Data Labs: Laboratory Results - last 24 hr 05/29/22 05/29/22 05/29/22 13:10 13:10 13:10 WBC 21.0 H RBC 2.78 L Hgb 8.2 L Hct 26.0 L MCV 93.5 MCH 29.5 MCHC 31.5 L RDW Std Deviation 62.6 H RDW Coeff of Pebbles 18.1 H Plt Count 330 MPV 10.5 Immature Gran % (Auto) 0.900 Neut % (Auto) 93.4 H Lymph % (Auto) 2.8 L Ransom % (Auto) 2.8 Eos % (Auto) 0.0 Baso % (Auto) 0.1 Absolute Neuts (auto) 19.6 H Absolute Lymphs (auto) 0.58 L Nucleated RBC % 0 Platelet Estimate ADEQUATE Anisocytosis 1+ PT 12.8 INR 1.0 APTT 34.7 Sodium 130 L Potassium 3.7 Chloride 93 L Carbon Dioxide 27.0 Anion Gap 10 BUN 29 H Creatinine 2.47 H Estim Creat Clear Calc 23.24 Est GFR (MDRD) Af Amer 26 L Est GFR (MDRD) Non-Af 21 L BUN/Creatinine Ratio 11.7 Glucose 149 H Lactic Acid Calcium 8.9 Total Bilirubin 0.40 AST 13 L ALT 10 L Alkaline Phosphatase 93 Troponin I High Sens 24 Total Protein 6.3 L Albumin 3.0 L Globulin 3.3 Albumin/Globulin Ratio 0.9 Blood Type Antibody Screen 05/29/22 05/29/22 13:10 13:10 WBC RBC Hgb Hct MCV MCH MCHC RDW Std Deviation RDW Coeff of Pebbles Plt Count MPV Immature Gran % (Auto) Neut % (Auto) Lymph % (Auto) Ransom % (Auto) Eos % (Auto) Baso % (Auto) Absolute Neuts (auto) Absolute Lymphs (auto) Nucleated RBC % Platelet Estimate Anisocytosis PT INR APTT Sodium Potassium Chloride Carbon Dioxide Anion Gap BUN Creatinine Estim Creat Clear Calc Est GFR (MDRD) Af Amer Est GFR (MDRD) Non-Af BUN/Creatinine Ratio Glucose Lactic Acid 1.0 Calcium Total Bilirubin AST ALT Alkaline Phosphatase Troponin I High Sens Total Protein Albumin Globulin Albumin/Globulin Ratio Blood Type O POSITIVE Antibody Screen NEGATIVE Radiography Diagnostic Testing: Clinical Impression(s) from Imaging Studies Chest X-Ray 05/29/22 13:20 IMPRESSION: No significant change. Electronically Signed: Juan Richmond MD at 13:34 EDT , Discharge Plan Triage Chief Complaint: Shortness of Breath ED Provider: Enrike Lyon Dx/Rx/DC Orders Prescriptions: No Action cyclobenzaprine 10 mg tablet 10 mg PO TID PRN (Reason: muscle relaxer) Label Comments: TAKE 1 TABLET THREE TIMES DAILY NEEDED for MUSCLE SPASM mycophenolate mofetil [CellCept] 500 mg Tablet 1,000 mg PO BID lisinopril 40 mg Tablet 40 mg PO DAILY levothyroxine 100 mcg tablet 100 mcg PO DAILY prednisone 20 mg Tablet 60 mg PO DAILY Rx Instructions: for 30 doses pantoprazole 40 mg Tablet,Delayed Release (Dr/Ec) 40 mg PO DAILY B complex with C 20-folic acid 1 mg Capsule 1 cap PO DAILY cholecalciferol (vitamin D3) 25 mcg (1,000 unit) Tablet 25 mcg PO DAILYCM Qty: 0 0RF oxycodone 5 mg Tablet 5 mg PO Q4H PRN PRN (Reason: Pain Score 4-10) 3 Days Qty: 15 0RF potassium chloride 20 mEq Tablet Extended Release 20 meq PO QHS Primary Care Provider: Mono yLnn Referrals: Mono Lynn MD [Primary Care Provider] -
--- NOTE | 2022-05-29 13:20 | RAD_ITS ---
STUDY: X-RAY CHEST REASON FOR EXAM: Female, 57 years old. Dyspnea TECHNIQUE: Single AP portable view of the chest. COMPARISON: 05/05/2022. FINDINGS: Right-sided Port-A-Cath and left-sided permacath in stable position. Bilateral infiltrates/edema are again seen for the most part unchanged since the prior examination. There is no demonstrated pleural abnormality. The cardiac silhouette is somewhat obscured. Normal mediastinum and pankaj. Normal visualized pulmonary arteries. Normal visualized aortic arch and descending thoracic aorta. Stable soft tissues and osseous structures. There is no demonstrated abnormality of the visualized soft tissue structures of the upper abdomen. RAD/Chest 1 View (Portable) IMPRESSION: No significant change. Electronically Signed: Juan Richmond MD at 13:34 EDT ,
[2022-05-29 13:26] LABS: Absolute Lymphocyte Count 0.58 X10^3/uL (0.83-4.51); Absolute Neutrophil Count 19.6 X10^3/uL (2.0-7.7); Basophil# 0.03 X10^3/uL; Basophil% 0.1 % (0-1); Hemoglobin 8.2 g/dL (12.0-15.0); Lymphocyte # 0.58 X10^3/ul (0.83-4.51); Lymphocyte % 2.8 % (19-41); Mean Corp Hgb Conc 31.5 g/dL (32-36); Mean Corpuscular Hgb 29.5 pg (27.0-32.0); Mean Corpuscular Volume 93.5 fL (81-99); Mean Platelet Vol. 10.5 fl (6.2-12.0); Monocyte# 0.58 X10^3/uL; Monocyte% 2.8 % (0-10); NRBC Flagged by Analyzer 0 % (0-5); Neutrophil % 93.4 % (47-70); POSITIVE DIFFERENTIAL YES; Platelet Count 330 K/mm3 (150-450); RBC Distribution Width CV 18.1 % (11.6-14.6); RBC Distribution Width SD 62.6 fl (35.1-43.9); Red Blood Count 2.78 M/mm3 (4.2-5.4)
[2022-05-29 13:29] LABS: Differential Indicated SCAN CRITERIA MET
[2022-05-29 13:34] LABS: Prothrombin Time (Protime)PT. 12.8 SECONDS (11.7-14.9)
[2022-05-29 13:35] LABS: Partial Thromboplast Time 34.7 Seconds (24.1-36.2)
[2022-05-29 13:44] LABS: Anisocytosis 1+; Platelet Estimate ADEQUATE (ADEQ)
[2022-05-29 13:48] LABS: ALB/GLOB Ratio 0.9 RATIO (0.9-2.4); AST(SGOT) 13 U/L (15-37); Alanine Aminotransfer ALT/SGPT 10 U/L (13-56); Alkaline Phosphatase 93 U/L (45-117); Anion Gap 10 (5-15); BUN 29 mg/dL (7-18); BUN/Creat Ratio 11.7 RATIO (10-20); Calcium,Total 8.9 mg/dL (8.5-10.1); Chloride 93 mmol/L (98-107); Creatinine, Serum 2.47 mg/dL (0.55-1.02); EST Glomerular Filtration Rate 21 mL/min (>60); Est Glom Filt Rate - Afr Amer 26 mL/min (>60); Estimated Creatinine Clearance 23.24 ml/min; Globulin 3.3 g/dL (2.2-4.2); Glucose 149 mg/dL (74-106); Potassium 3.7 mmol/L (3.5-5.1); Protein, Total 6.3 g/dL (6.4-8.2); Sodium Level 130 mmol/L (136-145); Troponin-I HS 24 pg/mL (3.0-54.0)
[2022-05-29] MEDS: LORazepam 2 MG/ML Syringe 0.5 MG IV ×2 (14:17→17:47)
--- NOTE | 2022-05-29 15:25 | NURSING ---
CALLED TRANSFER LINE AT [facility]. TALKING TO DR MENDOZA
--- NOTE | 2022-05-29 15:34 | CT_ITS ---
STUDY: CTA CHEST REASON FOR EXAM: Female, 57 years old. Hypoxia. Respiratory failure. End-stage renal disease. ILD. RADIATION DOSAGE (If Supplied By Facility): CTDIvol = ( 13.38 ) mGy, DLP = ( 428.65 ) mGycm TECHNIQUE: The examination was performed with the intravenous administration of IV 75mL [id number]-370. Post-processing of the angiographic images was performed, with multiplanar reformation and 3D reconstruction. Individualized dose optimization techniques were used for this CT. COMPARISON: Chest, 05/29/2022. CTA of the chest, 01/22/2022 FINDINGS: Left jugular hemodialysis catheter. Right jugular Port-A-Cath. Normal enhancement of the main pulmonary artery and right and left pulmonary arteries. Normal enhancement of the bilateral peripheral pulmonary arteries. There is no demonstrated pulmonary embolism. Normal thoracic aorta and visualized great vessels. There is no demonstrated aortic dissection. Normal heart. Small pericardial effusion. No coronary artery calcifications. Nonspecific subcentimeter mediastinal lymphadenopathy. Normal hilar regions. Normal visualized trachea and bronchi. The lungs are well expanded. Diffuse groundglass pulmonary infiltrates throughout both lung. Small bilateral pleural effusions with subsegmental atelectasis. Mild anasarca of the soft tissues of the chest wall. There are degenerative changes of thoracic spine. Normal visualized upper abdomen. CT/CTA Chest W/WO Contrast IMPRESSION: 1. No evidence of pulmonary emboli. 2. No aortic dissection or aneurysm. 3. Diffuse groundglass pulmonary infiltrates with small bilateral pleural effusions not previously noted. Electronically Signed: Moo Roberts DO at 16:51 EDT Reading Location ID and State: [facility] / [place] Tel [phone], Service support ,
--- NOTE | 2022-05-29 15:48 | NURSING ---
DR DUGAN FOR [facility] FOR DR MENDOZA
--- NOTE | 2022-05-29 16:00 | ED.RN ---
Pt reports minimal urine output d/t dialysis. aware.
--- NOTE | 2022-05-29 16:44 | NURSING ---
G 60 BED 9 [facility] NURSE TO NURSE [phone] ETA IS 50 MIN
[2022-05-29] MEDS: Vancomycin IV 1,000 MG/200 ML BAG 200 MG IV (17:15)
--- NOTE | 2022-05-29 17:45 | ED.RN ---
[facility] transport here to take pt to [facility] main [place].
--- NOTE | 2022-05-29 17:48 | ED.RN ---
Pt taking her purse, cell phone, red tshirt & black sweatshirt.
--- NOTE | 2022-05-29 17:50 | ED.RN ---
After BiPap initiation pt's respiratory status significantly improved. Respirations decreased from mid to high 30s to mid to high 20s. Pt reported feeling better as well. O2 saturations remained 93-95%. Sepsis alert triggered and Dr Lyon aware, however d/t pt's history of renal failure w/elevated creatinine IVF's were not initiated. Vanc & Zosyn administered per order.
== END 2022-05-29 18:09 | disposition short-term general hospital (02) ==
PROVIDERS: Emergency Provider Student in an Organized Health Care Education/Training Program; PCP Family Medicine; Visit Provider Student in an Organized Health Care Education/Training Program
DX: J96.91 Respiratory failure, unspecified with hypoxia (principal); Z99.2 Dependence on renal dialysis; M34.9 Systemic sclerosis, unspecified; N18.6 End stage renal disease; J84.9 Interstitial pulmonary disease, unspecified; D63.1 Anemia in chronic kidney disease; R00.0 Tachycardia, unspecified; R07.89 Other chest pain; E03.9 Hypothyroidism, unspecified; K21.9 Gastro-esophageal reflux disease without esophagitis; M79.7 Fibromyalgia; Z79.899 Other long term (current) drug therapy
CPT/HCPCS: 36591; 71045; 71275; 80053; 83605; 84484; 85025; 85610; 85730; 86850; 86900; 86901; 87040; 87811; 93005; 94002; 96365; 96367; 96375; 96376; 99285; J7050; Q9967; A4216

== ENCOUNTER 2022-06-21 08:16 | Inpatient (IN) | payer MEDICARE, MEDICAID, SELFPAY ==
[2022-06-21] VITALS (28 sets, daily range): BP systolic 115–168; BP diastolic 77–101; PULSE 80–155; RESP 10–40; TEMP 36.1–36.8; O2SAT 61–100; BMI 22.7; BMI 22.1
--- NOTE | 2022-06-21 08:46 | EKG12_ITS ---
Test Reason : SOB Blood Pressure : / mmHG Vent. Rate : 125 BPM Atrial Rate : 125 BPM P-R Int : 128 ms QRS Dur : 080 ms QT Int : 316 ms P-R-T Axes : 048 024 060 degrees QTc Int : 456 ms Sinus tachycardia Nonspecific ST and T wave abnormality Abnormal ECG Confirmed by CHARLI ZULETA, BARB ([id number]), publications editor ANA ROSA MELENDEZ ([id number]) on 06/23/2022 8:09:43 AM Referred By: Confirmed By:BARB AUGUSTIN MD
[2022-06-21] MEDS: Ipratropium/Albuterol Sulfate 3 ML AMPUL.NEB INHALATION (09:08)
[2022-06-21 09:09] LABS: Absolute Lymphocyte Count 0.69 X10^3/uL (0.83-4.51); Absolute Neutrophil Count 9.2 X10^3/uL (2.0-7.7); Basophil# 0.01 X10^3/uL; Basophil% 0.1 % (0-1); Hematocrit 21.9 % (37-47); Lymphocyte # 0.69 X10^3/ul (0.83-4.51); Lymphocyte % 6.6 % (19-41); Mean Corpuscular Hgb 31.3 pg (27.0-32.0); Mean Corpuscular Volume 97.8 fL (81-99); Mean Platelet Vol. 10.4 fl (6.2-12.0); Monocyte# 0.42 X10^3/uL; NRBC Flagged by Analyzer 0 % (0-5); Neutrophil # 9.21 X10^3/uL (2.7-7.7); Neutrophil % 87.6 % (47-70); Platelet Count 166 K/mm3 (150-450); RBC Distribution Width CV 17.1 % (11.6-14.6); RBC Distribution Width SD 60.2 fl (35.1-43.9); Red Blood Count 2.24 M/mm3 (4.2-5.4); White Blood Count 10.5 K/mm3 (4.4-11.0)
--- NOTE | 2022-06-21 09:18 | RAD_ITS ---
STUDY: X-RAY CHEST REASON FOR EXAM: Female, 57 years old. Sob TECHNIQUE: Single AP portable view of the chest. COMPARISON: Comparison is made with prior study 05/29/2022. FINDINGS: A right-sided justyn catheter seen with the tip in the right atrium. A left-sided temporary dialysis catheter seen with the tip at the junction of the superior vena cava and right atrium. 16 again, there is evidence of bilateral alveolar infiltrates worse in the right hemithorax. This may represent pulmonary edema or diffuse bilateral pneumonia. Follow-up is recommended. There is no demonstrated pleural abnormality. Normal size heart. Normal mediastinum and pankaj. Normal visualized pulmonary arteries. There is atherosclerotic tortuosity of the aortic arch and descending thoracic aorta. There are diffuse degenerative changes of the visualized thoracic spine. Normal visualized ribs, clavicles, and shoulders. There is no demonstrated abnormality of the visualized soft tissue structures of the upper abdomen. RAD/Chest 1 View (Portable) IMPRESSION: Diffuse bilateral airspace disease worse in the right hemithorax. Follow-up is recommended. Electronically Signed: Efren Arreguin MD at 9:30 EST ,
[2022-06-21 09:28] LABS: Anion Gap 9 (5-15); BUN 28 mg/dL (7-18); BUN/Creat Ratio 15.7 RATIO (10-20); Calcium,Total 8.1 mg/dL (8.5-10.1); Chloride 100 mmol/L (98-107); Creatinine, Serum 1.78 mg/dL (0.55-1.02); EST Glomerular Filtration Rate 31 mL/min (>60); Est Glom Filt Rate - Afr Amer 38 mL/min (>60); Estimated Creatinine Clearance 32.25 ml/min; Glucose 87 mg/dL (74-106); Potassium 3.1 mmol/L (3.5-5.1); Sodium Level 137 mmol/L (136-145); Troponin-I HS 34 pg/mL (3.0-54.0)
[2022-06-21 09:35] LABS: BNP,B-Type NATRIURETIC PEPTIDE 1638.8 pg/mL (0-100)
[2022-06-21 09:38] LABS: Lactic Acid 0.6 mmol/L (0.4-1.9)
[2022-06-21] MEDS: LORazepam 2 MG/ML Syringe 0.5 MG IV ×2 (10:12→11:43)
--- NOTE | 2022-06-21 10:50 | ED.VIS.DYS ---
HPI History of Present Illness Chief Complaint: Shortness of Breath Informant: patient Narrative Narrative: Patient is a 57-year-old female with history of scleroderma, end-stage renal disease on dialysis and interstitial lung disease presenting with worsening shortness of breath. Patient wears 5 L of oxygen at baseline. She has a history of alveolar hemorrhage and her care is monitored through [facility]. She has been home from a nursing facility for about 2 weeks. She states she was feeling better but then started feeling worse yesterday. She had to turn the oxygen up on herself and has no energy to even get out of the chair. Family is concerned that she is not safe to be at home alone. Patient denies any fever or change in her cough. Is complained of a headache and states that she does not get headaches. Denies any vision changes. Is on CellCept for her scleroderma. [facility] Medical History Anemia Anxiety disorder Bipolar disorder Depression Dialysis patient DVT (deep venous thrombosis) Fibromyalgia History of gastroesophageal reflux (GERD) Hypothyroidism Hypoxia Interstitial lung disease Irritable colon Osteoarthritis Scleredema Home Medications cyclobenzaprine 10 mg tablet 10 mg PO TID PRN muscle relaxer 01/22/22 [History Last Taken 05/29/22 11:00] levothyroxine 100 mcg tablet 100 mcg PO DAILY thyroid 05/05/22 [History Last Taken 05/20/22] lisinopril 40 mg tablet 40 mg PO DAILY blood pressure 05/05/22 [History Last Taken 05/20/22] mycophenolate mofetil 500 mg tablet (CellCept) 1,000 mg PO BID immunosuppresent 05/05/22 [History Last Taken 05/20/22] pantoprazole 40 mg tablet,delayed release 40 mg PO DAILY GERD 05/21/22 [History Last Taken 05/20/22] prednisone 20 mg tablet 60 mg PO DAILY auto immune 05/21/22 [History Last Taken 05/20/22] vitamin B complex and vitamin C no.20-folic acid 1 mg capsule 1 cap PO DAILY anti rejection 05/21/22 [History Last Taken 05/20/22] cholecalciferol (vitamin D3) 25 mcg (1,000 unit) tablet 25 mcg PO DAILYCM #0 tabs 05/22/22 [Rx Last Taken Unknown] oxycodone 5 mg tablet 5 mg PO Q4H PRN PRN Pain Score 4-10 3 days #15 tabs 05/27/22 [Rx Last Taken 05/28/22 23:11] potassium chloride 20 mEq tablet,extended release 20 meq PO QHS 05/29/22 [History Last Taken Unknown] Allergy/AdvReac Type Severity Reaction Status Date / Time acetaminophen [From Tylenol] Allergy Bleeding Verified 05/29/22 12:52 simvastatin [From Zocor] Allergy Rash Verified 05/29/22 12:52 NSAIDS (Non-Steroidal AdvReac Bleeding Verified 05/29/22 12:52 Anti-Inflamma Family History Father COPD (chronic obstructive pulmonary disease) Mother No cardiac disease Other Anemia Surgical History H/O foot surgery H/O knee surgery History of left heart catheterization (12/15/09) History of tonsillectomy S/P manipulation of deviated nasal septum Social History household members: significant other Smoking Status: Never smoker alcohol intake: never substance use type: does not use ROS ROS ED Constitutional Constitutional ED: Denies chills or fever(s) Eyes Eyes: Denies change in vision ENT ENT ED: Denies rhinorrhea or sore throat Cardiovascular Cardiovascular: Denies chest pain or palpitations Respiratory/Chest Respiratory/Chest: Reports dyspnea and dyspnea on exertion; Denies cough Gastrointestinal Gastrointestinal: Denies abdominal pain, nausea or vomiting Genitourinary Genitourinary ED: Denies dysuria or hematuria Musculoskeletal Musculoskeletal: Reports myalgias; Denies arthralgias Integumentary Denies rash Neurologic Neurologic: Reports headache(s) and paresthesias Psychiatric Psychiatric: Reports anxiety; Denies depression Hematologic/Lymphatic Hematologic/Lymphatic: Denies easy bleeding or easy bruising EXAM Physical Exam Const Vital Signs: 06/21/22 08:16 06/21/22 08:24 06/21/22 09:15 Temperature 97.9 F Temperature Source Temporal Pulse Rate 133 H 125 H Respiratory Rate 38 H 37 H Respiratory Effort Short of Breath Respiratory Depth Deep Respiratory Pattern Tachypnea Blood Pressure 135/85 H Blood Pressure Mean 101 Pulse Ox 93 Oxygen Delivery Method Nasal Cannula Nasal Cannula Oxygen Flow Rate (L/min) 5 5 Fraction of Inspired Oxygen (FIO2) 06/21/22 09:15 06/21/22 09:15 06/21/22 10:29 Temperature Temperature Source Pulse Rate 124 H Respiratory Rate 32 H 25 H Respiratory Effort Respiratory Depth Respiratory Pattern Blood Pressure 138/81 H Blood Pressure Mean 100 Pulse Ox 93 93 92 Oxygen Delivery Method Nasal Cannula Nasal Cannula Nasal Cannula Oxygen Flow Rate (L/min) 3 3 3 Fraction of Inspired Oxygen (FIO2) 06/21/22 11:34 06/21/22 11:34 06/21/22 11:46 Temperature Temperature Source Pulse Rate 155 H 128 H Respiratory Rate 40 H 37 H Respiratory Effort Respiratory Depth Respiratory Pattern Blood Pressure 168/95 H 140/94 H Blood Pressure Mean 119 109 Pulse Ox 61 100 96 Oxygen Delivery Method Nasal Cannula Non-Rebreather Bi-pap Oxygen Flow Rate (L/min) 4 15 Fraction of Inspired Oxygen (FIO2) 40 06/21/22 11:40 06/21/22 12:54 Temperature Temperature Source Pulse Rate 127 H Respiratory Rate 36 H Respiratory Effort Respiratory Depth Respiratory Pattern Normal Blood Pressure Blood Pressure Mean Pulse Ox 95 Oxygen Delivery Method Oxygen Flow Rate (L/min) Fraction of Inspired Oxygen (FIO2) 45 60 Positive well nourished and well developed General Appearance ED: well developed HEENT Reports moist mucous membranes Eyes PERRL and EOMs intact bilaterally Neck supple and no JVD Resp Resp Narrative: No wheezing appreciated.Coarse breath sounds with tachypnea. Cardio regular rhythm and no murmurs Rate: tachycardic GI non-tender and non-distended Extremity normal to inspection Neuro oriented x3 Neuro Narrative: No focal deficits appreciated Motor Exam: general weakness Psych mental status grossly normal Mood & Affect: anxious Skin no wounds Skin Narrative: Thickened tight skin consistent with history of scleroderma MDM MDM MDM Narrative Medical decision making narrative: Patient is evaluated for increased shortness of breath and difficulty breathing. She was recently discharged from [facility] secondary to hemoptysis and concern for diffuse alveolar hemorrhage however ultimately is felt that she likely had fluid overload. She was treated with CCRT. Patient does informing that she has been out of her CellCept since being discharged because the pharmacy did not have it. Patient is persistently tachycardic and tachypneic in the ER. She is not hypoxic initially however while in the ER she spontaneously desaturates and is placed on nonrebreather. Chest x-ray interpreted by myself as well as radiology shows diffuse interstitial lung disease. There is worsening of the right hemithorax interpreted by radiology. Patient does make urine and is given IV Lasix. Her creatinine is actually improving. Patient has anemia with a hemoglobin of 7.0 which seems to be chronic/recurrent. Patient's BNP is downtrending. High since he troponin is 34 and her lactate is normal at 0.6. ABG obtained which shows hypoxia but no acidosis or hypercapnia. Patient's FiO2 was increased. Patient is given IV Solu-Medrol as well. Concern is worsening interstitial lung disease associated with her scleroderma. Patient does not have a leukocytosis, fever or other symptoms consistent with infection. Given her extensive medical history and recent discharge from [facility] patient, I spoke with the transfer line to get her back to [facility]. Patient was accepted to the ICU there by Dr. Buitrago however they do not have any beds at this time. In the meantime patient will be admitted to our ICU while they wait for a bed to open up. Patient is admitted to our hospital with Dr. Zepeda. Lab Data Attestation: I reviewed the patient's lab results. Labs: Laboratory Results - last 24 hr 06/21/22 06/21/22 06/21/22 09:01 09:01 09:01 WBC 10.5 RBC 2.24 L Hgb 7.0 L Hct 21.9 L MCV 97.8 MCH 31.3 MCHC 32.0 RDW Std Deviation 60.2 H RDW Coeff of Pebbles 17.1 H Plt Count 166 MPV 10.4 Immature Gran % (Auto) 0.700 Neut % (Auto) 87.6 H Lymph % (Auto) 6.6 L Creek % (Auto) 4.0 Eos % (Auto) 1.0 Baso % (Auto) 0.1 Absolute Neuts (auto) 9.2 H Absolute Lymphs (auto) 0.69 L Nucleated RBC % 0 Sodium 137 Potassium 3.1 L Chloride 100 Carbon Dioxide 28.0 Anion Gap 9 BUN 28 H Creatinine 1.78 H Estim Creat Clear Calc 32.25 Est GFR (MDRD) Af Amer 38 L Est GFR (MDRD) Non-Af 31 L BUN/Creatinine Ratio 15.7 Glucose 87 Lactic Acid 0.6 Calcium 8.1 L Troponin I High Sens 34 B-Natriuretic Peptide 06/21/22 09:01 WBC RBC Hgb Hct MCV MCH MCHC RDW Std Deviation RDW Coeff of Pebbles Plt Count MPV Immature Gran % (Auto) Neut % (Auto) Lymph % (Auto) Creek % (Auto) Eos % (Auto) Baso % (Auto) Absolute Neuts (auto) Absolute Lymphs (auto) Nucleated RBC % Sodium Potassium Chloride Carbon Dioxide Anion Gap BUN Creatinine Estim Creat Clear Calc Est GFR (MDRD) Af Amer Est GFR (MDRD) Non-Af BUN/Creatinine Ratio Glucose Lactic Acid Calcium Troponin I High Sens B-Natriuretic Peptide 1638.8 H ABG Data ABG results: ABG 06/21/22 12:40 Specimen Type ART Sample Site R Radial pH 7.43 Bicarbonate Actual 28.4 H Total CO2 30 Base Excess 4 H O2 Saturation 95 O2 % 45 ABG pCO2 42.6 ABG pO2 72 L Sachin Test Positive Respiration Rate 10 O2 Delivery Device BiPAP Vent Mode CPAP/PS POC PEEP 6 POC Pressure Suppt 12 Radiography Chest X-Ray - ED: 1 View and - (Diffuse bilateral airspace disease) Diagnostic Testing: Clinical Impression(s) from Imaging Studies Chest X-Ray 06/21/22 09:18 IMPRESSION: Diffuse bilateral airspace disease worse in the right hemithorax. Follow-up is recommended. Electronically Signed: Efren Arreguin MD at 9:30 EST Reading Location ID and State: [address] [place] [address] , Service support , Rhythm Strip Rhythm Strip: Sinus Tach Rate: 125 Ectopy: None EKG Initial EKG: Attestation: I personally reviewed and interpreted this EKG as follows: Interpretation: Sinus Tachycardia Comments: Sinus tachycardia rate of 125 bpm Normal axis Normal intervals Normal ST segments Critical Care Time Critical Care Time: Yes Critical care time (excluding procedures): 30-74 minutes (41), Discussing w/Patient &/or Family/Medical Assistant, Discussing w/Consultants and Arranging Admission or Transfer Discharge Plan Dx/Rx/DC Orders Clinical Impression: Acute and chronic respiratory failure with hypoxia, Interstitial lung disease, ESRD on dialysis, Scleroderma, Anemia Disposition Disposition: Acute Care Hospital [facility] Discharge Date/Time: 06/21/22 13:52
--- NOTE | 2022-06-21 11:43 | CM.ED ---
SW Note Referral Source: MD Santiago Referral Reason: Resources SW met with patient and her friend, Morris Foster. Morris was taking patient to dialysis today and when they went to dialysis patient was in respiratory arrest and called. Morris said that patient is from home. Morris said that patient can not care for herself. Morris said that patient can't walk without being short of breath and she can't go to the store. Morris said that patient can't care for herself and needs to go somewhere. SW asked if patient had been anywhere for SNF placement before and patient said yes, [facility] and I won't go back. SW explained that [facility] is the only facility in the area that does dialysis. Morris said that patient would be open to dialysis and placement in other area such as [place] etc. SW advised that there is a resource call [facility] where Morris can call about finding facilities that are providing dialysis and Morris said that he is not family and did not take the [facility] information. SW advised that this [employer] operator will continue to follow. MD Santiago said that she is going to transfer patient to [facility]. Jennifer CASPER
[2022-06-21] MEDS: MethylPREDNISolone 125 MG/2 ML Vial IV (12:37)
[2022-06-21] MEDS: Furosemide 40 MG/4 ML Vial IV ×2 (12:37→15:11)
[2022-06-21 12:45] LABS: Allen Test Positive; Base Excess 4 mmol/L (-2 to +2); Bicarbonate 28.4 mmol/L (22-26); Blood Gas Specimen Type ART; FI02 45; Mode CPAP/PS; O2 Delivery Device BiPAP; PEEP 6; PO2 72 mmHG (75-100); PS 12; RR 10; SITE R Radial; SO2 95 % (95-99); Total Carbon Dioxide 30 mmol/L; pCO2 42.6 mmHg (35-45); pH 7.43 (7.35-7.45)
--- NOTE | 2022-06-21 13:56 | PCM.HP.STD ---
HPI - General General Date of Admission: 06/21/22 Date of Service: 06/21/22 Chief Complaint: Shortness of breath HPI Narrative Ms. Kaur is a 57-year-old female with a history of scleroderma, interstitial lung disease, end-stage renal disease on dialysis Tuesday and Tuesday as well as history of bleeding ulcers as well as pubic ramus fracture who presented to [facility] 06/21 with increasing shortness of breath. She had been admitted 05/26 with intractable pain and was sent to SNF. Since that time she went to [facility] and was discharged home on 5 L of O2. She has been unable to get her CellCept and has continued to have increasing shortness of breath. In the ED she was noted to be hypoxic and was placed on BiPAP which was helpful, [facility] contacted and Dr. Sherman accepted patient though no beds presently available so hospitalist contacted for admission. On evaluation Ms. Kaur was resting with BiPAP on, reports minimal cough with no sputum, has had a little bit of a tight feeling throughout her whole chest with her breathing worsening, slightly better than when she presented. Reports that she has been urinating. Had half a dialysis session today but was sent to the ED due to her worsening respiratory status. She denies other complaints at this time. [facility] Medical History Anemia Anxiety disorder Bipolar disorder Depression Dialysis patient DVT (deep venous thrombosis) Fibromyalgia History of gastroesophageal reflux (GERD) Hypothyroidism Hypoxia Interstitial lung disease Irritable colon Osteoarthritis Scleredema Home Medications cyclobenzaprine 10 mg tablet 10 mg PO TID PRN muscle relaxer 01/22/22 [History Last Taken 05/29/22 11:00] levothyroxine 100 mcg tablet 100 mcg PO DAILY thyroid 05/05/22 [History Last Taken 05/20/22] lisinopril 40 mg tablet 40 mg PO DAILY blood pressure 05/05/22 [History Last Taken 05/20/22] mycophenolate mofetil 500 mg tablet (CellCept) 1,000 mg PO BID immunosuppresent 05/05/22 [History Last Taken 05/20/22] pantoprazole 40 mg tablet,delayed release 40 mg PO DAILY GERD 05/21/22 [History Last Taken 05/20/22] prednisone 20 mg tablet 60 mg PO DAILY auto immune 05/21/22 [History Last Taken 05/20/22] vitamin B complex and vitamin C no.20-folic acid 1 mg capsule 1 cap PO DAILY anti rejection 05/21/22 [History Last Taken 05/20/22] cholecalciferol (vitamin D3) 25 mcg (1,000 unit) tablet 25 mcg PO DAILYCM #0 tabs 05/22/22 [Rx Last Taken Unknown] oxycodone 5 mg tablet 5 mg PO Q4H PRN PRN Pain Score 4-10 3 days #15 tabs 05/27/22 [Rx Last Taken 05/28/22 23:11] potassium chloride 20 mEq tablet,extended release 20 meq PO QHS 05/29/22 [History Last Taken Unknown] Allergy/AdvReac Type Severity Reaction Status Date / Time acetaminophen [From Tylenol] Allergy Bleeding Verified 05/29/22 12:52 simvastatin [From Zocor] Allergy Rash Verified 05/29/22 12:52 NSAIDS (Non-Steroidal AdvReac Bleeding Verified 05/29/22 12:52 Anti-Inflamma Family History Father COPD (chronic obstructive pulmonary disease) Mother No cardiac disease Other Anemia Surgical History H/O foot surgery H/O knee surgery History of left heart catheterization (12/15/09) History of tonsillectomy S/P manipulation of deviated nasal septum Social History household members: significant other Smoking Status: Never smoker alcohol intake: never substance use type: does not use ROS Constitutional Constitutional: Reports other Details: General feeling unwell Eyes Eyes: Reports other Details: Did not endorse any changes in vision ENT HEENT: Reports other Details: Mouth dry with BiPAP on Cardiovascular Cardiovascular: Reports other Details: With the shortness of breath sometimes feels a general chest wall tightness ; Denies chest pain Respiratory/Chest Respiratory/Chest: Reports other Details: Increased shortness of breath, intermittent dry cough, no production of sputum Gastrointestinal Gastrointestinal: Denies abdominal pain Genitourinary Genitourinary: Reports other Details: Does endorse she still makes urine ; Denies burning urination Musculoskeletal Musculoskeletal: Reports other Details: History of chronic pain Neurologic Neurologic: Reports other Details: No focal deficits reported Hematologic/Lymphatic Hematologic/Lymphatic: Reports other Details: No new bleeding or bruising Allergic/Immunologic Allergic/Immunologic: Reports other Details: Denied any new rashes Vital Signs Vital Signs Vital Signs: 06/21/22 08:16 06/21/22 08:24 06/21/22 09:15 Temperature 97.9 F Temperature Source Temporal Pulse Rate 133 H 125 H Respiratory Rate 38 H 37 H Respiratory Effort Short of Breath Respiratory Depth Deep Respiratory Pattern Tachypnea Blood Pressure 135/85 H Blood Pressure Mean 101 Pulse Ox 93 Oxygen Delivery Method Nasal Cannula Nasal Cannula Oxygen Flow Rate (L/min) 5 5 Fraction of Inspired Oxygen (FIO2) 06/21/22 09:15 06/21/22 09:15 06/21/22 10:29 Temperature Temperature Source Pulse Rate 124 H Respiratory Rate 32 H 25 H Respiratory Effort Respiratory Depth Respiratory Pattern Blood Pressure 138/81 H Blood Pressure Mean 100 Pulse Ox 93 93 92 Oxygen Delivery Method Nasal Cannula Nasal Cannula Nasal Cannula Oxygen Flow Rate (L/min) 3 3 3 Fraction of Inspired Oxygen (FIO2) 06/21/22 11:34 06/21/22 11:34 06/21/22 11:46 Temperature Temperature Source Pulse Rate 155 H 128 H Respiratory Rate 40 H 37 H Respiratory Effort Respiratory Depth Respiratory Pattern Blood Pressure 168/95 H 140/94 H Blood Pressure Mean 119 109 Pulse Ox 61 100 96 Oxygen Delivery Method Nasal Cannula Non-Rebreather Bi-pap Oxygen Flow Rate (L/min) 4 15 Fraction of Inspired Oxygen (FIO2) 40 06/21/22 11:40 06/21/22 12:54 06/21/22 13:41 Temperature 97.9 F Temperature Source Temporal Pulse Rate 127 H 128 H Respiratory Rate 36 H 37 H Respiratory Effort Respiratory Depth Respiratory Pattern Normal Blood Pressure 140/94 H Blood Pressure Mean 109 Pulse Ox 95 96 Oxygen Delivery Method Bi-pap Oxygen Flow Rate (L/min) 15 Fraction of Inspired Oxygen (FIO2) 45 60 60 Weight Weight: 63.9 kg Body Mass Index (BMI) 22.7 Physical Exam Const alert Constitutional Narrative: Oriented HEENT normocephalic and head/scalp atraumatic HEENT Narrative: Somewhat dry mucous Eyes Eyes Narrative: EOM grossly intact, anicteric Neck supple Resp Resp Narrative: Increased work of breathing, inspiratory crackles diffusely, worse at the bases Cardio regular rhythm Cardio Narrative: Mildly tachycardic GI soft to palpation, non-tender and non-distended Extremity Extremity Narrative: No edema appreciated Neuro moves all extremities Neuro Narrative: No overt focal deficits appreciated Psych Psych Narrative: Cooperative Results Lab / Micro Data Result Diagrams: 06/21/22 09:01 06/21/22 09:01 Labs: Laboratory Results - last 24 hr 06/21/22 09:01: WBC 10.5, RBC 2.24 L, Hgb 7.0 L, Hct 21.9 L, MCV 97.8, MCH 31.3, MCHC 32.0, RDW Std Deviation 60.2 H, RDW Coeff of Pebbles 17.1 H, Plt Count 166, MPV 10.4, Immature Gran % (Auto) 0.700, Neut % (Auto) 87.6 H, Lymph % (Auto) 6.6 L, [place] % (Auto) 4.0, Eos % (Auto) 1.0, Baso % (Auto) 0.1, Absolute Neuts (auto) 9.2 H, Absolute Lymphs (auto) 0.69 L, Nucleated RBC % 0 06/21/22 09:01: Sodium 137, Potassium 3.1 L, Chloride 100, Carbon Dioxide 28.0, Anion Gap 9, BUN 28 H, Creatinine 1.78 H, Estim Creat Clear Calc 32.25, Est GFR (MDRD) Af Amer 38 L, Est GFR (MDRD) Non-Af 31 L, BUN/Creatinine Ratio 15.7, Glucose 87, Calcium 8.1 L, Troponin I High Sens 34 06/21/22 09:01: Lactic Acid 0.6 06/21/22 09:01: B-Natriuretic Peptide 1638.8 H Micro: Microbiology 06/21/22 09:00 Nasal Secretion SARS-CoV-2 & FLU Antigen (Rapid) - Final ABG Data ABG results: ABG 06/21/22 12:40 Specimen Type ART Sample Site R Radial pH 7.43 Bicarbonate Actual 28.4 H Total CO2 30 Base Excess 4 H O2 Saturation 95 O2 % 45 ABG pCO2 42.6 ABG pO2 72 L Sachin Test Positive Respiration Rate 10 O2 Delivery Device BiPAP Vent Mode CPAP/PS POC PEEP 6 POC Pressure Suppt 12 Rhythm Strip Rhythm Strip: Sinus Tach Rate: 125 Ectopy: None Radiology Impression Chest X-Ray 06/21/22 09:18 IMPRESSION: Diffuse bilateral airspace disease worse in the right hemithorax. Follow-up is recommended. Electronically Signed: Efren Arreguin MD at 9:30 EST , Assessment & Plan Assessment/Plan (1) Acute and chronic respiratory failure with hypoxia: PLAN: Plan #Acute on chronic hypoxic respiratory failure Presently BiPAP dependent on 07/13 at 60% She removed the BiPAP briefly because she was having difficulty communicating and O2 sat fell to 70s within several minutes but recovered 100% as soon as BiPAP was replaced Chest x-ray showed diffuse bilateral airspace disease worse in the right hemithorax ABG demonstrated only hypoxia Given 1 dose of IV Lasix in the ED she does still make urine Nephro consulted in the event she needs further dialysis Will transition prednisone to IV Methylpred COVID and flu rapid negative Will admit to ICU Was accepted by Dr. Sherman at [facility] however currently awaiting a bed #End-stage renal disease on hemodialysis Tuesday, Tuesday, Tuesday Had one half of the dialysis session 06/21, will consult nephrology Daily weights #Scleroderma and interstitial lung disease Reportedly had been out of CellCept since the [facility] which may in part be why she had a decline Will transition prednisone to IV Methylpred, got 1 dose in the ED #Chronic anemia Hemoglobin 7.0 stays between 7 and 8.4 over the past 2 months No evidence of bleeding at this time #Hypothyroidism Continue Synthroid #DVT ppx: SCDs given history of alveolar hemorrhage as well as hemoglobin of 7 Viktoria Zepeda MD Charges/Coding Visit Charges Inpatient E&M: 36147 Init Hosp L2
--- NOTE | 2022-06-21 14:16 | EX.PCM.CONCC ---
Assessment & Plan Assessment/Plan (1) Acute and chronic respiratory failure with hypoxia: PLAN: Plan RECOMMENDATIONS: 1. Continue BiPAP therapy. 2. Initiate Precedex infusion to facilitate BiPAP adherence. 3. Continue attempts at diuresis as tolerated by hemodynamics. 4. Agree with initiation of steroids and continuation of CellCept. 5. Send type and screen. Transfuse if hemoglobin drops below 7 g/dL. 6. Await transfer to [facility]. IMPRESSIONS: 1. Acute on chronic hypoxemic respiratory failure The patient has a known history of scleroderma associated interstitial lung disease along with end-stage renal disease and chronic anemia. She presented with worsening shortness of breath with interstitial infiltrates on chest imaging and a presenting hemoglobin of 7.0. Given that the patient still does make urine, I would attempt to continue diuresis as tolerated by hemodynamics. Agree with continuing CellCept and initiating steroids. The patient is pending transfer to [facility] for further care. In the interim, we will continue BiPAP support given increased work of breathing. Precedex can be utilized to facilitate adherence with PAP therapy. 2. End-stage renal disease on hemodialysis Nephrology consultation to assist with hemodialysis needs. 3. Chronic anemia The patient had a presenting hemoglobin of 7.0. She is already on PPI therapy. Send type and screen. Continue to monitor H&H and transfuse if hemoglobin drops below 7 g/dL. 4. GERD/hypertension/hypothyroidism Complicates care, management, recovery and prognosis. Continue home medications as indicated. TIME: 35 minutes of critical care time, independent of procedures, was spent addressing the patient's acute on chronic hypoxemic respiratory failure, end-stage renal disease, anemia, review of all data and collaboration with the care team. HPI Consult Data Date of Consult: 06/22/22 HPI Narrative Reason for Consultation: Respiratory failure HPI Narrative: The patient is a 57-year-old female, with a history as outlined below, who presented to the emergency department via EMS on June 21 from her dialysis center after developing worsening shortness of breath. The patient has a reported history of scleroderma with associated interstitial lung disease.? The patient is followed by rheumatology, Dr. Helen Hernandez, at the [facility].? The patient currently receives IVIG and was previously on CellCept. The patient is a lifelong non-smoker, but does report secondhand smoke exposure growing up from her father.? The patient initially received her scleroderma diagnosis 2 years ago.? She was apparently on CellCept for period of time, but the patient discontinued the medication herself as she felt that it was causing behavioral disturbances. On presentation to the emergency department, the patient was noted to be afebrile but was notably tachycardic and tachypneic. Initial laboratory evaluation revealed no evidence of leukocytosis. Hemoglobin was low at 7.0 g/dL. Chemistry profile was notable for a potassium of 3.1 and creatinine of 1.78. Lactate was within normal limits. BNP was elevated at 1638. Troponin was negative. Bilateral pulmonary infiltrates were noted on chest imaging. The patient was ultimately placed on BiPAP therapy. Subsequent blood gas revealed a pH of 7.43 with a PCO2 of 42 and PO2 of 72. Rapid COVID and flu were negative. The patient received IV Lasix and was subsequently transferred to the medical intensive care unit for further management. COUNT INCLUDES THE [facility] Medical History Anemia Anxiety disorder Bipolar disorder Depression Dialysis patient DVT (deep venous thrombosis) Fibromyalgia History of gastroesophageal reflux (GERD) Hypothyroidism Hypoxia Interstitial lung disease Irritable colon Osteoarthritis Scleredema Home Medications cyclobenzaprine 10 mg tablet 10 mg PO TID PRN muscle relaxer 01/22/22 [History Last Taken 05/29/22 11:00] levothyroxine 100 mcg tablet 100 mcg PO DAILY thyroid 05/05/22 [History Last Taken 05/20/22] lisinopril 40 mg tablet 40 mg PO DAILY blood pressure 05/05/22 [History Last Taken 05/20/22] mycophenolate mofetil 500 mg tablet (CellCept) 1,000 mg PO BID immunosuppresent 05/05/22 [History Last Taken 05/20/22] pantoprazole 40 mg tablet,delayed release 40 mg PO DAILY GERD 05/21/22 [History Last Taken 05/20/22] prednisone 20 mg tablet 60 mg PO DAILY auto immune 05/21/22 [History Last Taken 05/20/22] vitamin B complex and vitamin C no.20-folic acid 1 mg capsule 1 cap PO DAILY anti rejection 05/21/22 [History Last Taken 05/20/22] cholecalciferol (vitamin D3) 25 mcg (1,000 unit) tablet 25 mcg PO DAILYCM #0 tabs 05/22/22 [Rx Last Taken Unknown] oxycodone 5 mg tablet 5 mg PO Q4H PRN PRN Pain Score 4-10 3 days #15 tabs 05/27/22 [Rx Last Taken 05/28/22 23:11] potassium chloride 20 mEq tablet,extended release 20 meq PO QHS 05/29/22 [History Last Taken Unknown] Allergy/AdvReac Type Severity Reaction Status Date / Time acetaminophen [From Tylenol] Allergy Bleeding Verified 05/29/22 12:52 simvastatin [From Zocor] Allergy Rash Verified 05/29/22 12:52 NSAIDS (Non-Steroidal AdvReac Bleeding Verified 05/29/22 12:52 Anti-Inflamma Family History Father COPD (chronic obstructive pulmonary disease) Mother No cardiac disease Other Anemia Surgical History H/O foot surgery H/O knee surgery History of left heart catheterization (12/15/09) History of tonsillectomy S/P manipulation of deviated nasal septum Social History household members: significant other Smoking Status: Never smoker alcohol intake: never substance use type: does not use ROS ROS Narrative 10 systems were reviewed with pertinent positives as noted in the HPI above. Physical Exam Const alert Constitutional Narrative: Appears labored and distressed. HEENT normocephalic and head/scalp atraumatic Eyes PERRL, EOMs intact bilaterally and conjunctivae normal Neck supple General: trachea midline Chest Chest Narrative: Stable chest wall port. Resp Effort and Inspection: tachypneic and labored Auscultation: rales Cardio S1 normal heart sound and S2 normal heart sound Rate: tachycardic GI normal to inspection, nondistended, normoactive bowel sounds Extremity no clubbing, cyanosis or edema Skin no rashes or lesions noted Neuro CN's II-XII intact bilaterally and no focal motor deficits Psych Mood & Affect: anxious Lab / Micro Data Result Diagrams: 06/22/22 04:00 06/22/22 04:00 Labs: Laboratory Results - last 24 hr 06/21/22 09:01: WBC 10.5, RBC 2.24 L, Hgb 7.0 L, Hct 21.9 L, MCV 97.8, MCH 31.3, MCHC 32.0, RDW Std Deviation 60.2 H, RDW Coeff of Pebbles 17.1 H, Plt Count 166, MPV 10.4, Immature Gran % (Auto) 0.700, Neut % (Auto) 87.6 H, Lymph % (Auto) 6.6 L, [place] % (Auto) 4.0, Eos % (Auto) 1.0, Baso % (Auto) 0.1, Absolute Neuts (auto) 9.2 H, Absolute Lymphs (auto) 0.69 L, Nucleated RBC % 0 06/21/22 09:01: Sodium 137, Potassium 3.1 L, Chloride 100, Carbon Dioxide 28.0, Anion Gap 9, BUN 28 H, Creatinine 1.78 H, Estim Creat Clear Calc 32.25, Est GFR (MDRD) Af Amer 38 L, Est GFR (MDRD) Non-Af 31 L, BUN/Creatinine Ratio 15.7, Glucose 87, Calcium 8.1 L, Troponin I High Sens 34 06/21/22 09:01: Lactic Acid 0.6 06/21/22 09:01: B-Natriuretic Peptide 1638.8 H Micro: Microbiology 06/21/22 09:00 Nasal Secretion SARS-CoV-2 & FLU Antigen (Rapid) - Final ABG Data ABG results: ABG 06/21/22 12:40 Specimen Type ART Sample Site R Radial pH 7.43 Bicarbonate Actual 28.4 H Total CO2 30 Base Excess 4 H O2 Saturation 95 O2 % 45 ABG pCO2 42.6 ABG pO2 72 L Sacihn Test Positive Respiration Rate 10 O2 Delivery Device BiPAP Vent Mode CPAP/PS POC PEEP 6 POC Pressure Suppt 12 Rhythm Strip Rhythm Strip: Sinus Tach Rate: 125 Ectopy: None Radiology Impression Chest X-Ray 06/21/22 09:18 IMPRESSION: Diffuse bilateral airspace disease worse in the right hemithorax. Follow-up is recommended. Electronically Signed: Efren Arreguin MD at 9:30 EST , Charges/Coding Procedures Hospitalists Procedures: [id number] Critial Care 1st Hr
[2022-06-21] MEDS: Acetaminophen 325 MG Tablet 650 MG PO (16:18)
[2022-06-21] MEDS: Potassium Chloride Oral Tablet 20 MEQ PO (21:09)
[2022-06-21] MEDS: Mycophenolate Mofetil 250 MG Capsule 1000 MG PO (21:09)
[2022-06-21] MEDS: 0.9% Saline Lock 10 ML Syringe IV (21:09)
[2022-06-22] VITALS (34 sets, daily range): BP systolic 120–166; BP diastolic 77–105; PULSE 70–122; RESP 10–36; TEMP 36.2–36.8; O2SAT 87–98
[2022-06-22] MEDS: cycloBENZAPRine HCl 10 MG Tablet PO ×2 (03:52→15:54)
[2022-06-22] MEDS: oxyCODONE 5 MG Tablet PO ×2 (03:52→15:53)
[2022-06-22] MEDS: 0.9% Saline Lock 10 ML Syringe IV ×5 (03:57→20:56)
[2022-06-22 04:02] LABS: Absolute Lymphocyte Count 0.29 X10^3/uL (0.83-4.51); Hematocrit 22.3 % (37-47); Hemoglobin 6.9 g/dL (12.0-15.0); Lymphocyte # 0.29 X10^3/ul (0.83-4.51); Lymphocyte % 3.9 % (19-41); Mean Corp Hgb Conc 30.9 g/dL (32-36); Mean Corpuscular Hgb 30.7 pg (27.0-32.0); Mean Corpuscular Volume 99.1 fL (81-99); Mean Platelet Vol. 9.7 fl (6.2-12.0); Monocyte# 0.15 X10^3/uL; NRBC Flagged by Analyzer 0 % (0-5); Neutrophil % 93.6 % (47-70); POSITIVE DIFFERENTIAL YES; Platelet Count 130 K/mm3 (150-450); RBC Distribution Width CV 17.2 % (11.6-14.6); RBC Distribution Width SD 62.4 fl (35.1-43.9); Red Blood Count 2.25 M/mm3 (4.2-5.4); White Blood Count 7.5 K/mm3 (4.4-11.0)
[2022-06-22 04:08] LABS: Differential Indicated SCAN CRITERIA MET
[2022-06-22 04:26] LABS: Anisocytosis 1+; Platelet Estimate SLT DEC (ADEQ)
[2022-06-22 04:27] LABS: ALB/GLOB Ratio 0.9 RATIO (0.9-2.4); AST(SGOT) 20 U/L (15-37); Alanine Aminotransfer ALT/SGPT 12 U/L (13-56); Albumin, Serum 2.9 g/dL (3.2-5.0); Alkaline Phosphatase 109 U/L (45-117); Anion Gap 8 (5-15); BUN 42 mg/dL (7-18); BUN/Creat Ratio 15.6 RATIO (10-20); Calcium,Total 8.9 mg/dL (8.5-10.1); Chloride 99 mmol/L (98-107); Creatinine, Serum 2.69 mg/dL (0.55-1.02); EST Glomerular Filtration Rate 19 mL/min (>60); Est Glom Filt Rate - Afr Amer 23 mL/min (>60); Estimated Creatinine Clearance 21.34 ml/min; Globulin 3.4 g/dL (2.2-4.2); Glucose 159 mg/dL (74-106); Potassium 5.1 mmol/L (3.5-5.1); Protein, Total 6.3 g/dL (6.4-8.2); Sodium Level 136 mmol/L (136-145)
[2022-06-22] MEDS: Levothyroxine 100 MCG Tablet PO (05:59)
--- NOTE | 2022-06-22 07:17 | PN.CC_ITS ---
Assessment & Plan Assessment/Plan (1) Acute and chronic respiratory failure with hypoxia: PLAN: Plan RECOMMENDATIONS: 1. Continue BiPAP therapy as needed. 2. Continue Precedex infusion to facilitate BiPAP adherence. 3. Continue attempts at diuresis as tolerated by hemodynamics. 4. Continue CellCept and corticosteroids. 5. Transfuse 1 unit of packed red blood cells today. Check H&H posttransfusion. 6. Check BNP and procalcitonin. IMPRESSIONS: 1. Acute on chronic hypoxemic respiratory failure The patient has a known history of scleroderma associated interstitial lung disease along with end-stage renal disease and chronic anemia. She presented with worsening shortness of breath with interstitial infiltrates on chest imaging and a presenting hemoglobin of 7.0. Given that the patient still does make urine, I would attempt to continue diuresis as tolerated by hemodynamics. Agree with continuing CellCept and steroids. The patient is pending transfer to [facility] for further care. In the interim, we will continue BiPAP support, as needed. Continue Precedex to facilitate ongoing adherence with PAP therapy. 2. End-stage renal disease on hemodialysis Nephrology following to assist with hemodialysis needs. 3. Chronic anemia The patient has a known history of anemia. Given that her hemoglobin is currently less than 7 g/dL, plan to transfuse 1 unit of packed red blood cells. Check H&H posttransfusion. Continue PPI therapy as ordered. 4. GERD/hypertension/hypothyroidism Complicates care, management, recovery and prognosis. Continue home medications as indicated. TIME: 32 minutes of critical care time, independent of procedures, was spent addressing the patient's acute on chronic hypoxemic respiratory failure, end- stage renal disease, anemia, review of all data and collaboration with the care team. Subjective Subjective The patient was seen and examined at the bedside this morning. Events from the last 24 hours have been reviewed. The patient is currently afebrile, hemodynamically stable and maintaining appropriate oxygen saturations on BiPAP. The patient has been alternating between nasal cannula oxygen and BiPAP. Her PAP adherence has improved with the use of Precedex. The patient was given IV Lasix x2 yesterday. Hemoglobin this morning was noted to be 6.9 g/dL. Platelet count is dropped 130,000. Objective Data Objective Data The patient's most recent lab work, culture data and imaging studies have all been personally reviewed. Surface echocardiogram from April 2022 demonstrated normal LV size and function with an ejection fraction of 55%. Pulmonary artery systolic pressure was estimated to be 50 mmHg. Vital Signs: Vital Signs Temp Pulse Resp BP Pulse Ox O2 Del Method O2 Flow Rate 97.3 F L 89 24 H 134/89 H 95 Nasal Cannula 8 06/22/22 03:00 06/22/22 07:00 06/22/22 07:00 06/22/22 07:00 06/22/22 07:00 06/22/22 07:00 06/21/22 21:00 FiO2 8 06/22/22 07:00 Oxygen Flow Rate (L/min) 8 Oxygen Delivery Method Nasal Cannula Weight: 135 lb 2.294 oz Body Mass Index (BMI) 22.1 Intake & Output: Intake and Output for Last 24 Hours 06/20/22 06/21/22 06/22/22 23:59 23:59 23:59 Intake Total 322.60 / 324.55 309.64 / 309.64 Output Total 0 / 0 Balance 322.60 / 324.55 309.64 / 309.64 Lab / Micro Data Attestation: I reviewed the patient's lab results. Result Diagrams: 06/22/22 04:00 06/22/22 04:00 Labs: Laboratory Results - last 24 hr 06/21/22 09:01: WBC 10.5, RBC 2.24 L, Hgb 7.0 L, Hct 21.9 L, MCV 97.8, MCH 31.3, MCHC 32.0, RDW Std Deviation 60.2 H, RDW Coeff of Pebbles 17.1 H, Plt Count 166, MPV 10.4, Immature Gran % (Auto) 0.700, Neut % (Auto) 87.6 H, Lymph % (Auto) 6.6 L, [place] % (Auto) 4.0, Eos % (Auto) 1.0, Baso % (Auto) 0.1, Absolute Neuts (auto) 9.2 H, Absolute Lymphs (auto) 0.69 L, Nucleated RBC % 0 06/21/22 09:01: Sodium 137, Potassium 3.1 L, Chloride 100, Carbon Dioxide 28.0, Anion Gap 9, BUN 28 H, Creatinine 1.78 H, Estim Creat Clear Calc 32.25, Est GFR (MDRD) Af Amer 38 L, Est GFR (MDRD) Non-Af 31 L, BUN/Creatinine Ratio 15.7, Gl ucose 87, Calcium 8.1 L, Troponin I High Sens 34 06/21/22 09:01: Lactic Acid 0.6 06/21/22 09:01: B-Natriuretic Peptide 1638.8 H 06/21/22 15:03: Blood Type O POSITIVE, Antibody Screen NEGATIVE 06/22/22 04:00: WBC 7.5, RBC 2.25 L, Hgb 6.9 L, Hct 22.3 L, MCV 99.1 H, MCH 30 .7, MCHC 30.9 L, RDW Std Deviation 62.4 H, RDW Coeff of Pebbles 17.2 H, Plt Count 130 L, MPV 9.7, Immature Gran % (Auto) 0.500, Neut % (Auto) 93.6 H, Lymph % (Auto) 3.9 L, [place] % (Auto) 2.0, Eos % (Auto) 0.0, Baso % (Auto) 0.0, Absolute Neuts (auto) 7.0, Absolute Lymphs (auto) 0.29 L, Nucleated RBC % 0, Platelet Estimate SLT DEC, Anisocytosis 1+ 06/22/22 04:00: Sodium 136, Potassium 5.1, Chloride 99, Carbon Dioxide 29.0, Anion Gap 8, BUN 42 H, Creatinine 2.69 H, Estim Creat Clear Calc 21.34, Est GFR (MDRD) Af Amer 23 L, Est GFR (MDRD) Non-Af 19 L, BUN/Creatinine Ratio 15.6, Glucose 159 H, Calcium 8.9, Total Bilirubin 0.40, AST 20, ALT 12 L, Alkaline Phosphatase 109, Total Protein 6.3 L, Albumin 2.9 L, Globulin 3.4, Albumin/Charity bulin Ratio 0.9 Micro: Microbiology 06/21/22 09:00 Nasal Secretion SARS-CoV-2 & FLU Antigen (Rapid) - Final ABG Data ABG results: ABG 06/21/22 12:40 Specimen Type ART Sample Site R Radial pH 7.43 Bicarbonate Actual 28.4 H Total CO2 30 Base Excess 4 H O2 Saturation 95 O2 % 45 ABG pCO2 42.6 ABG pO2 72 L [place] Test Positive Respiration Rate 10 O2 Delivery Device BiPAP Vent Mode CPAP/PS POC PEEP 6 POC Pressure Suppt 12 Radiography Diagnostic Testing: Radiology Impression Chest X-Ray 06/21/22 09:18 IMPRESSION: Diffuse bilateral airspace disease worse in the right hemithorax. Follow-up is recommended. Electronically Signed: Efren Arreguin MD at 9:30 EST , Rhythm Strip Rhythm Strip: Sinus Tach Rate: 125 Ectopy: None Physical Exam Const alert General Appearance: cooperative HEENT normocephalic and head/scalp atraumatic Eyes PERRL, EOMs intact bilaterally and conjunctivae normal Neck supple General: trachea midline Chest Chest Narrative: Stable chest wall port. Resp Effort and Inspection: tachypneic Auscultation: rales Cardio regular rate, regular rhythm, S1 normal heart sound and S2 normal heart sound GI normal to inspection, nondistended, normoactive bowel sounds Extremity no clubbing, cyanosis or edema Skin no rashes or lesions noted Neuro CN's II-XII intact bilaterally and no focal motor deficits Psych Mood & Affect: anxious Charges/Coding Procedures Hospitalists Procedures: [id number] Critial Care 1st Hr
[2022-06-22 08:46] LABS: Procalcitonin 0.49 ng/mL (0.00-0.09)
--- NOTE | 2022-06-22 09:58 | PCM.PN.HOSP ---
Subjective Subjective DOS 06/22/22 CC SOB Does report feeling better today than she did yesterday, minimal cough. Reports she had 1x episode of some blood in sputum that hasn't returned. Sometimes will feel the chest tightness with her breathing. Denies other complaints this AM. Objective Data Objective Data Vital Signs: Vital Signs Temp Pulse Resp BP Pulse Ox O2 Del Method O2 Flow Rate 97.3 F L 86 24 H 134/89 H 95 Nasal Cannula 8 06/22/22 03:00 06/22/22 07:00 06/22/22 07:00 06/22/22 07:00 06/22/22 07:00 06/22/22 07:00 06/21/22 21:00 FiO2 8 06/22/22 07:00 Oxygen Flow Rate (L/min) 8 Oxygen Delivery Method Nasal Cannula Weight: 61.3 kg Body Mass Index (BMI) 22.1 Intake & Output: Intake and Output for Last 24 Hours 06/20/22 06/21/22 06/22/22 23:59 23:59 23:59 Intake Total 322.60 / 324.55 309.64 / 309.64 Output Total 0 / 0 Balance 322.60 / 324.55 309.64 / 309.64 Lab / Micro Data Result Diagrams: 06/22/22 04:00 06/22/22 04:00 Labs: Laboratory Results - last 24 hr 06/21/22 15:03: Blood Type O POSITIVE, Antibody Screen NEGATIVE 06/22/22 04:00: WBC 7.5, RBC 2.25 L, Hgb 6.9 L, Hct 22.3 L, MCV 99.1 H, MCH 30.7, MCHC 30.9 L, RDW Std Deviation 62.4 H, RDW Coeff of Pebbles 17.2 H, Plt Count 130 L, MPV 9.7, Immature Gran % (Auto) 0.500, Neut % (Auto) 93.6 H, Lymph % (Auto) 3.9 L, [place] % (Auto) 2.0, Eos % (Auto) 0.0, Baso % (Auto) 0.0, Absolute Neuts (auto) 7.0, Absolute Lymphs (auto) 0.29 L, Nucleated RBC % 0, Platelet Estimate SLT DEC, Anisocytosis 1+ 06/22/22 04:00: Sodium 136, Potassium 5.1, Chloride 99, Carbon Dioxide 29.0, Anion Gap 8, BUN 42 H, Creatinine 2.69 H, Estim Creat Clear Calc 21.34, Est GFR (MDRD) Af Amer 23 L, Est GFR (MDRD) Non-Af 19 L, BUN/Creatinine Ratio 15.6, Glucose 159 H, Calcium 8.9, Total Bilirubin 0.40, AST 20, ALT 12 L, Alkaline Phosphatase 109, Total Protein 6.3 L, Albumin 2.9 L, Globulin 3.4, Albumin/Globulin Ratio 0.9 06/22/22 08:00: Crossmatch See Detail 06/22/22 08:00: B-Natriuretic Peptide 3033.7 H 06/22/22 08:00: Procalcitonin 0.49 H Micro: Microbiology 06/21/22 09:00 Nasal Secretion SARS-CoV-2 & FLU Antigen (Rapid) - Final ABG Data ABG results: ABG 06/21/22 12:40 Specimen Type ART Sample Site R Radial pH 7.43 Bicarbonate Actual 28.4 H Total CO2 30 Base Excess 4 H O2 Saturation 95 O2 % 45 ABG pCO2 42.6 ABG pO2 72 L [place] Test Positive Respiration Rate 10 O2 Delivery Device BiPAP Vent Mode CPAP/PS POC PEEP 6 POC Pressure Suppt 12 Rhythm Strip Rhythm Strip: Sinus Tach Rate: 125 Ectopy: None Physical Exam Const alert Constitutional Narrative: Oriented HEENT normocephalic and head/scalp atraumatic HEENT Narrative: Somewhat dry mucous Eyes Eyes Narrative: EOM grossly intact, anicteric Neck supple Resp Resp Narrative: Improving WOB, crackles present but improved Cardio regular rate and regular rhythm GI soft to palpation, non-tender and non-distended Extremity Extremity Narrative: No edema appreciated Neuro moves all extremities Neuro Narrative: No overt focal deficits appreciated Psych Psych Narrative: Cooperative Assessment & Plan Assessment/Plan (1) Acute and chronic respiratory failure with hypoxia: PLAN: Plan #Acute on chronic hypoxic respiratory failure Presently BiPAP dependent on 07/13 at 60% She removed the BiPAP briefly because she was having difficulty communicating and O2 sat fell to 70s within several minutes but recovered 100% as soon as BiPAP was replaced Chest x-ray showed diffuse bilateral airspace disease worse in the right hemithorax ABG demonstrated only hypoxia Given 1 dose of IV Lasix in the ED she does still make urine Nephro consulted in the event she needs further dialysis Will transition prednisone to IV Methylpred COVID and flu rapid negative Will admit to ICU Was accepted by Dr. Sherman at [facility] however currently awaiting a bed 06/22: Improving today but still high O2 requirement with intermittent bipap. Continue steroids and cellcept. ICU team following. On precedex gtt to help her tolerate bipap when it's needed. Pending [facility] transfer, lasix 40 IV qday, BNP up to 3033 #Chronic anemia Hemoglobin 7.0 stays between 7 and 8.4 over the past 2 months No evidence of bleeding at this time 06/22: 1 u transfused 2/2 hgb 6.9, continue PPI #End-stage renal disease on hemodialysis Tuesday, Tuesday, Tuesday Had one half of the dialysis session 06/21, will consult nephrology Daily weights #Scleroderma and interstitial lung disease Reportedly had been out of CellCept since the [facility] which may in part be why she had a decline Will transition prednisone to IV Methylpred, got 1 dose in the ED #Hypothyroidism Continue Synthroid #DVT ppx: SCDs given history of alveolar hemorrhage as well as hemoglobin of 7 Viktoria Zepeda MD Charges/Coding Visit Charges Inpatient E&M: 68893 Subs Hosp L2
--- NOTE | 2022-06-22 10:15 | NURSING ---
precedex held for PRBC infusing w/single IV access. Pt refusing additional peripheral access at this time.
[2022-06-22] MEDS: TITRATION PARAMETER CHANGE 1 EACH IV (11:05)
[2022-06-22] MEDS: Pantoprazole Sodium 40 MG Tablet PO (11:06)
[2022-06-22] MEDS: Folic Acid/Vitamin B Comp W-C 1 Capsule 1 CAP PO (11:06)
[2022-06-22] MEDS: Cholecalciferol (VIT D3) 25 MCG TABLET (1,000 UNITS) PO (11:06)
[2022-06-22] MEDS: Lisinopril 40 MG Tablet PO (11:06)
[2022-06-22] MEDS: Mycophenolate Mofetil 250 MG Capsule 1000 MG PO (11:06)
--- NOTE | 2022-06-22 11:42 | CHAPLAIN ---
Type of Pastoral Visit _x__ Initial Visit ___ Follow-up Visit ___ On-call Visit ___ General Patient Visit ___ Spiritual Assessment ___ Family Conference ___ Bereavement ___ Rapid Response ___ Code Blue ___ Other (describe below) Pastoral Care Referral From _x__ Patient ___ Family ___ Nurse ___ Physician ___ Hot Roll Inspector ___ Environmental Sampling Technician ___ Other (describe below) Sacrament/Intervention ___ Active listening ___ Anointing ___ Cheondoism ___ Bereavement ___ Communion ___ Adelina exploration ___ ___ Life review _x__ Prayer ___ Reconciliation ___ Sacrament of Sick _x__ Supportive presence ___ Wedding ___ Other (describe below) Pastoral Comments patient is awake; pt states I am not very good right now confirming more about her anxieties at this time; this rasper machine operator gives calming words and assurance of doing what is best for her; offered that pt remain still and quiet but that this rasper machine operator would do what might be in her mind a good intervention; pt agreed that prayer would be good; pt declined offer of sitting presence as I just want to sleep; offer of future support to be given as desired
[2022-06-22] MEDS: Furosemide 40 MG/4 ML Vial IV (13:12)
[2022-06-22 13:38] LABS: Troponin-I HS 23 pg/mL (3.0-54.0)
--- NOTE | 2022-06-22 15:06 | CASEMGMT ---
Patient currenlty on continuous Bipap, RN CM assessment deferred at this time. Patient awaiting transfer to [facility]. CM will remain available for care coordination.
--- NOTE | 2022-06-22 15:20 | NURSING ---
Per Dr. Blum, not sepsis. Triggers d/t chronic lung issues.
--- NOTE | 2022-06-22 16:42 | CON.PCM.RE_ITS ---
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 She Was Started on Dialysis at [facility] approximately 2 months ago. There was no prior history of CKD, and her serum creatinine was normal 1 year ago. She remains dialysis dependent on MWF Schedule at [facility]. We will continue patient on MWF dialysis schedule while she is in the hospital. (2) Shortness of breath: PLAN: The patient has diffuse pulmonary edema on chest x-ray. There is signs of volume overload including lower extremity edema. Currently on BiPAP. The patient also has nonspecific interstitial pneumonia. The appearance of her chest x-ray has been unchanged since April. However, given her sudden worsening of respiratory status and hypoxia requiring NIV, I will ultrafilter the patient the patient tonight. (3) HTN (hypertension): PLAN: BP is on the high side although she is in respiratory distress. Continue current antihypertensives. Ultrafiltration tonight may also help. HPI Consult Data Date of Consult: 06/23/22 HPI Narrative Reason for Consultation: Dialysis dependent BEN HPI Narrative: EAN MILLER is a 57-year-old woman with past history of dialysis dependent acute kidney injury due to scleroderma renal crisis, systemic sclerosis, nonspecific interstitial pneumonia, heart failure preserved ejection fraction, hypothyroidism, and anemia. The patient is status post fall on 05/26/2022 resulting in pubic rami fracture. The patient then developed acute hypoxic respiratory failure and was transferred to [facility] where she was admitted between 05/29/2022 until 06/11/2022. Acute respiratory failure was thought to be secondary to volume overload. The patient presented to the hospital on 06/21/2022 with dyspnea. The patient dialyzes at [facility] on MWF schedule. She did attend dialysis before admission yesterday, but she only received 1.5-hour of her treatment before presentation to the hospital. The patient is currently on BiPAP and cannot effectively provide history. She shakes her head no to chest pain. She is short of breath and is nauseated. She has chronic lower extremity edema which has not increased in severity. Chest x- ray on 06/21/2022 revealed diffuse pulmonary edema. [facility] Medical History Anemia Anxiety disorder Bipolar disorder Depression Dialysis patient DVT (deep venous thrombosis) Fibromyalgia History of gastroesophageal reflux (GERD) Hypothyroidism Hypoxia Interstitial lung disease Irritable colon Osteoarthritis Scleredema Home Medications cyclobenzaprine 10 mg tablet 10 mg PO TID PRN muscle relaxer 01/22/22 [History Last Taken 05/29/22 11:00] levothyroxine 100 mcg tablet 100 mcg PO DAILY thyroid 05/05/22 [History Last Taken 05/20/22] lisinopril 40 mg tablet 40 mg PO DAILY blood pressure 05/05/22 [History Last Taken 05/20/22] mycophenolate mofetil 500 mg tablet (CellCept) 1,000 mg PO BID immunosuppresent 05/05/22 [History Last Taken 05/20/22] pantoprazole 40 mg tablet,delayed release 40 mg PO DAILY GERD 05/21/22 [History Last Taken 05/20/22] prednisone 20 mg tablet 60 mg PO DAILY auto immune 05/21/22 [History Last Taken 05/20/22] vitamin B complex and vitamin C no.20-folic acid 1 mg capsule 1 cap PO DAILY anti rejection 05/21/22 [History Last Taken 05/20/22] cholecalciferol (vitamin D3) 25 mcg (1,000 unit) tablet 25 mcg PO DAILYCM #0 tabs 05/22/22 [Rx Last Taken Unknown] oxycodone 5 mg tablet 5 mg PO Q4H PRN PRN Pain Score 4-10 3 days #15 tabs 05/27/22 [Rx Last Taken 05/28/22 23:11] potassium chloride 20 mEq tablet,extended release 20 meq PO QHS 05/29/22 [History Last Taken Unknown] Allergy/AdvReac Type Severity Reaction Status Date / Time acetaminophen [From Tylenol] Allergy Bleeding Verified 05/29/22 12:52 simvastatin [From Zocor] Allergy Rash Verified 05/29/22 12:52 NSAIDS (Non-Steroidal AdvReac Bleeding Verified 05/29/22 12:52 Anti-Inflamma Family History Father COPD (chronic obstructive pulmonary disease) Mother No cardiac disease Other Anemia Surgical History H/O foot surgery H/O knee surgery History of left heart catheterization (12/15/09) History of tonsillectomy S/P manipulation of deviated nasal septum Social History household members: significant other Smoking Status: Never smoker alcohol intake: never substance use type: does not use ROS ROS Narrative Unable to obtain because she is on BiPAP. Physical Exam Narrative General: Ill-appearing on BiPAP. HEENT: Normocephalic, atraumatic mucous membrane moist. Neck: Supple, 5 cm JVD. Heart: Normal S1, S2, tachycardic. No rubs or murmurs. Lungs: Diffuse rhonchi bilaterally. Abdomen: Normal bowel sound, soft, nontender, no guarding or rebound. Extremities: 1+ edema of the lower extremities bilaterally, sclerodactyly. Neurologic: No focal neurologic deficits. Psychiatric: Anxious. Skin: No rash, skin is warm and dry. Lab / Micro Data Result Diagrams: 06/23/22 03:00 06/23/22 03:00 Labs: Laboratory Results - last 24 hr 06/22/22 04:00: WBC 7.5, RBC 2.25 L, Hgb 6.9 L, Hct 22.3 L, MCV 99.1 H, MCH 30.7, MCHC 30.9 L, RDW Std Deviation 62.4 H, RDW Coeff of Pebbles 17.2 H, Plt Count 130 L, MPV 9.7, Immature Gran % (Auto) 0.500, Neut % (Auto) 93.6 H, Lymph % (Auto) 3.9 L, [place] % (Auto) 2.0, Eos % (Auto) 0.0, Baso % (Auto) 0.0, Absolute Neuts (auto) 7.0, Absolute Lymphs (auto) 0.29 L, Nucleated RBC % 0, Platelet Estimate SLT DEC, Anisocytosis 1+ 06/22/22 04:00: Sodium 136, Potassium 5.1, Chloride 99, Carbon Dioxide 29.0, Anion Gap 8, BUN 42 H, Creatinine 2.69 H, Estim Creat Clear Calc 21.34, Est GFR (MDRD) Af Amer 23 L, Est GFR (MDRD) Non-Af 19 L, BUN/Creatinine Ratio 15.6, Glucose 159 H, Calcium 8.9, Total Bilirubin 0.40, AST 20, ALT 12 L, Alkaline Phosphatase 109, Total Protein 6.3 L, Albumin 2.9 L, Globulin 3.4, Albumin/Globulin Ratio 0.9 06/22/22 04:00: Troponin I High Sens 23 06/22/22 08:00: Crossmatch See Detail 06/22/22 08:00: B-Natriuretic Peptide 3033.7 H 06/22/22 08:00: Procalcitonin 0.49 H Rhythm Strip Rhythm Strip: Sinus Tach Rate: 125 Ectopy: None
[2022-06-22] MEDS: guaiFENesin 10 ML UDC (200MG/10ML) PO (21:24)
--- NOTE | 2022-06-22 23:12 | DIALYSIS ---
Hemodialysis x 2hrs UF 2000mL removed. Pt tolerated tx. Catheter closed, clamped, and capped. Report to Gail Patterson. Pt stable and alert
[2022-06-23] VITALS (32 sets, daily range): BP systolic 130–168; BP diastolic 85–108; PULSE 79–124; RESP 10–35; TEMP 36.1–36.9; O2SAT 67–100
[2022-06-23] MEDS: oxyCODONE 5 MG Tablet PO ×4 (02:30→23:25)
[2022-06-23] MEDS: cycloBENZAPRine HCl 10 MG Tablet PO ×4 (02:30→23:25)
--- NOTE | 2022-06-23 02:41 | NURSING ---
Pt had been doing very well for about 6 hours on nasal canula, weaned down to 8L, oxygen saturation stable and respirations even and nonlabored. Pt became very anxious at 0200 saying she couldn't breathe and couldn't sleep. Pt's O2 sat was still 97% on 8L, but pt was short of breath and tachypneic. Pt wanted to get up to bedside commode. Pt's oxygen saturation dropped to mid-60s with activity, assisted pt back to bed and placed on bipap 100%. After about 5 minutes, pt's O2 sat back up to 100%. FiO2 then turned down to original setting of 50%. Pt tolerating well. Pt then repeatedly asking for pain medicine and to take bipap off. Pt placed on 10L NC and given PRN flexeril and oxy-ir. Pt asked to stay on nasal canula for now, O2 sat 98% and respirations even nonlabored at 22RR.
[2022-06-23] MEDS: 0.9% Saline Lock 10 ML Syringe IV ×4 (02:56→13:05)
[2022-06-23 03:09] LABS: Absolute Lymphocyte Count 0.28 X10^3/uL (0.83-4.51); Absolute Neutrophil Count 10.8 X10^3/uL (2.0-7.7); Basophil# 0.01 X10^3/uL; Basophil% 0.1 % (0-1); Hematocrit 27.9 % (37-47); Hemoglobin 8.8 g/dL (12.0-15.0); Lymphocyte # 0.28 X10^3/ul (0.83-4.51); Lymphocyte % 2.4 % (19-41); Mean Corp Hgb Conc 31.5 g/dL (32-36); Mean Corpuscular Hgb 30.1 pg (27.0-32.0); Mean Corpuscular Volume 95.5 fL (81-99); Mean Platelet Vol. 10.2 fl (6.2-12.0); Monocyte# 0.33 X10^3/uL; Monocyte% 2.9 % (0-10); NRBC Flagged by Analyzer 0 % (0-5); Neutrophil # 10.78 X10^3/uL (2.7-7.7); Neutrophil % 94.2 % (47-70); POSITIVE DIFFERENTIAL YES; POSITIVE MORPHOLOGY YES; Platelet Count 132 K/mm3 (150-450); RBC Distribution Width CV 19.3 % (11.6-14.6); RBC Distribution Width SD 66.7 fl (35.1-43.9); Red Blood Count 2.92 M/mm3 (4.2-5.4); White Blood Count 11.5 K/mm3 (4.4-11.0)
[2022-06-23 03:14] LABS: Differential Indicated SCAN CRITERIA MET
[2022-06-23 03:50] LABS: Anisocytosis 2+; Platelet Estimate SLT DEC (ADEQ)
[2022-06-23 03:54] LABS: ALB/GLOB Ratio 0.9 RATIO (0.9-2.4); AST(SGOT) 19 U/L (15-37); Alanine Aminotransfer ALT/SGPT 16 U/L (13-56); Alkaline Phosphatase 115 U/L (45-117); Anion Gap 10 (5-15); BUN 40 mg/dL (7-18); BUN/Creat Ratio 16.6 RATIO (10-20); Calcium,Total 8.7 mg/dL (8.5-10.1); Chloride 98 mmol/L (98-107); Creatinine, Serum 2.41 mg/dL (0.55-1.02); EST Glomerular Filtration Rate 22 mL/min (>60); Est Glom Filt Rate - Afr Amer 27 mL/min (>60); Estimated Creatinine Clearance 23.82 ml/min; Globulin 3.5 g/dL (2.2-4.2); Glucose 141 mg/dL (74-106); Potassium 4.9 mmol/L (3.5-5.1); Protein, Total 6.5 g/dL (6.4-8.2); Sodium Level 135 mmol/L (136-145)
[2022-06-23] MEDS: Levothyroxine 100 MCG Tablet PO (05:21)
--- NOTE | 2022-06-23 06:59 | PN.CC_ITS ---
Assessment & Plan Assessment/Plan (1) Acute and chronic respiratory failure with hypoxia: PLAN: Plan RECOMMENDATIONS: 1. Continue BiPAP therapy as needed. 2. Continue to wean supplemental oxygen to maintain saturations at or above 90%. 3. Continue CellCept and corticosteroids. 4. Continue to monitor H&H and transfuse if hemoglobin drops below 7 g/dL. 5. Encourage incentive spirometer use and mobilize patient as tolerated. 6. Ongoing dialysis per nephrology recommendations. IMPRESSIONS: 1. Acute on chronic hypoxemic respiratory failure The patient has a known history of scleroderma associated interstitial lung disease along with end-stage renal disease and chronic anemia. She presented with worsening shortness of breath with interstitial infiltrates on chest imaging and anemia. The patient appears to be improved after further volume optimization yesterday with hemodialysis. We will plan to continue the patien t's baseline CellCept along with corticosteroids as ordered. The patient is pending transfer to [facility] for further care. In the interim, we will continue BiPAP, if needed, along with supplemental oxygen to maintain saturations at or above 90%. 2. End-stage renal disease on hemodialysis Nephrology following to assist with hemodialysis needs. 3. Chronic anemia The patient has a known history of anemia. Recommend monitoring H&H daily and transfuse if hemoglobin drops below 7 g/dL. Continue PPI therapy as ordered. 4. GERD/hypertension/hypothyroidism Complicates care, management, recovery and prognosis. Continue home medications as indicated. This note was generated with [employer]. dictation software. It may contain incorrect words, spelling, and punctuation that were not noted in checking the note before signing. Subjective Subjective The patient was seen and examined at the bedside this morning. Events from the last 24 hours have been reviewed. The patient is currently afebrile, hemodynamically stable and maintaining appropriate oxygen saturations on 5 L/min via nasal cannula. The patient was mostly on nasal cannula supplemental O2 throughout the night, without the need for BiPAP support. She did tolerate d ialysis yesterday with 2 L of fluid removed. Her Precedex has been weaned off. Objective Data Objective Data The patient's most recent lab work, culture data and imaging studies have all been personally reviewed. Surface echocardiogram from April 2022 demonstrated normal LV size and function with an ejection fraction of 55%. Pulmonary artery systolic pressure was estimated to be 50 mmHg. Vital Signs: Vital Signs Temp Pulse Resp BP Pulse Ox O2 Del Method O2 Flow Rate 97 F L 85 23 H 152/93 H 92 Nasal Cannula 5 06/23/22 04:00 06/23/22 06:00 06/23/22 06:00 06/23/22 06:00 06/23/22 06:00 06/23/22 06:00 06/23/22 06:00 FiO2 50 06/23/22 02:12 Oxygen Flow Rate (L/min) 5 Oxygen Delivery Method Nasal Cannula Weight: 135 lb 2.294 oz Body Mass Index (BMI) 22.1 Intake & Output: Intake and Output for Last 24 Hours 06/21/22 06/22/22 06/23/22 23:59 23:59 23:59 Intake Total 322.60 / 324.55 661.04 / 676.34 94.97 / 94.97 Output Total 300 / 300 300 / 300 Balance 322.60 / 324.55 361.04 / 376.34 -205.03 / -205.03 Lab / Micro Data Attestation: I reviewed the patient's lab results. Result Diagrams: 06/23/22 03:00 06/23/22 03:00 Labs: Laboratory Results - last 24 hr 06/22/22 04:00: Troponin I High Sens 23 06/22/22 08:00: Crossmatch See Detail 06/22/22 08:00: B-Natriuretic Peptide 3033.7 H 06/22/22 08:00: Procalcitonin 0.49 H 06/23/22 03:00: WBC 11.5 H, RBC 2.92 L, Hgb 8.8 L, Hct 27.9 L, MCV 95.5, MCH 30.1, MCHC 31.5 L, RDW Std Deviation 66.7 H, RDW Coeff of Pebbles 19.3 H, Plt Count 132 L, MPV 10.2, Immature Gran % (Auto) 0.400, Neut % (Auto) 94.2 H, Lymph % (Auto) 2.4 L, [place] % (Auto) 2.9, Eos % (Auto) 0.0, Baso % (Auto) 0.1, Absolute Neuts (auto) 10.8 H, Absolute Lymphs (auto) 0.28 L, Nucleated RBC % 0, Platelet Estimate SLT DEC, Anisocytosis 2+ 06/23/22 03:00: Sodium 135 L, Potassium 4.9, Chloride 98, Carbon Dioxide 27.0, Anion Gap 10, BUN 40 H, Creatinine 2.41 H, Estim Creat Clear Calc 23.82, Est GFR (MDRD) Af Amer 27 L, Est GFR (MDRD) Non-Af 22 L, BUN/Creatinine Ratio 16.6, Glucose 141 H, Calcium 8.7, Total Bilirubin 0.70, AST 19, ALT 16, Alkaline Phosphatase 115, Total Protein 6.5, Albumin 3.0 L, Globulin 3.5, Albumin/Globulin Ratio 0.9 Micro: Microbiology 06/21/22 09:00 Nasal Secretion SARS-CoV-2 & FLU Antigen (Rapid) - Final ABG Data ABG results: ABG 06/21/22 12:40 Specimen Type ART Sample Site R Radial pH 7.43 Bicarbonate Actual 28.4 H Total CO2 30 Base Excess 4 H O2 Saturation 95 O2 % 45 ABG pCO2 42.6 ABG pO2 72 L [place] Test Positive Respiration Rate 10 O2 Delivery Device BiPAP Vent Mode CPAP/PS POC PEEP 6 POC Pressure Suppt 12 Radiography Diagnostic Testing: Radiology Impression Chest X-Ray 06/21/22 09:18 IMPRESSION: Diffuse bilateral airspace disease worse in the right hemithorax. Follow-up is recommended. Electronically Signed: Efren Arreguin MD at 9:30 EST , Rhythm Strip Rhythm Strip: Sinus Tach Rate: 125 Ectopy: None Physical Exam Const alert and no apparent distress General Appearance: cooperative HEENT normocephalic and head/scalp atraumatic Eyes PERRL, EOMs intact bilaterally and conjunctivae normal Neck supple General: trachea midline Chest Chest Narrative: Stable chest wall port. Resp Effort and Inspection: tachypneic Auscultation: rales Cardio regular rate, regular rhythm, S1 normal heart sound and S2 normal heart sound GI normal to inspection, nondistended, normoactive bowel sounds Extremity no clubbing, cyanosis or edema Skin no rashes or lesions noted Neuro CN's II-XII intact bilaterally and no focal motor deficits Psych cooperative Charges/Coding Visit Charges Inpatient E&M: 34710 Subs Hosp L3
[2022-06-23] MEDS: BENZOCAINE/MENTHOL 1 LOZENGE MUCOUS MEM ×2 (08:19→20:23)
--- NOTE | 2022-06-23 08:36 | PN.HOSP_ITS ---
Subjective Subjective Feeling somewhat better today, still some shortness of breath but is improved overall. Had that 1 episode with blood in sputum yesterday but has had no further incidents, not particularly coughing today. No other complaints Objective Data Objective Data Vital Signs: Vital Signs Temp Pulse Resp BP Pulse Ox O2 Del Method O2 Flow Rate 97.5 F L 103 H 35 H 159/102 H 95 High Flow 7 06/23/22 08:00 06/23/22 08:00 06/23/22 08:00 06/23/22 08:00 06/23/22 08:04 06/23/22 08:04 06/23/22 08:04 FiO2 50 06/23/22 02:12 Oxygen Flow Rate (L/min) 7 Oxygen Delivery Method High Flow Weight: 61.3 kg Body Mass Index (BMI) 22.1 Intake & Output: Intake and Output for Last 24 Hours 06/21/22 06/22/22 06/23/22 23:59 23:59 23:59 Intake Total 322.60 / 324.55 661.04 / 676.34 95.35 / 95.35 Output Total 300 / 300 300 / 300 Balance 322.60 / 324.55 361.04 / 376.34 -204.65 / -204.65 Lab / Micro Data Result Diagrams: 06/23/22 03:00 06/23/22 03:00 Labs: Laboratory Results - last 24 hr 06/22/22 04:00: Troponin I High Sens 23 06/22/22 08:00: Crossmatch See Detail 06/22/22 08:00: B-Natriuretic Peptide 3033.7 H 06/22/22 08:00: Procalcitonin 0.49 H 06/23/22 03:00: WBC 11.5 H, RBC 2.92 L, Hgb 8.8 L, Hct 27.9 L, MCV 95.5, MCH 30.1, MCHC 31.5 L, RDW Std Deviation 66.7 H, RDW Coeff of Pebbles 19.3 H, Plt Count 132 L, MPV 10.2, Immature Gran % (Auto) 0.400, Neut % (Auto) 94.2 H, Lymph % (Auto) 2.4 L, [place] % (Auto) 2.9, Eos % (Auto) 0.0, Baso % (Auto) 0.1, Absolute Neuts (auto) 10.8 H, Absolute Lymphs (auto) 0.28 L, Nucleated RBC % 0, Platelet Estimate SLT DEC, Anisocytosis 2+ 06/23/22 03:00: Sodium 135 L, Potassium 4.9, Chloride 98, Carbon Dioxide 27.0, Anion Gap 10, BUN 40 H, Creatinine 2.41 H, Estim Creat Clear Calc 23.82, Est GFR (MDRD) Af Amer 27 L, Est GFR (MDRD) Non-Af 22 L, BUN/Creatinine Ratio 16.6, Glucose 141 H, Calcium 8.7, Total Bilirubin 0.70, AST 19, ALT 16, Alkaline Phosphatase 115, Total Protein 6.5, Albumin 3.0 L, Globulin 3.5, Albumin/Globulin Ratio 0.9 Micro: Microbiology 06/21/22 09:00 Nasal Secretion SARS-CoV-2 & FLU Antigen (Rapid) - Final Rhythm Strip Rhythm Strip: Sinus Tach Rate: 125 Ectopy: None Physical Exam Const alert Constitutional Narrative: Oriented HEENT normocephalic and head/scalp atraumatic HEENT Narrative: Somewhat dry mucous Eyes Eyes Narrative: EOM grossly intact, anicteric Neck supple Resp Resp Narrative: Improving WOB, crackles present but continue to improve Cardio regular rate and regular rhythm GI soft to palpation, non-tender and non-distended Extremity Extremity Narrative: No edema appreciated Neuro moves all extremities Neuro Narrative: No overt focal deficits appreciated Psych Psych Narrative: Cooperative Assessment & Plan Assessment/Plan (1) Acute and chronic respiratory failure with hypoxia: PLAN: Plan #Acute on chronic hypoxic respiratory failure Presently BiPAP dependent on 07/13 at 60% She removed the BiPAP briefly because she was having difficulty communicating and O2 sat fell to 70s within several minutes but recovered 100% as soon as BiPAP was replaced Chest x-ray showed diffuse bilateral airspace disease worse in the right hemithorax ABG demonstrated only hypoxia Given 1 dose of IV Lasix in the ED she does still make urine Nephro consulted in the event she needs further dialysis Will transition prednisone to IV Methylpred COVID and flu rapid negative Will admit to ICU Was accepted by Dr. Sherman at [facility] however currently awaiting a bed 06/22: Improving today but still high O2 requirement with intermittent bipap. Continue steroids and cellcept. ICU team following. On precedex gtt to help her tolerate bipap when it's needed. Pending [facility] transfer, lasix 40 IV qday, BNP up to 3033 06/23: Doing better after dialysis yesterday. Continue CellCept and corticosteroids. Continues to improve. Is on 5 L of nasal cannula today, intermittent BiPAP. #Chronic anemia Hemoglobin 7.0 stays between 7 and 8.4 over the past 2 months No evidence of bleeding at this time 06/22: 1 u transfused 2/2 hgb 6.9, continue PPI 06/23: Continue PPI, hemoglobin responded to 1 unit and is 8.8 today #End-stage renal disease on hemodialysis Tuesday, Tuesday, Tuesday Had one half of the dialysis session 06/21, will consult nephrology Daily weights 06/23: Had HD the evening of 06/22, tolerated this well #Scleroderma and interstitial lung disease Reportedly had been out of CellCept since the [facility] which may in part be why she had a decline Will transition prednisone to IV Methylpred, got 1 dose in the ED 08/23: Continue steroids and cellcept #Hypothyroidism Continue Synthroid #DVT ppx: SCDs given history of alveolar hemorrhage Viktoria Zepeda MD Charges/Coding Visit Charges Inpatient E&M: 09680 Subs Hosp L2
[2022-06-23] MEDS: Pantoprazole Sodium 40 MG Tablet PO (09:29)
[2022-06-23] MEDS: Cholecalciferol (VIT D3) 25 MCG TABLET (1,000 UNITS) PO (09:29)
[2022-06-23] MEDS: Furosemide 40 MG/4 ML Vial IV (09:29)
[2022-06-23] MEDS: Folic Acid/Vitamin B Comp W-C 1 Capsule 1 CAP PO (09:29)
--- NOTE | 2022-06-23 09:34 | PCM.PN.REN ---
Subjective Subjective Following for dialysis dependent BEN. The patient is status post UF last night with 2 L removed. She feels better today although she is still more short of breath than baseline. There is no chest pain, nausea, or diarrhea. Objective Data Objective Data Vital Signs: Vital Signs Temp Pulse Resp BP Pulse Ox O2 Del Method O2 Flow Rate 97.6 F L 110 H 18 147/104 H 90 Nasal Cannula 5 06/23/22 09:00 06/23/22 09:00 06/23/22 09:00 06/23/22 09:00 06/23/22 09:00 06/23/22 09:00 06/23/22 09:00 FiO2 50 06/23/22 02:12 Oxygen Flow Rate (L/min) 5 Oxygen Delivery Method Nasal Cannula Weight: 61.3 kg Body Mass Index (BMI) 22.1 Intake & Output: Intake and Output for Last 24 Hours 06/21/22 06/22/22 06/23/22 23:59 23:59 23:59 Intake Total 322.60 / 324.55 661.04 / 676.34 95.35 / 95.35 Output Total 300 / 300 300 / 300 Balance 322.60 / 324.55 361.04 / 376.34 -204.65 / -204.65 Lab / Micro Data Result Diagrams: 06/23/22 03:00 06/23/22 03:00 Labs: Laboratory Results - last 24 hr 06/22/22 04:00: Troponin I High Sens 23 06/22/22 08:00: Crossmatch See Detail 06/23/22 03:00: WBC 11.5 H, RBC 2.92 L, Hgb 8.8 L, Hct 27.9 L, MCV 95.5, MCH 30.1, MCHC 31.5 L, RDW Std Deviation 66.7 H, RDW Coeff of Pebbles 19.3 H, Plt Count 132 L, MPV 10.2, Immature Gran % (Auto) 0.400, Neut % (Auto) 94.2 H, Lymph % (Auto) 2.4 L, [place] % (Auto) 2.9, Eos % (Auto) 0.0, Baso % (Auto) 0.1, Absolute Neuts (auto) 10.8 H, Absolute Lymphs (auto) 0.28 L, Nucleated RBC % 0, Platelet Estimate SLT DEC, Anisocytosis 2+ 11/16/22 03:00: Sodium 135 L, Potassium 4.9, Chloride 98, Carbon Dioxide 27.0, Anion Gap 10, BUN 40 H, Creatinine 2.41 H, Estim Creat Clear Calc 23.82, Est GFR (MDRD) Af Amer 27 L, Est GFR (MDRD) Non-Af 22 L, BUN/Creatinine Ratio 16.6, Glucose 141 H, Calcium 8.7, Total Bilirubin 0.70, AST 19, ALT 16, Alkaline Phosphatase 115, Total Protein 6.5, Albumin 3.0 L, Globulin 3.5, Albumin/Globulin Ratio 0.9 Micro: Microbiology 06/21/22 09:00 Nasal Secretion SARS-CoV-2 & FLU Antigen (Rapid) - Final Rhythm Strip Rhythm Strip: Sinus Tach Rate: 125 Ectopy: None Physical Exam Narrative General: Ill-appearing on nasal cannula oxygen. Speaking in short sentences. HEENT: Normocephalic, atraumatic mucous membrane moist. Neck: Supple, 5 cm JVD. Heart: Normal S1, S2, tachycardic. No rubs or murmurs. Lungs: Diffuse rhonchi bilaterally. Abdomen: Normal bowel sound, soft, nontender, no guarding or rebound. Extremities: 1+ edema of the lower extremities bilaterally, sclerodactyly. Neurologic: No focal neurologic deficits. Psychiatric: Anxious. Skin: No rash, skin is warm and dry. 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 She was started on dialysis at [facility] in April 2022. There was no prior history of CKD, and her serum creatinine was normal 1 year ago. She remains dialysis dependent on MWF Schedule at [facility]. We will continue patient on MWF dialysis schedule while she is in the hospital. She will be dialyzed later today. (2) Shortness of breath: PLAN: The patient has diffuse pulmonary edema on chest x-ray. There is signs of volume overload including lower extremity edema. The patient was ultrafiltered yesterday for 2 L. We will attempt to remove more fluid with hemodialysis today. She is currently off of BiPAP. The patient also has nonspecific interstitial pneumonia. The appearance of her chest x-ray has been unchanged since April. However, given her sudden worsening of respiratory status and hypoxia requiring NIV, I will continue to remove fluid with dialysis. (3) HTN (hypertension): PLAN: BP is on the high side although she is in respiratory distress. Continue current antihypertensives. Ultrafiltration today may also help.
[2022-06-23] MEDS: Ramipril 5 MG Capsule PO ×2 (12:07→21:59)
[2022-06-23] MEDS: Nepro Liquid 120 ML LIQUID PO ×2 (13:05→22:01)
--- NOTE | 2022-06-23 20:03 | DIALYSIS ---
hemodialysis completed x 2.5 hrs. Access via left chest HD cath. Net UF 2000ml. pt elvis well. See HD flowsheet on chart.
[2022-06-23] MEDS: Potassium Chloride Oral Tablet 20 MEQ PO (22:00)
[2022-06-24] VITALS (19 sets, daily range): BP systolic 130–153; BP diastolic 85–109; PULSE 97–131; RESP 18–22; TEMP 36.3–37.1; O2SAT 93–100
[2022-06-24 04:55] LABS: Absolute Lymphocyte Count 0.27 X10^3/uL (0.83-4.51); Absolute Neutrophil Count 10.2 X10^3/uL (2.0-7.7); Basophil# 0.01 X10^3/uL; Basophil% 0.1 % (0-1); Hematocrit 28.2 % (37-47); Hemoglobin 8.9 g/dL (12.0-15.0); Lymphocyte # 0.27 X10^3/ul (0.83-4.51); Lymphocyte % 2.4 % (19-41); Mean Corp Hgb Conc 31.6 g/dL (32-36); Mean Corpuscular Hgb 30.1 pg (27.0-32.0); Mean Corpuscular Volume 95.3 fL (81-99); Mean Platelet Vol. 10.6 fl (6.2-12.0); Monocyte# 0.49 X10^3/uL; Monocyte% 4.4 % (0-10); NRBC Flagged by Analyzer 0 % (0-5); Neutrophil # 10.21 X10^3/uL (2.7-7.7); Neutrophil % 92.1 % (47-70); POSITIVE DIFFERENTIAL YES; Platelet Count 162 K/mm3 (150-450); RBC Distribution Width CV 18.3 % (11.6-14.6); RBC Distribution Width SD 63.7 fl (35.1-43.9); Red Blood Count 2.96 M/mm3 (4.2-5.4); White Blood Count 11.1 K/mm3 (4.4-11.0)
[2022-06-24 05:11] LABS: Differential Indicated SCAN CRITERIA MET
[2022-06-24 05:26] LABS: ALB/GLOB Ratio 0.8 RATIO (0.9-2.4); AST(SGOT) 13 U/L (15-37); Alanine Aminotransfer ALT/SGPT 14 U/L (13-56); Albumin, Serum 2.9 g/dL (3.2-5.0); Alkaline Phosphatase 109 U/L (45-117); Anion Gap 8 (5-15); BUN 37 mg/dL (7-18); BUN/Creat Ratio 18.5 RATIO (10-20); Calcium,Total 8.7 mg/dL (8.5-10.1); Chloride 99 mmol/L (98-107); EST Glomerular Filtration Rate 27 mL/min (>60); Est Glom Filt Rate - Afr Amer 33 mL/min (>60); Globulin 3.5 g/dL (2.2-4.2); Glucose 152 mg/dL (74-106); Potassium 4.7 mmol/L (3.5-5.1); Protein, Total 6.4 g/dL (6.4-8.2); Sodium Level 136 mmol/L (136-145)
[2022-06-24 05:37] LABS: Anisocytosis 1+
[2022-06-24] MEDS: Levothyroxine 100 MCG Tablet PO (06:54)
[2022-06-24] MEDS: 0.9% Saline Lock 10 ML Syringe IV ×3 (06:56→22:05)
[2022-06-24] MEDS: Furosemide 40 MG/4 ML Vial IV (08:23)
[2022-06-24] MEDS: Ramipril 5 MG Capsule PO ×2 (08:23→21:52)
[2022-06-24] MEDS: Folic Acid/Vitamin B Comp W-C 1 Capsule 1 CAP PO (08:24)
[2022-06-24] MEDS: Cholecalciferol (VIT D3) 25 MCG TABLET (1,000 UNITS) PO (08:25)
[2022-06-24] MEDS: Pantoprazole Sodium 40 MG Tablet PO (08:26)
--- NOTE | 2022-06-24 09:11 | PN.RENAL_ITS ---
Subjective Subjective Resting quietly, sitting up in bed. Reports feeling better today. Reports breathing has improved. Denies any complaints. Objective Data Objective Data Vital Signs: Vital Signs Temp Pulse Resp BP Pulse Ox O2 Del Method O2 Flow Rate 97.9 F 113 H 20 H 153/109 H 93 Nasal Cannula 7 06/24/22 08:20 06/24/22 08:20 06/24/22 08:20 06/24/22 08:20 06/24/22 08:20 06/24/22 08:20 06/24/22 08:20 FiO2 50 06/24/22 03:00 Oxygen Flow Rate (L/min) 7 Oxygen Delivery Method Nasal Cannula Weight: 61.4 kg Body Mass Index (BMI) 22.1 Intake & Output: Intake and Output for Last 24 Hours 06/22/22 06/23/22 06/24/22 23:59 23:59 23:59 Intake Total 661.04 / 676.34 375.35 / 375.35 Output Total 300 / 300 2500 / 2500 Balance 361.04 / 376.34 -2124.65 / -2124.65 Lab / Micro Data Result Diagrams: 06/24/22 04:36 06/24/22 04:36 Labs: Laboratory Results - last 24 hr 06/24/22 04:36: WBC 11.1 H, RBC 2.96 L, Hgb 8.9 L, Hct 28.2 L, MCV 95.3, MCH 30.1, MCHC 31.6 L, RDW Std Deviation 63.7 H, RDW Coeff of Pebbles 18.3 H, Plt Count 162, MPV 10.6, Immature Gran % (Auto) 1.000 H, Neut % (Auto) 92.1 H, Lymph % (Auto) 2.4 L, [place] % (Auto) 4.4, Eos % (Auto) 0.0, Baso % (Auto) 0.1, Absolute Neuts (auto) 10.2 H, Absolute Lymphs (auto) 0.27 L, Nucleated RBC % 0, Anisocytosis 1+ 06/24/22 04:36: Sodium 136, Potassium 4.7, Chloride 99, Carbon Dioxide 29.0, Anion Gap 8, BUN 37 H, Creatinine 2.00 H, Estim Creat Clear Calc 28.70, Est GFR (MDRD) Af Amer 33 L, Est GFR (MDRD) Non-Af 27 L, BUN/Creatinine Ratio 18.5, Glucose 152 H, Calcium 8.7, Total Bilirubin 0.50, AST 13 L, ALT 14, Alkaline Phosphatase 109, Total Protein 6.4, Albumin 2.9 L, Globulin 3.5, Albumin/Globulin Ratio 0.8 L Micro: Microbiology 06/21/22 09:00 Nasal Secretion SARS-CoV-2 & FLU Antigen (Rapid) - Final Rhythm Strip Rhythm Strip: Sinus Tach Rate: 125 Ectopy: None Physical Exam Narrative General: Ill-appearing on nasal cannula oxygen. Alert and oriented x3 Heart: Normal S1, S2, tachycardic. No rubs or murmurs. Lungs: No wheezing or rales, faint scattered rhonchi Abdomen: Normal bowel sounds, soft, nontender, no guarding or rebound. Extremities: no pitting edema to legs, thighs or arms. Skin: No rash, skin is warm and dry. Tunneled HD catheter left chest area dressing clean, dry and intact. 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 She was started on dialysis at [facility] in April 2022. There was no prior history of CKD and her serum creatinine was normal 1 year ago. She remains dialysis dependent on MWF Schedule at [facility]. We will continue patient on MWF dialysis schedule while she is in the hospital. No acute indication for dialysis today. Plan for dialysis tomorrow. Outpatient EDW was 59.6 kg. Bed weight today 61.4kg. (2) Shortness of breath: PLAN: The patient had diffuse pulmonary edema on chest x-ray from 06/21. Because of hypervolemia and requiring BiPAP the patient had dialysis and sequential treatment for fluid removal Tuesday, Tuesday and Tuesday. Today patient states she feels better with breathing, edema improved and stated she cramped in her fingers/hands yesterday with dialysis therefore will not plan for HD/UF today. Off bipap but is requiring supplemental oxygen (3) HTN (hypertension): PLAN: BP improved. Continue current antihypertensives, ramipril and lasix.
--- NOTE | 2022-06-24 09:15 | PN.HOSP_ITS ---
Subjective Subjective Feels anxious but breathing slowly but steadily improving. Appetite fair, going to try to eat more substantial breakfast today. Objective Data Objective Data Vital Signs: Vital Signs Temp Pulse Resp BP Pulse Ox O2 Del Method O2 Flow Rate 97.9 F 113 H 20 H 153/109 H 93 Nasal Cannula 7 06/24/22 08:20 06/24/22 08:20 06/24/22 08:20 06/24/22 08:20 06/24/22 08:20 06/24/22 08:20 06/24/22 08:20 FiO2 50 06/24/22 03:00 Oxygen Flow Rate (L/min) 7 Oxygen Delivery Method Nasal Cannula Weight: 61.4 kg Body Mass Index (BMI) 22.1 Intake & Output: Intake and Output for Last 24 Hours 06/22/22 06/23/22 06/24/22 23:59 23:59 23:59 Intake Total 661.04 / 676.34 375.35 / 375.35 Output Total 300 / 300 2500 / 2500 Balance 361.04 / 376.34 -2124.65 / -2124.65 Lab / Micro Data Result Diagrams: 06/24/22 04:36 06/24/22 04:36 Labs: Laboratory Results - last 24 hr 06/24/22 04:36: WBC 11.1 H, RBC 2.96 L, Hgb 8.9 L, Hct 28.2 L, MCV 95.3, MCH 30.1, MCHC 31.6 L, RDW Std Deviation 63.7 H, RDW Coeff of Pebbles 18.3 H, Plt Count 162, MPV 10.6, Immature Gran % (Auto) 1.000 H, Neut % (Auto) 92.1 H, Lymph % (Auto) 2.4 L, [place] % (Auto) 4.4, Eos % (Auto) 0.0, Baso % (Auto) 0.1, Absolute Neuts (auto) 10.2 H, Absolute Lymphs (auto) 0.27 L, Nucleated RBC % 0, Anisocytosis 1+ 06/24/22 04:36: Sodium 136, Potassium 4.7, Chloride 99, Carbon Dioxide 29.0, Anion Gap 8, BUN 37 H, Creatinine 2.00 H, Estim Creat Clear Calc 28.70, Est GFR (MDRD) Af Amer 33 L, Est GFR (MDRD) Non-Af 27 L, BUN/Creatinine Ratio 18.5, Glucose 152 H, Calcium 8.7, Total Bilirubin 0.50, AST 13 L, ALT 14, Alkaline Phosphatase 109, Total Protein 6.4, Albumin 2.9 L, Globulin 3.5, Albumin/Globulin Ratio 0.8 L Micro: Microbiology 06/21/22 09:00 Nasal Secretion SARS-CoV-2 & FLU Antigen (Rapid) - Final Rhythm Strip Rhythm Strip: Sinus Tach Rate: 125 Ectopy: None Physical Exam Const alert Constitutional Narrative: Oriented HEENT normocephalic and head/scalp atraumatic HEENT Narrative: Somewhat dry mucous Eyes Eyes Narrative: EOM grossly intact, anicteric Neck supple Resp Resp Narrative: Improving WOB, crackles at bases, slight wheezing in upper lobes, overall improving Cardio regular rhythm Cardio Narrative: Mild tachycardia GI soft to palpation, non-tender and non-distended Extremity Extremity Narrative: No edema appreciated Neuro moves all extremities Neuro Narrative: No overt focal deficits appreciated Psych Psych Narrative: Cooperative Assessment & Plan Assessment/Plan (1) Acute and chronic respiratory failure with hypoxia: PLAN: Plan #Acute on chronic hypoxic respiratory failure Presently BiPAP dependent on 07/13 at 60% She removed the BiPAP briefly because she was having difficulty communicating and O2 sat fell to 70s within several minutes but recovered 100% as soon as BiPA P was replaced Chest x-ray showed diffuse bilateral airspace disease worse in the right hemithorax ABG demonstrated only hypoxia Given 1 dose of IV Lasix in the ED she does still make urine Nephro consulted in the event she needs further dialysis Will transition prednisone to IV Methylpred COVID and flu rapid negative Will admit to ICU Was accepted by Dr. Sherman at [facility] however currently awaiting a bed 06/22: Improving today but still high O2 requirement with intermittent bipap. Continue steroids and cellcept. ICU team following. On precedex gtt to help her tolerate bipap when it's needed. Pending [facility] transfer, lasix 40 IV qday, BNP up to 3033 06/23: Doing better after dialysis yesterday. Continue CellCept and corticosteroids. Continues to improve. Is on 5 L of nasal cannula today, intermittent BiPAP. 06/24: Transferred out of ICU, has done well with fluid removal with dialysis and had another session last night. Is no longer BiPAP dependent but does remain on oxygen. Voiced frustration with not getting better faster, counseled on fact that she is improving albeit slowly. #Chronic anemia Hemoglobin 7.0 On admission stays between 7 and 8.4 over the past 2 months No evidence of bleeding at this time She was treated suffused 1 unit on 06/22 and hemoglobin has been stable since that time #End-stage renal disease on hemodialysis Tuesday, Tuesday, Tuesday Nephrology consulted and has had several dialysis sessions which is improved her breathing. Further HD per nephrology #Scleroderma and interstitial lung disease Reportedly had been out of CellCept since the [facility] which may in part be why she had a decline Will transition prednisone to IV Methylpred, got 1 dose in the ED 08/23: Continue steroids and cellcept #Hypothyroidism Continue Synthroid #DVT ppx: SCDs given history of alveolar hemorrhage Viktoria Zepeda MD Charges/Coding Visit Charges Inpatient E&M: 32780 Subs Hosp L2
--- NOTE | 2022-06-24 09:16 | NURSING ---
I spoke with Susan at [facility] transfer line she stated they are still waiting for a bed.
[2022-06-24] MEDS: oxyCODONE 5 MG Tablet PO ×2 (09:37→20:13)
--- NOTE | 2022-06-24 10:20 | PN.CC_ITS ---
Assessment & Plan Assessment/Plan (1) Acute and chronic respiratory failure with hypoxia: PLAN: Plan RECOMMENDATIONS: 1. Continue to wean supplemental oxygen to maintain saturations at or above 90%. 2. Continue CellCept and corticosteroids. 3. Continue to monitor H&H and transfuse if hemoglobin drops below 7 g/dL. 4. Encourage incentive spirometer use and mobilize patient as tolerated. 5. Ongoing dialysis per nephrology recommendations. IMPRESSIONS: 1. Acute on chronic hypoxemic respiratory failure The patient has a known history of scleroderma associated interstitial lung disease along with end-stage renal disease and chronic anemia. She presented with worsening shortness of breath with interstitial infiltrates on chest imaging and anemia. The patient appears to be improved after further volume optimization with hemodialysis. We will plan to continue the patient's baseline CellCept along with corticosteroids as ordered. The patient is pending transfer to [facility] for further care. In the interim, we will continue BiPAP, if needed, along with supplemental oxygen to maintain saturations at or above 90%. 2. End-stage renal disease on hemodialysis Nephrology following to assist with hemodialysis needs. 3. Chronic anemia The patient has a known history of anemia. Recommend monitoring H&H daily and transfuse if hemoglobin drops below 7 g/dL. Continue PPI therapy as ordered. 4. GERD/hypertension/hypothyroidism Complicates care, management, recovery and prognosis. Continue home medications as indicated. This note was generated with [employer] dictation software. It may contain incorrect words, spelling, and punctuation that were not noted in checking the note before signing. Subjective Subjective The patient was seen and examined at the bedside this morning. Events from the last 24 hours have been reviewed. The patient is currently afebrile, hemodynamically stable and maintaining appropriate oxygen saturations on 7 L/min via nasal cannula. Hemoglobin is stable this morning at 8.9 g/dL. Objective Data Objective Data The patient's most recent lab work, culture data and imaging studies have all been personally reviewed. Surface echocardiogram from April 2022 demonstrated normal LV size and function with an ejection fraction of 55%. Pulmonary artery systolic pressure was estimated to be 50 mmHg. Vital Signs: Vital Signs Temp Pulse Resp BP Pulse Ox O2 Del Method O2 Flow Rate 98.1 F 131 H 22 H 153/104 H 93 Nasal Cannula 7 06/24/22 09:00 06/24/22 09:00 06/24/22 09:00 06/24/22 09:00 06/24/22 09:00 06/24/22 09:00 06/24/22 09:00 FiO2 50 06/24/22 03:00 Oxygen Flow Rate (L/min) 7 Oxygen Delivery Method Nasal Cannula Weight: 135 lb 5.821 oz Body Mass Index (BMI) 22.1 Intake & Output: Intake and Output for Last 24 Hours 06/22/22 06/23/22 06/24/22 23:59 23:59 23:59 Intake Total 661.04 / 676.34 375.35 / 375.35 Output Total 300 / 300 2500 / 2500 Balance 361.04 / 376.34 -2124.65 / -2124.65 Lab / Micro Data Attestation: I reviewed the patient's lab results. Result Diagrams: 06/24/22 04:36 06/24/22 04:36 Labs: Laboratory Results - last 24 hr 06/24/22 04:36: WBC 11.1 H, RBC 2.96 L, Hgb 8.9 L, Hct 28.2 L, MCV 95.3, MCH 30.1, MCHC 31.6 L, RDW Std Deviation 63.7 H, RDW Coeff of Pebbles 18.3 H, Plt Count 162, MPV 10.6, Immature Gran % (Auto) 1.000 H, Neut % (Auto) 92.1 H, Lymph % (Auto) 2.4 L, [place] % (Auto) 4.4, Eos % (Auto) 0.0, Baso % (Auto) 0.1, Absolute Neuts (auto) 10.2 H, Absolute Lymphs (auto) 0.27 L, Nucleated RBC % 0, Anisocytosis 1+ 06/24/22 04:36: Sodium 136, Potassium 4.7, Chloride 99, Carbon Dioxide 29.0, Anion Gap 8, BUN 37 H, Creatinine 2.00 H, Estim Creat Clear Calc 28.70, Est GFR (MDRD) Af Amer 33 L, Est GFR (MDRD) Non-Af 27 L, BUN/Creatinine Ratio 18.5, Glucose 152 H, Calcium 8.7, Total Bilirubin 0.50, AST 13 L, ALT 14, Alkaline Phosphatase 109, Total Protein 6.4, Albumin 2.9 L, Globulin 3.5, Albumin/Globu selina Ratio 0.8 L Micro: Microbiology 06/21/22 09:00 Nasal Secretion SARS-CoV-2 & FLU Antigen (Rapid) - Final ABG Data ABG results: ABG 06/21/22 12:40 Specimen Type ART Sample Site R Radial pH 7.43 Bicarbonate Actual 28.4 H Total CO2 30 Base Excess 4 H O2 Saturation 95 O2 % 45 ABG pCO2 42.6 ABG pO2 72 L [place] Test Positive Respiration Rate 10 O2 Delivery Device BiPAP Vent Mode CPAP/PS POC PEEP 6 POC Pressure Suppt 12 Radiography Diagnostic Testing: Radiology Impression Chest X-Ray 06/21/22 09:18 IMPRESSION: Diffuse bilateral airspace disease worse in the right hemithorax. Follow-up is recommended. Electronically Signed: Efren Arreguin MD at 9:30 EST , Rhythm Strip Rhythm Strip: Sinus Tach Rate: 125 Ectopy: None Physical Exam Const alert and no apparent distress General Appearance: cooperative HEENT normocephalic and head/scalp atraumatic Eyes PERRL, EOMs intact bilaterally and conjunctivae normal Neck supple General: trachea midline Chest Chest Narrative: Stable chest wall port. Resp Effort and Inspection: tachypneic Auscultation: rales Cardio S1 normal heart sound and S2 normal heart sound Rate: tachycardic GI normal to inspection, nondistended, normoactive bowel sounds Extremity no clubbing, cyanosis or edema Skin no rashes or lesions noted Neuro CN's II-XII intact bilaterally and no focal motor deficits Psych Mood & Affect: anxious Charges/Coding Visit Charges Inpatient E&M: 95607 Subs Hosp L2
--- NOTE | 2022-06-24 19:35 | CPS ---
Pt refused BiPAP for tonight
[2022-06-24] MEDS: Potassium Chloride Oral Tablet 20 MEQ PO (21:52)
[2022-06-24] MEDS: cycloBENZAPRine HCl 10 MG Tablet PO (21:52)
--- NOTE | 2022-06-25 00:13 | NURSING ---
pt was 97% on 7L highflow, tried to wean pt 02 down to 6L NC. Pt woke up and was having panic attack, 02 sats dropped to 86% and appears to be SOB. Bumped 02 to 8L and sats went up to 94%. This RN stayed in the room and reassure pt's okay. Pt able to relax, has cont pulse ox in the room.
--- NOTE | 2022-06-25 00:48 | NURSING ---
attempted to call report at [facility], receiving nurse curretly busy at this time. Will try to call again later
--- NOTE | 2022-06-25 01:43 | NURSING ---
report given to Radha SONI of [facility].
[2022-06-25 02:06] VITALS: BP 138/88; PULSE 99; RESP 16; TEMP 36.3; O2SAT 95
[2022-06-25 02:10] VITALS: BP 138/88; PULSE 99; RESP 16; TEMP 36.3; O2SAT 95
[2022-06-25 02:11] VITALS: PULSE 93; RESP 16
[2022-06-25 03:13] VITALS: PULSE 91
--- NOTE | 2022-06-25 04:31 | NURSING ---
This RN offer to call family to give them update about transfer.Pt has personal mobile phone and says she will update family and boyfriend about her transfer to [facility].
[2022-06-25 05:03] VITALS: BP 156/90; PULSE 104; RESP 20; TEMP 36.4; O2SAT 100
[2022-06-25 05:32] LABS: Absolute Lymphocyte Count 0.33 X10^3/uL (0.83-4.51); Absolute Neutrophil Count 9.8 X10^3/uL (2.0-7.7); Basophil# 0.01 X10^3/uL; Basophil% 0.1 % (0-1); Hematocrit 28.8 % (37-47); Hemoglobin 9.1 g/dL (12.0-15.0); Lymphocyte # 0.33 X10^3/ul (0.83-4.51); Lymphocyte % 3.1 % (19-41); Mean Corp Hgb Conc 31.6 g/dL (32-36); Mean Corpuscular Hgb 31.2 pg (27.0-32.0); Mean Corpuscular Volume 98.6 fL (81-99); Mean Platelet Vol. 10.7 fl (6.2-12.0); Monocyte# 0.47 X10^3/uL; Monocyte% 4.4 % (0-10); NRBC Flagged by Analyzer 0 % (0-5); Neutrophil # 9.81 X10^3/uL (2.7-7.7); Neutrophil % 90.9 % (47-70); POSITIVE DIFFERENTIAL YES; Platelet Count 153 K/mm3 (150-450); RBC Distribution Width CV 17.8 % (11.6-14.6); RBC Distribution Width SD 63.9 fl (35.1-43.9); Red Blood Count 2.92 M/mm3 (4.2-5.4); White Blood Count 10.8 K/mm3 (4.4-11.0)
[2022-06-25 05:46] LABS: Differential Indicated SCAN CRITERIA MET
[2022-06-25 05:58] LABS: Differential Comment SCANNED
[2022-06-25 06:43] LABS: Anion Gap 11 (5-15); BUN 74 mg/dL (7-18); BUN/Creat Ratio 26.1 RATIO (10-20); Calcium,Total 9.2 mg/dL (8.5-10.1); Chloride 100 mmol/L (98-107); Creatinine, Serum 2.83 mg/dL (0.55-1.02); EST Glomerular Filtration Rate 18 mL/min (>60); Est Glom Filt Rate - Afr Amer 22 mL/min (>60); Estimated Creatinine Clearance 20.28 ml/min; Glucose 180 mg/dL (74-106); Magnesium 2.6 mg/dL (1.6-2.6); Potassium 5.1 mmol/L (3.5-5.1); Sodium Level 135 mmol/L (136-145)
--- NOTE | 2022-06-25 14:13 | DS.PCM_ITS ---
Providers Date of Admission: 06/21/22 Date of Discharge: 06/25/22 Primary Care Physician: Dr. Mono Lynn MD Consultations 06/21/22 13:25 Consult: Loom Mechanic / Pulmonary Medicine Routine Consulting Provider: Pulmonary Medicine cyril [place] Reason for Consult: ICU admit, acute on chronic hypoxic respiratory failure EMERGENT Consult: No Notified: Yes Date Notified: 06/21/22 Time Notified: 14:10 Method of Notification: Verbal Consult: Nephrology Routine Consulting Provider: Nina Fontana Reason for Consult: ESRD on HD, only 1/2 HD today, may need further HD EMERGENT Consult: No Notified: Yes Date Notified: 06/21/22 Time Notified: 15:50 Method of Notification: Answering Service Reason For Visit: ACUTE ON CHRONIC HYPOXIC RESPIRATORY FAILURE Diagnosis Discharge Diagnosis (1) Acute and chronic respiratory failure with hypoxia: Status: Chronic Code(s): J96.21 - Acute and chronic respiratory failure with hypoxia Plan #Acute on chronic hypoxic respiratory failure #Chronic anemia #End-stage renal disease on hemodialysis Tuesday, Tuesday, Tuesday #Scleroderma and interstitial lung disease #Hypothyroidism Medications at Discharge Home Medications cyclobenzaprine 10 mg tablet 10 mg PO TID PRN muscle relaxer 01/22/22 levothyroxine 100 mcg tablet 100 mcg PO DAILY thyroid 05/05/22 mycophenolate mofetil 500 mg tablet (CellCept) 1,000 mg PO BID immunosuppresent 05/05/22 pantoprazole 40 mg tablet,delayed release 40 mg PO DAILY GERD 05/21/22 prednisone 20 mg tablet 60 mg PO DAILY auto immune 05/21/22 vitamin B complex and vitamin C no.20-folic acid 1 mg capsule 1 cap PO DAILY anti rejection 05/21/22 cholecalciferol (vitamin D3) 25 mcg (1,000 unit) tablet 25 mcg PO DAILYCM #0 tabs 05/22/22 oxycodone 5 mg tablet 5 mg PO Q4H PRN PRN Pain Score 4-10 3 days #15 tabs 05/27/22 potassium chloride 20 mEq tablet,extended release 20 meq PO QHS 05/29/22 ramipril 5 mg capsule 5 mg PO BID BP 06/23/22 Hospital Course Summary of Care Provided Minutes Spent on Discharge: 20 Hospital Course: Ms. Kaur is a 57-year-old female with a history of scleroderma, interstitial lung disease, end-stage renal disease on dialysis Tuesday and Tuesday as well as history of bleeding ulcers as well as pubic ramus fracture who presented to [facility] 06/21 with increasing shortness of breath.? She had been admitted 05/26 with intractable pain and was sent to SNF.? Since that time she went to [facility] and was discharged home on 5 L of O2.? She has been unable to get her CellCept and has continued to have inc reasing shortness of breath.? In the ED she was noted to be hypoxic and was placed on BiPAP which was helpful, [facility] contacted and Dr. Sherman accepted patient though no beds presently available so hospitalist contacted for admission. During her admission she was resumed on prednisone and CellCept which she later revealed she had been able to take for roughly 1 week, still required high amount of oxygen but was no longer BiPAP dependent. Received multiple sessions of dialysis and was receiving IV Lasix. Transferred to [facility] for further coordination of care. Weight / BMI Weight Weight: 62.7 kg Body Mass Index (BMI) 22.1 ABG / Lab / Microbiology Data Result Diagrams: 06/25/22 04:37 06/25/22 04:37 Laboratory: Laboratory Results - last 24 hr 06/25/22 04:37: WBC 10.8, RBC 2.92 L, Hgb 9.1 L, Hct 28.8 L, MCV 98.6, MCH 31.2, MCHC 31.6 L, RDW Std Deviation 63.9 H, RDW Coeff of Pebbles 17.8 H, Plt Count 153, MPV 10.7, Immature Gran % (Auto) 1.500 H, Neut % (Auto) 90.9 H, Lymph % (Auto) 3.1 L, [place] % (Auto) 4.4, Eos % (Auto) 0.0, Baso % (Auto) 0.1, Absolute Neuts (auto) 9.8 H, Absolute Lymphs (auto) 0.33 L, Nucleated RBC % 0, Differential Comment SCANNED 06/25/22 04:37: Sodium 135 L, Potassium 5.1, Chloride 100, Carbon Dioxide 24.0, Anion Gap 11, BUN 74 H, Creatinine 2.83 H, Estim Creat Clear Calc 20.28, Est GFR (MDRD) Af Amer 22 L, Est GFR (MDRD) Non-Af 18 L, BUN/Creatinine Ratio 26.1 H, Glucose 180 H, Calcium 9.2, Magnesium 2.6 Microbiology: Microbiology 06/21/22 09:00 Nasal Secretion SARS-CoV-2 & FLU Antigen (Rapid) - Final Meaningful Use Info Meaningful Use Diagnoses (Choose all that apply): None applicable Discharge Plan Admission Admit Date/Time: 06/21/22 13:21 Attending Provider: Viktoria Zepeda Primary Care Provider: Mono Lynn Consulting Providers: Nina Fontana ; Arlin Davis ; Iglesia Miranda ; Jerson Ariza ; Jaswinder Rabago ; Beni Good ; Beth Short ACCOUNTING TECHNICIAN Discharge Orders/Prescriptions Prescriptions: No Action cyclobenzaprine 10 mg tablet 10 mg PO TID PRN (Reason: muscle relaxer) Label Comments: TAKE 1 TABLET THREE TIMES DAILY NEEDED for MUSCLE SPASM mycophenolate mofetil [CellCept] 500 mg Tablet 1,000 mg PO BID levothyroxine 100 mcg tablet 100 mcg PO DAILY prednisone 20 mg Tablet 60 mg PO DAILY Rx Instructions: for 30 doses pantoprazole 40 mg Tablet,Delayed Release (Dr/Ec) 40 mg PO DAILY B complex with C 20-folic acid 1 mg Capsule 1 cap PO DAILY cholecalciferol (vitamin D3) 25 mcg (1,000 unit) Tablet 25 mcg PO DAILYCM Qty: 0 0RF oxycodone 5 mg Tablet 5 mg PO Q4H PRN PRN (Reason: Pain Score 4-10) 3 Days Qty: 15 0RF potassium chloride 20 mEq Tablet Extended Release 20 meq PO QHS ramipril 5 mg capsule 5 mg PO BID Referrals / Follow Up: Mono Lynn MD [Primary Care Provider] - Disposition Disposition (needs filled in before D/C Order can be placed): DC/Tx to Another Type of HCF
== END 2022-06-25 06:16 | disposition short-term general hospital (02) | DRG 189 ==
LOC: ED 09:09 → ICU 13:31 → PCU 06-23 15:21
PROVIDERS: Internal Medicine Critical Care Medicine; Admitting Provider Internal Medicine; Emergency Provider Emergency Medicine; PCP Family Medicine; Visit Provider Internal Medicine
DX: J96.21 Acute and chronic respiratory failure with hypoxia (principal); N18.6 End stage renal disease; I12.0 Hypertensive chronic kidney disease with stage 5 chronic kidney disease or end stage renal disease; N17.9 Acute kidney failure, unspecified; J84.9 Interstitial pulmonary disease, unspecified; M34.9 Systemic sclerosis, unspecified; D63.1 Anemia in chronic kidney disease; Z99.2 Dependence on renal dialysis; E03.9 Hypothyroidism, unspecified; M79.7 Fibromyalgia; K21.9 Gastro-esophageal reflux disease without esophagitis; Z82.5 Family history of asthma and other chronic lower respiratory diseases
CPT/HCPCS: 36415; 36591; 36600; 71045; 80048; 80053; 82803; 83605; 83735; 83880; 84145; 84484; 85025; 86850; 86900; 86901; 86920; 86922; 87428; 90937; 93005; 94002; 94003; 94640; 94762; 97162; 97802; 97803; 99251; 99285; P9016; A4216; G0257; G0463; J1940

== ENCOUNTER → 2022-08-13 | Outpatient (CLI) | payer MEDICARE, MEDICAID, SELFPAY ==
--- NOTE | 2022-08-13 10:47 | VDUE_ITS ---
Reason For Study: Pre op testing Right Arm Left Arm Right Cephalic Vein at the wrist measures Left Cephalic Vein at the wrist measures 0.06 x 0.07 cm. 0.06 x 0.06 cm. Right Cephalic Vein in the forearm measures Left Cephalic Vein in the forearm measures 0.05 x 0.05 cm. 0.05 x 0.06 cm. Right Cephalic Vein below antecub measures Left Cephalic Vein below antecub measures 0.03 x 0.05 cm. 0.07 x 0.06 cm. Right Cephalic Vein above antecub measures Left Cephalic Vein above antecub measures 0.07 x 0.07 cm. 0.05 x 0.05 cm. Right Cephalic Vein mid bicep measures 0.04 Left Cephalic Vein at mid bicep measures x 0.04 cm. 0.08 x 0.08 cm. Right Cephalic Vein at the shoulder measures Left Cephalic Vein at the shoulder measures 0.10 x 0.10 cm. 0.13 x 0.13 cm. Right Basilic Vein at the origin measures Basilic vein at origin measures 0.12 x 0.11 0.12 x 0.12 cm. cm. Right Basilic Vein mid bicep measures 0.12 x Basilic vein at bicep measures 0.07 x 0.08 0.11 cm. cm. Right Basilic Vein above antecub measures Basilic vein above antecub measures 0.12 x 0.13 cm. 0.12 cm. Brachial artery measures 0.33 x 0.35 cm with Brachial artery measures 0.31 x 0.33 cm with a velocity of 77.7 cm/sec. a velocity of 81.6 cm/sec. Radial artery measures 0.19 x 0.22 cm with a Radial artery measures 0.17 x 0.17 cm with a velocity of 62.1 cm/sec. velocity of 54.3 cm/sec. VL/Dialysis Vein Map PRE-OP BILAT Interpretation Summary Diminutive bilateral upper extremity cephalic and basilic veins. Findings sugge st inability to support a arteriovenous fistula Normal diameter and flow bilateral brachial arteries Small in diameter though appropriate flow bilateral radial arteries Ordering Physician: Mukul Jay Referring Physician: MD Mono Lynn Performed By: Helen Galvan, T ???
== END | disposition home or self-care (01) ==
LOC: CVS 10:45
PROVIDERS: PCP Family Medicine; Visit Provider Surgery
DX: Z01.818 Encounter for other preprocedural examination (principal); N18.6 End stage renal disease
CPT/HCPCS: 93985

== ENCOUNTER → 2022-10-14 | Outpatient (CLI) | payer MEDICARE, MEDICAID, SELFPAY | END | disposition home or self-care (01) | PROVIDERS: PCP Family Medicine; Visit Provider Physician Assistant Medical | DX: R00.0 Tachycardia, unspecified (principal) | CPT/HCPCS: 93225; 93226 ==

== ENCOUNTER 2022-12-04 18:55 | Inpatient (IN) | payer MEDICARE, MEDICAID, SELFPAY ==
[2022-12-04] VITALS (7 sets, daily range): BP systolic 77–107; BP diastolic 59–69; PULSE 66–139; RESP 14–19; TEMP 36.3–36.6; O2SAT 94–97; BMI 19.8; BMI 19.5
--- NOTE | 2022-12-04 19:14 | EDS_ITS ---
HPI History of Present Illness Chief Complaint: Shortness of Breath Informant: patient Onset/Context/Timing Onset: Days Context: gradual Timing: Continuous Quality: Positive for Dyspnea on exertion Worsened by: Exertion Relieved by: Rest Associated Symptoms cough and sore throat; Negative for rhinorrhea, post nasal drip, ear pain, fever, chills or sweats Chest Pain: Positive for None Narrative Narrative: Patient presents with shortness of breath that has been getting worse over the past several days. Patient states her breathing is worse with any exertion. Patient states it is better with rest. Patient states this has been constant for the past few days. Patient admits to a cough but denies any sputum. Patient admits to a sore throat. Patient denies any fevers or chills. Patient denies any chest pain. Patient denies any palpitations. Patient states she has had some recent nausea, vomiting, and diarrhea. Patient also admits to some urinary frequency. Patient has a history of scleroderma. [facility] Medical History Acute and chronic respiratory failure with hypoxia BEN (acute kidney injury) Anemia Anxiety disorder Bipolar disorder Depression Dialysis patient DVT (deep venous thrombosis) Fibromyalgia History of gastroesophageal reflux (GERD) Hypothyroidism Hypoxia Interstitial lung disease Irritable colon Osteoarthritis Pulmonary hypertension Scleredema Shortness of breath Home Medications mycophenolate mofetil 500 mg tablet (CellCept) 1,000 mg PO BID immunosuppresent 05/05/22 [History Last Taken 05/20/22] pantoprazole 40 mg tablet,delayed release 40 mg PO DAILY GERD 05/21/22 [History Last Taken 05/20/22] diltiazem HCl 120 mg capsule,extended release 24 hr cap PO 09/28/22 [History Last Taken Unknown] ferrous sulfate 325 mg (65 mg iron) tablet 325 mg PO DAILY 11/09/22 [History Last Taken Unknown] furosemide 20 mg tablet (Lasix) 20 mg PO DAILY PRN 11/09/22 [History Last Taken Unknown] mecobalamin (vitamin B12) 1,000 mcg chewable tablet 1,000 mcg PO DAILY 11/09/22 [History Last Taken Unknown] ramipril 5 mg capsule 5 mg PO DAILY 11/09/22 [History Last Taken Unknown] Allergy/AdvReac Type Severity Reaction Status Date / Time acetaminophen [From Tylenol] Allergy Bleeding Verified 12/04/22 18:58 simvastatin [From Zocor] Allergy Rash Verified 12/04/22 18:58 NSAIDS (Non-Steroidal AdvReac Bleeding Verified 12/04/22 18:58 Anti-Inflamma Family History Father COPD (chronic obstructive pulmonary disease) Mother No cardiac disease Other Anemia Surgical History H/O foot surgery H/O knee surgery History of left heart catheterization (12/15/09) History of tonsillectomy S/P manipulation of deviated nasal septum Social History household members: significant other Smoking Status: Never smoker alcohol intake: never substance use type: does not use ROS ROS ED Constitutional Constitutional ED: Denies chills or fever(s) Eyes Eyes: Denies blurry vision or change in vision ENT ENT ED: Denies rhinorrhea or sore throat Cardiovascular Cardiovascular: Denies chest pain or palpitations Respiratory/Chest Respiratory/Chest: Reports cough and dyspnea Gastrointestinal Gastrointestinal: Reports diarrhea, nausea and vomiting Genitourinary Genitourinary ED: Reports urinary frequency; Denies dysuria or hematuria Musculoskeletal Musculoskeletal: Reports neck pain; Denies back pain Integumentary Denies abscess or rash Neurologic Neurologic: Reports headache(s); Denies weakness Allergic/Immunologic Allergic/Immunologic ED: Denies mouth swelling or urticaria EXAM Physical Exam Const Vital Signs: 12/04/22 18:56 12/04/22 19:03 12/04/22 19:03 Temperature 97.4 F L Temperature Source Temporal Pulse Rate 139 H Respiratory Rate 19 H Respiratory Effort Short of Breath Respiratory Pattern Irregular Blood Pressure 90/60 Blood Pressure Mean 70 Pulse Ox 94 95 Oxygen Delivery Method Room Air Room Air Room Air 12/04/22 19:41 Temperature Temperature Source Pulse Rate 94 Respiratory Rate 16 Respiratory Effort Respiratory Pattern Blood Pressure Blood Pressure Mean Pulse Ox Oxygen Delivery Method Positive well nourished and well developed General Appearance ED: well developed HEENT Reports moist mucous membranes Neck supple and no JVD Resp normal respiratory effort Auscultation: diminished lung sounds Cardio regular rhythm Rate: tachycardic GI normal to inspection, nondistended, normoactive bowel sounds and non-tender Palpation: soft Extremity normal to inspection General Extremety ED: Negative for edema or tenderness General Extremity: Negative for edema Neuro oriented x3, CN's II-XII intact bilaterally and no sensory deficits noted Sensorium / Orientation: alert Motor Exam: strength 5/5 throughout Psych mental status grossly normal Skin no rashes or lesions noted MDM MDM MDM Narrative Medical decision making narrative: Differential diagnosis includes pneumonia, pneumothorax, pulmonary embolism, cardiac dysrhythmia, cardiac ischemia, congestive heart failure, electrolyte abnormality, and chronic lung disease. CBC will be obtained to assess for leuko cytosis and anemia. Basic metabolic profile will be obtained to assess for electrolyte abnormality and renal function. Chest x-ray will be obtained to assess for pneumonia and pneumothorax. High-sensitivity troponin will be obtained to assess for cardiac ischemia. EKG will be obtained to assess for cardiac dysrhythmia and cardiac ischemia. D-dimer will be obtained to assess for pulmonary embolism. BNP will be obtained to assess for congestive heart failure. Lab Data Attestation: I reviewed the patient's lab results. Lab results narrative: CBC was reviewed. There is an anemia with a hemoglobin of 6.6 and hematocrit of 22.1. Platelets were normal. Basic metabolic profile was reviewed. Creatinine was 2.45 and BUN was 53. This was consistent with prior results. GFR was 22. CO2 was slightly low at 16. High-sensitivity troponin was reviewed and was normal at 8. D-dimer was reviewed and was elevated at 0.70. However, this is improved compared to previous results. Patient chronically has an elevated D- dimer. Even though her D-dimer is elevated, it is improved compared to previous results. I do not feel the patient requires CTA of the chest since her tachycardia has resolved, her dyspnea has improved, she has a GFR of 22 and she is no longer on dialysis. The D-dimer may be elevated due to the gastrointestinal bleeding. Labs: Laboratory Results - last 24 hr 12/04/22 12/04/22 12/04/22 19:29 19:29 19:29 WBC 8.1 RBC 2.19 L Hgb 6.6 L Hct 22.1 L MCV 100.9 H MCH 30.1 MCHC 29.9 L RDW Std Deviation 50.3 H RDW Coeff of Pebbles 13.7 Plt Count 239 MPV 9.7 Immature Gran % (Auto) 0.500 Neut % (Auto) 84.1 H Lymph % (Auto) 9.5 L [place] % (Auto) 5.1 Eos % (Auto) 0.7 Baso % (Auto) 0.1 Absolute Neuts (auto) 6.8 Absolute Lymphs (auto) 0.77 L Nucleated RBC % 0 D-Dimer Quant (PE/DVT) 0.70 H* Sodium 133 L Potassium 4.7 Chloride 110 H Carbon Dioxide 16.0 L Anion Gap 7 BUN 53 H Creatinine 2.45 H Estim Creat Clear Calc 21.97 Est GFR (MDRD) Af Amer 26 L Est GFR (MDRD) Non-Af 22 L BUN/Creatinine Ratio 21.6 H Glucose 134 H Calcium 9.4 Troponin I High Sens 8 B-Natriuretic Peptide Crossmatch 12/04/22 12/04/22 19:29 22:33 WBC RBC Hgb Hct MCV MCH MCHC RDW Std Deviation RDW Coeff of Pebbles Plt Count MPV Immature Gran % (Auto) Neut % (Auto) Lymph % (Auto) [place] % (Auto) Eos % (Auto) Baso % (Auto) Absolute Neuts (auto) Absolute Lymphs (auto) Nucleated RBC % D-Dimer Quant (PE/DVT) Sodium Potassium Chloride Carbon Dioxide Anion Gap BUN Creatinine Estim Creat Clear Calc Est GFR (MDRD) Af Amer Est GFR (MDRD) Non-Af BUN/Creatinine Ratio Glucose Calcium Troponin I High Sens B-Natriuretic Peptide 43.2 Crossmatch See Detail Radiography Chest X-Ray - ED: 2 View, Read by ED Physician, Read by Radiologist and No Acute Disease Diagnostic Testing: Clinical Impression(s) from Imaging Studies Chest X-Ray 12/04/22 20:22 IMPRESSION: Poor inspiration with some bibasilar atelectasis. Electronically Signed: dEwardo Ambrose MD at 20:34 EDT , PA and lateral chest x-ray was obtained. There are 2 views. On my independent interpretation, there is no acute infiltrate. There is no pneumothorax. Bony t horax is normal. There is no cardiomegaly. There is some mild bibasilar atelectasis. There is no acute process noted. Radiologist also interpreted the x-rays and agrees. EKG Initial EKG: Attestation: I personally reviewed and interpreted this EKG as follows: Interpretation: Sinus Rhythm (88) and No Acute Injury Pattern Comments: EKG was obtained. On my independent interpretation, it showed a normal sinus rhythm with a rate of 88. AK interval, QRS interval, and QTc intervals were all normal. [place] was normal. There are no acute ST or T wave changes. Prior EKG tracings: available for review Prior: Unchanged (06/21/2022) Management Discussion w/another healthcare provider: Hospitalist and Investigation Clerk Treatment and Re-Evaluation :: Because of the drop in hemoglobin, rectal exam was performed. Stool was positive for occult blood. Patient was ordered a type and crossmatch of 1 unit of blood. Patient is agreeable to blood transfusion. Patient was transfused 1 unit of blood. Case was discussed with Dr. Mcgarry since there is no gastroenterology on-call tonight. She agrees with admission to the hospital here. She recommended starting the patient on pantoprazole 80 mg IV tonight and then 40 mg twice daily. Case was discussed with the hospitalist. He will admit the patient to his service. Patient understood and was agreeable with plan. All questions were answered. Discharge Plan Dx/Rx/DC Orders Clinical Impression: Gastrointestinal bleeding, upper, Scleroderma, Anemia, Dyspnea on exertion Disposition Disposition: Acute Care Hospital [facility]
--- NOTE | 2022-12-04 19:20 | EKG12_ITS ---
Test Reason : SOB Blood Pressure : / mmHG Vent. Rate : 088 BPM Atrial Rate : 088 BPM P-R Int : 140 ms QRS Dur : 082 ms QT Int : 368 ms P-R-T Axes : 048 033 047 degrees QTc Int : 445 ms Normal sinus rhythm Normal ECG Confirmed by JAMES ZULETA, MARGARET ([id number]), material expeditor ANA ROSA MELENDEZ ([id number]) on 12/07/2022 1:13:39 PM Referred By: Confirmed By:MARGARET RAMIREZ MD
[2022-12-04 19:36] LABS: Absolute Lymphocyte Count 0.77 X10^3/uL (0.83-4.51); Absolute Neutrophil Count 6.8 X10^3/uL (2.0-7.7); Basophil# 0.01 X10^3/uL; Basophil% 0.1 % (0-1); Eosinophil# 0.06 X10^3/uL; Eosinophils% 0.7 % (0-5); Hematocrit 22.1 % (37-47); Hemoglobin 6.6 g/dL (12.0-15.0); Lymphocyte # 0.77 X10^3/ul (0.83-4.51); Lymphocyte % 9.5 % (19-41); Mean Corp Hgb Conc 29.9 g/dL (32-36); Mean Corpuscular Hgb 30.1 pg (27.0-32.0); Mean Corpuscular Volume 100.9 fL (81-99); Mean Platelet Vol. 9.7 fl (6.2-12.0); Monocyte# 0.41 X10^3/uL; Monocyte% 5.1 % (0-10); NRBC Flagged by Analyzer 0 % (0-5); Neutrophil # 6.78 X10^3/uL (2.7-7.7); Neutrophil % 84.1 % (47-70); Platelet Count 239 K/mm3 (150-450); RBC Distribution Width CV 13.7 % (11.6-14.6); RBC Distribution Width SD 50.3 fl (35.1-43.9); Red Blood Count 2.19 M/mm3 (4.2-5.4); White Blood Count 8.1 K/mm3 (4.4-11.0)
[2022-12-04] MEDS: Ipratropium/Albuterol Sulfate 3 ML AMPUL.NEB INHALATION (19:39)
[2022-12-04 19:56] LABS: Anion Gap 7 (5-15); BUN 53 mg/dL (7-18); BUN/Creat Ratio 21.6 RATIO (10-20); Calcium,Total 9.4 mg/dL (8.5-10.1); Chloride 110 mmol/L (98-107); Creatinine, Serum 2.45 mg/dL (0.55-1.02); EST Glomerular Filtration Rate 22 mL/min (>60); Est Glom Filt Rate - Afr Amer 26 mL/min (>60); Estimated Creatinine Clearance 21.97 ml/min; Glucose 134 mg/dL (74-106); Potassium 4.7 mmol/L (3.5-5.1); Sodium Level 133 mmol/L (136-145); Troponin-I HS 8 pg/mL (3.0-54.0)
[2022-12-04 20:07] LABS: BNP,B-Type NATRIURETIC PEPTIDE 43.2 pg/mL (0-100)
--- NOTE | 2022-12-04 20:22 | RAD_ITS ---
STUDY: X-RAY CHEST REASON FOR EXAM: Female, 57 years old. Dyspnea TECHNIQUE: PA and lateral views of the chest. COMPARISON: 06/21/2022 FINDINGS: Poor inspiration with some bibasilar atelectasis. There is no demonstrated pleural abnormality. Normal size heart. Normal mediastinum and pankaj. Normal visualized pulmonary arteries. Normal visualized aortic arch and descending thoracic aorta. Normal visualized thoracic spine. Normal visualized ribs, clavicles, and shoulders. There is no demonstrated abnormality of the visualized soft tissue structures of the upper abdomen. RAD/Chest PA and Lateral IMPRESSION: Poor inspiration with some bibasilar atelectasis. Electronically Signed: Edwardo Ambrose MD at 20:34 EDT ,
--- NOTE | 2022-12-04 23:07 | PCM.HP.STD ---
HPI - General General Date of Admission: 12/04/22 Date of Service: 12/04/22 Chief Complaint: Diarrhea HPI Narrative EAN MILLER, is a 57 F with a significant history of scleroderma; CKD previously on dialysis who presents to the emergency department with 2-week history of progressively worsening diarrhea. She has multiple runny stools in the day. Associated with her symptoms is abdominal cramping. On the day of presentation he had some nausea and vomiting. Also she reports dyspnea on exertion that is worsened from her baseline. At the emergency department with rectal examination ED physician found dark stools that was occult positive. Patient reports dizziness with standing up. At the emergency department patient's blood pressure was soft and she was orthostatic positive. She reports a chronic crackles. She reports a history of her lungs being full with fluid and intubation. [facility] Medical History Acute and chronic respiratory failure with hypoxia BEN (acute kidney injury) Anemia Anxiety disorder Bipolar disorder Depression Dialysis patient DVT (deep venous thrombosis) Fibromyalgia History of gastroesophageal reflux (GERD) Hypothyroidism Hypoxia Interstitial lung disease Irritable colon Osteoarthritis Pulmonary hypertension Scleredema Shortness of breath Home Medications mycophenolate mofetil 500 mg tablet (CellCept) 1,000 mg PO BID immunosuppresent 05/05/22 [History Last Taken 05/20/22] pantoprazole 40 mg tablet,delayed release 40 mg PO DAILY GERD 05/21/22 [History Last Taken 05/20/22] diltiazem HCl 120 mg capsule,extended release 24 hr 1 cap PO DAILY 09/28/22 [History Last Taken Unknown] ferrous sulfate 325 mg (65 mg iron) tablet 325 mg PO BID 11/09/22 [History Last Taken Unknown] furosemide 20 mg tablet (Lasix) 20 mg PO DAILY PRN Swelling 11/09/22 [History Last Taken Unknown] ramipril 5 mg capsule 5 mg PO BID 11/09/22 [History Last Taken Unknown] levothyroxine 100 mcg tablet 100 mcg PO DAILY 12/04/22 [History Last Taken Unknown] Allergy/AdvReac Type Severity Reaction Status Date / Time acetaminophen [From Tylenol] Allergy Bleeding Verified 12/04/22 18:58 simvastatin [From Zocor] Allergy Rash Verified 12/04/22 18:58 NSAIDS (Non-Steroidal AdvReac Bleeding Verified 12/04/22 18:58 Anti-Inflamma Family History Father COPD (chronic obstructive pulmonary disease) Mother No cardiac disease Other Anemia Surgical History H/O foot surgery H/O knee surgery History of left heart catheterization (12/15/09) History of tonsillectomy S/P manipulation of deviated nasal septum Social History household members: significant other Smoking Status: Never smoker alcohol intake: never substance use type: does not use ROS ROS Narrative Pertinent positives and pertinent negatives as noted in HPI. All other systems were reviewed and are negative Vital Signs Vital Signs Vital Signs: 12/04/22 18:56 12/04/22 19:03 12/04/22 19:03 Temperature 97.4 F L Temperature Source Temporal Pulse Rate 139 H Respiratory Rate 19 H Respiratory Effort Short of Breath Respiratory Pattern Irregular Blood Pressure 90/60 Blood Pressure Mean 70 Pulse Ox 94 95 Oxygen Delivery Method Room Air Room Air Room Air 12/04/22 19:41 Temperature Temperature Source Pulse Rate 94 Respiratory Rate 16 Respiratory Effort Respiratory Pattern Blood Pressure Blood Pressure Mean Pulse Ox Oxygen Delivery Method Weight Weight: 55.61 kg Body Mass Index (BMI) 19.8 Physical Exam Narrative Physical exam: General: Thin frame middle-aged female Head: Normocephalic, atraumatic, no tenderness Eyes: Vision is grossly intact. EOMI ENT, no trauma, moist mucous membranes, no rhinorrhea Neck: Nontender, No thyromegaly. CVS: Regular rate and rhythm. S1-S2 present. No murmur, gallop or rub. Respiratory : Bibasilar crackles (reports chronic), chest wall nontender Abdomen: Soft, nontender, nondistended, normal bowel sounds, no masses : Deferred Back: Nontender, no CVA tenderness, no midline spinal tenderness, deformities, step-offs Extremities: Nontender full range of motion, no trauma Skin: Normal color, no trauma, abrasions Neuro: Alert, oriented, cranial nerves II through XII grossly intact. Psychiatry: Normal mood. Normal affect. Not depressed. Not anxious. Results Lab / Micro Data Result Diagrams: 12/04/22 19:29 12/04/22 19:29 Labs: Laboratory Results - last 24 hr 12/04/22 19:29: WBC 8.1, RBC 2.19 L, Hgb 6.6 L, Hct 22.1 L, MCV 100.9 H, MCH 30.1, MCHC 29.9 L, RDW Std Deviation 50.3 H, RDW Coeff of Pebbles 13.7, Plt Count 239, MPV 9.7, Immature Gran % (Auto) 0.500, Neut % (Auto) 84.1 H, Lymph % (Auto) 9.5 L, [place] % (Auto) 5.1, Eos % (Auto) 0.7, Baso % (Auto) 0.1, Absolute Neuts (auto) 6.8, Absolute Lymphs (auto) 0.77 L, Nucleated RBC % 0 12/04/22 19:29: D-Dimer Quant (PE/DVT) 0.70 H* 12/04/22 19:29: Sodium 133 L, Potassium 4.7, Chloride 110 H, Carbon Dioxide 16.0 L, Anion Gap 7, BUN 53 H, Creatinine 2.45 H, Estim Creat Clear Calc 21.97, Est GFR (MDRD) Af Amer 26 L, Est GFR (MDRD) Non-Af 22 L, BUN/Creatinine Ratio 21.6 H, Glucose 134 H, Calcium 9.4, Troponin I High Sens 8 12/04/22 19:29: B-Natriuretic Peptide 43.2 12/04/22 22:33: Crossmatch See Detail Micro: Microbiology 12/04/22 21:27 Stool Stool Occult Blood ([facility]RIET) - Final Occult Blood Positive Radiology Impression Chest X-Ray 12/04/22 20:22 IMPRESSION: Poor inspiration with some bibasilar atelectasis. Electronically Signed: Edwardo Ambrose MD at 20:34 EDT , Assessment & Plan Assessment/Plan (1) Gastrointestinal bleeding, upper: (2) ABLA (acute blood loss anemia): (3) Orthostatic hypotension: PLAN: Plan Acute blood loss anemia with orthostatic hypotension Her hemoglobin on presentation was 6.6. While in June 2022 her Hgb was 7.0, 6.9, 8.8, 8.9 and 9.1. Orthostatic blood pressures at the emergency department was positive. 1 L of normal saline given at the ED. Of note patient's came off dialysis about 4 months ago. Cautious use of IV fluids. 1 unit of packed red blood cells ordered at the emergency department. Trend H&H hold home blood pressure medications. With a positive orthostatic blood pressure and acute blood loss anemia admit to intensive care unit. Protonix infusion ordered. General surgery consult. Keep n.p.o. except meds. Diarrhea Enteropathogenic panel ordered. C. difficile ordered. DVT prophylaxis SCDs ordered. Charges/Coding Visit Charges Inpatient E&M: 66856 Init Hosp L3
[2022-12-04] MEDS: 0.9% Normal Saline 1,000 ML 1000 ML IV (23:31)
[2022-12-05] VITALS (17 sets, daily range): BP systolic 82–122; BP diastolic 45–84; PULSE 80–125; RESP 14–22; TEMP 36.3–37.3; O2SAT 97–100; BMI 19.8
[2022-12-05 05:42] LABS: Anion Gap 8 (5-15); BUN 47 mg/dL (7-18); BUN/Creat Ratio 22.9 RATIO (10-20); Calcium,Total 8.9 mg/dL (8.5-10.1); Chloride 113 mmol/L (98-107); Creatinine, Serum 2.05 mg/dL (0.55-1.02); EST Glomerular Filtration Rate 26 mL/min (>60); Est Glom Filt Rate - Afr Amer 32 mL/min (>60); Estimated Creatinine Clearance 26.26 ml/min; Glucose 106 mg/dL (74-106); Potassium 4.8 mmol/L (3.5-5.1); Sodium Level 137 mmol/L (136-145)
[2022-12-05 06:38] LABS: Absolute Lymphocyte Count 1.14 X10^3/uL (0.83-4.51); Absolute Neutrophil Count 4.6 X10^3/uL (2.0-7.7); Basophil# 0.01 X10^3/uL; Basophil% 0.2 % (0-1); Eosinophil# 0.05 X10^3/uL; Eosinophils% 0.8 % (0-5); Hematocrit 24.6 % (37-47); Hemoglobin 7.6 g/dL (12.0-15.0); Lymphocyte # 1.14 X10^3/ul (0.83-4.51); Mean Corp Hgb Conc 30.9 g/dL (32-36); Mean Corpuscular Hgb 29.9 pg (27.0-32.0); Mean Corpuscular Volume 96.9 fL (81-99); Mean Platelet Vol. 10.3 fl (6.2-12.0); Monocyte# 0.49 X10^3/uL; Monocyte% 7.7 % (0-10); NRBC Flagged by Analyzer 0 % (0-5); Neutrophil # 4.61 X10^3/uL (2.7-7.7); Neutrophil % 72.8 % (47-70); Platelet Count 227 K/mm3 (150-450); RBC Distribution Width CV 13.9 % (11.6-14.6); RBC Distribution Width SD 49.2 fl (35.1-43.9); Red Blood Count 2.54 M/mm3 (4.2-5.4); White Blood Count 6.3 K/mm3 (4.4-11.0)
--- NOTE | 2022-12-05 07:40 | EX.PCM.CON.S ---
Assessment & Plan Assessment/Plan (1) Anemia: (2) ABLA (acute blood loss anemia): PLAN: Plan Did discuss with patient I would recommend an EGD and a colonoscopy. We discussed that I do not believe would need to be done today and could possibly even be done as an outpatient in the near future. 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 Okay for full liquids today. Will await to hear back from patient see if she is interested in getting the endoscopies done. Fatou Mcgarry M.D. Pager: [phone] [facility] [address] [place] [address], Outpatient Pavilion, [address] [place] [address] Office: [phone] HPI Consult Data Date of Consult: 12/06/22 HPI Narrative HPI Narrative: EAN MILLER, is a 57 F who presents to the ER due to shortness of breath also had some abdominal cramping/nausea and vomiting. Patient is also been having diarrhea for about 2 weeks. Patient states has been brown/green for the 2 weeks and has about 6 episodes daily. Patient states she had a hemoglobin check on Tuesday which was 7 in the ER was 6.6. Patient's fecal occult in the ER was positive. Patient states her last scope was about 7 or 8 years ago unsure if she had an EGD with colonoscopy at that time or not. Patient also has a past medical history of scleroderma and does like to run her medical care through her switchboard wire worker helper with [facility] [employer] which she communicates through [employer]. Patient did get 1 unit of packed red blood cells and her hemoglobin currently is 7.6. Patient states she normally runs low with her blood pressure systolics been in the 90s. [facility] Medical History Acute and chronic respiratory failure with hypoxia BEN (acute kidney injury) Anemia Anxiety disorder Bipolar disorder Depression Dialysis patient DVT (deep venous thrombosis) Fibromyalgia History of gastroesophageal reflux (GERD) Hypothyroidism Hypoxia Interstitial lung disease Irritable colon Osteoarthritis Pulmonary hypertension Scleredema Shortness of breath Home Medications mycophenolate mofetil 500 mg tablet (CellCept) 1,000 mg PO BID immunosuppresent 05/05/22 [History Last Taken 10/13/22] pantoprazole 40 mg tablet,delayed release 40 mg PO DAILY GERD 05/21/22 [History Last Taken 05/20/22] diltiazem HCl 120 mg capsule,extended release 24 hr 1 cap PO DAILY 09/28/22 [History Last Taken Unknown] ferrous sulfate 325 mg (65 mg iron) tablet 325 mg PO BID 11/09/22 [History Last Taken Unknown] furosemide 20 mg tablet (Lasix) 20 mg PO DAILY PRN Swelling 11/09/22 [History Last Taken Unknown] ramipril 5 mg capsule 5 mg PO BID 11/09/22 [History Last Taken Unknown] levothyroxine 100 mcg tablet 100 mcg PO DAILY 12/04/22 [History Last Taken Unknown] Allergy/AdvReac Type Severity Reaction Status Date / Time acetaminophen [From Tylenol] Allergy Bleeding Verified 12/04/22 18:58 simvastatin [From Zocor] Allergy Rash Verified 12/04/22 18:58 NSAIDS (Non-Steroidal AdvReac Bleeding Verified 12/04/22 18:58 Anti-Inflamma Family History Father COPD (chronic obstructive pulmonary disease) Mother No cardiac disease Other Anemia Surgical History H/O foot surgery H/O knee surgery History of left heart catheterization (12/15/09) History of tonsillectomy S/P manipulation of deviated nasal septum Social History household members: significant other Smoking Status: Never smoker alcohol intake: never substance use type: does not use ROS Constitutional Constitutional: Denies fever(s) Eyes Eyes: Denies loss of central vision ENT HEENT: Denies dysphagia Cardiovascular Cardiovascular: Denies chest pain Respiratory/Chest Respiratory/Chest: Reports shortness of breath with exertion; Denies shortness of breath at rest Gastrointestinal Gastrointestinal: Reports diarrhea, nausea and vomiting; Denies abdominal pain, constipation, hematemesis or hematochezia Genitourinary Genitourinary: Denies dysuria Integumentary Integumentary: Denies jaundice Neurologic Neurologic: Denies focal weakness Psychiatric Psychiatric: Denies anxiety Physical Exam Const alert, oriented x3 and no apparent distress HEENT normocephalic and head/scalp atraumatic Resp normal respiratory effort Cardio regular rate GI soft to palpation and non-tender; Negative for non-distended Palpation: Negative for guarding Extremity no clubbing, cyanosis or edema Neuro CN's II-XII intact bilaterally Psych mental status grossly normal Lab / Micro Data Result Diagrams: 12/06/22 06:12 12/06/22 06:12 Labs: Laboratory Results - last 24 hr 12/04/22 19:29: WBC 8.1, RBC 2.19 L, Hgb 6.6 L, Hct 22.1 L, MCV 100.9 H, MCH 30.1, MCHC 29.9 L, RDW Std Deviation 50.3 H, RDW Coeff of Pebbles 13.7, Plt Count 239, MPV 9.7, Immature Gran % (Auto) 0.500, Neut % (Auto) 84.1 H, Lymph % (Auto) 9.5 L, [place] % (Auto) 5.1, Eos % (Auto) 0.7, Baso % (Auto) 0.1, Absolute Neuts (auto) 6.8, Absolute Lymphs (auto) 0.77 L, Nucleated RBC % 0 12/04/22 19:29: D-Dimer Quant (PE/DVT) 0.70 H* 12/04/22 19:29: Sodium 133 L, Potassium 4.7, Chloride 110 H, Carbon Dioxide 16.0 L, Anion Gap 7, BUN 53 H, Creatinine 2.45 H, Estim Creat Clear Calc 21.97, Est GFR (MDRD) Af Amer 26 L, Est GFR (MDRD) Non-Af 22 L, BUN/Creatinine Ratio 21.6 H, Glucose 134 H, Calcium 9.4, Troponin I High Sens 8 12/04/22 19:29: B-Natriuretic Peptide 43.2 12/04/22 22:33: Blood Type O POSITIVE, Antibody Screen NEGATIVE, Crossmatch See Detail 12/05/22 05:15: Sodium 137, Potassium 4.8, Chloride 113 H, Carbon Dioxide 16.0 L, Anion Gap 8, BUN 47 H, Creatinine 2.05 H, Estim Creat Clear Calc 26.26, Est GFR (MDRD) Af Amer 32 L, Est GFR (MDRD) Non-Af 26 L, BUN/Creatinine Ratio 22.9 H, Glucose 106, Calcium 8.9 12/05/22 05:15: WBC 6.3, RBC 2.54 L, Hgb 7.6 L, Hct 24.6 L, MCV 96.9, MCH 29.9, MCHC 30.9 L, RDW Std Deviation 49.2 H, RDW Coeff of Pebbles 13.9, Plt Count 227, MPV 10.3, Immature Gran % (Auto) 0.500, Neut % (Auto) 72.8 H, Lymph % (Auto) 18.0 L, [place] % (Auto) 7.7, Eos % (Auto) 0.8, Baso % (Auto) 0.2, Absolute Neuts (auto) 4.6, Absolute Lymphs (auto) 1.14, Nucleated RBC % 0 Micro: Microbiology 12/05/22 01:45 Stool Enteric Bacteriology - Final 12/05/22 01:45 Stool C. difficile DNA Amplification - Final 12/04/22 21:27 Stool Stool Occult Blood (HARRIET) - Final Occult Blood Positive Radiology Impression Chest X-Ray 12/04/22 20:22 IMPRESSION: Poor inspiration with some bibasilar atelectasis. Electronically Signed: Edwardo Ambrose MD at 20:34 EDT ,
[2022-12-05] MEDS: 0.9% Saline Lock 10 ML Syringe IV (08:25)
[2022-12-05] MEDS: Levothyroxine 100 MCG Tablet PO (08:27)
--- NOTE | 2022-12-05 09:14 | PN.HOSP_ITS ---
Subjective Subjective Doing well, no overnight. She is feeling a little bit better after her blood transfusion Objective Data Objective Data Vital Signs: Vital Signs Temp Pulse Resp BP Pulse Ox O2 Del Method 97.9 F 85 14 102/64 98 Room Air 12/05/22 08:00 12/05/22 08:00 12/05/22 08:00 12/05/22 08:00 12/05/22 08:00 12/05/22 08:00 Oxygen Delivery Method Room Air Weight: 122 lb 9.232 oz Body Mass Index (BMI) 19.8 Intake & Output: Intake and Output for Last 24 Hours 12/04/22 12/05/22 12/06/22 03:59 03:59 03:59 Intake Total 1460 / 1460 199.8 / 199.8 Output Total 200 / 200 400 / 400 Balance 1260 / 1260 -200.2 / -200.2 Lab / Micro Data Result Diagrams: 12/05/22 05:15 12/05/22 05:15 Labs: Laboratory Results - last 24 hr 12/04/22 19:29: WBC 8.1, RBC 2.19 L, Hgb 6.6 L, Hct 22.1 L, MCV 100.9 H, MCH 30.1, MCHC 29.9 L, RDW Std Deviation 50.3 H, RDW Coeff of Pebbles 13.7, Plt Count 239, MPV 9.7, Immature Gran % (Auto) 0.500, Neut % (Auto) 84.1 H, Lymph % (Auto) 9.5 L, [place] % (Auto) 5.1, Eos % (Auto) 0.7, Baso % (Auto) 0.1, Absolute Neuts (auto) 6.8, Absolute Lymphs (auto) 0.77 L, Nucleated RBC % 0 12/04/22 19:29: D-Dimer Quant (PE/DVT) 0.70 H* 12/04/22 19:29: Sodium 133 L, Potassium 4.7, Chloride 110 H, Carbon Dioxide 16.0 L, Anion Gap 7, BUN 53 H, Creatinine 2.45 H, Estim Creat Clear Calc 21.97, Est GFR (MDRD) Af Amer 26 L, Est GFR (MDRD) Non-Af 22 L, BUN/Creatinine Ratio 21.6 H , Glucose 134 H, Calcium 9.4, Troponin I High Sens 8 12/04/22 19:29: B-Natriuretic Peptide 43.2 12/04/22 22:33: Blood Type O POSITIVE, Antibody Screen NEGATIVE, Crossmatch See Detail 12/05/22 05:15: Sodium 137, Potassium 4.8, Chloride 113 H, Carbon Dioxide 16.0 L , Anion Gap 8, BUN 47 H, Creatinine 2.05 H, Estim Creat Clear Calc 26.26, Est GFR (MDRD) Af Amer 32 L, Est GFR (MDRD) Non-Af 26 L, BUN/Creatinine Ratio 22.9 H , Glucose 106, Calcium 8.9 12/05/22 05:15: WBC 6.3, RBC 2.54 L, Hgb 7.6 L, Hct 24.6 L, MCV 96.9, MCH 29.9, MCHC 30.9 L, RDW Std Deviation 49.2 H, RDW Coeff of Pebbles 13.9, Plt Count 227, MPV 10.3, Immature Gran % (Auto) 0.500, Neut % (Auto) 72.8 H, Lymph % (Auto) 18.0 L, [place] % (Auto) 7.7, Eos % (Auto) 0.8, Baso % (Auto) 0.2, Absolute Neuts (auto) 4.6, Absolute Lymphs (auto) 1.14, Nucleated RBC % 0 Micro: Microbiology 12/05/22 01:45 Stool Enteric Bacteriology - Final 12/05/22 01:45 Stool C. difficile DNA Amplification - Final 12/04/22 21:27 Stool Stool Occult Blood (HARRIET) - Final Occult Blood Positive Radiography Diagnostic Testing: Radiology Impression Chest X-Ray 12/04/22 20:22 IMPRESSION: Poor inspiration with some bibasilar atelectasis. Electronically Signed: Edwardo Ambrose MD at 20:34 EDT , Physical Exam Narrative General: Alert, Oriented x3, Cooperative, No apparent distress HEENT: Atraumatic, PERRLA, EOMI, Normocephalic Oral: Moist Mucosa Neck: Supple, No JVD Lungs: Diminished, Normal air movement, No rhonchi, No wheeze, No rales, slight crackles Cardiovascular: Regular rate, Regular Rhythm, Normal S1, Normal S2, No murmurs Abdomen: Soft, Non Tender, Non-Distended, No Hepato-splenomegaly Extremities: No edema, Capillary Refill Less than 3 Seconds Skin: No rashes, No breakdown Musculoskeletal: No Tenderness to Palpation of Joints or Extremities Neurological: Cranial nerves II-XII grossly intact, Motor Exam 5/5 strength throughout, Sensory exam intact to light touch and pain Psych/Mental Status: Normal Affect, Appropriate Assessment & Plan Assessment/Plan (1) Gastrointestinal bleeding, upper: (2) ABLA (acute blood loss anemia): (3) Orthostatic hypotension: PLAN: Plan 1. Acute blood loss anemia with orthostatic hypotension/diarrhea/GERD ? Hemoglobin is improved to 7.6 after blood transfusion ? We will transfer to PCU ? We will plan for EGD and colonoscopy ? She can have full liquid diet today ? Appreciate general surgery's assistance ? She has been having multiple loose bowel movements over the last couple weeks, enteric panel and C. difficile are pending ? Continue with PPI 2. Scleroderma with Raynaud's ? Stable ? Continue with her home medications 3. Hypothyroidism ? Stable ? Continue with Synthroid 4. HTN ? Blood pressures are little bit low, will hold her blood pressure medication until more stable ? We will continue to hold Lasix DVT: SCDs Charges/Coding Visit Charges Inpatient E&M: 87625 Subs Hosp L2
[2022-12-05] MEDS: Ferrous Sulfate 325 MG Tablet PO ×2 (09:36→15:51)
[2022-12-05] MEDS: Mycophenolate Mofetil 250 MG Capsule 1000 MG PO ×2 (09:36→21:51)
[2022-12-05] MEDS: Electrolyte Solution/Peg's 4000 ML PO (12:15)
[2022-12-06] VITALS (9 sets, daily range): BP systolic 92–126; BP diastolic 69–87; PULSE 90–128; RESP 16; TEMP 36.4–36.8; O2SAT 95–100; BMI 19.2
[2022-12-06] MEDS: Levothyroxine 100 MCG Tablet PO (06:02)
[2022-12-06 06:34] LABS: Absolute Lymphocyte Count 1.01 X10^3/uL (0.83-4.51); Absolute Neutrophil Count 3.5 X10^3/uL (2.0-7.7); Basophil# 0.02 X10^3/uL; Basophil% 0.4 % (0-1); Hematocrit 26.7 % (37-47); Hemoglobin 8.5 g/dL (12.0-15.0); Lymphocyte # 1.01 X10^3/ul (0.83-4.51); Mean Corp Hgb Conc 31.8 g/dL (32-36); Mean Corpuscular Hgb 30.2 pg (27.0-32.0); Monocyte% 7.9 % (0-10); NRBC Flagged by Analyzer 0 % (0-5); Neutrophil % 69.3 % (47-70); Platelet Count 234 K/mm3 (150-450); RBC Distribution Width CV 14.2 % (11.6-14.6); RBC Distribution Width SD 49.1 fl (35.1-43.9); Red Blood Count 2.81 M/mm3 (4.2-5.4); White Blood Count 5.1 K/mm3 (4.4-11.0)
[2022-12-06 06:55] LABS: Anion Gap 9 (5-15); BUN 38 mg/dL (7-18); BUN/Creat Ratio 20.5 RATIO (10-20); Calcium,Total 9.9 mg/dL (8.5-10.1); Chloride 113 mmol/L (98-107); Creatinine, Serum 1.85 mg/dL (0.55-1.02); EST Glomerular Filtration Rate 30 mL/min (>60); Est Glom Filt Rate - Afr Amer 36 mL/min (>60); Estimated Creatinine Clearance 28.31 ml/min; Glucose 105 mg/dL (74-106); Potassium 4.4 mmol/L (3.5-5.1); Sodium Level 140 mmol/L (136-145)
--- NOTE | 2022-12-06 08:27 | PCM.PN.BLA ---
Progress Note Patient evaluated resting comfortably in bed. Patient is scheduled for a colonoscopy with Dr. Mcgarry at noon today. Patient is upset that she is not able to have anything to eat or drink. Patient denies any concerns or questions at this time.
[2022-12-06] MEDS: LORazepam 2 MG/ML Syringe 0.5 MG IV (09:42)
--- NOTE | 2022-12-06 09:51 | CASEMGMT ---
RN CM NOTE: To room to complete initial RN CM assessment. Pt out of room at this time. Miguel Angel HYDEN RN CM
[2022-12-06] MEDS: Lactated Ringers 1,000 ML 15 ML IV (10:11)
--- NOTE | 2022-12-06 11:20 | OP.EGD_ITS ---
Patient Name: Radha Kaur Procedure Date: 12/06/2022 10:40 AM Date of : 1965 Age: 57 Procedure: Upper GI endoscopy Indications: Iron deficiency anemia Providers: Fatou Mcgarry MD Medicines: Monitored Anesthesia Care Patient Profile: This is a 57 year old female. Complications: No immediate complications. Procedure: Pre-Anesthesia Assessment: - Prior to the procedure, a History and Physical was performed, and patient medications and allergies were reviewed. The patient's tolerance of previous anesthesia was also reviewed. The risks and benefits of the procedure and the sedation options and risks were discussed with the patient. All questions were answered, and informed consent was obtained. Prior Anticoagulants: The patient has taken aspirin, last dose was 3 days prior to procedure. ASA Grade Assessment: Per anesthesia. After reviewing the risks and benefits, the patient was deemed in satisfactory condition to undergo the procedure. After obtaining informed consent, the endoscope was passed under direct vision. Throughout the procedure, the patient's blood pressure, pulse, and oxygen saturations were monitored continuously. The Colonoscope was introduced through the mouth, and advanced to the second part of duodenum. The upper GI endoscopy was accomplished without difficulty. The patient tolerated the procedure well. Scope In: 10:46:19 AM Scope Out: 10:51:54 AM Total Procedure Duration Time 0 hours 5 minutes 35 seconds Findings: The Z-line was variable and was found 40 cm from the incisors. The examined duodenum was normal. The cardia and gastric fundus were normal on retroflexion. The entire examined stomach was normal. Impression: - Z-line variable, 40 cm from the incisors. - Normal examined duodenum. - Normal stomach. - No specimens collected. Recommendation: - [facility] care. - clears advance as tolerated - Continue present medications. Procedure Code(s): --- Professional --- 25091, Esophagogastroduodenoscopy, flexible, transoral; diagnostic, including collection of specimen(s) by brushing or washing, when performed (separate procedure) Diagnosis Code(s): --- Professional --- K22.8, Other specified diseases of esophagus D50.9, Iron deficiency anemia, unspecified CPT copyright 2017 [employer]. All rights reserved. The codes documented in this report are preliminary and upon concrete carpenter review may be revised to meet current compliance requirements. MD Fatou Steele MD 12/06/2022 11:19:32 AM This report has been signed electronically. Number of Addenda: 0 Note Initiated On: 12/06/2022 10:40 AM
--- NOTE | 2022-12-06 11:21 | OP.CCLET_ITS ---
12/06/2022 Mono Lynn [address] [place] [address] Re : Upper GI endoscopy procedure for [facility] Dear Dr. Lynn This procedure was performed on Tuesday, December 06, 2022. My impressions and recommendations are as follows: Impressions : - Z-line variable, 40 cm from the incisors. - Normal examined duodenum. - Normal stomach. - No specimens collected. Recommendations : - Return [facility] to [facility] for [facility] care. - clears advance as tolerated - Continue present medications. My findings are described in the full procedure note, which is enclosed. If I can be of further assistance, please feel free to contact me at Doctor phone number(s): , Work: . Sincerely, MD Fatou Steele MD 12/06/2022 11:19:32 AM This report has been signed electronically.
--- NOTE | 2022-12-06 11:28 | OP.COLON_ITS ---
Patient Name: Radha Kaur Procedure Date: 12/06/2022 10:52 AM Date of : 1965 Age: 57 Procedure: Colonoscopy Indications: Heme positive stool, Iron deficiency anemia Providers: Fatou Mcgarry MD Medicines: Monitored Anesthesia Care Patient Profile: Last Colonoscopy: none. The patient's first colonoscopy is today. This is a 57 year old female. Complications: No immediate complications. Procedure: Pre-Anesthesia Assessment: - Prior to the procedure, a History and Physical was performed, and patient medications and allergies were reviewed. The patient's tolerance of previous anesthesia was also reviewed. The risks and benefits of the procedure and the sedation options and risks were discussed with the patient. All questions were answered, and informed consent was obtained. Prior Anticoagulants: The patient has taken aspirin, last dose was 3 days prior to procedure. ASA Grade Assessment: Per anesthesia. After reviewing the risks and benefits, the patient was deemed in satisfactory condition to undergo the procedure. After I obtained informed consent, the scope was passed under direct vision. Throughout the procedure, the patient's blood pressure, pulse, and oxygen saturations were monitored continuously. The Colonoscope was introduced through the anus and advanced to the terminal ileum. The colonoscopy was performed without difficulty. The patient tolerated the procedure well. The quality of the bowel preparation was good. Scope In: 10:54:07 AM Scope Withdrawal Time 0 hours 8 minutes 53 seconds Scope Out: 11:13:26 AM Total Procedure Duration Time 0 hours 19 minutes 19 seconds Findings: The perianal and digital rectal examinations were normal. A single small-mouthed diverticulum was found in the sigmoid colon. The exam was otherwise without abnormality on direct and retroflexion views. The terminal ileum appeared normal. Impression: - Diverticulosis in the sigmoid colon. - The examination was otherwise normal on direct and retroflexion views. - The examined portion of the ileum was normal. - No specimens collected. Recommendation: - Return patient to [facility] for [facility] care. - Clears advance to regular. - Continue present medications. - Repeat colonoscopy in 10 years for screening purposes. Procedure Code(s): --- Professional --- 70705, Colonoscopy, flexible; diagnostic, including collection of specimen(s) by brushing or washing, when performed (separate procedure) Diagnosis Code(s): --- Professional --- R19.5, Other fecal abnormalities D50.9, Iron deficiency anemia, unspecified K57.30, Diverticulosis of large intestine without perforation or abscess without bleeding CPT copyright 2017 [employer]. All rights reserved. The codes documented in this report are preliminary and upon form tamper review may be revised to meet current compliance requirements. MD Fatou Steele MD 12/06/2022 11:27:58 AM This report has been signed electronically. Number of Addenda: 0 Note Initiated On: 12/06/2022 10:52 AM
--- NOTE | 2022-12-06 11:29 | OP.CCLET_ITS ---
12/06/2022 Mono Lynn [address] [place] [address] Re : Colonoscopy procedure for [facility] Dear Dr. Lynn This procedure was performed on Tuesday, December 06, 2022. My impressions and recommendations are as follows: Impressions : - Diverticulosis in the sigmoid colon. - The examination was otherwise normal on direct and retroflexion views. - The examined portion of the ileum was normal. - No specimens collected. Recommendations : - Return [facility] to [facility] for [facility] care. - Clears advance to regular. - Continue present medications. - Repeat colonoscopy in 10 years for screening purposes. My findings are described in the full procedure note, which is enclosed. If I can be of further assistance, please feel free to contact me at Doctor phone number(s): , Work: . Sincerely, MD Fatou Steele MD 12/06/2022 11:27:58 AM This report has been signed electronically.
[2022-12-06] MEDS: Mycophenolate Mofetil 250 MG Capsule 1000 MG PO (11:55)
[2022-12-06] MEDS: Ferrous Sulfate 325 MG Tablet PO (11:55)
--- NOTE | 2022-12-06 11:57 | PN.HOSP_ITS ---
Reason for Visit Reason for Visit: Diagnoses Acute posthemorrhagic anemia (12/04/22) Anemia, unspecified (12/04/22) Orthostatic hypotension (12/04/22) Gastrointestinal hemorrhage, unspecified (12/04/22) Subjective Subjective Patient is a 57-year-old lady with history of scleroderma admitted with 1 to be anemic admitted to regular nursing floor for further management Objective Data Objective Data Vital Signs: Vital Signs Temp Pulse Resp BP Pulse Ox O2 Del Method 97.6 F L 90 16 110/78 96 Room Air 12/06/22 11:35 12/06/22 11:35 12/06/22 11:35 12/06/22 11:35 12/06/22 11:35 12/06/22 11:35 Oxygen Delivery Method Room Air Weight: 54.1 kg Body Mass Index (BMI) 19.2 Intake & Output: Intake and Output for Last 24 Hours 12/04/22 12/05/22 12/06/22 23:59 23:59 23:59 Intake Total 2024.8 / 2024.8 Output Total 1000 / 1000 400 / 400 Balance 1024.8 / 1024.8 -400 / -400 Lab / Micro Data Result Diagrams: 12/06/22 06:12 12/06/22 06:12 Labs: Laboratory Results - last 24 hr 12/06/22 06:12: WBC 5.1, RBC 2.81 L, Hgb 8.5 L, Hct 26.7 L, MCV 95.0, MCH 30.2, MCHC 31.8 L, RDW Std Deviation 49.1 H, RDW Coeff of Pebbles 14.2, Plt Count 234, MPV 10.0, Immature Gran % (Auto) 0.400, Neut % (Auto) 69.3, Lymph % (Auto) 20.0, [place] % (Auto) 7.9, Eos % (Auto) 2.0, Baso % (Auto) 0.4, Absolute Neuts (auto) 3.5, Absolute Lymphs (auto) 1.01, Nucleated RBC % 0 12/06/22 06:12: Sodium 140, Potassium 4.4, Chloride 113 H, Carbon Dioxide 18.0 L , Anion Gap 9, BUN 38 H, Creatinine 1.85 H, Estim Creat Clear Calc 28.31, Est GFR (MDRD) Af Amer 36 L, Est GFR (MDRD) Non-Af 30 L, BUN/Creatinine Ratio 20.5 H , Glucose 105, Calcium 9.9 Micro: Microbiology 12/05/22 01:45 Stool Enteric Bacteriology - Final 12/05/22 01:45 Stool C. difficile DNA Amplification - Final 12/04/22 21:27 Stool Stool Occult Blood (HARRIET) - Final Occult Blood Positive Physical Exam Narrative GENERAL: cooperative HEENT: Atraumatic; normocephalic EYES; Anicteric, Normal Conjunctiva NECK; supple, normal thyroid, RESPIRATORY: Diminished to auscultation CARDIOVASCULAR: Regular S1 S2, GI: soft, normoactive bowel sounds, : No Renal angle tenderness; EXTREMITIES: No edema, no clubbing, MUSCULOSKELETAL: no muscle wasting NEURO: Awake; no lateralizing signs. SKIN: No Rash PSYCH; Flat affect Assessment & Plan Assessment/Plan (1) Gastrointestinal bleeding, upper: (2) ABLA (acute blood loss anemia): (3) Orthostatic hypotension: PLAN: Plan Patient is a 57-year-old lady with history of scleroderma admitted with 1 to be anemic admitted to regular nursing floor for further management 1. Acute blood loss anemia ? Patient was admitted to regular nursing floor. Patient was transfused 1 unit PRBC consult placed to Dr. Kahn with general surgery did perform EGD and colonoscopy EGD results and colonoscopy as below EGD findings: - Z-line variable, 40 cm from the incisors. - Normal examined duodenum. - Normal stomach. - No specimens collected. Colonoscopy findings - Diverticulosis in the sigmoid colon. - The examination was otherwise normal on direct and retroflexion views. - The examined portion of the ileum was normal. - No specimens collected. . Patient was placed on PPI 2. Scleroderma with Raynaud's ? Patient is on CellCept did continue 3. Hypertension - Blood pressure controlled, home medications continued with dose adjustment as needed 4. Hypothyroidism - Patient is on levothyroxine home dose continued 5. DVT prophylaxis ? Bilateral SCDs Time spent in the patient's overall evaluation,decision-making process, review of diagnostic data, adjustment of management, discussion with other providers, nursing nursing and ancillary staff involved in patient's care documentation, 45 minutes Charges/Coding Visit Charges Inpatient E&M: 59211 Subs Hosp L2
--- NOTE | 2022-12-06 12:04 | PCM.DC.SUM ---
Providers Date of Admission: 12/04/22 Date of Discharge: 12/06/22 Primary Care Physician: Dr. Mono Lnyn MD Consultations 12/04/22 23:47 Consult: Gastroenterology Routine Consulting Provider: Fatou Mcgarry Reason for Consult: ABLA EMERGENT Consult: No Notified: Yes Date Notified: 12/04/22 Time Notified: 23:16 Method of Notification: ED Physician Initiated Reason For Visit: ABLA Diagnosis Discharge Diagnosis (1) Gastrointestinal bleeding, upper: Status: Acute Code(s): K92.2 - Gastrointestinal hemorrhage, unspecified (2) ABLA (acute blood loss anemia): Status: Acute Code(s): D62 - Acute posthemorrhagic anemia (3) Orthostatic hypotension: Status: Acute Code(s): I95.1 - Orthostatic hypotension Plan Patient is a 57-year-old lady with history of scleroderma admitted with 1 to be anemic admitted to regular nursing floor for further management 1. Acute blood loss anemia ? Patient was admitted to regular nursing floor. Patient was transfused 1 unit PRBC consult placed to Dr. Kahn with general surgery did perform EGD and colonoscopy EGD results and colonoscopy as below EGD findings: - Z-line variable, 40 cm from the incisors. - Normal examined duodenum. - Normal stomach. - No specimens collected. Colonoscopy findings - Diverticulosis in the sigmoid colon. - The examination was otherwise normal on direct and retroflexion views. - The examined portion of the ileum was normal. - No specimens collected. . Patient was placed on PPI 2. Scleroderma with Raynaud's ? Patient is on CellCept did continue 3. Hypertension - Blood pressure controlled, home medications continued with dose adjustment as needed 4. Hypothyroidism - Patient is on levothyroxine home dose continued 5. DVT prophylaxis ? Bilateral SCDs Time spent in the patient's overall evaluation,decision-making process, review of diagnostic data, adjustment of management, discussion with other providers, nursing nursing and ancillary staff involved in patient's care documentation, 45 minutes Medications at Discharge Home Medications mycophenolate mofetil 500 mg tablet (CellCept) 1,000 mg PO BID immunosuppresent 05/05/22 pantoprazole 40 mg tablet,delayed release 40 mg PO DAILY GERD 05/21/22 diltiazem HCl 120 mg capsule,extended release 24 hr 1 cap PO DAILY 09/28/22 ferrous sulfate 325 mg (65 mg iron) tablet 325 mg PO BID 11/09/22 furosemide 20 mg tablet (Lasix) 20 mg PO DAILY PRN Swelling 11/09/22 ramipril 5 mg capsule 5 mg PO BID 11/09/22 levothyroxine 100 mcg tablet 100 mcg PO DAILY 12/04/22 Hospital Course Summary of Care Provided Minutes Spent on Discharge: 35 Physical Exam Narrative GENERAL: cooperative HEENT: Atraumatic; normocephalic EYES; Anicteric, Normal Conjunctiva NECK; supple, normal thyroid, RESPIRATORY: Diminished to auscultation CARDIOVASCULAR: Regular S1 S2, GI: soft, normoactive bowel sounds, : No Renal angle tenderness; EXTREMITIES: No edema, no clubbing, MUSCULOSKELETAL: no muscle wasting NEURO: Awake; no lateralizing signs. SKIN: No Rash PSYCH; Flat affect Weight / BMI Weight Weight: 54.1 kg Body Mass Index (BMI) 19.2 ABG / Lab / Microbiology Data Result Diagrams: 12/06/22 06:12 12/06/22 06:12 Laboratory: Laboratory Results - last 24 hr 12/06/22 06:12: WBC 5.1, RBC 2.81 L, Hgb 8.5 L, Hct 26.7 L, MCV 95.0, MCH 30.2, MCHC 31.8 L, RDW Std Deviation 49.1 H, RDW Coeff of Pebbles 14.2, Plt Count 234, MPV 10.0, Immature Gran % (Auto) 0.400, Neut % (Auto) 69.3, Lymph % (Auto) 20.0, [place] % (Auto) 7.9, Eos % (Auto) 2.0, Baso % (Auto) 0.4, Absolute Neuts (auto) 3.5, Absolute Lymphs (auto) 1.01, Nucleated RBC % 0 12/06/22 06:12: Sodium 140, Potassium 4.4, Chloride 113 H, Carbon Dioxide 18.0 L, Anion Gap 9, BUN 38 H, Creatinine 1.85 H, Estim Creat Clear Calc 28.31, Est GFR (MDRD) Af Amer 36 L, Est GFR (MDRD) Non-Af 30 L, BUN/Creatinine Ratio 20.5 H, Glucose 105, Calcium 9.9 Microbiology: Microbiology 12/05/22 01:45 Stool Enteric Bacteriology - Final 12/05/22 01:45 Stool C. difficile DNA Amplification - Final 12/04/22 21:27 Stool Stool Occult Blood (HARRIET) - Final Occult Blood Positive D/C Instructions Discharge Diet: No restrictions Discharge Activity: Return to Normal Activity Call your doctor if you observe: Fever of 101 or Higher, Shortness of breath, Fainting spells and Chest pain Meaningful Use Info Meaningful Use Diagnoses (Choose all that apply): None applicable Discharge Plan Admission Admit Date/Time: 12/04/22 23:08 Attending Provider: Partha Roberto Primary Care Provider: Mono Lynn Consulting Providers: Sterling Iraheta ; Fatou Mcgarry ; Anam Hopkins Discharge Orders/Prescriptions Prescriptions: Continued diltiazem HCl 120 mg capsule,extended release 24hr 1 cap PO DAILY ramipril 5 mg capsule 5 mg PO BID ferrous sulfate 325 mg (65 mg iron) tablet 325 mg PO BID furosemide [Lasix] 20 mg tablet 20 mg PO DAILY PRN (Reason: Swelling) mycophenolate mofetil [CellCept] 500 mg Tablet 1,000 mg PO BID pantoprazole 40 mg Tablet,Delayed Release (Dr/Ec) 40 mg PO DAILY levothyroxine 100 mcg tablet 100 mcg PO DAILY Referrals / Follow Up: Mono Lynn MD [Primary Care Provider] - 12/09/22 10:00 am Disposition Disposition (needs filled in before D/C Order can be placed): Home, Self Care Charges/Coding Visit Charges Inpatient E&M: 17903 Disch Hosp >30min
--- NOTE | 2022-12-06 12:30 | CASEMGMT ---
RN MATILDE Face to Face with patient for initial transition planning/care coordination assessment. RN CM introduced self and role at [facility]. Patient lying in bed, alert and oriented. Patient willing to participate in assessment and is able to answer all questions appropriately. Care providers, pharmacy, and demographics verified. Patient wishes to discharge home, denies need for home health at this time. Patient states she has no further needs or concerns at this time. CM to follow for discharge planning needs that may arise. PCP: Leah Specialists: Maria Guadalupe, central supply nurse, [facility]; Preferred Pharmacy: [facility]: [employer] Prescription Benefit: yes Living Will/HPOA: none LNOK: Boyfriend Living Arrangements: Patient lives alone in a 3 story home. Patient is independent and able to ambulate stairs. Transportation: self, boyfriend DME/HHC: Patient has shower chair, BSC, cane, grab bars, walker, home oxygen with portability through [employer], and pulse ox. No previous HHC or SNF. Disposition Plan: Patient to discharge home with family support and follow-up plans in place. Helen MURO, RN, CM
--- NOTE | 2022-12-06 13:30 | PHA.DC.MR ---
Pharmacy Service has performed discharge medication reconciliation for this patient. The patient's discharge medication list was reviewed for discrepancies and discrepancies were resolved. Home Medications mycophenolate mofetil 500 mg tablet (CellCept) 1,000 mg PO BID immunosuppresent 05/05/22 pantoprazole 40 mg tablet,delayed release 40 mg PO DAILY GERD 05/21/22 diltiazem HCl 120 mg capsule,extended release 24 hr 1 cap PO DAILY 09/28/22 ferrous sulfate 325 mg (65 mg iron) tablet 325 mg PO BID 11/09/22 furosemide 20 mg tablet (Lasix) 20 mg PO DAILY PRN Swelling 11/09/22 ramipril 5 mg capsule 5 mg PO BID 11/09/22 levothyroxine 100 mcg tablet 100 mcg PO DAILY 12/04/22
== END 2022-12-06 15:09 | disposition home or self-care (01) | DRG 811 ==
LOC: ED 22:41 → ICU 23:37 → PCU 12-05 18:06
PROVIDERS: Family Medicine; Surgery; Admitting Provider Hospitalist; Emergency Provider Emergency Medicine; PCP Family Medicine; Visit Provider Internal Medicine
PROC: 0DJD8ZZ Inspection of Lower Intestinal Tract, Via Natural or Artificial Opening Endoscopic (ICD-10-PCS; CPT 45378; principal; 2022-12-06 11:55)
DX: D62 Acute posthemorrhagic anemia (principal); K57.31 Diverticulosis of large intestine without perforation or abscess with bleeding; M34.9 Systemic sclerosis, unspecified; E03.9 Hypothyroidism, unspecified; I73.00 Raynaud's syndrome without gangrene; I10 Essential (primary) hypertension; I95.1 Orthostatic hypotension; K21.9 Gastro-esophageal reflux disease without esophagitis; K22.89 Other specified disease of esophagus; Z79.899 Other long term (current) drug therapy
CPT/HCPCS: 36415; 71046; 80048; 82274; 83880; 84484; 85025; 85379; 86850; 86900; 86901; 86920; 86922; 87493; 87506; 93005; 94640; 97802; 99285; J7040; J7120; P9016; A4216; J2405; J3490

== ENCOUNTER 2023-10-28 17:29 | Emergency (ER) | payer MEDICARE, MEDICAID, SELFPAY ==
[2023-10-28 17:31] VITALS: BP 156/103; PULSE 105; RESP 18; TEMP 36.4; O2SAT 96; BMI 23.0
[2023-10-28 17:53] VITALS: RESP 16; O2SAT 95
[2023-10-28 18:19] VITALS: O2SAT 95
[2023-10-28 18:22] LABS: Absolute Lymphocyte Count 1.54 X10^3/uL (0.83-4.51); Basophil# 0.05 X10^3/uL; Basophil% 0.7 % (0-1); Eosinophil# 0.18 X10^3/uL; Eosinophils% 2.4 % (0-5); Hematocrit 37.1 % (37-47); Hemoglobin 11.8 g/dL (12.0-15.0); Lymphocyte # 1.54 X10^3/ul (0.83-4.51); Lymphocyte % 20.5 % (19-41); Mean Corp Hgb Conc 31.8 g/dL (32-36); Mean Corpuscular Hgb 29.9 pg (27.0-32.0); Mean Corpuscular Volume 93.9 fL (81-99); Mean Platelet Vol. 9.8 fl (6.2-12.0); Monocyte# 0.77 X10^3/uL; Monocyte% 10.2 % (0-10); NRBC Flagged by Analyzer 0 % (0-5); Neutrophil # 4.97 X10^3/uL (2.7-7.7); Neutrophil % 65.9 % (47-70); Platelet Count 203 K/mm3 (150-450); RBC Distribution Width CV 14.3 % (11.6-14.6); Red Blood Count 3.95 M/mm3 (4.2-5.4); White Blood Count 7.5 K/mm3 (4.4-11.0)
[2023-10-28 18:37] LABS: Anion Gap 9 (5-15); BUN 19 mg/dL (7-18); BUN/Creat Ratio 12.9 RATIO (10-20); Calcium,Total 9.7 mg/dL (8.5-10.1); Chloride 98 mmol/L (98-107); Creatinine, Serum 1.47 mg/dL (0.55-1.02); EST Glomerular Filtration Rate 39 mL/min (>60); Est Glom Filt Rate - Afr Amer 47 mL/min (>60); Estimated Creatinine Clearance 38.58 ml/min; Glucose 98 mg/dL (74-106); Sodium Level 135 mmol/L (136-145)
--- NOTE | 2023-10-28 18:43 | EKG12_ITS ---
Test Reason : SOB Blood Pressure : / mmHG Vent. Rate : 084 BPM Atrial Rate : 084 BPM P-R Int : 152 ms QRS Dur : 080 ms QT Int : 404 ms P-R-T Axes : 047 022 053 degrees QTc Int : 477 ms Normal sinus rhythm Normal ECG Confirmed by Buzz Alcantara ([id number]), newspaper or periodical editor RONALD TROTTER ([id number]) on 11/01/2023 8:54:49 AM Referred By: BENJAMIN Confirmed By:Buzz Alcantara
--- NOTE | 2023-10-28 18:43 | EDS_ITS ---
HPI History of Present Illness Chief Complaint: Shortness of Breath Informant: patient Onset/Context/Timing Onset: Weeks (1) Context: gradual Timing: Intermittent Quality: Positive for Dyspnea on exertion Current Severity: Severe Maximum Severity: Severe Worsened by: Exertion Relieved by: Rest Associated Symptoms Negative for cough Chest Pain: Positive for None Narrative Narrative: Patient with gradual onset of dyspnea on exertion over the past week, has gradually worsened. This is the first time she has sought treatment for it. Suggesting now that she can only walk about 10 feet before she has to rest. She denies any cough, orthopnea, leg edema, pleuritic discomfort or any other chest pains. She denies any presyncope or syncope associated with this. She states it has been a year or so since she has had this. History of DVT before but it was postoperatively, she has had no prolonged immobilization, travel out of the area recently, hospitalization, or surgery in the past couple months. She denies any focal leg pain or swelling. No history of heart problems. She does have a history of anemia due to kidney problems, and she has been short of breath with exertion when she has been anemic in the past. She denies any bleeding recently. Patient does have a history of scleroderma which she is under treatment for and following with specialist, she states in the past when she has been short of breath it is also been related to her scleroderma and essentially what she describes as skin induced restriction of breathing. Patient states today she was exerting herself more, so was more breathless with exertion, and she checked her pulse ox and it was 87% on room air at 1 point and 86% on room air and another point. When she rested she recovered quickly. She is not on home oxygen. [facility] Medical History Acute and chronic respiratory failure with hypoxia BEN (acute kidney injury) Anemia Anxiety disorder Bipolar disorder Depression Dialysis patient DVT (deep venous thrombosis) Fibromyalgia History of gastroesophageal reflux (GERD) Hypothyroidism Hypoxia Interstitial lung disease Irritable colon Osteoarthritis Pulmonary hypertension Scleredema Shortness of breath Home Medications pantoprazole 40 mg tablet,delayed release 40 mg PO DAILY GERD 05/21/22 [History Last Taken 10/28/23] diltiazem HCl 120 mg capsule,extended release 24 hr 1 cap PO DAILY 09/28/22 [History Last Taken 10/28/23] ferrous sulfate 325 mg (65 mg iron) tablet 325 mg PO BID 11/09/22 [History Last Taken 10/28/23] furosemide 20 mg tablet (Lasix) 20 mg PO DAILY PRN Swelling 11/09/22 [History Last Taken Unknown] levothyroxine 100 mcg tablet 100 mcg PO DAILY 12/04/22 [History Last Taken 10/28/23] bupropion HCl 300 mg 24 hr tablet, extended release (Wellbutrin XL) 300 mg PO QAM 05/10/23 [History Last Taken 10/28/23] mycophenolate mofetil 500 mg tablet (CellCept) 1,500 mg PO BID immunosuppresent 05/10/23 [History Last Taken 10/28/23] ramipril 10 mg capsule 10 mg PO DAILY 05/10/23 [History Last Taken 10/28/23] prednisone 10 mg tablet 10 mg PO DAILY #50 tabs 10/28/23 [Rx Last Taken Unknown] Allergy/AdvReac Type Severity Reaction Status Date / Time acetaminophen [From Tylenol] Allergy Bleeding Verified 10/28/23 18:17 simvastatin [From Zocor] Allergy Rash Verified 10/28/23 18:17 NSAIDS (Non-Steroidal AdvReac Bleeding Verified 10/28/23 18:17 Anti-Inflamma Family History Father COPD (chronic obstructive pulmonary disease) Mother No cardiac disease Other Anemia Surgical History H/O foot surgery H/O knee surgery History of left heart catheterization (12/15/09) History of tonsillectomy S/P manipulation of deviated nasal septum Social History household members: significant other Smoking Status: Never smoker alcohol intake: never substance use type: does not use ROS ROS ED Constitutional Constitutional ED: Denies chills or fever(s) Eyes Eyes: Denies change in vision or diplopia ENT ENT ED: Denies rhinorrhea or sore throat Cardiovascular Cardiovascular: Denies chest pain, leg edema, lightheadedness, orthopnea or palpitations Respiratory/Chest Respiratory/Chest: Reports dyspnea and dyspnea on exertion; Denies cough or orthopnea Gastrointestinal Gastrointestinal: Denies abdominal pain, diarrhea, nausea or vomiting Genitourinary Genitourinary ED: Denies dysuria or hematuria Musculoskeletal Musculoskeletal: Denies back pain or neck pain Integumentary Denies abscess or rash Neurologic Neurologic: Denies headache(s), paresthesias or weakness Psychiatric Psychiatric: Denies anxiety or suicidal thoughts EXAM Physical Exam Const Vital Signs: 10/28/23 17:31 10/28/23 17:53 10/28/23 17:53 Temperature 97.6 F L Temperature Source Temporal Pulse Rate 105 H Respiratory Rate 18 16 Respiratory Effort Respiratory Depth Respiratory Pattern Blood Pressure 156/103 H Blood Pressure Mean 120 Pulse Ox 96 95 95 Oxygen Delivery Method Room Air Room Air Room Air 10/28/23 18:19 10/28/23 19:29 10/28/23 21:00 Temperature Temperature Source Pulse Rate 83 87 Respiratory Rate 16 16 Respiratory Effort Short of Breath Labored Respiratory Depth Normal Respiratory Pattern Tachypnea Blood Pressure 162/94 H 154/90 H Blood Pressure Mean 116 111 Pulse Ox 95 97 Oxygen Delivery Method Room Air Room Air Room Air Positive well nourished and well developed General Appearance ED: well developed and NAD HEENT Reports moist mucous membranes normocephalic and atraumatic Eyes PERRL and EOMs intact bilaterally Neck full ROM, supple and no JVD Resp normal respiratory effort and clear to auscultation bilaterally Resp Narrative: Some high-pitched inspiratory and expiratory sounds throughout all lung white, possibly related to skin scleroderma Cardio regular rate, regular rhythm and no murmurs Cardio Narrative: Mild resting tachycardia GI non-tender and non-distended Auscultation: normoactive bowel sounds Palpation: soft Back/Spine no CVA tenderness General Back: other FROM Extremity normal to inspection General Extremety ED: Negative for edema, pulses abnormal or tenderness General Extremity: Negative for edema or pulses abnormal Neuro oriented x3, CN's II-XII intact bilaterally and no sensory deficits noted Sensorium / Orientation: awake and alert Motor Exam: strength 5/5 throughout Skin no rashes or lesions noted and no wounds MDM MDM MDM Narrative Medical decision making narrative: Seen that her hemoglobin is excellent at 11.8, and her renal function is stable if not improved compared with her prior therapy, I have also added on a troponin and a D-dimer to evaluate for the possibility of pulmonary embolus causing her dyspnea and mild resting tachycardia. Her troponin is normal the D-dimer is elevated, chest x-ray 2 views of mitral rotation, as confirmed by the radiologist, shows some bilateral lower pulmonary infiltrates possibly effusions. She has no cough. Seen as it would be very unlikely that this represents acute pneumonia, and her D-dimer is elevated, these are both reasons justify advanced imaging of the chest, performed as a CT angiography. I reviewed the images and report which I agree with, it basically is consistent with diffuse fibrotic changes, no acute consolidations, no groundglass infiltrates seen. Her vital signs been normal here. I discussed with Dr. Keri duncan, pulmonology fellow at [facility] covering for her pulmonology/scleroderma specialist Dr. Tillman. She recommends steroid taper starting at 60 mg daily, each level at 3 days going down to 5 mg, and they will follow-up with her after the weekend over the phone to begin with. She is comfortable with that plan. They also asked us to send a COVID/influenza/RSV swab which is sent. With regards to her hypoxemia with exertion we discussed several options. One of them was being admitted here, the other was being transferred to [facility], the other was going home and not exerting herself. She understands, with mutual decision making she wants to go home and be cautious. 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 Lab Data Attestation: I reviewed the patient's lab results. Labs: Laboratory Results - last 24 hr 10/28/23 18:10 WBC 7.5 RBC 3.95 L Hgb 11.8 L Hct 37.1 MCV 93.9 MCH 29.9 MCHC 31.8 L RDW Std Deviation 49.0 H RDW Coeff of Pebbles 14.3 Plt Count 203 MPV 9.8 Immature Gran % (Auto) 0.300 Neut % (Auto) 65.9 Lymph % (Auto) 20.5 [place] % (Auto) 10.2 H Eos % (Auto) 2.4 Baso % (Auto) 0.7 Absolute Neuts (auto) 5.0 Absolute Lymphs (auto) 1.54 Nucleated RBC % 0 D-Dimer Quant (PE/DVT) 1.17 H* Sodium 135 L Potassium 4.0 Chloride 98 Carbon Dioxide 28.0 Anion Gap 9 BUN 19 H Creatinine 1.47 H Estim Creat Clear Calc 38.58 Est GFR (MDRD) Af Amer 47 L Est GFR (MDRD) Non-Af 39 L BUN/Creatinine Ratio 12.9 Glucose 98 Calcium 9.7 Troponin I High Sens 8 B-Natriuretic Peptide 160.7 H Radiography Diagnostic Testing: Clinical Impression(s) from Imaging Studies Chest X-Ray 10/28/23 18:44 IMPRESSION: Increasing primarily interstitial type pulmonary opacities in both lung bases worse on the right. Possible small bilateral pleural effusions. Electronically Signed: Landen Butler MD at 19:01 EDT , Chest CTA 10/28/23 20:02 IMPRESSION: 1. No evidence for PE. 2. Incomplete expansion of the lungs. Probable diffuse fibrosis especially in the lower lung white. Active disease not excluded but less likely. Electronically Signed: Landen Butler MD at 20:39 EDT , Discharge Plan Triage Chief Complaint: Shortness of Breath ED Provider: Dinesh Aguero Dx/Rx/DC Orders Clinical Impression: Pulmonary fibrosis, LEE (dyspnea on exertion), CKD (chronic kidney disease) Instructions: Interstitial Lung Disease, Pulmonary Fibrosis Prescriptions: New prednisone 10 mg tablet 10 mg PO DAILY Qty: 50 0RF Rx Instructions: 60 mg p.o. daily 3 days, 40 mg p.o. daily 3 days, 30 mg p.o. daily 3 days, 20 mg p.o. daily 3 days, 10 mg p.o. daily 3 days, 5 mg p.o. daily 3 days No Action diltiazem HCl 120 mg capsule,extended release 24hr 1 cap PO DAILY ferrous sulfate 325 mg (65 mg iron) tablet 325 mg PO BID furosemide [Lasix] 20 mg tablet 20 mg PO DAILY PRN (Reason: Swelling) bupropion HCl [Wellbutrin XL] 300 mg tablet extended release 24 hr 300 mg PO QAM ramipril 10 mg capsule 10 mg PO DAILY Patient Comments: TAKE 1 TABLET BY MOUTH EVERY DAY mycophenolate mofetil [CellCept] 500 mg tablet 1,500 mg PO BID pantoprazole 40 mg Tablet,Delayed Release (Dr/Ec) 40 mg PO DAILY levothyroxine 100 mcg tablet 100 mcg PO DAILY Primary Care Provider: Mono Lynn Referrals: Dr Layne [Other] (Office should contact you for further follow-up instructions on Tuesday)
--- NOTE | 2023-10-28 18:44 | RAD_ITS ---
STUDY: X-RAY CHEST REASON FOR EXAM: Female, 58 years old. sob w/ light exertion TECHNIQUE: Frontal and lateral views of the chest. COMPARISON: CT scan 05/29/2022, chest x-ray 12/04/2022. FINDINGS: Increasing primarily interstitial type pulmonary opacities in both lung bases worse on the right. Findings could represent progressive pulmonary fibrosis and/or atelectasis/inflammatory process. Possible small bilateral pleural effusions. Normal size heart. Normal mediastinum and pankaj. Normal visualized pulmonary arteries. Normal visualized aortic arch and descending thoracic aorta. Normal visualized thoracic spine. Normal visualized ribs, clavicles, and shoulders. There is no demonstrated abnormality of the visualized soft tissue structures of the upper abdomen. RAD/Chest PA and Lateral IMPRESSION: Increasing primarily interstitial type pulmonary opacities in both lung bases worse on the right. Possible small bilateral pleural effusions. Electronically Signed: Landen Butler MD at 19:01 EDT ,
[2023-10-28 19:09] LABS: D-Dimer Quantitative (DVT/PE) 1.17 FEU/ug/m (0.27-0.49)
[2023-10-28 19:11] LABS: Troponin-I HS 8 pg/mL (3.0-54.0)
[2023-10-28 19:29] VITALS: BP 162/94; PULSE 83; RESP 16; O2SAT 95
[2023-10-28 19:38] LABS: BNP,B-Type NATRIURETIC PEPTIDE 160.7 pg/mL (0-100)
--- NOTE | 2023-10-28 20:02 | CT_ITS ---
EXAM: CT ANGIOGRAPHY CHEST WITHOUT AND WITH INTRAVENOUS CONTRAST CLINICAL INDICATION: dyspnea, elevated d-dimer TECHNIQUE: Helically acquired angiography images were obtained of the chest without and with intravenous contrast. This CT exam was performed using one or more of the following dose reduction techniques: automated exposure control, adjustment of the mA and/or kV according to patient size, and/or use of iterative reconstruction technique. MIP reconstructed images were created and reviewed. CONTRAST: IV 75mL [id number] RADIATION DOSE: CTDIvol = 4.82 mGy, DLP = 164.38 mGy-cm COMPARISON: 05/29/2022 FINDINGS: PULMONARY ARTERIES: Unremarkable. Normal in caliber. No evidence of pulmonary embolism. AORTA: Unremarkable. Normal in caliber. No evidence of dissection. GREAT VESSELS OF AORTIC ARCH: Unremarkable. Normal in caliber. No evidence of dissection. LUNGS AND PLEURAL SPACES: Widespread interstitial type pulmonary opacities especially in the mid and lower lung white. The appearance is better than prior exam, and most consistent with fibrosis. Cannot exclude superimposed inflammatory process, but less likely. Low to moderate lung volumes. No definite mass. No pneumothorax. No effusions. HEART: Unremarkable. Heart size is normal. No pericardial effusion. No significant coronary artery calcifications. MEDIASTINUM: Unremarkable. No mediastinal or hilar adenopathy. Esophagus is unremarkable. Small hiatal hernia. THYROID: Unremarkable. No thyroid lesions. BONES/JOINTS: Degenerative changes throughout the spine. CT/CTA Chest W/WO Contrast IMPRESSION: 1. No evidence for PE. 2. Incomplete expansion of the lungs. Probable diffuse fibrosis especially in the lower lung white. Active disease not excluded but less likely. Electronically Signed: Landen Butler MD at 20:39 EDT ,
[2023-10-28 21:00] VITALS: BP 154/90; PULSE 87; RESP 16; O2SAT 97
[2023-10-28] MEDS: predniSONE 20 MG Tablet 60 MG PO (22:04)
[2023-10-28 22:06] VITALS: BP 158/87; PULSE 85; RESP 16; TEMP 36.6; O2SAT 96
== END 2023-10-28 22:08 | disposition home or self-care (01) ==
PROVIDERS: Emergency Provider Emergency Medicine; PCP Family Medicine; Visit Provider Emergency Medicine
DX: J84.10 Pulmonary fibrosis, unspecified (principal); N18.9 Chronic kidney disease, unspecified; R06.09 Other forms of dyspnea
CPT/HCPCS: 71046; 71275; 80048; 83880; 84484; 85025; 85379; 87631; 93005; 94760; 99282; Q9967

== ENCOUNTER → 2024-05-24 | Outpatient (CLI) | payer MEDICARE, MEDICAID, SELFPAY | END | disposition home or self-care (01) | LOC: PSN 12:15 | PROVIDERS: PCP Family Medicine; Referring Provider Nurse Practitioner Gerontology; Visit Provider Nurse Practitioner Gerontology | DX: R00.0 Tachycardia, unspecified (principal) | CPT/HCPCS: 93225; 93226 ==

== ENCOUNTER 2025-05-31 15:09 | Emergency (ER) | payer MEDICARE, MEDICAID, SELFPAY ==
[2025-05-31 15:10] VITALS: BP 136/77; PULSE 107; RESP 16; TEMP 36.8; O2SAT 96; BMI 23.1
--- NOTE | 2025-05-31 15:21 | CT_ITS ---
PROCEDURE: BRAIN/HEAD WITHOUT CONTRAST 05/31/2025 REASON FOR EXAM: INTRACTABLE BIFRONTAL HEADACHE X 3 WEEKS TECHNIQUE: Procedure Code: CTBR Modality: CT Procedure: BRAIN/HEAD WITHOUT CONTRAST Coronal and Sagittal reconstruction series were provided. One or more dose reduction techniques were used (e.g., Automated exposure control, adjustment of the mA and/or kV according to patient size, use of iterative reconstruction technique. COMPARISON: None available. FINDINGS: There is no extra-axial or intra-axial intracranial hemorrhage. No mass effect or midline shift is seen. Generalized intracranial volume loss and findings compatible with chronic microvascular white matter ischemia. There is normal awad-white matter differentiation. The posterior fossa is grossly unremarkable. The skull is unremarkable. Visualized paranasal sinuses are clear. The mastoid air cells show normal translucency. CT/Brain/Head without Contrast IMPRESSION: 1. No intracranial hemorrhage. No mass effect or midline shift. 2. Chronic involutional and ischemic gliotic white matter changes. Reading Location: [facility]
--- NOTE | 2025-05-31 15:23 | EX.ED.VIS.HA ---
HPI History of Present Illness Chief Complaint: Headache Detail of Chief Complaint: Bifrontal intractable headache x 3 weeks Informant: patient Onset/Context/Timing Onset: Weeks Context: Sudden Timing: Continuous Quality -Headache: Positive for Dull and Tightness; Negative for Similar Prior Headaches, Sharp, Throbbing or Burning Location: Bifrontal Maximum Severity: Moderate Worsened by: Nothing Relieved by: Nothing Associated Symptoms/Injury Associated Symptoms: Positive for - (Chronic mild rhinorrhea and postnasal drainage); Negative for Fever, Nausea, Vomiting, Sore Throat, Sinus Pressure, Numbness, Tingling, Preceding Aura, Visual Changes, Blurred Vision, Photophobia or Visual Loss Injury - LOOMIS: Negative for Direct Trauma Narrative Narrative: Patient is 60-year-old woman. She has history of scleroderma, renal insufficiency, hypertension, pulmonary hypertension, interstitial lung disease, upper GI bleed who presents with by frontal headache x 3 weeks. There is no precipitating, exacerbating or alleviating factors. She denies fever, chills night sweats. She denies double vision, blurred vision loss of vision or photophobia. She denies auditory symptoms. She does endorse rhinorrhea and postnasal drainage which is a chronic issue. She denies nasal congestion. She denies cough. She is on oxygen with for activity. She does have history of renal insufficiency with a GFR of approximately 45-50. She has chronic neck pain. She denies cardiac or respiratory symptoms at this time that are worse than baseline. She has no GI symptoms. Prior similar symptoms: No Recent Illness/Hospitalization: No PFSH PFSH Medical History Pulmonary hypertension BEN (acute kidney injury) Acute and chronic respiratory failure with hypoxia Anemia Depression Dialysis patient DVT (deep venous thrombosis) Shortness of breath Hypoxia Interstitial lung disease Scleredema Hypothyroidism History of gastroesophageal reflux (GERD) Bipolar disorder Fibromyalgia Osteoarthritis Irritable colon Anxiety disorder Home Medications ?Medication ?Instructions ?Recorded ?Last Taken ?Type pantoprazole 40 mg tablet,delayed 40 mg PO DAILY GERD 05/21/22 10/28/23 History release ferrous sulfate 325 mg (65 mg 325 mg PO BID 11/09/22 10/28/23 History iron) tablet levothyroxine 100 mcg tablet 100 mcg PO DAILY 12/04/22 10/28/23 History bupropion HCl 300 mg 24 hr tablet, 300 mg PO QAM 05/10/23 10/28/23 History extended release (Wellbutrin XL) mycophenolate mofetil 500 mg 1,500 mg PO BID immunosuppresent 05/10/23 10/28/23 History tablet (CellCept) ramipril 10 mg capsule 10 mg PO BID 05/14/24 Unknown History diltiazem HCl 120 mg 120 mg PO BID #180 caps 05/29/24 Unknown Rx capsule,extended release 24 hr budesonide 0.5 mg/2 mL suspension 0.5 mg BID 05/31/25 Unknown History for nebulization formoterol fumarate 20 mcg/2 mL 2 ml inhalation BID 05/31/25 Unknown History solution for nebulization hydroxyzine HCl 25 mg tablet 25 mg PO Q8H PRN PRN itch 05/31/25 Unknown History pimecrolimus 1 % topical cream 1 - 2 topical BID 05/31/25 Unknown History Allergy/AdvReac Type Severity Reaction Status Date / Time acetaminophen (From Tylenol) Allergy Bleeding Verified 05/31/25 15:12 simvastatin (From Zocor) Allergy Rash Verified 05/31/25 15:12 NSAIDS (Non-Steroidal AdvReac Bleeding Verified 05/31/25 15:12 Anti-Inflamma Family History Father COPD (chronic obstructive pulmonary disease) Mother No cardiac disease Other Anemia Surgical History History of left heart catheterization (12/15/09) History of tonsillectomy S/P manipulation of deviated nasal septum H/O knee surgery H/O foot surgery Social History household members: significant other Smoking Status: Never smoker alcohol intake: never substance use type: does not use ROS ROS ED Constitutional Constitutional ED: Denies chills, fever(s), subjective, sweats or weight loss Eyes Eyes: Denies blurry vision, change in vision or diplopia ENT ENT ED: Reports rhinorrhea; Denies ear pain or sore throat Cardiovascular Cardiovascular: Denies chest pain Respiratory/Chest Respiratory/Chest: Denies cough, dyspnea or dyspnea on exertion Gastrointestinal Gastrointestinal: Denies abdominal pain, nausea or vomiting Genitourinary Genitourinary ED: Denies dysuria, hematuria or urinary frequency Musculoskeletal Musculoskeletal: Reports neck pain and other Details: Neck pain is chronic. ; Denies arthralgias, back pain or myalgias Integumentary Reports rash Neurologic Neurologic: Reports headache(s) and other Details: No problem with coordination or balance. No motor weakness. ; Denies paresthesias or weakness Endocrine Endocrinology: Denies polydipsia or polyphagia Hematologic/Lymphatic Hematologic/Lymphatic: Denies easy bleeding or easy bruising EXAM Physical Exam Const Vital Signs: 05/31/25 15:10 Temperature 98.2 F Temperature Source Oral Pulse Rate 107 H Respiratory Rate 16 Blood Pressure 136/77 H Blood Pressure Mean 96 Pulse Ox 96 Oxygen Delivery Method Room Air Positive well nourished and well developed General Appearance ED: well developed and NAD; Negative for pallor HEENT Reports normocephalic, TM's clear and moist mucous membranes atraumatic and temporal artery tenderness bilateral; Negative for vesicular rash Face and Sinus: Negative for sinus tenderness Tympanic Membrane ED: Yes TM's clear Eyes PERRL and EOMs intact bilaterally Eyes Narrative: Purpleish hue to upper eyelids General Eye ED: Negative for pale conjunctiva or scleral icterus Resp normal respiratory effort and clear to auscultation bilaterally Cardio regular rate, regular rhythm and no murmurs Extremity Extremity Narrative: Fingers are in flexion due to scleroderma. Neuro oriented x3, CN's II-XII intact bilaterally and no sensory deficits noted Sensorium / Orientation: awake and alert Coordination / Balance: [id number] test normal Motor Exam: strength 5/5 throughout Psych Mood & Affect: depressed Skin General Skin Exam: Negative for elasticity normal, turgor normal, jaundice or pallor MDM MDM MDM Narrative Medical decision making narrative: Sinus headache, sinus pressure, malignancy, because of the bilateral temporal pain need to consider giant cell arteritis will obtain ESR. Workup included CT, appropriate blood work. She was treated with Toradol, Benadryl and Reglan for headache. Prior records were reviewed. Lab Data Attestation: I reviewed the patient's lab results. Lab results narrative: CBC reveals mild anemia with normal indices. Electrolyte panel reveals creatinine of 1.28 with estimated GFR of 48. BUN to creatinine ratio is normal. ESR is normal, 10. Labs: Laboratory Results - last 24 hr 05/31/25 15:34 WBC 4.9 RBC 3.62 L Hgb 10.8 L Hct 32.8 L MCV 90.6 MCH 29.8 MCHC 32.9 RDW Std Deviation 43.6 RDW Coeff of Pebbles 13.3 Plt Count 313 MPV 10.2 Immature Gran % (Auto) 0.200 Neut % (Auto) 52.1 Lymph % (Auto) 30.4 [place] % (Auto) 14.9 H Eos % (Auto) 1.6 Baso % (Auto) 0.8 Absolute Neuts (auto) 2.6 Absolute Lymphs (auto) 1.49 Nucleated RBC % 0 ESR 10 Sodium 128 L Potassium 4.3 Chloride 92 L Carbon Dioxide 24.8 Anion Gap 11 BUN 17 Creatinine 1.28 H Estim Creat Clear Calc 43.21 L Est GFR (MDRD) Non-Af 48 L BUN/Creatinine Ratio 13.4 Glucose 104 H Calcium 9.1 Total Bilirubin 0.37 AST 19 ALT 5 Alkaline Phosphatase 98 Total Protein 6.9 Albumin 4.4 Globulin 2.5 Albumin/Globulin Ratio 1.7 Radiography Diagnostic Testing: Clinical Impression(s) from Imaging Studies Brain CT 05/31/25 15:21 IMPRESSION: 1. No intracranial hemorrhage. No mass effect or midline shift. 2. Chronic involutional and ischemic gliotic white matter changes. Reading Location: [facility] CT of the head without contrast was reviewed by me. There is no evidence of sinusitis. There is no evidence of any intracranial mass, vasogenic edema, shift or hemorrhage. Treatment and Re-Evaluation Narrative: Patient was informed of her results. She is now smiling. She has had 50% reduction in her head pain. Will refer her to neurology and primary since her doctor retired. Discharge Plan Triage Chief Complaint: Headache ED Provider: Todd Morin Dx/Rx/DC Orders Clinical Impression: Acute intractable headache, Scleroderma, Anemia, HTN (hypertension), Hyponatremia Instructions: Understanding Headache Pain Prescriptions: No Action ferrous sulfate 325 mg (65 mg iron) tablet 325 mg PO BID bupropion HCl [Wellbutrin XL] 300 mg tablet extended release 24 hr 300 mg PO QAM ramipril 10 mg capsule 10 mg PO BID Patient Comments: TAKE 1 TABLET BY MOUTH EVERY DAY mycophenolate mofetil [CellCept] 500 mg tablet 1,500 mg PO BID pantoprazole 40 mg Tablet,Delayed Release (Dr/Ec) 40 mg PO DAILY levothyroxine 100 mcg tablet 100 mcg PO DAILY pimecrolimus 1 % cream 1 - 2 topical BID budesonide 0.5 mg/2 mL suspension for nebulization 0.5 mg BID hydroxyzine HCl 25 mg tablet 25 mg PO Q8H PRN PRN (Reason: itch) formoterol fumarate 20 mcg/2 mL solution for nebulization 2 ml INHALATION BID diltiazem HCl 120 mg capsule,extended release 24hr 120 mg PO BID Qty: 180 3RF Primary Care Provider: Mono Lynn Referrals: Calli Palomino DO [Med Staff - Active Staff, Internal Medicine] - 5-7 Days Mono Lynn MD [Primary Care Provider, Family Practice] Dickson Hoffman MD [Non-Staff -Ordering Privileges, Neurology] - 5-7 Days Print Language: Malay Disposition Disposition: Home, Self Care
[2025-05-31] MEDS: DiphenhydrAMINE 50 MG/ML Syringe 25 MG IV (15:42)
[2025-05-31 16:02] LABS: AST(SGOT) 19 U/L (<=31); Alanine Aminotransfer ALT/SGPT 5 U/L (<=34); Albumin, Serum 4.4 g/dL (3.4-4.8); Alkaline Phosphatase 98 U/L (35-104); Anion Gap 11 (5-15); BUN 17 mg/dL (4-19); BUN/Creat Ratio 13.4 RATIO (10-20); Calcium,Total 9.1 mg/dL (7.6-11.0); Carbon Dioxide 24.8 mmol/L (21.0-32.0); Chloride 92 mmol/L (98-108); Estimated Creatinine Clearance 43.21 ml/min (50-250); Globulin 2.5 g/dL (2.2-4.2); Glucose 104 mg/dL (70-99); Potassium 4.3 mmol/L (3.3-5.1)
[2025-05-31 16:04] LABS: Hematocrit 32.8 % (37-47); Hemoglobin 10.8 g/dL (12.0-15.0); Immature Granulocytes Count 0.010 X10^3/uL (0.0-0.0); Mean Corp Hgb Conc 32.9 g/dL (32-36); Mean Corpuscular Volume 90.6 fL (81-99); Mean Platelet Vol. 10.2 fl (6.2-12.0); NRBC Flagged by Analyzer 0 % (0-5); Platelet Count 313 K/mm3 (150-450); RBC Distribution Width CV 13.3 % (11.6-14.6); RBC Distribution Width SD 43.6 fl (35.1-43.9); Red Blood Count 3.62 M/mm3 (4.2-5.4); White Blood Count 4.9 K/mm3 (4.4-11.0)
[2025-05-31 16:40] VITALS: BP 136/78; PULSE 101; RESP 19; TEMP 37.1; O2SAT 99
== END 2025-05-31 16:57 | disposition home or self-care (01) ==
PROVIDERS: Emergency Provider Emergency Medicine; PCP Family Medicine; Visit Provider Emergency Medicine
DX: R51.9 Headache, unspecified (principal); M34.9 Systemic sclerosis, unspecified; E87.1 Hypo-osmolality and hyponatremia; I10 Essential (primary) hypertension; D64.9 Anemia, unspecified; K21.9 Gastro-esophageal reflux disease without esophagitis; Z79.899 Other long term (current) drug therapy; E03.9 Hypothyroidism, unspecified; Z79.890 Hormone replacement therapy; F32.A Depression, unspecified
CPT/HCPCS: 70450; 80053; 85025; 85652; 96374; 96375; 96376; 99284; A4216